=== PATIENT | female | born 1975 | race Caucasian/White ===

== ENCOUNTER 2023-06-16 06:44 | Outpatient (OUT) | payer OTHER, SELFPAY ==
[2023-06-16 07:26] LABS: Basophils Absolute Auto 0.1 10^3/uL (0.0-0.1); Basophils Percent Auto 0.7 % (0.2-2.0); Eosinophils Absolute Auto 0.1 10^3/uL (0.0-0.7); Eosinophils Percent Auto 1.8 % (0.9-7.0); Hematocrit 42.9 % (36.0-48.0); Hemoglobin 14.4 g/dL (12.0-16.0); Immature Granulocytes Abs Auto 0.01 10^3/uL (0.00-0.03); Immature Granulocytes Pct Auto 0.1 % (0.0-0.5); Lymphocytes Absolute Auto 2.8 10^3/uL (1.2-3.8); Lymphocytes Percent Auto 39.8 % (20.5-60.0); Mean Corpuscular HGB Conc 33.6 g/dL (29.9-35.2); Mean Corpuscular Hemoglobin 28.7 pg (26.7-34.0); Mean Corpuscular Volume 85.6 fL (81.0-99.0); Mean Platelet Volume 11.2 fL (9.5-13.5); Monocytes Absolute Auto 0.5 10^3/uL (0.3-0.8); Monocytes Percent Auto 6.7 % (1.7-12.0); Neutrophils Absolute Auto 3.6 10^3/uL (1.4-6.5); Neutrophils Percent Auto 50.9 % (43.0-75.0); Platelet Count 232 10^3/uL (150-450); Red Blood Count 5.01 10^6/uL (4.20-5.40); Red Cell Distribution Width 12.5 % (11.0-15.0)
[2023-06-16 07:46] LABS: Thyroid Stimulating Hormone 1.846 uIU/mL (0.358-3.740)
[2023-06-16 07:58] LABS: Free T4 1.46 ng/dL (0.76-1.46)
== END 2023-06-16 06:45 | disposition home or self-care (01) ==
LOC: LAB 06:47
PROVIDERS: PCP Family Medicine; Visit Provider Obstetrics & Gynecology
DX: R63.5 Abnormal weight gain (principal)
CPT/HCPCS: 36415; 84439; 84443; 85025

== ENCOUNTER 2023-06-23 06:44 | Outpatient (OUT) | payer OTHER, SELFPAY ==
--- OUTSIDE RECORDS SUMMARY | 2023-06-23 06:45 | XMS_ITS | CCD ---
Author Organization [facility] Care Team Providers Care Leasing Manager Name Role Phone ANTONY MAXIMILIAN P Unavailable Unavailable SY, LALY Unavailable Unavailable MCGUINN, MAXIMILIAN P Unavailable Unavailable KERRIE, LALY Unavailable Unavailable LORETTA, DR CROW Admitting Unavailable LORETTA, DR CROW Attending Unavailable SY, DR LALY Arias Primary Care Unavailable LORETTA, DR CROW Consulting Unavailable LORETTA, DR CROW Consulting Unavailable LORETTA, DR CROW Admitting Unavailable LORETTA, DR CROW Attending Unavailable SY, DR LALY Arias Primary Care Unavailable LORETTA, DR CROW Admitting Unavailable LORETTA, DR CROW Attending Unavailable SY, DR LALY Arias Primary Care Unavailable LORETTA, DR CROW Consulting Unavailable ZIEBER, DR CAR bYarra Consulting Unavailable SY, DR LALY Arias Admitting Unavailable SY, DR LALY Arias Attending Unavailable KERRIE, DR LALY Arias Consulting Unavailable SY, DR LALY Arias Primary Care Unavailable Norma Combs Unavailable Laly Sy Unavailable Asalaz, Imad Unavailable MD Laly Sy Primary Care Provider [phone] MD Benja Martin Attending Provider Laly Sy Primary Care Unavailable Asaad, Imad Attending Unavailable AsaadBenja Admitting Unavailable MIGNON MUHAMMAD Attending Unavailable Allergies Allergy Classification Reported Allergen(s) Allergy Type Date of Onset Reaction(s) Facility (2 sources) Iodine Drug Allergy 08-01-2013 [facility] Repository (8 sources) Iodine Drug Allergy [facility] [place] [facility] Other (1 source) Iodine Drug Allergy 08-26-2022 [facility] Repository Medications Current Medications Medication Drug Class(es) Dates Sig (Normalized) Sig (Original) 0.5 ML tirzepatide 20 MG/ML Auto-Injector [Mounquangro] (6 sources) Mounjaro 10 MG/0.5ML as directed Subcutaneous Dr. Muhammad Active azithromycin 250 mg oral tablet (1 source) Macrolide Antimicrobial Start: 02-22-2023 Azithromycin 250 MG as directed Orally 2 tabs po today, then 1 tab daily x 4 more days for 5 Feb, Active chlorthalidone 25 mg oral tablet (9 sources) Thiazide-like Diuretic Start: 08-26-2022 take 25 mg by mouth once daily Chlorthalidone Active 25 MG PO Daily August 26, 2022 12:00am Chlorthalidone A ctive citalopram 20 mg oral tablet (8 sources) Serotonin Reuptake Inhibitor Start: 08-26-2022 take 20 mg by mouth once daily Citalopram Active 20 MG PO Daily August 26, 2022 12:00am take 1 tablet by osito th every twenty-four hours Citalopram Hydrobromide 10 MG 1 tablet Orally Once a day Active loratadine 10 mg oral tablet (8 sources) Start: 05-03-2011 take 1 tablet by mouth every twenty-four hours Claritin 10 MG 1 tablet Orally Once a day for 30 day(s) Apr, Active methylPREDNISolone 4 mg oral tablet (1 source) Corticosteroid Start: 02-22-2023 methylPREDNISolone 4 MG as directed Orally for 6 days Feb, Active mounjaro 10 mg/0.5ml solution pen-injector (1 source) Mounjaro 10 MG/0 .5ML as directed Subcutaneous Dr. Muhammad Active polyethylene glycol 3350 990684 mg / potassium chloride 2970 mg / sodium bicarbonate 6740 mg / sodium chloride 5860 mg / sodium sulfate 14344 mg powder for oral solution (3 sources) Osmotic Laxative Start: 07-28-2022 PEG-3350/Electrolyte s 236 GM as directed Orally once daily for 1 days Jul, Active Post-OP Shoe/Soft Top Women - (1 source) Start: 04-28-2022 Post-OP Shoe/Soft Top Women - as directed Apr, Active predniSONE 10 mg oral tablet (2 sources) Start: 08-05-2022 predniSONE 10 MG 4 tabs po daily x 2 days, 3 tabs daily x 2 days, 2 tabs daily x 2 days, 1 tab daily x 2 days Orally Once a day for 8 Jul, Active sulfamethoxazole 800 mg / trimethoprim 160 mg oral tablet (1 source) Dihydrofolate Reductase Inhibitor Antibacterial, Sulfonamide Antimicrobial take 1 tablet by mouth every twelve hours Bactrim DS 800-160 MG 1 tablet Orally Twice a day for 5 days Active Tirzepatide (1 source) Start: 08-26-2022 Tirzepatide (Mounjaro) 7.5 mg/0.5 mL pen injector Active 7.5 MG SUBCUT every week August 26, 2022 12:00am Problems Active Problems Problem Classification Problem Date Documented Da te Episodic/Chronic Asthma (2 sources) Exacerbation of moderate persistent asthma; Translations: [Moderate persistent asthma with (acute) exacerbation] Chronic Chronic obstructive pulmonary disease and bronchiectasis (1 source) Bronchitis, not specified as acute or chronic Episodic Essential hypertension (9 sources) Essential (primary) hypertension; Translations: [Essential hypertension] Onset: 04-04-2017 Chronic Essential hypertension (2 sources) Essential hypertension Onset: 04-04-2017 Gastrointestinal hemorrhage (1 source) Hemorrhage of anus and rectum Episodic Heart valve disorders (8 sources) Mitral valve prolapse; Translations: [Nonrheumatic mitral (valve) prolapse] Chronic Immunizations and screening for infectious disease (1 source) Encounter for screening for human papillomavirus (HPV); Translations: [ENC SCREENING HUMAN PAPILLOMAVIRUS] Onset: 09-22-2021 Episodic Other connective tissue disease (1 source) Other enthesopathy of unspecified foot and ankle Episodic Other endocrine disorders (7 sources) Disorder of endocrine system; Translations: [Endocrine disorder, unspecified] Episodic Other lower respiratory disease (1 source) Dyspnea, unspecified; Translations: [Dyspnea, unspecified] Onset: 05-04-2017 Episodic Other lower respiratory disease (8 sources) Dyspnea on exertion; Translations: [Dyspnea on exertion] Episodic Other nutritional; endocrine; and metabolic disorders (4 sources) Metabolic syndrome; Translations: [METABOLIC SYNDROME] Onset: 09-25-2021 Chronic Other nutritional; endocrine; and metabolic disorders (7 sources) Insulin resistance; Translations: [Metabolic syndrome] Chronic Other nutritional; endocrine; and metabolic disorders (1 source) Obesity caused by energy imbalance; Translations: [Other obesity due to excess calories] Chronic Other nutritional; endocrine; and metabolic disorders (1 source) Body mass index 30+ - obesity; Translations: [Body mass index (BMI) 34.0-34.9, adult] Chronic Other nutritional; endocrine; and metabolic disorders (1 source) Other obesity due to excess calories Chronic Other nutritional; endocrine; and metabolic disorders (1 source) Body mass index (BMI) 34.0-34.9, adult Chronic Other screening for suspected conditions (not mental disorders or infectious disease) (7 sources) Encounter for screening for malignant neoplasm of cervix; Translations: [Encounter for screening mammogram for malignant neoplasm of breast] Onset: 09-21-2021 Episodic Residual codes; unclassified (1 source) Family history of malignant neoplasm of digestive organs; Translations: [FAM HX MALIG NEOPLASM DIGESTIV ORGN] Onset: 09-28-2021 Episodic Residual codes; unclassified (7 sources) Insomnia; Translations: [Insomnia, unspecified] Episodic Unclassified (2 sources) Dyspnea, unspecified / R06.00(ICD-9) Onset: 05-04-2017 Unclassified (1 source) Edema, unspecified / R60.9(ICD-9) Onset: 05-04-2017 Unclassified (1 source) Obesity, unspecified / E66.9(ICD-9) Onset: 05-04-2017 Unclassified (1 source) Hemorrhage of anus and rectum; Translations: [Hemorrhage of anus and rectum] Onset: 08-26-2022 Past or Other Problems Problem Classification Problem Date Documented Da te Episodic/Chronic Nonspecific chest pain (4 sources) Chest pain, unspecified; Translations: [CHEST PAIN UNSPECIFIED] Onset: 06-17-2021 Episodic Other endocrine disorders (4 sources) Endocrine disorder, unspecified; Translations: [ENDOCRINE DISORDER UNSPECIFIED] Onset: 12-27-2020 Episodic Results Test Name Value Interpretation Reference Range Facility [facility] 08-26-2022 L - -------- Specimen: [id number] Received: 08/26/22 Status: PATRICIO Hernandezstephanie Num: [id number] Spec Type: Surgical Subm Dr: Benja Martin MD Tissues: A Colon Biopsy (SIGMOID POLYP) Procedures: HE/2, Gross/Micro L4 -------- Age/ Patient Sex Location Account Attending Physician -------- Noris Rosales 47/F [id number] Benja Martin MD -------- SPEC NUM: [id number] RECD: 08/26/22 STATUS: PATRICIO HERNANDEZStephanie NUM: [id number] JENNIFER: 08/26/22 DR: Benja Martin MD ENTERED: 08/26/[address] [facility] [address]: SPEC TYPE: Surgical DEPT: S ORDERED: HE/2, Gross/Micro L4 ORDERED: HE2, Gross/Micro L4 Pathological Diagnosis Colon, sigmoid, polyp, polypectomy: - 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 Entirely submitted in one cassette labeled A1. Microscopic Description Two H E slides reviewed. The microscopic examination confirms the diagnosis. CPT Codes 99687 -------- -------- Specimen: [id number] Received: 08/26/22 Status: PATRICIO Karen Num: [id number] Spec Type: Surgical Subm Dr: Benja Martin MD Tissues: A Colon Biopsy (SIGMOID POLYP) Procedures: HE/Kana, Gross/Micro L4 -------- Patient: Noris Rosales [id number] (Continued) -------- Signed (signature on file) Blas Mijares MD 08/27/22 1820 Normal [facility] INSULIN FREE AND TOTALon Free Insulin 10 uU/mL Normal [facility] Comment on above: Result Comment: Refe rence Range: Pubertal Children and Adults (fasting): 0 - 17 Performed By: #### E RAYNE #### [facility] [address] [place] [address] Dr. Beata Mijares Total Insulin 10 uU/mL Normal [facility] Comment on above: Result Comment: Non- Diabetic: In the absence of insulin- binding antibodies, the free and total insulin assays are equivalent. However, this assay is intended for use in diabetics with insulin autoantibody present. Measurement is performed on acid-treated samples and, therefore, the sensitivity and absolute values by this method may differ from our direct insulin ICMA. Insulin Dependent Diabetic Patients: Free Insulin levels vary depending on the capacity and affinity of circulating insulin-binding antibodies and the dose of insulin given to the patient. Total insulin levels represent free insulin and antibody bound insulin fractions. This test was developed and its performance characteristics determined by [employer]. It has not been cleared or approved by the Food and Drug Administration. Performed By: #### E RAYNE #### [facility] [address] [place] [address] Dr. Beata Mijares CBC AUTO DIFFon 09-25-2021 BASO # 0.1 103/ul Normal 0.0-0.1 [facility] Comment on above: Performed By: #### F T4 #### [facility] [address] [place] [address] Dr. Beata Mijares Basophils/100 WBC (Bld) 0.7 % Normal 0.2-2.0 [facility] Comment on above: Performed By: #### F T4 #### [facility] [address] [place] [address] Dr. Beata Mijares EO # 0.1 103/ul Normal 0.0-0.7 [facility] Comment on above: Performed By: #### F T4 #### [facility] [address] [place] [address] Dr. Beata Mijares Eosinophils/100 WBC (Bld) 1.8 % Normal 0.9-7.0 [facility] Comment on above: Performed By: #### F T4 #### [facility] [address] [place] [address] Dr. Beata Mijares Erythrocyte distribution width (RBC) [Ratio] 12.9 % Normal 11.0-15.0 [facility] Comment on above: Performed By: #### F T4 #### [facility] [address] [place] [address] Dr. Beata Mijares Hematocrit (Bld) [Volume fraction] 42.5 % Normal 36.0-48.0 [facility] Comment on above: Performed By: #### F T4 #### [facility] [address] [place] [address] Dr. Baeta Mijares Hemoglobin (Bld) [Mass/Vol] 14.3 g/dL Normal 12.0-16.0 [facility] Comment on above: Performed By: #### F T4 #### [facility] [address] [place] [address] Dr. Beata Mijares IG # 0.02 10e3/ul Normal 0.00-0.03 [facility] Comment on above: Performed By: #### F T4 #### [facility] [address] [place] [address] Dr. Beata Mijares IG % 0.3 % Normal 0.0-0.5 [facility] Comment on above: Performed By: #### F T4 #### [facility] [address] [place] [address] Dr. Beata Mijares LYMPH # 2.5 103/ul Normal 1.2-3.8 [facility] Comment on above: Performed By: #### F T4 #### [facility] [address] [place] [address] Dr. Beata Mijares Lymphocytes/100 WBC (Bld) 36.1 % Normal 20.5-60.0 [facility] Comment on above: Performed By: #### F T4 #### [facility] [address] [place] [address] Dr. Beata Mijares MANUAL DIFF REQ NO Normal [facility] Comment on above: Performed By: #### F T4 #### [facility] [address] [place] [address] Dr. Beata Mijares MCH (RBC) [Entitic mass] 28.4 pg Normal 26.7-34.0 [facility] Comment on above: Performed By: #### F T4 #### [facility] [address] [place] [address] Dr. Beata Mijares MCHC (RBC) [Mass/Vol] 33.6 g/dL Normal 29.9-35.2 [facility] Comment on above: Performed By: #### F T4 #### [facility] [address] [place] [address] Dr. Beata Mijares MCV (RBC) [Entitic vol] 84.3 fL Normal 81.0-99.0 [facility] Comment on above: Performed By: #### F T4 #### [facility] [address] [place] [address] Dr. Beata Mijares MONO # 0.5 103/ul Normal 0.3-0.8 [facility] Comment on above: Performed By: #### F T4 #### [facility] [address] [place] [address] Dr. Beata Mijares Monocytes/100 WBC (Bld) 7.7 % Normal 1.7-12.0 [facility] Comment on above: Performed By: #### F T4 #### [facility] [address] [place] [address] Dr. Beata Mijares NEUT # 3.7 103/ul Normal 1.4-6.5 [facility] Comment on above: Performed By: #### F T4 #### [facility] [address] [place] [address] Dr. Beata Mijares Neutrophils/100 WBC (Bld) 53.4 % Normal 43.0-75.0 [facility] Comment on above: Performed By: #### F T4 #### [facility] [address] [address] [address] Beata Mijares Platelet mean volume (Bld) [Entitic vol] 11.0 fL Normal 9.5-13.5 [facility] Comment on above: Performed By: #### F T4 #### [facility] [address] [place] [address] Dr. Beata Mijares PLT 229 103/ul Normal 150-450 [facility] Comment on above: Performed By: #### F T4 #### [facility] [address] [place] [address] Dr. Beata Mijares RBC 5.04 106/ul Normal 4.20-5.40 [facility] Comment on above: Performed By: #### F T4 #### [facility] [address] [place] [address] Dr. Beata Mijares WBC 6.8 103/ul Normal 4.0-11.0 [facility] Comment on above: Performed By: #### F T4 #### [facility] [address] [place] [address] Dr. Beata Mijares FREE T4on 09-25-2021 Free T4 [Mass/Vol] 1.19 ng/dL Normal 0.76-1.46 [facility] Comment on above: Performed By: #### F T4 #### [facility] [address] [place] [address] Dr. Beata Mijares GLYCOHEMOGLOBIN A1Con 2021 ADA RECOMMENDATION SEE BELOW Normal [facility] Comment on above: Result Comment: ADA RECOMMENDED LIMIT 4.0 - 6.0 ADA THERAPEUTIC TARGET < 7.0 ACTION SUGGESTED > 7.0 Performed By: #### E STRADI #### [facility] [address] [place] [address] Dr. Beata Mijares Glucose [Mass/Vol] 114 mg/dL Normal [facility] Comment on above: Performed By: #### E STRADI #### [facility] [address] [place] [address] Dr. Beata Mijares HbA1c (Bld) [Mass fraction] 5.6 % Normal 4.5-6.2 [facility] Comment on above: Performed By: #### E STRADI #### [facility] [address] [address] [address] Beata Mijares MG MAMM SCREEN 3D SHAUN CADon 09-25-2021 MG MAMM SCREEN 3D SHAUN CAD Patient: NORIS ROSALES Exam Date: 09/25/2021 : 1975 Gender:F Ordering : DR MIGNON MUHAMMAD . Admission #: [id number] Family : Order #: [id number] CLICK HERE TO VIEW EXAM RADIOLOGY REPORT PROCEDURE: MAMMOGRAM SCREENING 3D BILATERAL CAD COMPARISON: MG MAMM SCREEN 3D SHAUN CAD, 09/22/2020. MG MAMM SCREEN SHAUN W CAD, 07/24/2018. INDICATIONS: Screening mammography Calculator Name NCI Breast Cancer Risk Assessment Tool 5 Year Breast Cancer Risk 1.00% Lifetime Breast Cancer Risk 10.20% Personal Breast Cancer No Personal Ovarian Cancer No Treatments None Family Cancers Grandmother-paternal with colon cancer at age 70. LOCATION: [facility] BREAST COMPOSITION: Heterogeneously dense,which may obscure small masses. FINDINGS: DIAGNOSTIC CATEGORY 1--NEGATIVE. RIGHT BREAST: No significant suspicious finding. No significant change has occurred. LEFT BREAST: No significant suspicious finding. No significant change has occurred. RECOMMENDATIONS: ROUTINE MAMMOGRAM AND CLINICAL EVALUATION IN 12 MONTHS. PLEASE NOTE: A NORMAL MAMMOGRAM DOES NOT EXCLUDE THE POSSIBILITY OF BREAST CANCER. A CLINICALLY SUSPICIOUS PALPABLE LUMP SHOULD BE BIOPSIED. Dictated by: Car Garcia M.D. on 09/25/2021 at 09:50 Approved by: Car Garcia M.D. on 09/25/2021 at 10:20 [facility] PAP ACOG PANEL 2: 30 to 65on 09-25-2021 . . Normal [facility] Comment on above: Result Comment: Perf ormed at: WB Performed By: #### 4 [id number] #### [facility] [address] [address] [address] Beata Mijares Age Gdln ACOG Testing 30-65 Normal [facility] Comment on above: Performed By: #### 4 [id number] #### [facility] [address] [address] [address] Beata Mijares DIAGNOSIS: Comment Normal [facility] Comment on above: Result Comment: NEGA TIVE FOR INTRAEPITHELIAL LESION OR MALIGNANCY. THIS SPECIMEN WAS RESCREENED PART OF OUR SCRAP METAL PROCESSING WORKER PROGRAM. Performed at: WB Performed By: #### 4 [id number] #### [facility] [address] [place] [address] Dr. Beata Mijares HPV Aptima Negative Normal Negative [facility] Comment on above: Result Comment: This nucleic acid amplification test detects fourteen high-risk HPV types (16,18,31,33,35,39,45,51,52,56,58,59,66,68) without differentiation. Performed at: =G Performed By: #### 4 [id number] #### [facility] [address] [place] [address] Dr. Beata Mijares Methodology: Comment Normal [facility] Comment on above: Result Comment: This liquid based ThinPrep(R) pap test was screened with the use of an image guided system. Performed at: WB Performed By: #### 4 [id number] #### [facility] [address] [place] [address] Dr. Beata Mijares Note: Comment Normal [facility] Comment on above: Result Comment: The Pap smear is a screening test designed to aid in the detection of premalignant and malignant conditions of the uterine cervix. It is not a diagnostic procedure and should not be used as the sole means of detecting cervical cancer. Both false-positive and false-negative reports do occur. . Performed at: WB Performed By: #### 4 [id number] #### [facility] [address] [place] [address] Dr. Beata Mijares Performed by: Comment Normal [facility] Comment on above: Result Comment: Vee Tijerina, Pump House Technician (ASCP) Performed at: WB Performed By: #### 4 [id number] #### [facility] [address] [place] [address] Dr. Beata Mijares QC reviewed by: Comment Normal [facility] Comment on above: Result Comment: Mohinder Sepulveda, Supervisory Pump House Technician (ASCP) Performed at: WB Performed By: #### 4 [id number] #### [facility] [address] [place] [address] Dr. Beata Mijares Specimen adequacy: Comment Normal [facility] Comment on above: Result Comment: Sati sfactory for evaluation. Endocervical and/or squamous metaplastic cells (endocervical component) are present. Performed at: WB Performed By: #### 4 [id number] #### [facility] [address] [place] [address] Dr. Beata Mijares TSHon 09-25-2021 TSH 1.833 uIU/mL Normal 0.358-3.740 [facility] Comment on above: Performed By: #### T SH #### [facility] [address] [place] [address] Dr. Beata Mijares CARDIAC MELCHOR ADMITon 022 CK [Catalytic activity/Vol] 148 U/L Normal 26-192 [facility] Comment on above: Performed By: #### F T4 #### [facility] [address] [place] [address] Dr. Beata Mijares CK.MB [Mass/Vol] 1.29 ng/mL Normal <=3.60 [facility] Comment on above: Performed By: #### F T4 #### [facility] [address] [place] [address] Dr. Beata Mijares KOLBY 51 ng/mL Normal 9-82 [facility] Comment on above: Performed By: #### F T4 #### [facility] [address] [place] [address] Dr. Beata Mijares CBC AUTO DIFFon 06-17-2021 BASO # 0.0 103/ul Normal 0.0-0.1 [facility] Comment on above: Performed By: #### C BC #### [facility] [address] [place] [address] Dr. Beata Mijares Basophils/100 WBC (Bld) 0.4 % Normal 0.2-2.0 [facility] Comment on above: Performed By: #### C BC #### [facility] [address] [place] [address] Dr. Beata Mijares EO # 0.1 103/ul Normal 0.0-0.7 [facility] Comment on above: Performed By: #### C BC #### [facility] [address] [place] [address] Dr. Beata Mijares Eosinophils/100 WBC (Bld) 1.3 % Normal 0.9-7.0 [facility] Comment on above: Performed By: #### C BC #### [facility] [address] [place] [address] Dr. Beata Mijares Erythrocyte distribution width (RBC) [Ratio] 12.6 % Normal 11.0-15.0 [facility] Comment on above: Performed By: #### C BC #### [facility] [address] [place] [address] Dr. Beata Mijares Hematocrit (Bld) [Volume fraction] 43.3 % Normal 36.0-48.0 [facility] Comment on above: Performed By: #### C BC #### [facility] [address] [place] [address] Dr. Beata Mijares Hemoglobin (Bld) [Mass/Vol] 14.3 g/dL Normal 12.0-16.0 [facility] Comment on above: Performed By: #### C BC #### [facility] [address] [place] [address] Dr. Beata Mijares IG # 0.02 10e3/ul Normal 0.00-0.03 [facility] Comment on above: Performed By: #### C BC #### [facility] [address] [place] [address] Dr. Beata Mijares IG % 0.3 % Normal 0.0-0.5 [facility] Comment on above: Performed By: #### C BC #### [facility] [address] [place] [address] Dr. Beata Mijares LYMPH # 2.8 103/ul Normal 1.2-3.8 [facility] Comment on above: Performed By: #### C BC #### [facility] [address] [place] [address] Dr. Beata Mijares Lymphocytes/100 WBC (Bld) 39.4 % Normal 20.5-60.0 [facility] Comment on above: Performed By: #### C BC #### [facility] [address] [place] [address] Dr. Beata Mijares MANUAL DIFF REQ NO Normal [facility] Comment on above: Performed By: #### C BC #### [facility] [address] [place] [address] Dr. Beata Mijares MCH (RBC) [Entitic mass] 28.5 pg Normal 26.7-34.0 [facility] Comment on above: Performed By: #### C BC #### [facility] [address] [place] [address] Dr. Beata Mijares MCHC (RBC) [Mass/Vol] 33.0 g/dL Normal 29.9-35.2 [facility] Comment on above: Performed By: #### C BC #### [facility] [address] [place] [address] Dr. Beata Mijares MCV (RBC) [Entitic vol] 86.3 fL Normal 81.0-99.0 [facility] Comment on above: Performed By: #### C BC #### [facility] [address] [place] [address] Dr. Beata Mijares MONO # 0.4 103/ul Normal 0.3-0.8 [facility] Comment on above: Performed By: #### C BC #### [facility] [address] [place] [address] Dr. Beata Mijares Monocytes/100 WBC (Bld) 5.9 % Normal 1.7-12.0 [facility] Comment on above: Performed By: #### C BC #### [facility] [address] [place] [address] Dr. Beata Mijares NEUT # 3.8 103/ul Normal 1.4-6.5 [facility] Comment on above: Performed By: #### C BC #### [facility] [address] [place] [address] Dr. Beata Mijares Neutrophils/100 WBC (Bld) 52.7 % Normal 43.0-75.0 [facility] Comment on above: Performed By: #### C BC #### [facility] [address] [place] [address] Dr. Beata Mijares Platelet mean volume (Bld) [Entitic vol] 11.1 fL Normal 9.5-13.5 [facility] Comment on above: Performed By: #### C BC #### [facility] [address] [place] [address] Dr. Beata Mijares PLT 227 103/ul Normal 150-450 [facility] Comment on above: Performed By: #### C BC #### [facility] [address] [place] [address] Dr. Beata Mijares RBC 5.02 106/ul Normal 4.20-5.40 [facility] Comment on above: Performed By: #### C BC #### [facility] [address] [place] [address] Dr. Beata Mijares WBC 7.2 103/ul Normal 4.0-11.0 [facility] Comment on above: Performed By: #### C BC #### [facility] [address] [place] [address] Dr. Beata Mijares PROF CHEM 8 (BAS METB)on Anion gap [Moles/Vol] 10.2 mmol/L Normal [facility] Comment on above: Performed By: #### E STRADI #### [facility] [address] [place] [address] Dr. Beata Mijares Calcium [Mass/Vol] 9.7 mg/dL Normal 8.5-10.1 [facility] Comment on above: Performed By: #### E STRADI #### [facility] [address] [place] [address] Dr. Beata Mijares Chloride [Moles/Vol] 101 mmol/L Normal 98-107 [facility] Comment on above: Performed By: #### E STRADI #### [facility] [address] [place] [address] Dr. Beata Mijares CO2 [Moles/Vol] 35.1 mmol/L Critically high 21.0-32.0 [facility] Comment on above: Performed By: #### E STRADI #### [facility] [address] [address] [address] Beata Mijares Creatinine [Mass/Vol] 0.88 mg/dL Normal 0.55-1.02 [facility] Comment on above: Performed By: #### E STRADI #### [facility] [address] [address] [address] Beata Mijares EGFR-AF AZERBAIJANI >60 Normal >=60 [facility] Comment on above: Performed By: #### E STRADI #### [facility] [address] [address] [address] Beata Mijares EGFR-NON AF AZERBAIJANI >60 Normal >=60 [facility] Comment on above: Performed By: #### E STRADI #### [facility] [address] [address] [address] Beata Mijares Glucose [Mass/Vol] 111 mg/dL Critically high 74-106 [facility] Comment on above: Performed By: #### E STRADI #### [facility] [address] [address] [address] Beata Mijares Potassium [Moles/Vol] 3.3 mmol/L Critically low 3.5-5.1 [facility] Comment on above: Performed By: #### E STRADI #### [facility] [address] [place] [address] Dr. Beata Mijares Sodium [Moles/Vol] 143 mmol/L Normal 136-145 [facility] Comment on above: Performed By: #### E STRADI #### [facility] [address] [address] [address] Beata Mijares Urea nitrogen [Mass/Vol] 17.0 mg/dL Normal 7.0-18.0 [facility] Comment on above: Performed By: #### E STRADI #### [facility] [address] [address] [address] Beata Mijares Urea nitrogen/Creatinine [Mass ratio] 19.3 mg/mg Normal [facility] Comment on above: Performed By: #### E STRADI #### [facility] [address] [address] [address] Beata Mijares TROPONIN, HIGH SENSITIVITYon 06-17-2021 HSTROP 5.1 pg/mL Normal 4.0-51.3 [facility] Comment on above: Result Comment: CUT- OFF POINTS HAVE BEEN ESTABLISHED BASED ON THE FOURTH UNIVERSAL DEFINITIONS OF MYOCARDIAL INFARCTION. THE UPPER REFERENCE LIMIT (URL) OF TROPONIN, DEFINED THE 99TH PERCENTILE OF cTnI DISTRIBUTION IN A REFERENCE POPULATION, HAS BEEN CONFIRMED THE DECISION THRESHOLD FOR WA DIAGNOSIS. Performed By: #### E STRADI #### [facility] [address] [address] [address] Beata Mijares Performed By: #### F T4 #### [facility] [address] [place] [address] Dr. Beata Mijares ESTRONEon 12-30-2020 Estrone, Serum 68 pg/mL Normal [facility] Comment on above: Result Comment: Adul t: Follicular phase 39 - 132 Periovulatory 58 - 256 Luteal phase 54 - 179 : 1st trimester 247 - 2774 2nd trimester 569 - 5781 Postmenopausal: with ERT 51 - 488 without ERT 31 - 100 Performed By: #### E RAYNE #### [facility] [address] [place] [address] Dr. Beata Mijares TESTOSTERONE, FREE,DIRECT, T OTALon 12-30-2020 Free Testosterone(Direct) 1.7 pg/mL Normal 0.0-4.2 [facility] Comment on above: Result Comment: Perf ormed at: BN Performed By: #### F T4 #### [facility] [address] [place] [address] Dr. Beata Mijares Testosterone [Mass/Vol] 17 ng/dL Normal 4-50 [facility] Comment on above: Result Comment: Perf ormed at: CB Performed By: #### F T4 #### [facility] [address] [place] [address] Dr. Beata Mijares CORTISOLon 12-28-2020 Cortisol 17.6 ug/dL Normal [facility] Comment on above: Result Comment: Kade isol AM 6.2 - 19.4 Cortisol PM 2.3 - 11.9 Performed By: #### E STRADI #### [facility] [address] [address] [address] Beata Mijares DHEA-SULFATEon 12-28-2020 DHEA-Sulfate 142.0 ug/dL Normal 41.2-243.7 [facility] Comment on above: Performed By: #### D MALIHA #### [facility] [address] [address] [address] Beata Mijares ESTRADIOLon 12-28-2020 Estradiol 14.2 pg/mL Normal [facility] Comment on above: Result Comment: Adul t Female: Follicular phase 12.5 - 166.0 Ovulation phase 85.8 - 498.0 Luteal phase 43.8 - 211.0 Postmenopausal <6.0 - 54.7 1st trimester 215.0 - >4300.0 Corey ECLIA methodology Performed By: #### E RAYNE #### [facility] [address] [place] [address] Dr. Beata Mijares PROGESTERONEon 12-28-2020 Progesterone 0.1 ng/mL Normal [facility] Comment on above: Result Comment: Foll icular phase 0.1 - 0.9 Luteal phase 1.8 - 23.9 Ovulation phase 0.1 - 12.0 First trimester 11.0 - 44.3 Second trimester 25.4 - 83.3 Third trimester 58.7 - 214.0 Postmenopausal 0.0 - 0.1 Performed By: #### P QUE #### [facility] [address] [place] [address] Dr. Beata Mijares SEX HORMONE-BINDING GLOBULIN on 12-28-2020 Sex Horm Binding Glob, Serum 31.7 nmol/L Normal 24.6-122.0 [facility] Comment on above: Performed By: #### S EXHBG #### [facility] [address] [address] [address] Beata Mijares T3, TOTAL (TRIIODOTHYRONINE) on 12-28-2020 T3, TOTAL 123 ng/dL Normal 71-180 [facility] Comment on above: Performed By: #### E RAYNE #### [facility] [address] [address] [address] Beata Mijares FREE T4on 12-27-2020 Free T4 [Mass/Vol] 1.29 ng/dL Normal 0.78-2.19 [facility] Comment on above: Performed By: #### E STRADI #### [facility] [address] [place] [address] Dr. Beata Mijares T4on 12-27-2020 T4 [Mass/Vol] 6.70 ug/dL Normal 5.53-11.00 [facility] Comment on above: Performed By: #### T SH, T4 #### [facility] [address] [place] [address] Dr. Beata Mijares TSHon 12-27-2020 TSH 1.127 uIU/mL Normal 0.470-4.680 [facility] Comment on above: Performed By: #### T SH, T4 #### [facility] [address] [place] [address] Dr. Beata Mijares TSH RANGE SEE BELOW Normal [facility] Comment on above: Result Comment: <0.3 4 UIU/ml HYPERTHYROID 0.34-5.60 UIU/ml EUTHYROID >5.60 UIU/ml HYPOTHYROID Performed By: #### T SH, T4 #### [facility] [address] [place] [address] Dr. Beata Mijares VITAMIN D 25 OHon 12-27-2020 VIT D 25-OH 32.0 ng/mL Normal [facility] Comment on above: Performed By: #### E STRADI #### [facility] [address] [place] [address] Dr. Beata Mijares VIT D RANGES SEE BELOW Normal [facility] Comment on above: Result Comment: <20 ng/mL Vit D deficient 20 - <30 ng/mL Vit D insufficient 30 - 100 ng/mL Vit D sufficient >100 ng/mL Potential Toxicity Performed By: #### E STRADI #### [facility] [address] [place] [address] Dr. Beata Mijares Creatinineon 04-04-2017 Creatinine 0.87 mg/dL Normal 0.50-1.05 [facility] Comment on above: Performed By: #### 1 [id number] ####[facility] [address] [place] [address] eGFR (MDRD) mL/min/{1.73_m2} Normal [facility] Comment on above: Result Comment: Inte rpretation for Chronic Kidney Disease:Stages 1&2 >60 Healthy or potential kidney damage.Mild decrease of GFR.Stage 3 30-59 Moderate decrease of GFR.Stage 4 15-29 Severe decrease of GFR.Stage 5 <15 Kidney failure or on dialysis. Performed By: #### 1 [id number] ####[facility] [address] [place] [address] Electrolyte Panelon 04-04-19 18 Anion gap 11 mmol/L Normal 10-20 [facility] Comment on above: Performed By: #### 1 [id number] ####[facility] [address] [place] [address] Bicarbonate (HCO3) 32 mmol/L Normal 21-32 [facility] Comment on above: Performed By: #### 1 [id number] ####[facility] [address] [place] [address] Chloride 103 mmol/L Normal 98-107 [facility] Comment on above: Performed By: #### 1 [id number] ####[facility] [address] [place] [address] Potassium molar conc 3.3 mmol/L Low 3.5-5.1 [facility] Comment on above: Performed By: #### 1 [id number] ####[facility] [address] [place] [address] Sodium 143 mmol/L Normal 136-145 [facility] Comment on above: Performed By: #### 1 [id number] ####[facility] [address] [place] [address] Urea Nitrogenon 04-04-2017 Urea nitrogen 18 mg/dL Normal 6-23 [facility] are Comment on above: Performed By: #### 1 [id number] ####[facility] [address] [place] [address] Urinalysison 04-04-2017 Ascorbic Acid Negative Normal Negative [facility] are Comment on above: Performed By: #### 1 [id number] ####[facility] [address] [place] [address] Automated Urine Microscopy Performed Normal [facility] Comment on above: Performed By: #### 1 [id number] ####[facility] [address] [place] [address] Bilirubin Ql (U) Negative Normal Negative [facility] Comment on above: Performed By: #### 1 [id number] ####[facility] [address] [place] [address] Blood Small Abnormal Negative [facility] Comment on above: Performed By: #### 1 [id number] ####[facility] [address] [place] [address] Erythrocytes (RBC) 4 /[HPF] Normal 0-3 [facility] Comment on above: Performed By: #### 1 [id number] ####[facility] [address] [place] [address] Glucose mass conc Negative Normal Negative [facility] Comment on above: Performed By: #### 1 [id number] ####[facility] [address] [place] [address] Protein Negative Normal Negative [facility] Comment on above: Performed By: #### 1 [id number] ####[facility] [address] [place] [address] Urine, appearance Hazy Normal Clear [facility] Comment on above: Performed By: #### 1 [id number] ####[facility] [address] [place] [address] Urine, color Yellow Normal [facility] Comment on above: Performed By: #### 1 [id number] ####[facility] [address] [place] [address] Urine, ketones presence Negative Normal Negative [facility] Comment on above: Performed By: #### 1 [id number] ####[facility] [address] [place] [address] Urine, nitrite presence Negative Normal Negative [facility] Comment on above: Performed By: #### 1 [id number] ####[facility] [address] [place] [address] Urine, pH 7.0 [pH] Normal 5.0-9.0 [facility] Comment on above: Performed By: #### 1 [id number] ####[facility] [address] [place] [address] Urine, specific gravity 1.021 Normal 1.003-1.035 [facility] Comment on above: Performed By: #### 1 [id number] ####[facility] [address] [place] [address] Urine, squamous cells in sediment 1 /[HPF] Normal 0-5 [facility] Comment on above: Performed By: #### 1 [id number] ####[facility] [address] [place] [address] Urine, urobilinogen <2.0 Normal Negative [facility] Comment on above: Performed By: #### 1 [id number] ####[facility] [address] [place] [address] WBC (Leukocytes) 1 /[HPF] Normal 0-5 [facility] Comment on above: Performed By: #### 1 [id number] ####[facility] [address] [place] [address] WBC (Leukocytes) Negative Normal Negative [facility] Comment on above: Performed By: #### 1 [id number] ####[facility] [address] [place] [address] Vital Signs Date Time Vital Sign Value Performing Clinician Facility 02-22-2023 09:45-0500 Body height 167.64 cm Laly Sy Other [employer] Other 02-22-2023 09:45-0500 Body mass index (BMI) [Ratio] 34.21 kg/m2 Laly Sy Other [employer] Other 02-22-2023 09:45-0500 Body weight 96.16 kg Laly Sy Other [employer] Other 10-04-2022 09:00-0400 Body height 167.64 cm Laly Sy Other [employer] Other 10-04-2022 09:00-0400 Body mass index (BMI) [Ratio] 34.21 kg/m2 Laly Sy Other [facility] [employer] Other 10-04-2022 09:00-0400 Body weight 96.16 kg Laly Sy Other [employer] Other 10-04-2022 09:00-0400 Diastolic blood pressure 85 mm[Hg] Laly Sy Other [facility] [employer] Other 10-04-2022 09:00-0400 Systolic blood pressure 142 mm[Hg] Laly Sy Other [facility] [employer] Other 08-26-2022 10:41-0400 Diastolic blood pressure 78 mm[Hg] MD Laly Sy Work Phone: [facility] 08-26-2022 10:41-0400 Heart rate 57 /min MD Laly Sy Work Phone: [facility] 08-26-2022 10:41-0400 Respiratory rate 16 /min MD Laly Sy Work Phone: [facility] 08-26-2022 10:41-0400 SaO2% (BldA) [Mass fraction] 97 % MD Laly Sy Work Phone: [facility] 08-26-2022 10:41-0400 Systolic blood pressure 136 mm[Hg] MD aLly Sy Work Phone: [facility] 08-26-2022 07:54-0400 Body height 167.64 cm MD Laly Sy Work Phone: [facility] 08-26-2022 07:54-0400 Body temperature 98.1 [degF] MD Laly Sy Work Phone: [facility] 08-26-2022 07:54-0400 Body weight 97.52 kg MD Laly Sy Work Phone: [facility] 07-19-2022 11:00-0400 Body height 167.64 cm Laly Sy Other [facility] [employer] Other 07-19-2022 11:00-0400 Body mass index (BMI) [Ratio] 34.7 kg/m2 Laly Sy Other [employer] Other 07-19-2022 11:00-0400 Body weight 97.52 kg Laly Sy Other [employer] Other 07-19-2022 11:00-0400 Diastolic blood pressure 85 mm[Hg] Laly Sy Other [employer] Other 07-19-2022 11:00-0400 Systolic blood pressure 131 mm[Hg] Laly Sy Other [employer] Other 04-28-2022 19:50-0400 Body height 167.64 cm Norma Combs Other [employer] Other 04-28-2022 19:50-0400 Body mass index (BMI) [Ratio] 32.28 kg/m2 Norma Lauryn Other [employer] Other 04-28-2022 19:50-0400 Body temperature 98.3 [degF] Norma Combs Other [employer] Other 04-28-2022 19:50-0400 Body weight 90.72 kg Norma Combs Other [employer] Other 04-28-2022 19:50-0400 Respiratory rate 18 /min Norma Lauryn Other [employer] Other 04-28-2022 19:50-0400 SaO2% (BldA) [Mass fraction] 97 % Norma Combs Other [employer] Other Encounters Encounter Date Encounter Type Care Provider Facility Start: 06-07-2023 End: 06-07-2023 ambulatory MIGNON LORETTA Not Available Start: 02-22-2023 End: 02-22-2023 ambulatory Laly Sy Other [employer] Other Start: 02-22-2023 Office outpatient vi sit 15 minutes Laly Sy [facility] Start: 10-25-2022 End: 10-25-2022 ambulatory Laly Sy Other [employer] Other Start: 10-25-2022 Telephone encounter Laly Sy [facility] Start: 10-04-2022 End: 10-04-2022 ambulatory Laly Sy Other [employer] Other Start: 10-04-2022 Encounter for genera l adult medical examination without abnormal findings Laly Sy [facility] Start: 10-04-2022 Periodic preventive med est patient 40-64yrs Laly Sy [facility] Start: 08-26-2022 End: 08-26-2022 ambulatory Laly Sy Facility:[facility] Start: 08-26-2022 End: 08-26-2022 Admission to same day surgery center MD Laly Sy Work Phone: [facility] Work Phone: Start: 08-26-2022 End: 08-26-2022 ambulatory MD Laly Sy Work Phone: [facility] Work Phone: Start: 08-13-2022 End: 08-13-2022 ambulatory Laly Sy Other [employer] Other Start: 08-13-2022 Telephone encounter Laly Sy [facility] Start: 08-05-2022 End: 08-05-2022 ambulatory Laly Sy Other [employer] Other Start: 08-05-2022 Telephone encounter Laly Sy [facility] Start: 07-26-2022 End: 07-26-2022 ambulatory Imad Asaad Other [employer] Other Start: 07-26-2022 Telephone encounter Imad Asaad [facility] [employer] [facility] Start: 07-19-2022 End: 07-19-2022 ambulatory Laly Sy Other [employer] Other Start: 07-19-2022 Office outpatient vi sit 15 minutes Laly Sy [facility] Start: 04-28-2022 End: 04-28-2022 ambulatory Norma Combs Other [employer] Other Start: 04-28-2022 Office outpatient ne w 20 minutes Normaprieto Combs [facility] Start: 09-25-2021 End: 09-26-[address] MIGNON MUHAMMAD Facility:[facility] Start: 09-21-2021 End: 09-21-[address] MIGONN MUHAMMAD Facility:[facility] Start: 06-17-2021 End: 06-18-[address] LALY SY Facility:[facility] Start: 12-27-2020 End: 12-28-[address] MIGNON MUHAMMAD Facility:[facility] Start: 05-04-2017 Ambulatory MAXIMILIAN HARDY Facil [id number] Start: 05-04-2017 Ambulatory Facility:[id number] Start: 04-04-2017 Ambulatory MAXIMILIAN HARDY Facil [id number] Procedures Date Procedure Procedure Detail Performing Clinician Start: 08-26-2022 Colonoscopy MD Laly Sy Work Phone: Plan of Treatment Date Care Activity Detail Author Start: 08-26-2022 [facility] Patient Education Colon polyps H emorrhoids (DC) [facility] Work Phone: Payers Date Payer Category Payer Self-pay 1975 Unknown [id number] [id number] [id number] 1975 Unknown [id number] 2.16.84 [id number] 1975 Unknown [id number] 2.16.84 [id number] 1973 Unknown [id number] 2.16.84 [id number] 1973 Unknown [id number] 2.16.84 [id number] 1959 Unknown [id number] Unknown [id number] Unknown MMO [id number] Unknown [id number] 2.16.8 [id number] Social History Date Type Detail Facility Sex Assigned At [employer] Other Start: 08-26-2022 [facility] Start: 1975 Sex Assigned At Female [facility] Goals Date Patient Goal Desired Activity /State Clinical Notes 04-28-2022 to 02-22-2023 Note Date & Type Note Facility 02-22-2023 Evaluation note Encounter Date Diagnosis Assessment Notes Feb, Moderate persistent asthma with exacerbation (ICD-10 - J45.41) Pt using nebs and still having signficant shortness of breath. Her Peak Flow is <300. Agress to short course of steroids. Feb, Bronchitis (ICD-10 - J40) Take antibiotic as directed. If develop wheezing, chest tightness, itching, bad cough, blue skin color, seizures, swelling of face, lips, tongue, or throat report to ED. Feb, Other obesity due to excess calories (ICD-10 - E66.09) Feb, Body mass index [BMI] 34.0-34.9, adult (ICD-10 - Z68.34) Form faxed to [employer] for semaglutide - starting dose. Pt unable to report weight, but states she has gained since Harriett went up to $900 and she stopped it. She feels poorly and would like the more affordable option at [employer] [facility] [place] Other 08-28-2023 Evaluation note* Encounter Date Diagnosis Assessment Notes Treatment Notes Treatment Clinical Notes Sep, Well adult exam (ICD-10 - Z00.00) We have discussed the necessity of following up with PCP regularly as well as specialists, as needed. Discussed F/U with dentistry and optometry at least yearly. Discussed all preventative measures/ cancer screenings as applicable to this patient. Emphasized the importance of a reduced fat, low carb diet to promote heart health and controlled blood sugars. Reviewed social history and ensured patient is safe within the home today. Pt denies any abuse of alcohol, nicotine, caffeine or recreational drugs. I have ensured patient is of stable mental and physical health today. We have discussed appropriate F/U schedule as well as blood work and vaccinations that apply. All questions answered and patient is sent home pleased, without concerns. [employer] Other [facility] Encounter Date Diagnosis Assessment Notes Treatment Notes Treatment Clinical Notes Jul, Rectal bleeding (ICD-10 - K62.5) Jul, Colon cancer screening (ICD-10 - Z12.11) as above Jul, Essential (primary) hypertension (ICD-10 - I10) improved. OK to hold med and continue check home bps. Jul, Mitral valve prolapse (ICD-10 - I34.1) chronic problem. continue monitoring symptoms. [employer] Other 03-22-2023 Evaluation note* Encounter Date Diagnosis Assessment Notes Treatment Notes Treatment Clinical Notes Apr, Tendonitis of foot (ICD-10 - M77.50) Wear the Jesus wrap for comfort and compression. Use the postop shoe for comfort and protection. Ice and elevate your foot 2-3 times a day. Take ibuprofen, 600 mg by mouth with food 3 times a day for 5 to 7 days. Follow-up with your family physician if no improvement in 5 to 7 days. Apr, Other Football: young athlete material was printed, Tendonitis home care material was printed [facility] [employer] Other Evaluation noteNo InformationNort [employer] Other Evaluation noteNo assessment information available [facility] Work Phone: History and physical note Author Benja Martin [facility] August 26, 2022 9:34am Note Date/Time August 26, 2022 9:34 am [facility] [address] [place] [address] Gastroenterology H&P Signed Patient: Noris Rosales MR#: [id number] : 1975 Acct:[id number] Age/Sex: 47 / F Adm Date: 3 Loc: Room: Type: [facility] Attending Dr: Benja Martin MD Copies to: MD Laly Jones MD~ Date of Service: 08/26/2022 HISTORY & PHYSICAL: Patient's history with special attention to the cardiovascular, pulmonary systems and the current problem was reviewed with the patient immediately prior to the procedure. Present medications and doses reviewed in the EMR. Allergies and pertinent laboratory tests were also reviewedat this time in the EMR. The physical examination, as below, was then performed. Indication, assessment and HPI: 47-year-old female here for colonoscopy for evaluation of rectal bleeding Family history of GI malignancy? No PHYSICAL EXAMINATION Mouth and Pharynx : Moist mucus membranes, normal dentition Cardiac: Regular rate, regular rhythm Pulmonary: Clear to auscultation bilaterally, no wheezing Neurological: Alert and oriented x3, no focal deficits noted Abdomen: Abdomen soft, non-tender REVIEW OF SYSTEMS Constitutional: Denies malaise, fevers Cardiovascular: Denies chest pain, palpitations Respiratory: Denies shortness of breath, wheezing Gastrointestinal: Per HPI Genitourinary: Denies dysuria, polyuria Musculoskeletal: Denies joint swelling, joint stiffness Neurological: Denies numbness, tingling Integumentary: Denies rashes, skin lesions Endocrine: Denies fatigue, weight loss Written informed consent obtained from the patient. Risks (including but not limited to perforation, infection, bloating, bleeding, need for emergent surgeryand loss of life), benefits and alternatives explained and questions answered. The patient verbalized understanding. Based on history patient is an appropriate candidate for the procedure. Benja Martin M.D. Documented By: Benja Martin MD 08/26/22933 Signed By: <Electronically signed by Benja Martin MD> 08/26/22933 [facility] Work Phone: [facility] Narrative - Reported* Type Description Date Medical History Hypertension Medical History asthma Medical History mitral valve prolapse Surgical History tonsillectomy 2000 Surgical History C section x 2 2007 Hospitalization History childbirth [employer] Other History general Narrative - Reported* Type Description Date Medical History Hypertension Medical History asthma Medical History mitral valve prolapse Medical History Insulin resistance Medical History Hormone imbalance Medical History Insomnia Surgical History tonsillectomy 2000 Surgical History C section x 2 2007 Hospitalization History childbirth [employer] Other Hospital Discharge instructions Additional Instructions DISCHARGE INSTRUCTIONS FOR COLONOSCOPY WHAT TO EXPECT: - You may feel full, gassy or cramping after your procedure. In some cases, this may be from a few hours to a day. Walking may help relieve the discomfort. - If you have polyp(s) removed you may note some minor bloody discharge after your first bowel movements. - You should begin to recover from anesthesia within 1 hour of the procedure, however may feel groggy for the next 24 hours. DO's AND DON'Ts: - Call your doctor right away if you have a hard abdomen, severe pain, are passing lots of bright red blood or clots. - Call your doctor if you develop any rashes, hives or difficulty breathing. - Let your doctor know if you have not had a bowel movement by 3 days after your procedure. - If you take 81 mg aspirin for your heart it is safe to resume this medication. - If you take other blood thinner medications your doctor will instruct you when these can safely be resumed. - Do NOT drive for 24 hours. - Do NOT operate machinery such as power tools, lawn mowers, snow blowers, sewing machines, etc. for 24 hours. - Avoid alcoholic beverages and drugs for allergies, nerves, or sleep. - Do NOT stay alone. Do NOT leave your child unattended. - Do NOT make important personal or business decisions or sign any legal documents. - Eat solid foods and drink liquids in smaller amounts than usual until normal appetite returns. If you should experience an upset stomach, liquids high in sugar content (soda, Juan-Aid, non-acid juices) are recommended. - You can resume normal activities tomorrow. FOLLOW UP & RECOMMENDATIONS: -Repeat colonoscopy in 3 years pending polyp pathology -Follow up with PCP. -Office number [phone]. [facility] Work Phone: Summary Purpose Family History No Family History Records Found Relationship Condition Age at Onset Recorded Date/T malu grandparent Malignant neoplasm of colon Unknown father Leukemia Unknown Not Specified Disorder of thyroid Unknown grandparent Heart disease Unknown Advance Directives No Advanced Directives Records Found Advance Directive Response Recorded Date/ Time Advance Directives No August 25 10:32am Reason for Referral Reason *Waiting for appt due for screening colonoscopy and also has rectal bleeding - assumes it is a hemorrhoid - but is concerned. Diagnosis 1 Rectal bleeding (K62 .5) Referral Organization [facility] bhupendra Referring Provider First Name Laly Referring Provider Last Name Kerrie Referring Provider Specialty Family [facility] Referred Organization [facility] Referred Provider Ramos Barr Referred Address [address] [address] ,[place], [place],[address] Referred Provider Specialty Gastroentero logy Referral Priority Routine General Notes Morena Cohen 12:03:33 PM >received today, sent P2P Chief Complaint and Reason for Visit Chief Complaint Rectal Bleeding Additional Source Comments INFORMATION SOURCE (unrecogn ized section and content) DATE CREATED AUTHOR 07/28/2017 [facility] DATE CREATED AUTHOR AUTHOR'S ORGANIZ ATION 07/28/2017 [facility] DATE CREATED AUTHOR AUTHOR'S ORGANIZ ATION 10/04/2021 [facility] DATE CREATED AUTHOR AUTHOR'S ORGANIZ ATION 09/02/2022 [facility] DATE CREATED AUTHOR AUTHOR'S ORGANIZ ATION 06/08/2023 [facility] EPIC REASON FOR VISIT (unrecogniz ed section and content) RIGHT FOOT SWOLLENcheck up, personal concernsMAIL [id number]- Sick Care Teams (unrecognized sec tion and content) Team Status: Active Member Role Status Dates Laly Sy MD Primary Care Provider Active Team Status: Inactive Member Role Status Dates Laly Sy MD Primary Care Provider Active Benja Martin MD Attending Provider Active FOR RECORDS PERTAINING TO PATIENTS WHO ARE OR HAVE BEEN ENROLLED IN A CHEMICAL DEPENDENCY/SUBSTANCEABUSE PROGRAM, SOME INFORMATION MAY BE OMITTED. This clinical summary was aggregated from multiple sources. Caution should be exercised in using it in the provision of clinical care. This summary normalizes information from multiple sources, and as a consequence, information in this document may materially change the coding, format and clinical context of patient data. In addition, data may be omitted in some cases. CLINICAL DECISIONS SHOULD BE BASED ON THE PRIMARY CLINICAL RECORDS. [facility]. provides no warranty or guarantee of the accuracy or completeness of information in this document.
[2023-06-23 07:27] LABS: Estimated Average Glucose 111 mg/dL; Glycohemoglobin A1C 5.5 % (4.5-6.2)
== END 2023-06-23 06:45 | disposition home or self-care (01) ==
LOC: LAB 06:44
PROVIDERS: PCP Family Medicine; Visit Provider Obstetrics & Gynecology
DX: R63.5 Abnormal weight gain (principal)
CPT/HCPCS: 36415; 83036

== ENCOUNTER 2023-08-24 09:17 | Outpatient (OUT) | payer OTHER, SELFPAY ==
--- NOTE | 2023-08-24 09:20 | MM_ITS ---
Patient Name: NOELLE ROSALES MR#: [id number] : 1975 Exam Date: 08/24/2023 Ordering Doctor: DR Herb Muhammad . RADIOLOGY REPORT PROCEDURE: MM TOMOSYNTHESIS SCREENING BI COMPARISON: MG MAMM SCREEN 3D SHANU CAD, 09/25/2021. MG MAMM SCREEN 3D SHAUN CAD, 09/22/2020. MG MAMM SCREEN SHAUN W CAD, 07/24/2018. MG MAMM SCREEN SHAUN W CAD, 03/17/2017. INDICATIONS: Screening Calculator Name NCI Breast Cancer Risk Assessment Tool 5 Year Breast Cancer Risk 1.10% Lifetime Breast Cancer Risk 9.90% Personal Breast Cancer No Personal Ovarian Cancer No Treatments None Family Cancers Grandmother-paternal with colon cancer at age ~70. LOCATION: [facility] BREAST COMPOSITION: The breasts are heterogeneously dense,which may obscure small masses. FINDINGS: DIAGNOSTIC CATEGORY 1--NEGATIVE. RIGHT BREAST: No significant suspicious finding. No significant change has occurred. LEFT BREAST: No significant suspicious finding. No significant change has occurred. RECOMMENDATIONS: ROUTINE MAMMOGRAM AND CLINICAL EVALUATION IN 12 MONTHS. PLEASE NOTE: A NORMAL MAMMOGRAM DOES NOT EXCLUDE THE POSSIBILITY OF BREAST CANCER. A CLINICALLY SUSPICIOUS PALPABLE LUMP SHOULD BE BIOPSIED. Dictated by: Car Garcia M.D. on 08/25/2023 at 15:17 Approved by: Car Garcia M.D. on 08/25/2023 at 15:20
--- OUTSIDE RECORDS SUMMARY | 2023-08-24 09:38 | XMS_ITS | CCD ---
Author Organization [facility] Inform ion Partnership [facility] Care Team Providers Care Bond Trader Name Role Phone MAXIMILIAN HARDY P Unavailable Unavailable LALY SY Unavailable Unavailable MURALIUINMAXIMILIAN Guido Unavailable Unavailable LALY SY Unavailable Unavailable LORETTA, DR CROW Admitting Unavailable LORETTA, DR CROW Attending Unavailable SY, DR LALY Arias Primary Care Unavailable LORETTA, DR CROW Consulting Unavailable LORETTA, DR CROW Consulting Unavailable LORETTA, DR CROW Admitting Unavailable LORETTA, DR CROW Attending Unavailable KERRIE, DR LALY Arias Primary Care Unavailable LORETTA, DR CROW Admitting Unavailable LORETTA, DR CROW Attending Unavailable SY, DR LALY Arias Primary Care Unavailable LORETTA, DR CROW Consulting Unavailable ZIEBER, DR CAR Ybarra Consulting Unavailable KERRIE, DR LALY Arias Admitting Unavailable KERRIE, DR LALY Arias Attending Unavailable KERRIE, DR LALY Arias Consulting Unavailable KERRIE, DR LALY Arias Primary Care Unavailable Norma Combs Unavailable Laly Sy Unavailable Benja aMrtin Unavailable MD Laly Sy Primary Care Provider [phone] MD Benja Martin Attending Provider Laly Sy Primary Care Unavailable AsaadBenja Attending Unavailable AsaBenja nesbitt Admitting Unavailable MIGNON MUHAMMAD Attending Unavailable Allergies Allergy Classification Reported Allergen(s) Allergy Type Date of Onset Reaction(s) Facility (2 sources) Iodine Drug Allergy 08-01-2013 [facility] Repository (8 sources) Iodine Drug Allergy [facility] Other (1 source) Iodine Drug Allergy 08-26-2022 [facility] Repository Medications Current Medications Medication Drug [...] Subcutaneous Dr. Muhammad Active polyethylene glycol 3350 085020 mg / potassium chloride 2970 mg / sodium bicarbonate 6740 mg / sodium chloride 5860 mg / sodium sulfate 43694 mg powder for oral solution (3 sources) [...] Test Name Value Interpretation Reference Range Facility [facility] 08-26-2022 L - -------- Specimen: [id number] Received: 08/26/22 Status: PATRICIO Leesstephanie Num: [id number] Spec Type: Surgical Subm Dr: Benja Martin MD Tissues: A Colon Biopsy (SIGMOID POLYP) Procedures: HE/2, Gross/Micro L4 -------- Age/ Patient Sex Location Account Attending Physician -------- Noris Rosales 47/F [id number] Benja Martin MD -------- SPEC NUM: [id number] RECD: 08/26/22 STATUS: PATRICIO KAREN NUM: [id number] JENNIFER: 08/26/22 DR: Benja Martin MD ENTERED: 08/26/22 [facility] DR: SPEC TYPE: Surgical DEPT: S ORDERED: HE/2, Gross/Micro L4 ORDERED: HE/2, Gross/Micro L4 Pathological Diagnosis Colon, sigmoid, polyp, [...] microscopic examination confirms the diagnosis. CPT Codes 24719 -------- -------- Specimen: [id number] Received: 08/26/22 Status: PATRICIO Karen Num: [id number] Spec Type: Surgical Subm Dr: Benja Martin MD Tissues: A Colon Biopsy (SIGMOID POLYP) Procedures: HE/2, Gross/Micro L4 -------- Patient: Noris Rosales Juju [id number] (Continued) -------- Signed (signature on file) Blas Mijares MD 08/27/22 1820 Normal [facility] INSULIN FREE AND TOTALon Free Insulin 10 uU/mL Normal [facility] Comment on above: Result Comment: Refe rence Range: Pubertal Children and Adults (fasting): 0 - 17 Performed By: #### E RAYNE #### [facility] [address] [place] [address] Dr. Beata Mijares Total Insulin 10 uU/mL Normal [facility] Comment on above: Result Comment: Non- Diabetic: [...] developed and its performance characteristics determined by [employer]. It has not been cleared or approved by the Food and Drug Administration. Performed By: #### E RAYNE #### [facility] [address] [place] [address] Dr. Beata Mijares CBC AUTO DIFFon 09-25-2021 BASO # 0.1 103/ul Normal 0.0-0.1 [facility] Comment on above: Performed By: #### F T4 #### [facility] [address] [place] [address] Dr. Beata Mijares Basophils/100 WBC (Bld) 0.7 % Normal 0.2-2.0 [facility] Comment on above: Performed By: #### F T4 #### [facility] [address] [place] [address] Dr. Beata Mijares EO # 0.1 103/ul Normal 0.0-0.7 [facility] Comment on above: Performed By: #### F T4 #### [facility] [address] [place] [address] Dr. Beata Mijares Eosinophils/100 WBC (Bld) 1.8 % Normal 0.9-7.0 [facility] Comment on above: Performed By: #### F T4 #### [facility] [address] [place] [address] Dr. Beata Mijares Erythrocyte distribution width (RBC) [Ratio] 12.9 % Normal 11.0-15.0 [facility] Comment on above: Performed By: #### F T4 #### [facility] [address] [place] [address] Dr. Beata Mijares Hematocrit (Bld) [Volume fraction] 42.5 % Normal 36.0-48.0 [facility] Comment on above: Performed By: #### F T4 #### [facility] [address] [place] [address] Dr. Beata Mijares Hemoglobin (Bld) [Mass/Vol] 14.3 g/dL Normal 12.0-16.0 [facility] Comment on above: Performed By: #### F T4 #### [facility] [address] [place] [address] Dr. Beata Mijares IG # 0.02 10e3/ul Normal 0.00-0.03 [facility] Comment on above: Performed By: #### F T4 #### [facility] [address] [place] [address] Dr. Beata Mijares IG % 0.3 % Normal 0.0-0.5 [facility] Comment on above: Performed By: #### F T4 #### [facility] [address] [place] [address] Dr. Beata Mijares LYMPH # 2.5 103/ul Normal 1.2-3.8 [facility] Comment on above: Performed By: #### F T4 #### [facility] [address] [place] [address] Dr. Beata Mijares Lymphocytes/100 WBC (Bld) 36.1 % Normal 20.5-60.0 [facility] Comment on above: Performed By: #### F T4 #### [facility] [address] [place] [address] Dr. Beata Mijares MANUAL DIFF REQ NO Normal [facility] Comment on above: Performed By: #### F T4 #### [facility] [address] [place] [address] Dr. Beata Mijares MCH (RBC) [Entitic mass] 28.4 pg Normal 26.7-34.0 [facility] Comment on above: Performed By: #### F T4 #### [facility] [address] [place] [address] Dr. Beata Mijares MCHC (RBC) [Mass/Vol] 33.6 g/dL Normal 29.9-35.2 [facility] Comment on above: Performed By: #### F T4 #### [facility] [address] [place] [address] Dr. Beata Mijares MCV (RBC) [Entitic vol] 84.3 fL Normal 81.0-99.0 [facility] Comment on above: Performed By: #### F T4 #### [facility] [address] [place] [address] Dr. Beata Mijares MONO # 0.5 103/ul Normal 0.3-0.8 [facility] Comment on above: Performed By: #### F T4 #### [facility] [address] [place] [address] Dr. Beata Mijares Monocytes/100 WBC (Bld) 7.7 % Normal 1.7-12.0 [facility] Comment on above: Performed By: #### F T4 #### [facility] [address] [place] [address] Dr. Beata Mijares NEUT # 3.7 103/ul Normal 1.4-6.5 [facility] Comment on above: Performed By: #### F T4 #### [facility] [address] [place] [address] Dr. Beata Mijares Neutrophils/100 WBC (Bld) 53.4 % Normal 43.0-75.0 [facility] Comment on above: Performed By: #### F T4 #### [facility] [address] [address] [address] Beata Mijares Platelet mean volume (Bld) [Entitic vol] 11.0 fL Normal 9.5-13.5 [facility] Comment on above: Performed By: #### F T4 #### [facility] [address] [place] [address] Dr. Beata Mijares PLT 229 103/ul Normal 150-450 [facility] Comment on above: Performed By: #### F T4 #### [facility] [address] [address] [address] Beata Mijares RBC 5.04 106/ul Normal 4.20-5.40 [facility] Comment on above: Performed By: #### F T4 #### [facility] [address] [place] [address] Dr. Beata Mijares WBC 6.8 103/ul Normal 4.0-11.0 [facility] Comment on above: Performed By: #### F T4 #### [facility] [address] [address] [address] Beata Mijares FREE T4on 09-25-2021 Free T4 [Mass/Vol] 1.19 ng/dL Normal 0.76-1.46 [facility] Comment on above: Performed By: #### F T4 #### [facility] [address] [place] [address] Dr. Beata Mijares GLYCOHEMOGLOBIN A1Con 2021 ADA RECOMMENDATION SEE BELOW Normal [facility] Comment on above: Result Comment: ADA RECOMMENDED LIMIT 4.0 - 6.0 ADA THERAPEUTIC TARGET < 7.0 ACTION SUGGESTED > 7.0 Performed By: #### E STRADI #### [facility] [address] [place] [address] Dr. Beata Mijares Glucose [Mass/Vol] 114 mg/dL Normal [facility] Comment on above: Performed By: #### E STRADI #### [facility] [address] [place] [address] Dr. Beata Mijares HbA1c (Bld) [Mass fraction] 5.6 % Normal 4.5-6.2 [facility] Comment on above: Performed By: #### E RAYNE #### [facility] [address] [address] [address] Beata Mijares MG MAMM SCREEN 3D SHAUN CADon 09-25-2021 MG MAMM SCREEN 3D SHAUN CAD Patient: NORIS ROSALES Exam Date: 09/25/2021 : 1975 Gender:F Ordering : DR MIGNON MUHAMMAD . Admission #: [id number] Family : Order #: [id number] CLICK HERE TO VIEW EXAM RADIOLOGY REPORT [...] colon cancer at age 68. LOCATION: [facility] BREAST COMPOSITION: Heterogeneously dense,which may obscure small [...] Car Garcia M.D. on 09/25/2021 at 10:20 Normal [facility] PAP ACOG PANEL 2: 30 to 65on 09-25-2021 . . Normal [facility] Comment on above: Result Comment: Perf ormed at: WB Performed By: #### 4 [id number] #### [facility] [address] [address] [address] Beata Mijares Age Gdln ACOG Testing 30-65 Normal [facility] Comment on above: Performed By: #### 4 [id number] #### [facility] [address] [address] [address] Beata Mijares DIAGNOSIS: Comment Normal [facility] Comment on above: Result Comment: NEGA TIVE FOR INTRAEPITHELIAL LESION OR MALIGNANCY. THIS SPECIMEN WAS RESCREENED PART OF OUR [employer] PROGRAM. Performed at: WB Performed By: #### [id number] #### [facility] [address] [place] [address] Dr. Beata Mijares HPV Aptima Negative Normal Negative [facility] Comment on above: Result Comment: This nucleic acid amplification test detects fourteen high-risk HPV types (16,18,31,33,35,39,45,51,52,56,58,59,66,68) without differentiation. Performed at: =G Performed By: #### [id number] #### [facility] [address] [place] [address] Dr. Beata Mijares Methodology: Comment Normal [facility] Comment on above: Result Comment: This liquid based ThinPrep(R) pap test was screened with the use of an image guided system. Performed at: WB Performed By: #### 4 [id number] #### [facility] [address] [place] [address] Dr. Beata Mijares Note: Comment Normal [facility] Comment on above: Result Comment: The Pap smear is a screening test designed to aid in the detection of premalignant and malignant conditions of the uterine cervix. It is not a diagnostic procedure and should not be used as the sole means of detecting cervical cancer. Both false-positive and false-negative reports do occur. . Performed at: WB Performed By: #### [id number] #### [facility] [address] [place] [address] Dr. Beata Mijares Performed by: Comment Normal [facility] Comment on above: Result Comment: Vee Tijerina, Burglary Investigator (ASCP) Performed at: WB Performed By: #### 4 [id number] #### [facility] [address] [place] [address] Dr. Beata Mijares QC reviewed by: Comment Normal [facility] Comment on above: Result Comment: Mohinder Sepulveda, Supervisory Burglary Investigator (ASCP) Performed at: WB Performed By: #### [id number] #### [facility] [address] [place] [address] Dr. Beata Mijares Specimen adequacy: Comment Normal [facility] Comment on above: Result Comment: Sati sfactory for evaluation. Endocervical and/or squamous metaplastic cells (endocervical component) are present. Performed at: WB Performed By: #### 4 [id number] #### [facility] [address] [place] [address] Dr. Beata Mijares TSHon 09-25-2021 TSH 1.833 uIU/mL Normal 0.358-3.740 [facility] Comment on above: Performed By: #### T SH #### [facility] [address] [place] [address] Dr. Beata Mijares CARDIAC MELCHOR ADMITon 022 CK [Catalytic activity/Vol] 148 U/L Normal 26-192 [facility] Comment on above: Performed By: #### F T4 #### [facility] [address] [place] [address] Dr. Beata Mijares CK.MB [Mass/Vol] 1.29 ng/mL Normal <=3.60 [facility] Comment on above: Performed By: #### F T4 #### [facility] [address] [place] [address] Dr. Beata Mijares KOLBY 51 ng/mL Normal 9-82 [facility] Comment on above: Performed By: #### F T4 #### [facility] [address] [place] [address] Dr. Beata Mijares CBC AUTO DIFFon 06-17-2021 BASO # 0.0 103/ul Normal 0.0-0.1 [facility] Comment on above: Performed By: #### C BC #### [facility] [address] [place] [address] Dr. Beata Mijares Basophils/100 WBC (Bld) 0.4 % Normal 0.2-2.0 [facility] Comment on above: Performed By: #### C BC #### [facility] [address] [place] [address] Dr. Beata Mijares EO # 0.1 103/ul Normal 0.0-0.7 [facility] Comment on above: Performed By: #### C BC #### [facility] [address] [place] [address] Dr. Beata Mijares Eosinophils/100 WBC (Bld) 1.3 % Normal 0.9-7.0 [facility] Comment on above: Performed By: #### C BC #### [facility] [address] [place] [address] Dr. Beata Mijares Erythrocyte distribution width (RBC) [Ratio] 12.6 % Normal 11.0-15.0 [facility] Comment on above: Performed By: #### C BC #### [facility] [address] [place] [address] Dr. Beata Mijares Hematocrit (Bld) [Volume fraction] 43.3 % Normal 36.0-48.0 [facility] Comment on above: Performed By: #### C BC #### [facility] [address] [place] [address] Dr. Beata Mijares Hemoglobin (Bld) [Mass/Vol] 14.3 g/dL Normal 12.0-16.0 [facility] Comment on above: Performed By: #### C BC #### [facility] [address] [place] [address] Dr. Beata Mijares IG # 0.02 10e3/ul Normal 0.00-0.03 [facility] Comment on above: Performed By: #### C BC #### [facility] [address] [place] [address] Dr. Beata Mijares IG % 0.3 % Normal 0.0-0.5 [facility] Comment on above: Performed By: #### C BC #### [facility] [address] [place] [address] Dr. Beata Mijares LYMPH # 2.8 103/ul Normal 1.2-3.8 [facility] Comment on above: Performed By: #### C BC #### [facility] [address] [place] [address] Dr. Beata Mijares Lymphocytes/100 WBC (Bld) 39.4 % Normal 20.5-60.0 [facility] Comment on above: Performed By: #### C BC #### [facility] [address] [place] [address] Dr. Beata Mijares MANUAL DIFF REQ NO Normal [facility] Comment on above: Performed By: #### C BC #### [facility] [address] [place] [address] Dr. Beata Mijares MCH (RBC) [Entitic mass] 28.5 pg Normal 26.7-34.0 [facility] Comment on above: Performed By: #### C BC #### [facility] [address] [place] [address] Dr. Beata Mijares MCHC (RBC) [Mass/Vol] 33.0 g/dL Normal 29.9-35.2 [facility] Comment on above: Performed By: #### C BC #### [facility] [address] [place] [address] Dr. Beata Mijares MCV (RBC) [Entitic vol] 86.3 fL Normal 81.0-99.0 [facility] Comment on above: Performed By: #### C BC #### [facility] [address] [place] [address] Dr. Beata Mijares MONO # 0.4 103/ul Normal 0.3-0.8 [facility] Comment on above: Performed By: #### C BC #### [facility] [address] [place] [address] Dr. Beata Mijares Monocytes/100 WBC (Bld) 5.9 % Normal 1.7-12.0 [facility] Comment on above: Performed By: #### C BC #### [facility] [address] [place] [address] Dr. Beata Mijares NEUT # 3.8 103/ul Normal 1.4-6.5 [facility] Comment on above: Performed By: #### C BC #### [facility] [address] [place] [address] Dr. Beata Mijares Neutrophils/100 WBC (Bld) 52.7 % Normal 43.0-75.0 [facility] Comment on above: Performed By: #### C BC #### [facility] [address] [place] [address] Dr. Beata Mijares Platelet mean volume (Bld) [Entitic vol] 11.1 fL Normal 9.5-13.5 [facility] Comment on above: Performed By: #### C BC #### [facility] [address] [place] [address] Dr. Beata Mijares PLT 227 103/ul Normal 150-450 [facility] Comment on above: Performed By: #### C BC #### [facility] [address] [place] [address] Dr. Beata Mijares RBC 5.02 106/ul Normal 4.20-5.40 [facility] Comment on above: Performed By: #### C BC #### [facility] [address] [place] [address] Dr. Beata Mijares WBC 7.2 103/ul Normal 4.0-11.0 [facility] Comment on above: Performed By: #### C BC #### [facility] [address] [place] [address] Dr. Beata Mijares PROF CHEM 8 (BAS METB)on Anion gap [Moles/Vol] 10.2 mmol/L Normal [facility] Comment on above: Performed By: #### E STRADI #### [facility] [address] [place] [address] Dr. Beata Mijares Calcium [Mass/Vol] 9.7 mg/dL Normal 8.5-10.1 [facility] Comment on above: Performed By: #### E STRADI #### [facility] [address] [place] [address] Dr. Beata Mijares Chloride [Moles/Vol] 101 mmol/L Normal 98-107 [facility] Comment on above: Performed By: #### E STRADI #### [facility] [address] [place] [address] Dr. Beata Mijares CO2 [Moles/Vol] 35.1 mmol/L Critically high 21.0-32.0 [facility] Comment on above: Performed By: #### E STRADI #### [facility] [address] [address] [address] Beata Mijares Creatinine [Mass/Vol] 0.88 mg/dL Normal 0.55-1.02 [facility] Comment on above: Performed By: #### E STRADI #### [facility] [address] [address] [address] Beata Mijares EGFR-AF TONGAN >60 Normal >=60 [facility] Comment on above: Performed By: #### E STRADI #### [facility] [address] [address] [address] Beata Mijares EGFR-NON AF TONGAN >60 Normal >=60 [facility] Comment on above: Performed By: #### E STRADI #### [facility] [address] [address] [address] Beata Mijares Glucose [Mass/Vol] 111 mg/dL Critically high 74-106 [facility] Comment on above: Performed By: #### E STRADI #### [facility] [address] [address] [address] Beata Mijares Potassium [Moles/Vol] 3.3 mmol/L Critically low 3.5-5.1 [facility] Comment on above: Performed By: #### E STRADI #### [facility] [address] [address] [address] Beata Mijares Sodium [Moles/Vol] 143 mmol/L Normal 136-145 [facility] Comment on above: Performed By: #### E STRADI #### [facility] [address] [address] [address] Beata Mijares Urea nitrogen [Mass/Vol] 17.0 mg/dL Normal 7.0-18.0 [facility] Comment on above: Performed By: #### E STRADI #### [facility] [address] [address] [address] Beata Mijares Urea nitrogen/Creatinine [Mass ratio] 19.3 mg/mg Normal [facility] Comment on above: Performed By: #### E STRADI #### [facility] [address] [address] [address] Beata Mijares TROPONIN, HIGH SENSITIVITYon 06-17-2021 HSTROP 5.1 pg/mL Normal 4.0-51.3 [facility] Comment on above: Result Comment: CUT- OFF POINTS HAVE BEEN ESTABLISHED BASED ON THE FOURTH UNIVERSAL DEFINITIONS OF MYOCARDIAL INFARCTION. THE UPPER REFERENCE LIMIT (URL) OF TROPONIN, DEFINED THE 99TH PERCENTILE OF cTnI DISTRIBUTION IN A REFERENCE POPULATION, HAS BEEN CONFIRMED THE DECISION THRESHOLD FOR GA DIAGNOSIS. Performed By: #### E STRADI #### [facility] [address] [place] [address] Dr. Beata Mijares Performed By: #### F T4 #### [facility] [address] [place] [address] Dr. Beata Mijares ESTRONEon 12-30-2020 Estrone, Serum 68 pg/mL Normal [facility] Comment on above: Result Comment: Adul t: Follicular phase 39 - 132 Periovulatory 58 - 256 Luteal phase 54 - 179 : 1st trimester 247 - 2774 2nd trimester 569 - 5781 Postmenopausal: with ERT 51 - 488 without ERT 31 - 100 Performed By: #### E JACKIEDI #### [facility] [address] [place], [place] [address] Dr. Beata Mijares TESTOSTERONE, FREE,DIRECT, T OTALon 12-30-2020 Free Testosterone(Direct) 1.7 pg/mL Normal 0.0-4.2 [facility] Comment on above: Result Comment: Perf ormed at: BN Performed By: #### F T4 #### [facility] [address] [place] [address] Dr. Beata Mijares Testosterone [Mass/Vol] 17 ng/dL Normal 4-50 [facility] Comment on above: Result Comment: Perf ormed at: CB Performed By: #### F T4 #### [facility] [address] [place] [address] Dr. Beata Mijares CORTISOLon 12-28-2020 Cortisol 17.6 ug/dL Normal [facility] Comment on above: Result Comment: Kade isol AM 6.2 - 19.4 Cortisol PM 2.3 - 11.9 Performed By: #### E STRADI #### [facility] [address] [address] [address] Beata Mijares DHEA-SULFATEon 12-28-2020 DHEA-Sulfate 142.0 ug/dL Normal 41.2-243.7 [facility] Comment on above: Performed By: #### D MALIHA #### [facility] [address] [address] [address] Beata Mijares ESTRADIOLon 12-28-2020 Estradiol 14.2 pg/mL Normal [facility] Comment on above: Result Comment: Adul t Female: Follicular phase 12.5 - 166.0 Ovulation phase 85.8 - 498.0 Luteal phase 43.8 - 211.0 Postmenopausal <6.0 - 54.7 1st trimester 215.0 - >4300.0 Corey ECLIA methodology Performed By: #### E RAYNE #### [facility] [address] [place] [address] Dr. Beata Mijares PROGESTERONEon 12-28-2020 Progesterone 0.1 ng/mL Normal [facility] Comment on above: Result Comment: Foll icular phase 0.1 - 0.9 Luteal phase 1.8 - 23.9 Ovulation phase 0.1 - 12.0 First trimester 11.0 - 44.3 Second trimester 25.4 - 83.3 Third trimester 58.7 - 214.0 Postmenopausal 0.0 - 0.1 Performed By: #### P QUE #### [facility] [address] [place] [address] Dr. Beata Mijares SEX HORMONE-BINDING GLOBULIN on 12-28-2020 Sex Horm Binding Glob, Serum 31.7 nmol/L Normal 24.6-122.0 [facility] Comment on above: Performed By: #### S EXHBG #### [facility] [address] [address] [address] Beata Mijares T3, TOTAL (TRIIODOTHYRONINE) on 12-28-2020 T3, TOTAL 123 ng/dL Normal 71-180 [facility] Comment on above: Performed By: #### E STRATANESHA #### [facility] [address] [address] [address] Beata Mijares FREE T4on 12-27-2020 Free T4 [Mass/Vol] 1.29 ng/dL Normal 0.78-2.19 [facility] Comment on above: Performed By: #### E STRADI #### [facility] [address] [place] [address] Dr. Beata Mijares T4on 12-27-2020 T4 [Mass/Vol] 6.70 ug/dL Normal 5.53-11.00 [facility] Comment on above: Performed By: #### T SH, T4 #### [facility] [address] [place] [address] Dr. Beata Mijares TSHon 12-27-2020 TSH 1.127 uIU/mL Normal 0.470-4.680 [facility] Comment on above: Performed By: #### T SH, T4 #### [facility] [address] [place] [address] Dr. Beata Mijares TSH RANGE SEE BELOW Normal [facility] Comment on above: Result Comment: <0.3 4 UIU/ml HYPERTHYROID 0.34-5.60 UIU/ml EUTHYROID >5.60 UIU/ml HYPOTHYROID Performed By: #### T SH, T4 #### [facility] [address] [place] [address] Dr. Beata Mijares VITAMIN D 25 OHon 12-27-2020 VIT D 25-OH 32.0 ng/mL Normal [facility] Comment on above: Performed By: #### E STRATANESHA #### [facility] [address] [place] [address] Dr. Beata Mijares VIT D RANGES SEE BELOW Normal [facility] Comment on above: Result Comment: <20 ng/mL Vit D deficient 20 - <30 ng/mL Vit D insufficient 30 - 100 ng/mL Vit D sufficient >100 ng/mL Potential Toxicity Performed By: #### E STRADI #### [facility] [address] [place] [address] Dr. Beata Mijares Creatinineon 04-04-2017 Creatinine 0.87 mg/dL Normal 0.50-1.05 [facility] Comment on above: Performed By: #### 1 [id number] ####[facility] [address] [place] [address] eGFR (MDRD) mL/min/{1.73_m2} Normal [facility] Comment on above: Result Comment: Inte rpretation for Chronic Kidney Disease:Stages 1&2 >60 Healthy or potential kidney damage.Mild decrease of GFR.Stage 3 30-59 Moderate decrease of GFR.Stage 4 15-29 Severe decrease of GFR.Stage 5 <15 Kidney failure or on dialysis. Performed By: #### 1 [id number] ####[facility] [address] [facility] [place] [address] Electrolyte Panelon 04-04-19 18 Anion gap 11 mmol/L Normal 10-20 [facility] Comment on above: Performed By: #### 1 [id number] ####[facility] [address] [facility] [place] [address] Bicarbonate (HCO3) 32 mmol/L Normal 21-32 [facility] Comment on above: Performed By: #### 1 [id number] ####[facility] [address] [place] [address] Chloride 103 mmol/L Normal 98-107 [facility] Comment on above: Performed By: #### 1 [id number] ####[facility] [address] [facility] [address] Potassium molar conc 3.3 mmol/L Low 3.5-5.1 [facility] Comment on above: Performed By: #### 1 [id number] ####[facility] [address] [facility] [address] Sodium 143 mmol/L Normal 136-145 [facility] Comment on above: Performed By: #### 1 [id number] ####[facility] [address] [place] [address] Urea Nitrogenon 04-04-2017 Urea nitrogen 18 mg/dL Normal 6-23 [facility] are Comment on above: Performed By: #### 1 [id number] ####[facility] [address] [place] [address] Urinalysison 04-04-2017 Ascorbic Acid Negative Normal Negative [facility] Comment on above: Performed By: #### 1 [id number] ####[facility] [address] [place] [address] Automated Urine Microscopy Performed Normal [facility] Comment on above: Performed By: #### 1 [id number] ####[facility] [address] [place] [address] Bilirubin Ql (U) Negative Normal Negative [facility] Comment on above: Performed By: #### 1 [id number] ####[facility] [address] [place] [address] Blood Small Abnormal Negative [facility] Comment on above: Performed By: #### 1 [id number] ####[facility] [address] [place] [address] Erythrocytes (RBC) 4 /[HPF] Normal 0-3 [facility] Comment on above: Performed By: #### 1 [id number] ####[facility] [address] [place] [address] Glucose mass conc Negative Normal Negative [facility] Comment on above: Performed By: #### 1 [id number] ####[facility] [address] [place] [address] Protein Negative Normal Negative [facility] Comment on above: Performed By: #### 1 [id number] ####[facility] [address] [place] [address] Urine, appearance Hazy Normal Clear [facility] Comment on above: Performed By: #### 1 [id number] ####[facility] [address] [place] [address] Urine, color Yellow Normal [facility] Comment on above: Performed By: #### 1 [id number] ####[facility] [address] [place] [address] Urine, ketones presence Negative Normal Negative [facility] Comment on above: Performed By: #### 1 [id number] ####[facility] [address] [place] [address] Urine, nitrite presence Negative Normal Negative [facility] Comment on above: Performed By: #### 1 [id number] ####[facility] [address] [place] [address] Urine, pH 7.0 [pH] Normal 5.0-9.0 [facility] Comment on above: Performed By: #### 1 [id number] ####[facility] [address] [place] [address] Urine, specific gravity 1.021 Normal 1.003-1.035 [facility] Comment on above: Performed By: #### 1 [id number] ####[facility] [address] [place] [address] Urine, squamous cells in sediment 1 /[HPF] Normal 0-5 [facility] Comment on above: Performed By: #### 1 [id number] ####[facility] [address] [place] [address] Urine, urobilinogen <2.0 Normal Negative [facility] Comment on above: Performed By: #### 1 [id number] ####[facility] [address] [place] [address] WBC (Leukocytes) 1 /[HPF] Normal 0-5 [facility] Comment on above: Performed By: #### 1 [id number] ####[facility] [address] [place] [address] WBC (Leukocytes) Negative Normal Negative [facility] Comment on above: Performed By: #### 1 [id number] ####[facility] [address] [place] [address] Vital Signs Date Time Vital Sign Value Performing Clinician Facility 02-22-2023 09:45-0500 Body height 167.64 cm Laly Sy Other [facility] Other 02-22-2023 09:45-0500 Body mass index (BMI) [Ratio] 34.21 kg/m2 Laly Sy Other [facility] Other 02-22-2023 09:45-0500 Body weight 96.16 kg Laly Sy Other [facility] Other 10-04-2022 09:00-0400 Body height 167.64 cm Laly Sy Other [facility] Other 10-04-2022 09:00-0400 Body mass index (BMI) [Ratio] 34.21 kg/m2 aLly Sy Other [facility] [employer] Other 10-04-2022 09:00-0400 Body weight 96.16 kg Laly Sy Other [facility] Other 10-04-2022 09:00-0400 Diastolic blood pressure 85 mm[Hg] Laly Sy Other [facility] Other 10-04-2022 09:00-0400 Systolic blood pressure 142 mm[Hg] Laly Sy Other [facility] Other 08-26-2022 10:41-0400 Diastolic blood pressure 78 mm[Hg] MD Laly Sy Work Phone: [facility] 08-26-2022 10:41-0400 Heart rate 57 /min MD Laly Sy Work Phone: [facility] 08-26-2022 10:41-0400 Respiratory rate 16 /min MD Laly Sy Work Phone: [facility] 08-26-2022 10:41-0400 SaO2% (BldA) [Mass fraction] 97 % MD Laly Sy Work Phone: [facility] 08-26-2022 10:41-0400 Systolic blood pressure 136 mm[Hg] MD Laly Sy Work Phone: [facility] 08-26-2022 07:54-0400 Body height 167.64 cm MD Laly Sy Work Phone: [facility] 08-26-2022 07:54-0400 Body temperature 98.1 [degF] MD Laly Sy Work Phone: [facility] 08-26-2022 07:54-0400 Body weight 97.52 kg MD Laly Sy Work Phone: [facility] 07-19-2022 11:00-0400 Body height 167.64 cm Laly Sy Other [facility] Other 07-19-2022 11:00-0400 Body mass index (BMI) [Ratio] 34.7 kg/m2 Laly Sy Other [facility] Other 07-19-2022 11:00-0400 Body weight 97.52 kg Laly Sy Other [facility] Other 07-19-2022 11:00-0400 Diastolic blood pressure 85 mm[Hg] Laly Sy Other [facility] [employer] [facility] Other 07-19-2022 11:00-0400 Systolic blood pressure 131 mm[Hg] Laly Sy Other [facility] Other 04-28-2022 19:50-0400 Body height 167.64 cm Norma Combs Other [facility] Other 04-28-2022 19:50-0400 Body mass index (BMI) [Ratio] 32.28 kg/m2 Normaprieto Combs Other [facility] Other 04-28-2022 19:50-0400 Body temperature 98.3 [degF] Norma Combs Other [facility] Other 04-28-2022 19:50-0400 Body weight 90.72 kg Norma Combs Other [facility] Other 04-28-2022 19:50-0400 Respiratory rate 18 /min Norma Lauryn Other [facility] Other 04-28-2022 19:50-0400 SaO2% (BldA) [Mass fraction] 97 % Norma Lauryn Other [facility] Other Encounters Encounter Date Encounter Type Care Provider Facility Start: 06-07-2023 End: 06-07-2023 ambulatory MIGNON MUHAMMAD Not Available Start: 02-22-2023 End: 02-22-2023 ambulatory Laly Sy Other [facility] Other Start: 02-22-2023 Office outpatient vi sit 15 minutes Laly Sy [facility] Start: 10-25-2022 End: 10-25-2022 ambulatory Laly Sy Other [facility] Other Start: 10-25-2022 Telephone encounter Laly Sy [facility] Start: 10-04-2022 End: 10-04-2022 ambulatory Laly Sy Other [facility] Other Start: 10-04-2022 Encounter for genera l adult medical examination without abnormal findings Laly Sy [facility] Start: 10-04-2022 Periodic preventive med est patient 40-64yrs Laly Sy [facility] Start: 08-26-2022 End: 08-26-2022 ambulatory Laly Sy Facility:[facility] Start: 08-26-2022 End: 08-26-2022 Admission to same day surgery center MD Laly Sy Work Phone: [facility] Work Phone: Start: 08-26-2022 End: 08-26-2022 ambulatory MD Laly Sy Work Phone: [facility] Work Phone: Start: 08-13-2022 End: 08-13-2022 ambulatory Laly Sy Other [facility] Other Start: 08-13-2022 Telephone encounter Laly Sy [facility] Start: 08-05-2022 End: 08-05-2022 ambulatory Laly Sy Other [facility] Other Start: 08-05-2022 Telephone encounter Laly Kerrie [facility] Start: 07-26-2022 End: 07-26-2022 ambulatory Imad Asaad Other [facility] Other Start: 07-26-2022 Telephone encounter Imad Asaad [facility] Start: 07-19-2022 End: 07-19-2022 ambulatory Laly Sy Other [facility] Other Start: 07-19-2022 Office outpatient vi sit 15 minutes Laly Sy [facility] Start: 04-28-2022 End: 04-28-2022 ambulatory Norma Combs Other [facility] Other Start: 04-28-2022 Office outpatient ne w 20 minutes Norma Combs [facility] Start: 09-25-2021 End: 09-26-[address] MIGNON MUHAMMAD Facility:[facility] Start: 09-21-2021 End: 09-21-[address] MIGNON MUHAMMAD Facility:[facility] Start: 06-17-2021 End: 06-18-2021 ambulatory [...] Date Care Activity Detail Author Start: 08-26-2022 [facility] Patient Education Colon polyps H emorrhoids (DC) [facility] Work Phone: Payers Date Payer Category Payer Self-pay 1975 Unknown [id number] 2.16.84 [id number] 1975 Unknown [id number] 2.16.84 [id number] 1975 Unknown [id number] 2.16.84 [id number] 1973 Unknown [id number] 2.16.84 [id number] 1973 Unknown [id number] 2.16.84 [id number] 1959 Unknown [id number] Unknown [id number] Unknown MMO [id number] Unknown [id number] 2.16.8 [id number] Social History Date Type Detail Facility Sex Assigned At [facility] Other Start: 08-26-2022 [facility] Start: 1975 Sex Assigned At Female F [facility] Goals Date Patient Goal Desired Activity /State [...] adult (ICD-10 - Z68.34) Form faxed to [facility] for semaglutide - starting dose. Pt unable to report weight, but states she has gained since Harriett went up to $900 and she stopped it. She feels poorly and would like the more affordable option at [facility] Other 08-28-2023 Evaluation note* Encounter Date Diagnosis [...] patient is sent home pleased, without concerns. [facility] Other [facility]* Encounter Date Diagnosis Assessment Notes Treatment Notes Treatment Clinical Notes Jul, Rectal bleeding (ICD-10 - K62.5) Jul, Colon cancer screening (ICD-10 - Z12.11) as above Jul, Essential (primary) hypertension (ICD-10 - I10) improved. OK to hold med and continue check home bps. Jul, Mitral valve prolapse (ICD-10 - I34.1) chronic problem. continue monitoring symptoms. [facility] Other 03-22-2023 Evaluation note* Encounter Date Diagnosis [...] printed, Tendonitis home care material was printed [facility] [employer] Other Evaluation noteNo [facility] [employer] [facility] Other Evaluation noteNo assessment information available [facility] Work Phone: History and physical note Author Benja Maritn [facility] August 26, 2022 9:34am Note Date/Time August 26, 2022 9:[address] [facility] [address] [place] [address] Gastroenterology H&P Signed Patient: Noris Rosales MR#: [id number] : 1975 Acct:[id number] Age/Sex: 47 / F Adm Date: 3 Loc: Room: Type: [facility] Attending Dr: Benja Martin MD Copies to: [...] <Electronically signed by Benja Martin MD> 08/26/22933 [facility] Work Phone: Hisaksp general Narrative - Reported* Type Description Date Medical History Hypertension Medical History asthma Medical History mitral valve prolapse Surgical History tonsillectomy 2000 Surgical History C section x 2 2007 Hospitalization History childbirth [facility] Other [facility] general Narrative - Reported* Type Description Date Medical History Hypertension Medical History asthma Medical History mitral valve prolapse Medical History Insulin resistance Medical History Hormone imbalance Medical History Insomnia Surgical History tonsillectomy 2000 Surgical History C section x 2 2007 Hospitalization History [employer] Other Hospital Discharge instructions Additional Instructions DISCHARGE [...] pathology -Follow up with PCP. -Office number [phone]. [facility] Work Phone: Summary Purpose Family History [...] 1 Rectal bleeding (K62 .5) Referral Organization [facility] Medical bhupendra Referring Provider First Name Laly Referring Provider Last Name Kerrie Referring Provider Specialty Family [facility] Referred Organization [facility] Gastroenterolo gy Referred Provider Ramos Barr Referred Address [address] [address] ,[place], [place],[address] Referred Provider Specialty Gastroentero logy Referral Priority Routine General Notes Morena Cohen 12:03:33 PM >received today, sent P2P Chief Complaint and Reason for Visit Chief Complaint Rectal Bleeding Additional Source Comments INFORMATION SOURCE (unrecogn ized section and content) DATE CREATED AUTHOR 07/28/2017 [facility] DATE CREATED AUTHOR AUTHOR'S ORGANIZ ATION 07/28/2017 [facility] DATE CREATED AUTHOR AUTHOR'S ORGANIZ ATION 10/04/2021 [facility] DATE CREATED AUTHOR AUTHOR'S ORGANIZ ATION 09/02/2022 [facility] DATE CREATED AUTHOR AUTHOR'S ORGANIZ ATION 06/08/2023 [facility] Specialists EPIC REASON FOR VISIT (unrecogniz ed section and content) RIGHT FOOT SWOLLENcheck up, personal concernsMAIL [id number]- Sick Care Teams (unrecognized sec tion and [...] BE BASED ON THE PRIMARY CLINICAL RECORDS. [facility] [employer] provides no warranty or guarantee of the accuracy or completeness of information in this document.
== END 2023-08-24 09:18 | disposition home or self-care (01) ==
LOC: MAMMO 09:17
PROVIDERS: PCP Family Medicine; Visit Provider Obstetrics & Gynecology
DX: Z12.31 Encounter for screening mammogram for malignant neoplasm of breast (principal); Z80.0 Family history of malignant neoplasm of digestive organs
CPT/HCPCS: 77063; 77067

== ENCOUNTER 2024-01-17 20:08 | Emergency (ER) | payer OTHER, SELFPAY ==
[2024-01-17] VITALS (24 sets, daily range): BP systolic 168–184; BP diastolic 88–113; PULSE 94–122; TEMP 37.7–37.9; O2SAT 92–97; BMI 37.1
--- OUTSIDE RECORDS SUMMARY | 2024-01-17 20:15 | XMS_ITS | CCD ---
Author Organization [facility] Care Team Providers Care Billing Coordinator Name Role Phone MAXIMILIAN HARDY Unavailable Unavailable LALY SY Unavailable Unavailable MAXIMILIAN HARDY Unavailable Unavailable LALY SY Unavailable Unavailable LORETTA, [...] Unavailable ZIEBER, DR CAR Ybarra Consulting Unavailable SY, DR LALY Arias Admitting Unavailable SY, DR LALY Arias Attending Unavailable SY, DR LALY Arias Consulting Unavailable SY, DR LALY Arias Primary Care Unavailable Norma Combs Unavailable Laly Sy Unavailable Asalaz, Imad Unavailable MD Laly Sy Primary Care Provider [phone] MD Mario Imlaz Attending Provider Laly Sy Primary Care Unavailable Asaad, Imad Attending Unavailable Asaad Imad Admitting Unavailable LORETTAMIGNON ZARATE Attending Unavailable Allergies Allergy Classification Reported Allergen(s) Allergy Type Date of Onset Reaction(s) Facility (2 sources) Iodine Drug Allergy 08-01-2013 [facility] Repository (8 sources) [facility] [employer] Other (1 source) Iodine Drug Allergy 08-26-2022 [facility] Repository Medications Current Medications Medication Drug Class(es) Dates Sig (Normalized) Sig (Original) 0.5 ML tirzepatide 20 MG/ML Auto-Injector [Mounquangro] (6 sources) Mounjaro 10 MG/0.5ML as directed Subcutaneous Dr. Muhammad Active azithromycin 250 mg oral tablet (1 source) Macrolide Antimicrobial Start: 02-22-2023 Azithromycin 250 MG as directed Orally 2 tabs po today, then 1 tab daily x 4 more days for 5 Feb, Active Chlorthalidone (11 sources) Thiazide-like Diuretic Start: 08-15-2023 take 1 tablet by mouth once daily Chlorthalidone Active 0 .ROUTE .COMPLEX 90 August 15, 2023 10:22am take 1 tablet by mouth once daily Start: 08-26-2022 End: 08-15-2023 take 25 mg by mouth once daily Chlorthalidone Discontinued 25 MG PO Daily August 26, 2022 12:00am August 15, 2023 10:23am Chlorthalidone A ctive citalopram 20 mg oral tablet (9 sources) Serotonin Reuptake Inhibitor Start: 08-26-2022 take 20 mg by mouth once daily Citalopram Active 20 MG PO Daily August 26, 2022 12:00am take 1 tablet by osito th every twenty-four hours Citalopram Hydrobromide 10 MG 1 tablet Orally Once a day Active loratadine 10 mg oral tablet (9 sources) Start: 09-13-2023 take 1 tablet by mouth once daily Loratadine (Claritin) 10 mg tablet Active 1 TAB PO Daily September 13, 2023 12:00am FreeTextSi tablet Orally Once a day; Note: Source Status: Taking; Provider: Kristofer Ruffin ( ) Start: 05-03-2011 take 1 tablet by osito th every twenty-four hours Claritin 10 MG 1 tablet Orally Once a day for 30 day(s) Apr, Active methylPREDNISolone 4 mg oral tablet (1 source) Corticosteroid Start: 02-22-2023 methylPREDNISolone 4 MG as directed Orally for 6 days Feb, Active mounjaro 10 mg/0.5ml solution pen-injector (1 source) Mounjaro 10 MG/0 .5ML as directed Subcutaneous Dr. Muhammad Active polyethylene glycol 3350 422021 mg / potassium chloride 2970 mg / sodium bicarbonate 6740 mg / sodium chloride 5860 mg / sodium sulfate 84249 mg powder for oral solution (3 sources) Osmotic Laxative Start: 07-28-2022 PEG-3350/Electrolytes 236 GM as directed Orally once daily [...] a day for 5 days Active Tirzepatide (2 sources) Start: 08-26-2022 Tirzepatide (Mounjaro) 7.5 mg/0.5 mL [...] Test Name Value Interpretation Reference Range Facility Glucose mean value [Mass/vol ume] in Blood Estimated from glycated hemoglobinon 06-23-2023 Average glucose Estimated from glycated hemoglobin (Bld) [Mass/Vol] 111 mg/dL [facility] - Hematology and Cell countson 06-23-2023 HbA1c (Bld) [Mass fraction] 5.5 % 4.5-6.2 [facility] Comment on above: ADA RECOMMENDED LIMI T 4.0 - 6.0ADA THERAPEUTIC TARGET < 7.0ACTION SUGGESTED> 7.0 Basophils Auto (Bld) [#/Vol] on 06-16-2023 Basophils (Bld) [#/Vol] 0.1 10 3/uL 0.0-0.1 [facility] Basophils/100 WBC Auto (Bld) on 06-16-2023 Basophils/100 WBC (Bld) 0.7 % 0.2-2.0 [facility] Eosinophils/100 WBC Auto (Bl d)on 06-16-2023 Eosinophils/100 WBC (Bld) 1.8 % 0.9-7.0 [facility] Erythrocyte distribution wid th Auto (RBC) [Ratio]on 06-16-2023 Erythrocyte distribution width (RBC) [Ratio] 12.5 % 11.0-15.0 [facility] Hematocrit Auto (Bld) [Volum e fraction]on 06-16-2023 Hematocrit (Bld) [Volume fraction] 42.9 % 36.0-48.0 [facility] Hemoglobin [Mass/volume] in Bloodon 06-16-2023 Hemoglobin (Bld) [Mass/Vol] 14.4 g/dL 12.0-16.0 [facility] - Chemistry and C hemistry - challengeon 06-16-2023 Free T4 [Mass/Vol] 1.46 ng/dL 0.76-1.46 [facility] TSH Qn 1.846 m[IU]/L 0.358-3.740 [facility] - Hematology and Cell countson 06-16-2023 Immature granulocytes/100 WBC (Bld) 0.1 % 0.0-0.5 [facility] Leukocytes [#/volume] correc jose juan for nucleated erythrocytes in Blood by Automated counon 06-16-2023 WBC corrected for nucl RBC Auto (Bld) [#/Vol] 7.0 10 3/uL 4.0-11.0 [facility] Lymphocytes Auto (Bld) [#/Vo l]on 06-16-2023 Lymphocytes (Bld) [#/Vol] 2.8 10 3/uL 1.2-3.8 [facility] Lymphocytes/100 WBC Auto (Bl d)on 06-16-2023 Lymphocytes/100 WBC (Bld) 39.8 % 20.5-60.0 [facility] MCH Auto (RBC) [Entitic mass ]on 06-16-2023 MCH (RBC) [Entitic mass] 28.7 pg 26.7-34.0 [facility] MCHC Auto (RBC) [Mass/Vol]on 06-16-2023 MCHC (RBC) [Mass/Vol] 33.6 g/dL 29.9-35.2 [facility] MCV Auto (RBC) [Entitic vol] on 06-16-2023 MCV (RBC) [Entitic vol] 85.6 fL 81.0-99.0 [facility] Monocytes Auto (Bld) [#/Vol] on 06-16-2023 Monocytes (Bld) [#/Vol] 0.5 10 3/uL 0.3-0.8 [facility] Monocytes/100 WBC Auto (Bld) on 06-16-2023 Monocytes/100 WBC (Bld) 6.7 % 1.7-12.0 [facility] Neutrophils Auto (Bld) [#/Vo l]on 06-16-2023 Neutrophils (Bld) [#/Vol] 3.6 10 3/uL 1.4-6.5 [facility] Neutrophils/100 WBC Auto (Bl d)on 06-16-2023 Neutrophils/100 WBC (Bld) 50.9 % 43.0-75.0 [facility] No Panel Informationon 06-15 Eosinophils # (Auto) 0.1 10 3/uL 0.0-0.7 [facility] Immature Granulocyte # (Auto) 0.01 10 3/uL 0.00-0.03 [facility] Platelet mean volume Auto (B ld) [Entitic vol]on 06-16-2023 Platelet mean volume (Bld) [Entitic vol] 11.2 fL 9.5-13.5 [facility] Platelets Auto (Bld) [#/Vol] on 06-16-2023 Platelets (Bld) [#/Vol] 232 10 3/uL 150-450 [facility] RBC Auto (Bld) [#/Vol]on RBC (Bld) [#/Vol] 5.01 10 6/uL 4.20-5.40 [facility] Clifford 08-26-2022 L - -------- Specimen: [id number] Received: 08/26/22 Status: PATRICIO Karen Num: [id number] Spec Type: Surgical Subm Dr: Benja Martin MD Tissues: A Colon Biopsy (SIGMOID POLYP) Procedures: HE/2, Gross/Liana L4 -------- Age/ Patient Sex Location Account Attending Physician -------- Noelle Rosales 47/F [id number] Benja Martin MD -------- SPEC NUM: [id number] RECD: 08/26/22 STATUS: PATRICIO JONES NUM: [id number] JENNIFER: 08/26/22 DR: Benja Martin MD ENTERED: 08/26/[address] [facility] [address]: RICHIE TYPE: Surgical DEPT: S ORDERED: HE/2, Gross/Micro [...] microscopic examination confirms the diagnosis. CPT Codes 48412 -------- -------- Specimen: [id number] Received: 08/26/22 Status: PATRICIO Jones Num: [id number] Spec Type: Surgical Subm Dr: Benja Martin MD Tissues: A Colon Biopsy (SIGMOID POLYP) Procedures: HE/2, Gross/Micro L4 -------- Patient: Noelle Rosales [id number] (Continued) -------- Signed (signature on file) Blas Mijares MD 08/27/22 1820 [facility] INSULIN FREE AND TOTALon Free Insulin 10 uU/mL Normal [facility] Comment on above: Result Comment: Refe rence Range: Pubertal Children and Adults (fasting): 0 - 17 Performed By: #### E [facility] #### [facility] [address] [place] [address] Dr. Beata Mijares Total Insulin 10 uU/mL Normal [facility] Comment on above: Result Comment: Non- Diabetic: [...] developed and its performance characteristics determined by [facility]. It has not been cleared or approved by the Food and Drug Administration. Performed By: #### E STRADI #### [facility] [address] [place] [address] Dr. Beata Mijares CBC AUTO DIFFon 09-25-2021 BASO # 0.1 103/ul Normal 0.0-0.1 [facility] Comment on above: Performed By: #### F T4 #### [facility] [address] [place] [address] Dr. Beata Mijares Basophils/100 WBC (Bld) 0.7 % Normal 0.2-2.0 [facility] Comment on above: Performed By: #### F T4 #### [facility] [address] [place] [address] Dr. Beata Mijares EO # 0.1 103/ul Normal 0.0-0.7 [facility] Comment on above: Performed By: #### F T4 #### [facility] [address] [place] [address] Dr. Beata Mijares Eosinophils/100 WBC (Bld) 1.8 % Normal 0.9-7.0 [facility] Comment on above: Performed By: #### F T4 #### [facility] [address] [place] [address] Dr. Beata Mijares Erythrocyte distribution width (RBC) [Ratio] 12.9 % Normal 11.0-15.0 [facility] Comment on above: Performed By: #### F T4 #### [facility] [address] [place] [address] Dr. Beata Mijares Hematocrit (Bld) [Volume fraction] 42.5 % Normal 36.0-48.0 [facility] Comment on above: Performed By: #### F T4 #### [facility] [address] [place] [address] Dr. Beata Mijares Hemoglobin (Bld) [Mass/Vol] 14.3 g/dL Normal 12.0-16.0 [facility] Comment on above: Performed By: #### F T4 #### [facility] [address] [place] [address] Dr. Beata Mijares IG # 0.02 10e3/ul Normal 0.00-0.03 [facility] Comment on above: Performed By: #### F T4 #### [facility] [address] [place] [address] Dr. Beata Mijares IG % 0.3 % Normal 0.0-0.5 [facility] Comment on above: Performed By: #### F T4 #### [facility] [address] [place] [address] Dr. Beata Mijares LYMPH # 2.5 103/ul Normal 1.2-3.8 [facility] Comment on above: Performed By: #### F T4 #### [facility] [address] [place] [address] Dr. Beata Mijares Lymphocytes/100 WBC (Bld) 36.1 % Normal 20.5-60.0 [facility] Comment on above: Performed By: #### F T4 #### [facility] [address] [place] [address] Dr. Beata Mijares MANUAL DIFF REQ NO Normal [facility] Comment on above: Performed By: #### F T4 #### [facility] [address] [place] [address] Dr. Beata Mijares MCH (RBC) [Entitic mass] 28.4 pg Normal 26.7-34.0 [facility] Comment on above: Performed By: #### F T4 #### [facility] [address] [place] [address] Dr. Beata Mijares MCHC (RBC) [Mass/Vol] 33.6 g/dL Normal 29.9-35.2 [facility] Comment on above: Performed By: #### F T4 #### [facility] [address] [place] [address] Dr. Beata Mijares MCV (RBC) [Entitic vol] 84.3 fL Normal 81.0-99.0 [facility] Comment on above: Performed By: #### F T4 #### [facility] [address] [place] [address] Dr. Beata Mijares MONO # 0.5 103/ul Normal 0.3-0.8 [facility] Comment on above: Performed By: #### F T4 #### [facility] [address] [place] [address] Dr. Beata Mijares Monocytes/100 WBC (Bld) 7.7 % Normal 1.7-12.0 [facility] Comment on above: Performed By: #### F T4 #### [facility] [address] [place] [address] Dr. Beata Mijares NEUT # 3.7 103/ul Normal 1.4-6.5 [facility] Comment on above: Performed By: #### F T4 #### [facility] [address] [place] [address] Dr. Beata Mijares Neutrophils/100 WBC (Bld) 53.4 % Normal 43.0-75.0 [facility] Comment on above: Performed By: #### F T4 #### [facility] [address] [place] [address] Dr. Beata Mijares Platelet mean volume (Bld) [Entitic vol] 11.0 fL Normal 9.5-13.5 [facility] Comment on above: Performed By: #### F T4 #### [facility] [address] [place] [address] Dr. Beata Mijares PLT 229 103/ul Normal 150-450 [facility] Comment on above: Performed By: #### F T4 #### [facility] [address] [place] [address] Dr. Beata Mijares RBC 5.04 106/ul Normal 4.20-5.40 [facility] Comment on above: Performed By: #### F T4 #### [facility] [address] [place] [address] Dr. Beata Mijares WBC 6.8 103/ul Normal 4.0-11.0 [facility] Comment on above: Performed By: #### F T4 #### [facility] [address] [place] [address] Dr. Beata Mijares FREE T4on 09-25-2021 Free T4 [Mass/Vol] 1.19 ng/dL Normal 0.76-1.46 [facility] Comment on above: Performed By: #### F T4 #### [facility] [address] [address] [address] Beata Mijares GLYCOHEMOGLOBIN A1Con 2021 ADA RECOMMENDATION SEE BELOW Normal [facility] Comment on above: Result Comment: ADA RECOMMENDED LIMIT 4.0 - 6.0 ADA THERAPEUTIC TARGET < 7.0 ACTION SUGGESTED > 7.0 Performed By: #### E STRADI #### [facility] [address] [address] [address] Beata Mijares Glucose [Mass/Vol] 114 mg/dL Normal [facility] Comment on above: Performed By: #### E STRADI #### [facility] [address] [address] [address] Beata Mijares HbA1c (Bld) [Mass fraction] 5.6 % Normal 4.5-6.2 [facility] Comment on above: Performed By: #### E STRADI #### [facility] [address] [address] [address] Beata Mijares MG MAMM SCREEN 3D SHAUN CADon 09-25-2021 MG MAMM SCREEN 3D SHAUN CAD Patient: NOELLE ROSALES Exam Date: 09/25/2021 : 1975 Gender:F Ordering : DR MIGNON MUHAMMAD . Admission #: [id number] Family : Order #: [id number] CLICK HERE TO VIEW EXAM RADIOLOGY REPORT PROCEDURE: MAMMOGRAM SCREENING 3D BILATERAL CAD COMPARISON: MG MAMM SCREEN 3D SHAUN CAD, 09/22/2020. MG MAMM SCREEN HSAUN W CAD, 07/24/2018. INDICATIONS: Screening mammography Calculator Name NCI Breast Cancer Risk Assessment Tool 5 Year Breast Cancer Risk 1.00% Lifetime Breast Cancer Risk 10.20% Personal Breast Cancer No Personal Ovarian Cancer No Treatments None Family Cancers Grandmother-paternal with colon cancer at age 70. LOCATION: [facility] BREAST COMPOSITION: Heterogeneously dense,which may obscure small [...] Car Garcia M.D. on 09/25/2021 at 10:20 [facility] PAP ACOG PANEL 2: 30 to 65on 09-25-2021 . . Normal [facility] Comment on above: Result Comment: Perf ormed at: WB Performed By: #### [id number] #### [facility] [address] [address] [address] Beata Mijares Age Gdln ACOG Testing 30-65 [facility] Comment on above: Performed By: #### [id number] #### [facility] [address] [address] [address] Beata Mijares DIAGNOSIS: Comment Normal [facility] Comment on above: Result Comment: NEGA TIVE FOR INTRAEPITHELIAL LESION OR MALIGNANCY. THIS SPECIMEN WAS RESCREENED PART OF OUR PHYSICAL THERAPIST TECHNICIAN PROGRAM. Performed at: WB Performed By: #### [id number] #### [facility] [address] [address] [address] Beata Mijares HPV Aptima Negative Normal Negative [facility] Comment on above: Result Comment: This nucleic acid amplification test detects fourteen high-risk HPV types (16,18,31,33,35,39,45,51,52,56,58,59,66,68) without differentiation. Performed at: =G Performed By: #### [id number] #### [facility] [address] [address] [address] Beata Mijares Methodology: Comment Normal [facility] Comment on above: Result Comment: This liquid based ThinPrep(R) pap test was screened with the use of an image guided system. Performed at: WB Performed By: #### 4 [id number] #### [facility] [address] [place] [address] Dr. Beata Mijares Note: Comment Normal [facility] Comment on above: Result Comment: The Pap smear is a screening test designed to aid in the detection of premalignant and malignant conditions of the uterine cervix. It is not a diagnostic procedure and should not be used as the sole means of detecting cervical cancer. Both false-positive and false-negative reports do occur. . Performed at: WB Performed By: #### 4 [id number] #### [facility] [address] [place] [address] Dr. Beata Mijares Performed by: Comment Normal [facility] Comment on above: Result Comment: Vee Tijerina, Power Generation Equipment Repairer (ASCP) Performed at: WB Performed By: #### [id number] #### [facility] [address] [place] [address] Dr. Beata Mijares QC reviewed by: Comment Normal [facility] Comment on above: Result Comment: Mohinder Sepulveda, Supervisory Power Generation Equipment Repairer (ASCP) Performed at: WB Performed By: #### [id number] #### [facility] [address] [place] [address] Dr. Beata Mijares Specimen adequacy: Comment Normal [facility] Comment on above: Result Comment: Sati sfactory for evaluation. Endocervical and/or squamous metaplastic cells (endocervical component) are present. Performed at: WB Performed By: #### 4 [id number] #### [facility] [address] [place] [address] Dr. Beata Mijares TSHon 09-25-2021 TSH 1.833 uIU/mL Normal 0.358-3.740 [facility] Comment on above: Performed By: #### T SH #### [facility] [address] [place] [address] Dr. Beata Mijares CARDIAC MELCHOR ADMITon 022 CK [Catalytic activity/Vol] 148 U/L Normal 26-192 [facility] Comment on above: Performed By: #### F T4 #### [facility] [address] [place] [address] Dr. Beata Mijares CK.MB [Mass/Vol] 1.29 ng/mL Normal <=3.60 [facility] Comment on above: Performed By: #### F T4 #### [facility] [address] [address] [address] Beata Mijares KOLBY 51 ng/mL Normal 9-82 [facility] Comment on above: Performed By: #### F T4 #### [facility] [address] [address] [address] Beata Mijares CBC AUTO DIFFon 06-17-2021 BASO # 0.0 103/ul Normal 0.0-0.1 [facility] Comment on above: Performed By: #### C BC #### [facility] [address] [place] [address] Dr. Beata Mijares Basophils/100 WBC (Bld) 0.4 % Normal 0.2-2.0 [facility] Comment on above: Performed By: #### C BC #### [facility] [address] [place] [address] Dr. Beata Mijares EO # 0.1 103/ul Normal 0.0-0.7 [facility] Comment on above: Performed By: #### C BC #### [facility] [address] [place] [address] Dr. Beata Mijares Eosinophils/100 WBC (Bld) 1.3 % Normal 0.9-7.0 [facility] Comment on above: Performed By: #### C BC #### [facility] [address] [place] [address] Dr. Beata Mijares Erythrocyte distribution width (RBC) [Ratio] 12.6 % Normal 11.0-15.0 [facility] Comment on above: Performed By: #### C BC #### [facility] [address] [place] [address] Dr. Beata Mijares Hematocrit (Bld) [Volume fraction] 43.3 % Normal 36.0-48.0 [facility] Comment on above: Performed By: #### C BC #### [facility] [address] [place] [address] Dr. Beata Mijares Hemoglobin (Bld) [Mass/Vol] 14.3 g/dL Normal 12.0-16.0 [facility] Comment on above: Performed By: #### C BC #### [facility] [address] [place] [address] Dr. Beata Mijares IG # 0.02 10e3/ul Normal 0.00-0.03 [facility] Comment on above: Performed By: #### C BC #### [facility] [address] [place] [address] Dr. Beata Mijares IG % 0.3 % Normal 0.0-0.5 [facility] Comment on above: Performed By: #### C BC #### [facility] [address] [place] [address] Dr. Beata Mijares LYMPH # 2.8 103/ul Normal 1.2-3.8 [facility] Comment on above: Performed By: #### C BC #### [facility] [address] [place] [address] Dr. Beata Mijares Lymphocytes/100 WBC (Bld) 39.4 % Normal 20.5-60.0 [facility] Comment on above: Performed By: #### C BC #### [facility] [address] [place] [address] Dr. Beata Mijares MANUAL DIFF REQ NO Normal [facility] Comment on above: Performed By: #### C BC #### [facility] [address] [place] [address] Dr. Beata Mijares MCH (RBC) [Entitic mass] 28.5 pg Normal 26.7-34.0 [facility] Comment on above: Performed By: #### C BC #### [facility] [address] [place] [address] Dr. Beata Mijares MCHC (RBC) [Mass/Vol] 33.0 g/dL Normal 29.9-35.2 [facility] Comment on above: Performed By: #### C BC #### [facility] [address] [place] [address] Dr. Beata Mijares MCV (RBC) [Entitic vol] 86.3 fL Normal 81.0-99.0 [facility] Comment on above: Performed By: #### C BC #### [facility] [address] [place] [address] Dr. Beata Mijares MONO # 0.4 103/ul Normal 0.3-0.8 [facility] Comment on above: Performed By: #### C BC #### [facility] [address] [place] [address] Dr. Beata Mijares Monocytes/100 WBC (Bld) 5.9 % Normal 1.7-12.0 [facility] Comment on above: Performed By: #### C BC #### [facility] [address] [place] [address] Dr. Beata Mijares NEUT # 3.8 103/ul Normal 1.4-6.5 [facility] Comment on above: Performed By: #### C BC #### [facility] [address] [place] [address] Dr. Beata Mijares Neutrophils/100 WBC (Bld) 52.7 % Normal 43.0-75.0 [facility] Comment on above: Performed By: #### C BC #### [facility] [address] [place] [address] Dr. Beata Mijares Platelet mean volume (Bld) [Entitic vol] 11.1 fL Normal 9.5-13.5 [facility] Comment on above: Performed By: #### C BC #### [facility] Laboratory [address] [place] [address] Dr. Beata Mijares PLT 227 103/ul Normal 150-450 [facility] Comment on above: Performed By: #### C BC #### [facility] Laboratory [address] [place] [address] Dr. Beata Mijares RBC 5.02 106/ul Normal 4.20-5.40 [facility] Comment on above: Performed By: #### C BC #### [facility] Laboratory [address] [place] [address] Dr. Beata Mijares WBC 7.2 103/ul Normal 4.0-11.0 [facility] Comment on above: Performed By: #### C BC #### [facility] Laboratory [address] [place] [address] Dr. Beata Mijares PROF CHEM 8 (BAS METB)on Anion gap [Moles/Vol] 10.2 mmol/L Normal [facility] Comment on above: Performed By: #### E STRADI #### [facility] Laboratory [address] [place] [address] Dr. Beata Mijares Calcium [Mass/Vol] 9.7 mg/dL Normal 8.5-10.1 [facility] Comment on above: Performed By: #### E STRADI #### [facility] Laboratory [address] [address] [address] Beata Mijares Chloride [Moles/Vol] 101 mmol/L Normal 98-107 [facility] Comment on above: Performed By: #### E STRADI #### [facility] Laboratory [address] [place] [address] Dr. Beata Mijares CO2 [Moles/Vol] 35.1 mmol/L Critically high 21.0-32.0 [facility] Comment on above: Performed By: #### E STRADI #### [facility] Laboratory [address] [address] [address] Beata Mijares Creatinine [Mass/Vol] 0.88 mg/dL Normal 0.55-1.02 [facility] Comment on above: Performed By: #### E STRADI #### [facility] Laboratory [address] [place] [address] Dr. Beata Mijares EGFR-AF AUSTRALIAN >60 Normal >=[address] [facility] Comment on above: Performed By: #### E STRADI #### [facility] Laboratory [address] [address] [address] Beata Mijares EGFR-NON AF AUSTRALIAN >60 Normal >=60 [facility] Comment on above: Performed By: #### E STRADI #### [facility] Laboratory [address] [address] [address] Beata Mijares Glucose [Mass/Vol] 111 mg/dL Critically high 74-106 [facility] Comment on above: Performed By: #### E STRADI #### [facility] Laboratory [address] [address] [address] Beata Mijares Potassium [Moles/Vol] 3.3 mmol/L Critically low 3.5-5.1 [facility] Comment on above: Performed By: #### E STRADI #### [facility] Laboratory [address] [address] [address] Beata Mijares Sodium [Moles/Vol] 143 mmol/L Normal 136-145 [facility] Comment on above: Performed By: #### E STRADI #### [facility] Laboratory [address] [address] [address] Beata Mijares Urea nitrogen [Mass/Vol] 17.0 mg/dL Normal 7.0-18.0 [facility] Comment on above: Performed By: #### E STRADI #### [facility] Laboratory [address] [address] [address] Beata Mijares Urea nitrogen/Creatinine [Mass ratio] 19.3 mg/mg Normal [facility] Comment on above: Performed By: #### E STRADI #### [facility] Laboratory [address] [address] [address] Beata Mijares TROPONIN, HIGH SENSITIVITYon 06-17-2021 HSTROP 5.1 pg/mL Normal 4.0-51.3 [facility] Comment on above: Result Comment: CUT- OFF POINTS HAVE BEEN ESTABLISHED BASED ON THE FOURTH UNIVERSAL DEFINITIONS OF MYOCARDIAL INFARCTION. THE UPPER REFERENCE LIMIT (URL) OF TROPONIN, DEFINED THE 99TH PERCENTILE OF cTnI DISTRIBUTION IN A REFERENCE POPULATION, HAS BEEN CONFIRMED THE DECISION THRESHOLD FOR GA DIAGNOSIS. Performed By: #### E STRADI #### [facility] Laboratory [address] [address] [address] Beata Mijares Performed By: #### F T4 #### [facility] Laboratory [address] [address] [address] Beata Mijares ESTRONEon 12-30-2020 Estrone, Serum 68 pg/mL Normal [facility] Comment on above: Result Comment: Adul t: Follicular phase 39 - 132 Periovulatory 58 - 256 Luteal phase 54 - 179 : 1st trimester 247 - 2774 2nd trimester 569 - 5781 Postmenopausal: with ERT 51 - 488 without ERT 31 - 100 Performed By: #### E STRADI #### [facility] Laboratory [address] [place] [address] Dr. Beata Mijares TESTOSTERONE, FREE,DIRECT, T OTALon 12-30-2020 Free Testosterone(Direct) 1.7 pg/mL Normal 0.0-4.2 [facility] Comment on above: Result Comment: Perf ormed at: BN Performed By: #### F T4 #### [facility] Laboratory [address] [place] [address] Dr. Beata Mijares Testosterone [Mass/Vol] 17 ng/dL Normal 4-50 [facility] Comment on above: Result Comment: Perf ormed at: CB Performed By: #### F T4 #### [facility] Laboratory [address] [place] [address] Dr. Beata Mijares CORTISOLon 12-28-2020 Cortisol 17.6 ug/dL Normal [facility] Comment on above: Result Comment: Kade isol AM 6.2 - 19.4 Cortisol PM 2.3 - 11.9 Performed By: #### E RAYNE #### [facility] Laboratory [address] [place] [address] Dr. Beata Mijares DHEA-SULFATEon 12-28-2020 DHEA-Sulfate 142.0 ug/dL Normal 41.2-243.7 [facility] Comment on above: Performed By: #### D HEDONAL #### [facility] Laboratory [address] [place] [address] Dr. Beata Mijares ESTRADIOLon 12-28-2020 Estradiol 14.2 pg/mL Normal [facility] Comment on above: Result Comment: Adul t Female: Follicular phase 12.5 - 166.0 Ovulation phase 85.8 - 498.0 Luteal phase 43.8 - 211.0 Postmenopausal <6.0 - 54.7 1st trimester 215.0 - >4300.0 Corey ECLIA methodology Performed By: #### E RAYNE #### [facility] [address] [place] [address] Dr. Beata Mijares PROGESTERONEon 12-28-2020 Progesterone 0.1 ng/mL Normal [facility] Comment on above: Result Comment: Foll icular phase 0.1 - 0.9 Luteal phase 1.8 - 23.9 Ovulation phase 0.1 - 12.0 First trimester 11.0 - 44.3 Second trimester 25.4 - 83.3 Third trimester 58.7 - 214.0 Postmenopausal 0.0 - 0.1 Performed By: #### P QUE #### [facility] Laboratory [address] [place] [address] Dr. Beata Mijares SEX HORMONE-BINDING GLOBULIN on 12-28-2020 Sex Horm Binding Glob, Serum 31.7 nmol/L Normal 24.6-122.0 [facility] Comment on above: Performed By: #### S EXHBG #### [facility] Laboratory [address] [place] [address] Dr. Beata Mijares T3, TOTAL (TRIIODOTHYRONINE) on 12-28-2020 T3, TOTAL 123 ng/dL Normal 71-180 [facility] Comment on above: Performed By: #### E RAYNE #### [facility] Laboratory [address] [place] [address] Dr. Beata Mijares FREE T4on 12-27-2020 Free T4 [Mass/Vol] 1.29 ng/dL Normal 0.78-2.19 [facility] Comment on above: Performed By: #### E RAYNE #### [facility] Laboratory [address] [place] [address] Dr. Beata Mijares T4on 12-27-2020 T4 [Mass/Vol] 6.70 ug/dL Normal 5.53-11.00 [facility] Comment on above: Performed By: #### T SH, T4 #### [facility] Laboratory [address] [place] [address] Dr. Beata Mijares TSHon 12-27-2020 TSH 1.127 uIU/mL Normal 0.470-4.680 [facility] Comment on above: Performed By: #### T SH, T4 #### [facility] Laboratory [address] [place] [address] Dr. Beata Mijares TSH RANGE SEE BELOW Normal [facility] Comment on above: Result Comment: <0.3 4 UIU/ml HYPERTHYROID 0.34-5.60 UIU/ml EUTHYROID >5.60 UIU/ml HYPOTHYROID Performed By: #### T SH, T4 #### [facility] Laboratory [address] [address] [address] Beata Mijares VITAMIN D 25 OHon 12-27-2020 VIT D 25-OH 32.0 ng/mL Normal [facility] Comment on above: Performed By: #### E RAYNE #### [facility] Laboratory [address] [address] [address] Beata Mijares VIT D RANGES SEE BELOW Normal [facility] Comment on above: Result Comment: <20 ng/mL Vit D deficient 20 - <30 ng/mL Vit D insufficient 30 - 100 ng/mL Vit D sufficient >100 ng/mL Potential Toxicity Performed By: #### E RAYNE #### [facility] [address] [address] [address] Beata Mijares Creatinineon 04-04-2017 Creatinine 0.87 mg/dL Normal 0.50-1.05 [facility] Comment on above: Performed By: #### 1 [id number] ####[facility] [address] [place] [address] eGFR (MDRD) mL/min/{1.73_m2} Normal [facility] Comment on above: Result Comment: Inte rpretation for Chronic Kidney Disease:Stages 1&2 >60 Healthy or potential kidney damage.Mild decrease of GFR.Stage 3 30-59 Moderate decrease of GFR.Stage 4 15-29 Severe decrease of GFR.Stage 5 <15 Kidney failure or on dialysis. Performed By: #### 1 [id number] ####[facility] [address] [place] [address] Electrolyte Panelon 04-04-19 18 Anion gap 11 mmol/L Normal 10-20 [facility] Comment on above: Performed By: #### 1 [id number] ####[facility] [address] [place] [address] Bicarbonate (HCO3) 32 mmol/L Normal 21-32 [facility] Comment on above: Performed By: #### 1 [id number] ####[facility] [address] [place] [address] Chloride 103 mmol/L Normal 98-107 [facility] Comment on above: Performed By: #### 1 [id number] ####[facility] [address] [place] [address] Potassium molar conc 3.3 mmol/L Low 3.5-5.1 [facility] Comment on above: Performed By: #### 1 [id number] ####[facility] [address] [place] [address] Sodium 143 mmol/L Normal 136-145 [facility] Comment on above: Performed By: #### 1 [id number] ####[facility] [address] [facility] [place] [address] Urea Nitrogenon 04-04-2017 Urea nitrogen 18 mg/dL Normal 6-23 [facility] are Comment on above: Performed By: #### 1 [id number] ####[facility] [address] [facility] [place] [address] Urinalysison 04-04-2017 Ascorbic Acid Negative Normal Negative [facility] are Comment on above: Performed By: #### 1 [id number] ####[facility] [address] [facility] [place] [address] Automated Urine Microscopy Performed Normal [facility] Comment on above: Performed By: #### 1 [id number] ####[facility] [address] [place] [address] Bilirubin Ql (U) Negative Normal Negative [facility] Comment on above: Performed By: #### 1 [id number] ####[facility] [address] [facility] [place] [address] Blood Small Abnormal Negative [facility] Comment on above: Performed By: #### 1 [id number] ####[facility] [address] [place] [address] Erythrocytes (RBC) 4 /[HPF] Normal 0-3 [facility] Comment on above: Performed By: #### 1 [id number] ####[facility] [address] [place] [address] Glucose mass conc Negative Normal Negative [facility] Comment on above: Performed By: #### 1 [id number] ####[facility] [address] [place] [address] Protein Negative Normal Negative [facility] Comment on above: Performed By: #### 1 [id number] ####[facility] [address] [place] [address] Urine, appearance Hazy Normal Clear [facility] Comment on above: Performed By: #### 1 [id number] ####[facility] [address] [place] [address] Urine, color Yellow Normal [facility] Comment on above: Performed By: #### 1 [id number] ####[facility] [address] [place] [address] Urine, ketones presence Negative Normal Negative [facility] Comment on above: Performed By: #### 1 [id number] ####[facility] [address] [place] [address] Urine, nitrite presence Negative Normal Negative [facility] Comment on above: Performed By: #### 1 [id number] ####[facility] [address] [place] [address] Urine, pH 7.0 [pH] Normal 5.0-9.0 [facility] Comment on above: Performed By: #### 1 [id number] ####[facility] [address] [place] [address] Urine, specific gravity 1.021 Normal 1.003-1.035 [facility] Comment on above: Performed By: #### 1 [id number] ####[facility] [address] [place] [address] Urine, squamous cells in sediment 1 /[HPF] Normal 0-5 [facility] Comment on above: Performed By: #### 1 [id number] ####[facility] [address] [place] [address] Urine, urobilinogen <2.0 Normal Negative [facility] Comment on above: Performed By: #### 1 [id number] ####[facility] [address] [place] [address] WBC (Leukocytes) 1 /[HPF] Normal 0-5 [facility] Comment on above: Performed By: #### 1 [id number] ####[facility] [address] [place] [address] WBC (Leukocytes) Negative Normal Negative [facility] Comment on above: Performed By: #### 1 [id number] ####[facility] [address] [place] [address] Vital Signs Date Time Vital Sign Value Performing Clinician Facility 02-22-2023 09:45-0500 Body height 167.64 cm Laly Sy Other [facility] 02-22-2023 09:45-0500 Body mass index (BMI) [Ratio] 34.21 kg/m2 Laly Sy Other [facility] Other 02-22-2023 09:45-0500 Body weight 96.16 kg Laly Sy Other [facility] Other 10-04-2022 09:00-0400 Body height 167.64 cm Laly Sy Other [facility] Other 10-04-2022 09:00-0400 Body mass index (BMI) [Ratio] 34.21 kg/m2 Laly Sy Other [facility] Other 10-04-2022 09:00-0400 Body weight 96.16 kg Laly Sy Other [facility] Other 10-04-2022 09:00-0400 Diastolic blood pressure 85 mm[Hg] Laly Sy Other [facility] Other 10-04-2022 09:00-0400 Systolic blood pressure 142 mm[Hg] Laly Sy Other [facility] Other 08-26-2022 10:41-0400 Diastolic blood pressure 78 mm[Hg] MD Laly Sy Work Phone: [facility] 08-26-2022 10:41-0400 Heart rate 57 /min MD Laly Sy Work Phone: [facility] 08-26-2022 10:41-0400 Respiratory rate 16 /min MD Laly Sy Work Phone: [facility] 08-26-2022 10:41-0400 SaO2% (BldA) [Mass fraction] 97 % MD Laly Sy Work Phone: [facility] 08-26-2022 10:41-0400 Systolic blood pressure 136 mm[Hg] MD Laly Sy Work Phone: [facility] 08-26-2022 07:54-0400 Body height 167.64 cm MD Laly Sy Work Phone: [facility] 08-26-2022 07:54-0400 Body temperature 98.1 [degF] MD Laly Sy Work Phone: [facility] 08-26-2022 07:54-0400 Body weight 97.52 kg MD Laly Sy Work Phone: [facility] 07-19-2022 11:00-0400 Body height 167.64 cm Laly Sy Other [facility] Other 07-19-2022 11:00-0400 Body mass index (BMI) [Ratio] 34.7 kg/m2 Laly Sy Other [employer] [facility] Other 07-19-2022 11:00-0400 Body weight 97.52 kg Laly Sy Other [facility] Other 07-19-2022 11:00-0400 Diastolic blood pressure 85 mm[Hg] Laly Sy Other [facility] Other 07-19-2022 11:00-0400 Systolic blood pressure 131 mm[Hg] Laly Sy Other [facility] Other 04-28-2022 19:50-0400 Body height 167.64 cm Norma Combs Other [facility] Other 04-28-2022 19:50-0400 Body mass index (BMI) [Ratio] 32.28 kg/m2 Norma Combs Other [facility] Other 04-28-2022 19:50-0400 Body temperature 98.3 [degF] Norma Combs Other [facility] Other 04-28-2022 19:50-0400 Body weight 90.72 kg Norma Combs Other [facility] Other 04-28-2022 19:50-0400 Respiratory rate 18 /min Norma Combs Other [facility] Other 04-28-2022 19:50-0400 SaO2% (BldA) [Mass fraction] 97 % Norma Combs Other [facility] Other Encounters Encounter Date Encounter Type Care Provider Facility Start: 09-14-2023 End: 09-14-2023 ambulatory [facility] Work Phone: Start: 09-14-2023 End: 09-14-2023 Patient encounter procedure [facility] Work Phone: Start: 06-23-2023 Non-patient / Non-visit [facility] Work Phone: Start: 06-16-2023 Non-patient / Non-visit [facility] [employer] Work Phone: Start: 06-07-2023 End: 06-07-2023 ambulatory MIGNON MUHAMMAD Not Available Start: 02-22-2023 End: 02-22-2023 ambulatory Laly Sy Other [facility] Other Start: 02-22-2023 Office outpatient vi sit 15 minutes Laly Sy [facility] Start: 10-25-2022 End: 10-25-2022 ambulatory Laly Sy Other [facility] Other Start: 10-25-2022 Telephone encounter Laly Sy [facility] Start: 10-04-2022 End: 10-04-2022 ambulatory Laly Sy Other [facility] Other Start: 10-04-2022 Encounter for genera l adult medical examination without abnormal findings Laly Sy [facility] Start: 10-04-2022 Periodic preventive med est patient 40-64yrs Laly Sy [facility] Start: 08-26-2022 End: 08-26-2022 ambulatory Laly Sy Facility:[facility] Start: 08-26-2022 End: 08-26-2022 Admission to same day surgery center MD Laly Sy Work Phone: [facility] Work Phone: Start: 08-26-2022 End: 08-26-2022 ambulatory MD Laly Sy Work Phone: [facility] Work Phone: Start: 08-13-2022 End: 08-13-2022 ambulatory Laly Sy Other [facility] Other Start: 08-13-2022 Telephone encounter Laly Sy [facility] Start: 08-05-2022 End: 08-05-2022 ambulatory aLly Sy Other [facility] Other Start: 08-05-2022 Telephone encounter Laly Sy [facility] Start: 07-26-2022 End: 07-26-2022 ambulatory Benja Martin Other [facility] Other Start: 07-26-2022 Telephone encounter Benja Talaz [employer] Start: 07-19-2022 End: 07-19-2022 ambulatory Laly Sy Other [facility] Other Start: 07-19-2022 Office outpatient vi sit 15 minutes Laly Sy [facility] Start: 04-28-2022 End: 04-28-2022 ambulatory Norma Combs Other [facility] Other Start: 04-28-2022 Office outpatient ne w 20 minutes Norma Combs [facility] Start: 09-25-2021 End: 09-26-[address] MIGNON MUHAMMAD Facility:[facility] Start: 09-21-2021 End: 09-21-[address] MIGNON MUHAMMAD Facility:[facility] Start: 06-17-2021 End: 06-18-[address] LALY SY Facility:[facility] Start: 12-27-2020 End: 12-28-[address] MIGNON MUHMAMAD Facility:[facility] Start: 05-04-2017 Ambulatory MAXIMILIAN HARDY Facil [id number] Start: 05-04-2017 Ambulatory Facility:[id number] Start: 04-04-2017 Ambulatory MAXIMILIAN HARDY Facil [id number] Procedures Date Procedure Procedure Detail Performing Clinician Start: 08-26-2022 Colonoscopy MD Laly Sy Work Phone: Plan of Treatment Date Care Activity Detail Author Start: 08-26-2022 [facility] Patient Education Colon polyps H emorrhoids (DC) [facility] Work Phone: Payers Date Payer Category Payer Self-pay 1975 Unknown [id number] [id number] [id number] 1975 Unknown [id number] 2.16.84 [id number] 1975 Unknown [id number] 2.16.84 [id number] 1973 Unknown [id number] 2.16.84 [id number] 1973 Unknown [id number] 2.16.84 [id number] 1959 Unknown [id number] Unknown [id number] Unknown MMO [id number] Unknown [id number] .[id number] Social History Date Type Detail Facility Sex Assigned At [facility] Other Start: 08-26-2022 End: 10-04-2022 Tobacco smoking status NHIS Never smoked tobacco (finding) [facility] Start: 1975 Sex Assigned At [facility] Goals Date Patient Goal Desired Activity [...] adult (ICD-10 - Z68.34) Form faxed to [facility] for semaglutide - starting dose. Pt unable to report weight, but states she has gained since Harriett went up to $900 and she stopped it. She feels poorly and would like the more affordable option at [facility] Other 08-28-2023 Evaluation note* Encounter Date Diagnosis [...] patient is sent home pleased, without concerns. [facility]* Encounter Date Diagnosis Assessment Notes Treatment Notes Treatment Clinical Notes Jul, Rectal bleeding (ICD-10 - K62.5) Jul, Colon cancer screening (ICD-10 - Z12.11) as above Jul, Essential (primary) hypertension (ICD-10 - I10) improved. OK to hold med and continue check home bps. Jul, Mitral valve prolapse (ICD-10 - I34.1) chronic problem. continue monitoring symptoms. [facility] Other 03-22-2023 Evaluation note* Encounter Date Diagnosis [...] printed, Tendonitis home care material was printed [employer] Other [facility] Other Evaluation noteNo assessment information available [facility] Work Phone: History and physical note Author Benja Martin [facility] August 26, 2022 9:34am Note Date/Time August 26, 2022 9:34 am [facility] [address] [place] [address] Gastroenterology H&P Signed Patient: Noelle Rosales MR#: [id number] : 1975 Acct:[id number] Age/Sex: 47 / F Adm Date: 3 Loc: Room: Type: [facility] Attending Dr: Benja Martin MD Copies to: [...] procedure. Benja Martin M.D. Documented By: Benja aMrtin MD 08/26/22933 Signed By: <Electronically signed by Benja Martin MD> 08/26/22933 [facility] Work Phone: [facility] Narrative - Reported* Type Description Date Medical History Hypertension Medical History asthma Medical History mitral valve prolapse Surgical History tonsillectomy 2000 Surgical History C section x 2 2007 Hospitalization History childbirth [facility] Narrative - Reported* Type Description Date Medical History Hypertension Medical History asthma Medical History mitral valve prolapse Medical History Insulin resistance Medical History Hormone imbalance Medical History Insomnia Surgical History tonsillectomy 2000 Surgical History C section x 2 2007 Hospitalization History [employer] [facility] Other Hospital Discharge instructions Additional Instructions DISCHARGE [...] pathology -Follow up with PCP. -Office number [phone]. [facility] Work Phone: Summary Purpose Family History Relationship Condition Age at Onset Recorded Date/T malu grandparent Malignant neoplasm of colon Unknown father Leukemia Unknown Not Specified Disorder of thyroid Unknown grandparent Heart disease Unknown Relationship Condition Age at Onset Recorded Date/T malu grandparent Malignant neoplasm of colon Unknown father Leukemia Unknown mother Disorder of thyroid Unknown grandparent Heart disease Unknown father Hypertension Unknown Malignant neoplasm Unknown Family history of colon cancer Unknown grandparent Malignant neoplasm Unknown mother Family history of thyroid disease Unknown Advance Directives Advance Directive Response Recorded Date/ Time Advance Directives No August 25 10:32am Reason for Referral Reason *Waiting for appt due for screening colonoscopy and also has rectal bleeding - assumes it is a hemorrhoid - but is concerned. Diagnosis 1 Rectal bleeding (K62 .5) Referral Organization [facility] bhupendra Referring Provider First Name Laly Referring Provider Last Name Kristofer Referring Provider Specialty Family [facility] Referred Organization [facility] Gastroenterolo gy Referred Provider Ramos Barr Referred Address [address] [place] [phone] Referred Provider Specialty Gastroentero logy Referral Priority Routine General Notes Morena Cohen 12:03:33 PM >received today, sent P2P Chief Complaint and Reason for Visit Chief Complaint Rectal Bleeding Chief Complaint wellness Additional Source Comments INFORMATION SOURCE (unrecogn ized section and content) DATE CREATED AUTHOR 07/28/2017 [facility] DATE CREATED AUTHOR AUTHOR'S ORGANIZ ATION 07/28/2017 [facility] DATE CREATED AUTHOR AUTHOR'S ORGANIZ ATION 10/04/2021 [facility] DATE CREATED AUTHOR AUTHOR'S ORGANIZ ATION 09/02/2022 [facility] DATE CREATED AUTHOR AUTHOR'S ORGANIZ ATION 06/08/2023 [facility] EPIC REASON FOR VISIT (unrecogniz ed section and content) RIGHT FOOT SWOLLENcheck up, personal concernsMAIL [phone]- Sick Care Teams (unrecognized sec tion and content) Team Status: Active Member Role Status Shanda Sy MD Primary Care Provider Active Team Status: Active Member Role Status Shanda Sy MD Primary Care Provider Active Start: June 16, 2023 Mignon Muhammad DO Attending Provider Active Start : June 16, 2023 Team Status: Active Member Role Status Shanda Sy MD Primary Care Provider Active Start: June 23, 2023 Mignon Muhammad DO Attending Provider Active Start : June 23, 2023 Team Status: Inactive Member Role Status Shanda Sy MD Primary Care Provide r, Attending Provider Active Start: September 14, 2023 End: September 14, 2023 Team Status: Active Member Role Status Shanda Sy MD Primary Care Provider Active Team Status: Inactive Member Role Status Shanda Sy MD Primary Care Provider Active Benja Martin MD Attending Provider Active Team Status: Active Member Role Status Shanda Sy MD Primary Care Provider Active Start: June 16, 2023 Mignon Muhammad , Attending Provider Active Start : June 16, 2023 Team Status: Active Member Role Status Shanda Sy MD Primary Care Provider Active Start: June 23, 2023 Mignon Muhammad , Attending Provider Active Start : June 23, 2023 Team Status: Inactive Member Role Status Shanda Sy MD Primary Care Provide r, Attending Provider Active Start: September 14, 2023 End: September 14, 2023 Goals (unrecognized section and content) Goals may be documented in a n alternate section FOR RECORDS PERTAINING TO PATIENTS WHO ARE [...] BE BASED ON THE PRIMARY CLINICAL RECORDS. [employer] [facility]. provides no warranty or guarantee of the accuracy or completeness of information in this document.
--- NOTE | 2024-01-17 20:22 | ECG_ITS ---
[facility] Test Date: 2024-01-17 Pat Name: NOELLE ROSALES Department: Room: - Gender: Female [employer]: : 1975 Requested By: PETER SY Order Number: [id number] Reading MD: CELI PERKINS Measurements Intervals [place] Rate: 111 P: 22 MI: 152 QRS: 23 QRSD: 76 T: -2 QT: 310 QTc: 376 Interpretive Statements 1120 Sinus tachycardia 1574 with frequent ventricular premature complexes [address] depression [address] & Twave abnormality 9150 abnormal ECG Electronically Signed On 01-18-2024 6:59:10 EST by CELI PERKINS
--- NOTE | 2024-01-17 20:24 | ED.GENADUL1 ---
Documented by User: BRANDON Crabtree 01/17/24 22:45 HPI HPI - General Adult General Chief complaint: Upper Respiratory Infection Stated complaint: SOB Time Seen by Provider: 01/17/24 20:10 Source: patient History of Present Illness HPI narrative: Patient is a 48-year-old female who presents to the emergency department for a perceived asthma exacerbation that has been present for 2 days. Patient states she has discomfort in her chest with coughing. She has not had any sputum production. She states she has never had wheezing with her asthma exacerbations in the past but states this does feel exactly like exacerbation she has had before. She denies fevers, vomiting. No hemoptysis or leg swelling. She states she has been using nebulizers today but does not feel she is improving. Related Data Home Medications ?Medication ?Instructions ?Recorded ?Confirmed chlorthalidone 25 mg tablet 25 mg PO QDAY 01/17/24 01/17/24 citalopram 20 mg tablet 20 mg PO QDAY 01/17/24 01/17/24 tirzepatide 2.5 mg/0.5 mL 2.5 mg subcut .weekly 01/17/24 01/17/24 subcutaneous pen injector (Harriett) Previous Rx's ?Medication ?Instructions ?Recorded dextromethorphan-guaifenesin ER 60 1 tab PO BID #20 tabs 01/17/24 mg-1,200 mg tab,extend release,12hr (Mucinex DM) methocarbamol 750 mg tablet 750 mg PO TID #21 tabs 01/17/24 prednisone 20 mg tablet 20 mg PO DAILY 7 days #7 tabs 01/17/24 Allergies Allergy/AdvReac Type Severity Reaction Status Date / Time iodine Allergy Hives Verified 01/17/24 20:29 Opioid HPI Opioid Management Most Recent Opioid Data: Last ED Pain Assessment 01/17/24 20:45 Review of Systems ROS Constitutional Denies: fever or chills Ears, nose, mouth, and throat Denies: throat pain or nasal congestion Cardiovascular Reports: chest pain Respiratory Reports: shortness of breath and cough; Denies: wheezing Gastrointestinal Denies: nausea or vomiting Integumentary/Breast Denies: rash Neurological Denies: numbness in extremities or weakness in extremities Hematologic/Lymphatic Denies: easy bruising or easy bleeding PFSH PFSH Social History Little interest or pleasure in doing things: not at all Feeling down, depressed, or hopeless: not at all Exam Narrative Exam Narrative: Gen.: Awake, alert, in no distress Head: Normocephalic, atraumatic ENT: Moist mucous membranes Respiratory: No respiratory distress, faint expiratory wheezing in the left lower lobe Cardio: Regular rate and rhythm Extremities: Moves extremities equally Psych: Normal mood and affect Neuro: No focal neuro deficit Skin: Warm, dry, intact Constitutional Vital Signs, click to edit/add: Last Vital Signs Temp 99.9 F 01/17/24 21:55 Pulse 107 H 01/17/24 23:20 Resp 26 H 01/17/24 23:20 BP 170/92 H 01/17/24 21:55 Pulse Ox 95 01/17/24 23:20 O2 Del Method Room Air 01/17/24 21:55 Course Vital Signs Vital signs: Vital Signs Temperature 100.2 F 01/17/24 20:17 Pulse Rate 115 H 01/17/24 20:17 Respiratory Rate 16 01/17/24 20:17 Blood Pressure 171/100 H 01/17/24 20:17 Pulse Oximetry 96 01/17/24 20:17 Oxygen Delivery Method Room Air 01/17/24 20:17 Temperature 99.9 F 01/17/24 21:55 Pulse Rate 107 H 01/17/24 23:20 Respiratory Rate 26 H 01/17/24 23:20 Blood Pressure 170/92 H 01/17/24 21:55 Pulse Oximetry 95 01/17/24 23:20 Oxygen Delivery Method Room Air 01/17/24 21:55 Medical Decision Making [facility] Narrative Medical decision making narrative: On arrival, patient is tachycardic, she states she is typically tachycardic when she uses breathing treatments regularly for her asthma. She has no active chest pain in the emergency department. EKG shows sinus tachycardia. She was ordered to have IV Solu-Medrol, IV magnesium sulfate and a DuoNeb. She maintains normal oxygen saturation in the emergency department. She was noted to have a temperature of 100.2 Fahrenheit, respiratory swabs were added for the patient as well as blood cultures. White blood cell count is normal with no bandemia. Troponin and BNP are within normal limits. 2244: Chest x-ray is pending at this time. I reevaluated the patient and she states that she feels her breathing is better but she is uncomfortable with discomfort in the upper back. Pain medication and anxiety medication was ordered for her as she reported to nursing that she feels very anxious. Case is turned over to attending physician for reevaluation after medication administration and chest x-ray findings are resulted. SHARED APC VISIT, PHYSICIAN ATTESTATION: [id number] I performed a substantive part of the MDM during the patient?s E/M visit. I personally evaluated and examined the patient. I personally made or approved the documented management plan and acknowledge its risk of complications. Medical Records Medical records reviewed: Yes I reviewed the patient's medical records Lab Data Lab results reviewed: Yes I reviewed the patient's lab results Labs: Lab Results 01/17/24 01/17/24 Range/Units 20:45 20:50 WBC 9.1 (4.0-11.0) 10^3/uL RBC 5.36 (4.20-5.40) 10^6/uL Hgb 15.2 (12.0-16.0) g/dL Hct 45.3 (36.0-48.0) % MCV 84.5 (81.0-99.0) fL MCH 28.4 (26.7-34.0) pg MCHC 33.6 (29.9-35.2) g/dL RDW 12.3 (11.0-15.0) % Plt Count 215 (150-450) 10^3/uL MPV 11.0 (9.5-13.5) fL Neut % (Auto) 75.8 H (43.0-75.0) % Lymph % (Auto) 15.9 L (20.5-60.0) % [place] % (Auto) 7.0 (1.7-12.0) % Eos % (Auto) 0.7 L (0.9-7.0) % Baso % (Auto) 0.4 (0.2-2.0) % Neut # (Auto) 6.9 H (1.4-6.5) 10^3/uL Lymph # (Auto) 1.5 (1.2-3.8) 10^3/uL [place] # (Auto) 0.6 (0.3-0.8) 10^3/uL Eos # (Auto) 0.1 (0.0-0.7) 10^3/uL Baso # (Auto) 0.0 (0.0-0.1) 10^3/uL Abs Immat Gran (auto) 0.02 (0.00-0.03) 10^3/uL Imm/Tot Granulo (auto) 0.2 (0.0-0.5) % PT 11.4 (9.0-11.6) sec INR 1.08 VBG pH 7.471 H (7.330-7.430) VBG pCO2 38.5 L (40.0-52.0) mmHg Sodium 138 (136-145) mmol/L Potassium 3.4 L (3.5-5.1) mmol/L Chloride 102 (98-107) mmol/L Carbon Dioxide 28.0 (21.0-32.0) mmol/L Anion Gap 11.4 BUN 14.0 (7.0-18.0) mg/dL Creatinine 0.99 (0.55-1.02) mg/dL Est GFR ( Amer) >60 (>=60 mL/min/1.73m^2) Est GFR (Non-Af Amer) 59 L (>=60 mL/min/1.73m^2) BUN/Creatinine Ratio 14.1 Glucose 120 H (74-106) mg/dL Lactate 1.4 (0.4-2.0) mmol/L Calcium 9.5 (8.5-10.1) mg/dL Total Bilirubin 0.4 (0.2-1.0) mg/dL AST 20 (15-37) U/L ALT 28 (14-59) U/L Alkaline Phosphatase 90 (46-116) U/L Troponin I High Sens 5.5 (4.0-51.3) pg/mL NT-Pro-B Natriuret Pep 255.0 (<=900.0) pg/mL Total Protein 7.5 (6.4-8.2) g/dL Albumin 3.7 (3.4-5.0) g/dL Globulin 3.8 g/dL Albumin/Globulin Ratio 1.0 Influenza Type A Ag Negative Influenza Type B Ag Negative RSV Antigen Not detected (NOT DETECTE) SARS-CoV-2 Ag (CV2AG) Negative (NEGATIVE) ECG Data Attestation: I personally reviewed and interpreted this ECG as follows: (Sinus tachycardia at a rate of 111, frequent PVCs, no acute ST elevation. EKG reviewed by attending physician) Discharge Plan Discharge Stand Alone Forms: Work/School Release Chief Complaint: Upper Respiratory Infection Clinical Impression: Upper respiratory infection Qualifiers: URI type: acute laryngotracheitis Qualified Code(s): J04.2 - Acute laryngotracheitis Patient Disposition: Home, Self-Care Time of Disposition Decision: 23:30 Condition: Good Mode of Transportation: Private Vehicle Prescriptions / Home Meds: New prednisone 20 mg tablet 20 mg PO DAILY 7 Days Qty: 7 0RF Rx Instructions: days 11-21 of therapy dextromethorphan-guaifenesin [Mucinex DM] 60-1,200 mg tablet extended release 12 hr 1 tab PO BID Qty: 20 0RF methocarbamol 750 mg tablet 750 mg PO TID Qty: 21 0RF No Action chlorthalidone 25 mg tablet 25 mg PO QDAY citalopram 20 mg tablet 20 mg PO QDAY Mounjaro 2.5 mg/0.5 mL pen injector 2.5 mg SUBCUT .weekly Print Language: Georgian Instructions: Upper Respiratory Infection (ED) Additional Instructions: Gargle with warm salt water twice a day. Use your bronchodilator 3-4 times a day as needed for wheezing and shortness of breath. Ibuprofen 400 mg up to 3 times a day for upper back pain as needed. Follow-up with your physician next week. Return for worsening symptoms. Referrals: Laly Miner MD [Primary Care Provider] - 1 week Documented by User: Jelani Bales MD 01/17/24 23:40 HPI HPI - General Adult General Chief complaint: Upper Respiratory Infection Stated complaint: SOB Time Seen by Provider: 01/17/24 20:10 Related Data Home Medications ?Medication ?Instructions ?Recorded ?Confirmed chlorthalidone 25 mg tablet 25 mg PO QDAY 01/17/24 01/17/24 citalopram 20 mg tablet 20 mg PO QDAY 01/17/24 01/17/24 tirzepatide 2.5 mg/0.5 mL 2.5 mg subcut .weekly 01/17/24 01/17/24 subcutaneous pen injector (Harriett) Previous Rx's ?Medication ?Instructions ?Recorded dextromethorphan-guaifenesin ER 60 1 tab PO BID #20 tabs 01/17/24 mg-1,200 mg tab,extend release,12hr (Mucinex DM) methocarbamol 750 mg tablet 750 mg PO TID #21 tabs 01/17/24 prednisone 20 mg tablet 20 mg PO DAILY 7 days #7 tabs 01/17/24 Allergies Allergy/AdvReac Type Severity Reaction Status Date / Time iodine Allergy Hives Verified 01/17/24 20:29 Opioid HPI Opioid Management Most Recent Opioid Data: Last ED Pain Assessment 01/17/24 20:45 PFSH PFSH Social History Little interest or pleasure in doing things: not at all Feeling down, depressed, or hopeless: not at all Exam Constitutional Vital Signs, click to edit/add: Last Vital Signs Temp 99.9 F 01/17/24 21:55 Pulse 107 H 01/17/24 23:20 Resp 26 H 01/17/24 23:20 BP 170/92 H 01/17/24 21:55 Pulse Ox 95 01/17/24 23:20 O2 Del Method Room Air 01/17/24 21:55 Course Reevaluation(s) Reevaluation #1: I assumed care at change of shift for this patient. She has had cough and congestion for the last few days and reports upper back pain for the last week and a half which appears to be worsened by mechanical factors. She has not had a fever. She has been using her inhaled bronchodilators frequently and is only on a beta agonist. Yesterday she started losing her voice and now has laryngitis symptoms also. Her lungs are clear on my examination and she is mildly tachycardic likely from the bronchodilator use. Chest x-ray does not show infiltrate. I feel this is a viral process and antibiotics are not indicated. Patient is placed on prednisone 20 mg daily for 7 days and Mucinex DM twice a day. She is also prescribed Robaxin for her upper back pain and is referred to outpatient primary care follow-up. She may return anytime for worsening symptoms. Time: 23:39 Vital Signs Vital signs: Vital Signs Temperature 100.2 F 01/17/24 20:17 Pulse Rate 115 H 01/17/24 20:17 Respiratory Rate 16 01/17/24 20:17 Blood Pressure 171/100 H 01/17/24 20:17 Pulse Oximetry 96 01/17/24 20:17 Oxygen Delivery Method Room Air 01/17/24 20:17 Temperature 99.9 F 01/17/24 21:55 Pulse Rate 107 H 01/17/24 23:20 Respiratory Rate 26 H 01/17/24 23:20 Blood Pressure 170/92 H 01/17/24 21:55 Pulse Oximetry 95 01/17/24 23:20 Oxygen Delivery Method Room Air 01/17/24 21:55 Medical Decision Making Lab Data Labs: Lab Results 01/17/24 01/17/24 Range/Units 20:45 20:50 WBC 9.1 (4.0-11.0) 10^3/uL RBC 5.36 (4.20-5.40) 10^6/uL Hgb 15.2 (12.0-16.0) g/dL Hct 45.3 (36.0-48.0) % MCV 84.5 (81.0-99.0) fL MCH 28.4 (26.7-34.0) pg MCHC 33.6 (29.9-35.2) g/dL RDW 12.3 (11.0-15.0) % Plt Count 215 (150-450) 10^3/uL MPV 11.0 (9.5-13.5) fL Neut % (Auto) 75.8 H (43.0-75.0) % Lymph % (Auto) 15.9 L (20.5-60.0) % [place] % (Auto) 7.0 (1.7-12.0) % Eos % (Auto) 0.7 L (0.9-7.0) % Baso % (Auto) 0.4 (0.2-2.0) % Neut # (Auto) 6.9 H (1.4-6.5) 10^3/uL Lymph # (Auto) 1.5 (1.2-3.8) 10^3/uL [place] # (Auto) 0.6 (0.3-0.8) 10^3/uL Eos # (Auto) 0.1 (0.0-0.7) 10^3/uL Baso # (Auto) 0.0 (0.0-0.1) 10^3/uL Abs Immat Gran (auto) 0.02 (0.00-0.03) 10^3/uL Imm/Tot Granulo (auto) 0.2 (0.0-0.5) % PT 11.4 (9.0-11.6) sec INR 1.08 VBG pH 7.471 H (7.330-7.430) VBG pCO2 38.5 L (40.0-52.0) mmHg Sodium 138 (136-145) mmol/L Potassium 3.4 L (3.5-5.1) mmol/L Chloride 102 (98-107) mmol/L Carbon Dioxide 28.0 (21.0-32.0) mmol/L Anion Gap 11.4 BUN 14.0 (7.0-18.0) mg/dL Creatinine 0.99 (0.55-1.02) mg/dL Est GFR ( Amer) >60 (>=60 mL/min/1.73m^2) Est GFR (Non-Af Amer) 59 L (>=60 mL/min/1.73m^2) BUN/Creatinine Ratio 14.1 Glucose 120 H (74-106) mg/dL Lactate 1.4 (0.4-2.0) mmol/L Calcium 9.5 (8.5-10.1) mg/dL Total Bilirubin 0.4 (0.2-1.0) mg/dL AST 20 (15-37) U/L ALT 28 (14-59) U/L Alkaline Phosphatase 90 (46-116) U/L Troponin I High Sens 5.5 (4.0-51.3) pg/mL NT-Pro-B Natriuret Pep 255.0 (<=900.0) pg/mL Total Protein 7.5 (6.4-8.2) g/dL Albumin 3.7 (3.4-5.0) g/dL Globulin 3.8 g/dL Albumin/Globulin Ratio 1.0 Influenza Type A Ag Negative Influenza Type B Ag Negative RSV Antigen Not detected (NOT DETECTE) SARS-CoV-2 Ag (CV2AG) Negative (NEGATIVE) Discharge Plan Discharge Stand Alone Forms: Work/School Release Chief Complaint: Upper Respiratory Infection Clinical Impression: Upper respiratory infection Qualifiers: URI type: acute laryngotracheitis Qualified Code(s): J04.2 - Acute laryngotracheitis Patient Disposition: Home, Self-Care Time of Disposition Decision: 23:30 Condition: Good Mode of Transportation: Private Vehicle Prescriptions / Home Meds: New prednisone 20 mg tablet 20 mg PO DAILY 7 Days Qty: 7 0RF Rx Instructions: days 11-21 of therapy dextromethorphan-guaifenesin [Mucinex DM] 60-1,200 mg tablet extended release 12 hr 1 tab PO BID Qty: 20 0RF methocarbamol 750 mg tablet 750 mg PO TID Qty: 21 0RF No Action chlorthalidone 25 mg tablet 25 mg PO QDAY citalopram 20 mg tablet 20 mg PO QDAY Mounjaro 2.5 mg/0.5 mL pen injector 2.5 mg SUBCUT .weekly Print Language: Georgian Instructions: Upper Respiratory Infection (ED) Additional Instructions: Gargle with warm salt water twice a day. Use your bronchodilator 3-4 times a day as needed for wheezing and shortness of breath. Ibuprofen 400 mg up to 3 times a day for upper back pain as needed. Follow-up with your physician next week. Return for worsening symptoms. Referrals: Laly Miner MD [Primary Care Provider] - 1 week
[2024-01-17] MEDS: MAGNESIUM SULFATE IN WATER 2 GM/50 ML PREMIX IV (21:13)
[2024-01-17] MEDS: METHYLPREDNISOLONE SOD SUCC PF 125 MG/2 ML VIAL IVP (21:14)
[2024-01-17 21:15] LABS: Basophils Percent Auto 0.4 % (0.2-2.0); Eosinophils Absolute Auto 0.1 10^3/uL (0.0-0.7); Eosinophils Percent Auto 0.7 % (0.9-7.0); Hematocrit 45.3 % (36.0-48.0); Hemoglobin 15.2 g/dL (12.0-16.0); Immature Granulocytes Abs Auto 0.02 10^3/uL (0.00-0.03); Immature Granulocytes Pct Auto 0.2 % (0.0-0.5); Lymphocytes Absolute Auto 1.5 10^3/uL (1.2-3.8); Lymphocytes Percent Auto 15.9 % (20.5-60.0); Mean Corpuscular HGB Conc 33.6 g/dL (29.9-35.2); Mean Corpuscular Hemoglobin 28.4 pg (26.7-34.0); Mean Corpuscular Volume 84.5 fL (81.0-99.0); Monocytes Absolute Auto 0.6 10^3/uL (0.3-0.8); Neutrophils Absolute Auto 6.9 10^3/uL (1.4-6.5); Neutrophils Percent Auto 75.8 % (43.0-75.0); PCO2 VBG 38.5 mmHg (40.0-52.0); Platelet Count 215 10^3/uL (150-450); Red Blood Count 5.36 10^6/uL (4.20-5.40); Red Cell Distribution Width 12.3 % (11.0-15.0); White Blood Count 9.1 10^3/uL (4.0-11.0); pH VBG 7.471 (7.330-7.430)
[2024-01-17] MEDS: IPRATROPIUM/ALBUTEROL SULFATE 3 ML AMPUL.NEB IH (21:15)
[2024-01-17 21:30] LABS: INR 1.08; Prothrombin Time 11.4 sec (9.0-11.6)
[2024-01-17 21:32] LABS: Alanine Aminotransferase 28 U/L (14-59); Albumin Level 3.7 g/dL (3.4-5.0); Alkaline Phosphatase 90 U/L (46-116); Anion Gap 11.4; Aspartate Amino Transferase 20 U/L (15-37); BUN Creatinine Ratio 14.1; Bilirubin Total 0.4 mg/dL (0.2-1.0); Calcium 9.5 mg/dL (8.5-10.1); Chloride 102 mmol/L (98-107); Estimated GFR (African America >60 (>=60 mL/min/1.73m^2); Estimated GFR (Non-African Ame 59 (>=60 mL/min/1.73m^2); Globulin 3.8 g/dL; Glucose 120 mg/dL (74-106); Potassium 3.4 mmol/L (3.5-5.1); Sodium 138 mmol/L (136-145); Total Protein 7.5 g/dL (6.4-8.2)
[2024-01-17 21:33] LABS: Lactate/Lactic Acid 1.4 mmol/L (0.4-2.0)
[2024-01-17 21:38] LABS: Troponin I High Sensitivity 5.5 pg/mL (4.0-51.3)
[2024-01-17 21:44] LABS: Influenza Virus A Antigen Negative; Influenza Virus B Antigen Negative; Internal Control Within Normal Limits
[2024-01-17 21:45] LABS: Internal Control Within Normal Limits; Respiratory Syncytial Virus Not Detected (NOT DETECTE); SARS-CoV-2 Ag NEGATIVE (NEGATIVE)
--- NOTE | 2024-01-17 21:57 | XR_ITS ---
The [address] [address] Patient Name: NOELLE ROSALES MRN: [id number] date: 1975 Sex: F Assigned Patient Location: ER Current Patient Location: ED.MAIN Accession/Order Number: [id number] Exam Date: 01/17/2024 22:00 Report Date: 01/17/2024 22:48 At the request of: ISAIAS JACKSON Procedure: XR chest 1V EXAM: XR chest 1V HISTORY: Shortness of breath COMPARISON: None. TECHNIQUE: One view of the chest was obtained. FINDINGS: The cardiac silhouette is normal in size. There is mild left basilar atelectasis. There is no significant pneumothorax or pleural effusion. No acute osseous abnormality is seen. XR/XR chest 1V IMPRESSION: 1. Mild left basilar atelectasis with otherwise clear lungs. Electronically authenticated by: Samia LATHAM Date: 01/17/2024 22:48
[2024-01-17] MEDS: KETOROLAC TROMETHAMINE 30 MG/ML VIAL IVP (23:15)
[2024-01-17] MEDS: ORPHENADRINE 60 MG/ 2 ML VIAL IV (23:15)
[2024-01-17] MEDS: LORAZEPAM 2 MG/ML VIAL 0.5 MG IV (23:15)
== END 2024-01-17 23:52 | disposition home or self-care (01) ==
PROVIDERS: Physician Assistant; Emergency Provider Emergency Medicine; PCP Family Medicine
DX: J04.2 Acute laryngotracheitis (principal); R50.9 Fever, unspecified; J45.909 Unspecified asthma, uncomplicated
CPT/HCPCS: 36415; 71045; 80053; 82800; 83605; 83880; 84484; 85025; 85610; 87040; 87420; 87804; 87811; 93005; 94640; 96365; 96375; 99285; J1885; J2060; J2360; J2919; J3475

== ENCOUNTER 2024-01-26 15:32 | Outpatient (OUT) | payer OTHER, SELFPAY ==
--- OUTSIDE RECORDS SUMMARY | 2024-01-26 15:46 | XMS_ITS | CCD ---
Author Organization [facility] Care Team Providers Care Position Description Manager Name Role Phone MAXIMILIAN HARDY Unavailable Unavailable [...] Unavailable MD Laly Sy Primary Care Provider [phone] MD Mario Imlaz Attending Provider [phone] Laly Sy Primary Care Unavailable Asaad, Imad Attending Unavailable Asaad Imad Admitting Unavailable LORETTAMIGNON ZARATE Attending Unavailable Allergies Allergy Classification Reported Allergen(s) Allergy Type Date of Onset Reaction(s) Facility (2 sources) Iodine Drug Allergy 08-01-2013 [facility] Repository (8 sources[facility] Other ([facility] source[facility] Iodine Drug Allergy 08-26-2022 [facility] Repository Medications Current Medications Medication Drug Class(es) [...] Subcutaneous Dr. Muhammad Active polyethylene glycol 3350 [id number] mg / potassium chloride 2970 mg / sodium bicarbonate 6740 mg / sodium chloride 5860 mg / sodium sulfate 22439 mg powder for oral solution (3 sources) [...] from glycated hemoglobin (Bld) [Mass/Vol] 111 mg/dL [facility] Laboratory - Hematology and Cell countson 06-23-2023 HbA1c (Bld) [Mass fraction] 5.5 % 4.5-6.2 [facility] Comment on above: ADA RECOMMENDED LIMI T 4.0 - 6.0ADA THERAPEUTIC TARGET < 7.0ACTION SUGGESTED> 7.0 Basophils Auto (Bld) [#/Vol] on 06-16-2023 Basophils (Bld) [#/Vol] 0.1 10 3/uL 0.0-0.1 [facility] Basophils/100 WBC Auto (Bld) on 06-16-2023 Basophils/100 WBC (Bld) 0.7 % 0.2-2.0 [facility] Eosinophils/100 WBC Auto (Bl d)on 06-16-2023 Eosinophils/100 WBC (Bld) 1.8 % 0.9-7.0 [facility] Erythrocyte distribution wid th Auto (RBC) [Ratio]on 06-16-2023 Erythrocyte distribution width (RBC) [Ratio] 12.5 % 11.0-15.0 [facility] Hematocrit Auto (Bld) [Volum e fraction]on 06-16-2023 Hematocrit (Bld) [Volume fraction] 42.9 % 36.0-48.0 [facility] Hemoglobin [Mass/volume] in Bloodon 06-16-2023 Hemoglobin (Bld) [Mass/Vol] 14.4 g/dL 12.0-16.0 [facility] Laboratory - Chemistry and C hemistry - challengeon 06-16-2023 Free T4 [Mass/Vol] 1.46 ng/dL 0.76-1.46 [facility] TSH Qn 1.846 m[IU]/L 0.358-3.740 [facility] Laboratory - Hematology and Cell countson 06-16-2023 Immature granulocytes/100 WBC (Bld) 0.1 % 0.0-0.5 [facility] Leukocytes [#/volume] correc jose juan for nucleated erythrocytes in Blood by Automated counon 06-16-2023 WBC corrected for nucl RBC Auto (Bld) [#/Vol] 7.0 10 3/uL 4.0-11.0 [facility] Lymphocytes Auto (Bld) [#/Vo l]on 06-16-2023 Lymphocytes (Bld) [#/Vol] 2.8 10 3/uL 1.2-3.8 [facility] Lymphocytes/100 WBC Auto (Bl d)on 06-16-2023 Lymphocytes/100 WBC (Bld) 39.8 % 20.5-60.0 [facility] MCH Auto (RBC) [Entitic mass ]on 06-16-2023 MCH (RBC) [Entitic mass] 28.7 pg 26.7-34.0 [facility] MCHC Auto (RBC) [Mass/Vol]on 06-16-2023 MCHC (RBC) [Mass/Vol] 33.6 g/dL 29.9-35.2 [facility] MCV Auto (RBC) [Entitic vol] on 06-16-2023 MCV (RBC) [Entitic vol] 85.6 fL 81.0-99.0 [facility] Monocytes Auto (Bld) [#/Vol] on 06-16-2023 Monocytes (Bld) [#/Vol] 0.5 10 3/uL 0.3-0.8 [facility] Monocytes/100 WBC Auto (Bld) on 06-16-2023 Monocytes/100 WBC (Bld) 6.7 % 1.7-12.0 [facility] Neutrophils Auto (Bld) [#/Vo l]on 06-16-2023 Neutrophils (Bld) [#/Vol] 3.6 10 3/uL 1.4-6.5 [facility] Neutrophils/100 WBC Auto (Bl d)on 06-16-2023 Neutrophils/100 WBC (Bld) 50.9 % 43.0-75.0 [facility] No Panel Informationon 06-15 Eosinophils # (Auto) 0.1 10 3/uL 0.0-0.7 [facility] Immature Granulocyte # (Auto) 0.01 10 3/uL 0.00-0.03 [facility] Platelet mean volume Auto (B ld) [Entitic vol]on 06-16-2023 Platelet mean volume (Bld) [Entitic vol] 11.2 fL 9.5-13.5 [facility] Platelets Auto (Bld) [#/Vol] on 06-16-2023 Platelets (Bld) [#/Vol] 232 10 3/uL 150-450 [facility] RBC Auto (Bld) [#/Vol]on RBC (Bld) [#/Vol] 5.01 10 6/uL 4.20-5.40 [facility] 08-26-2022 L - -------- Specimen: [id number] Received: 08/26/22 Status: PATRICIO Karen Num: [id number] Spec Type: Surgical Subm Dr: Benja Martin MD Tissues: A Colon Biopsy (SIGMOID POLYP) Procedures: HE/2, Gross/Liana L4 -------- Age/ Patient Sex Location Account Attending Physician -------- Noelle Rosales 47/F [id number] Benja Martin MD -------- SPEC NUM: [id number] RECD: 08/26/22 STATUS: PATRICIO JONES NUM: [id number] JENNIFER: 08/26/22 DR: Benja Martin MD ENTERED: 08/26/[address] [facility] [address]: RICHIE TYPE: Surgical DEPT: S ORDERED: [...] microscopic examination confirms the diagnosis. CPT Codes 11706 -------- -------- Specimen: [id number] Received: 08/26/22 Status: PATRICIO Jones Num: [id number] Spec Type: Surgical Subm Dr: Benja Martin MD Tissues: A Colon Biopsy (SIGMOID POLYP) Procedures: HE/2, Gross/Micro L4 -------- Patient: Noelle Rosales [id number] (Continued) -------- Signed (signature on file) Blas Mijares MD 08/27/22 1820 [facility] INSULIN FREE AND TOTALon Free Insulin 10 uU/mL Normal [facility] Comment on above: Result Comment: Refe rence Range: Pubertal Children and Adults (fasting): 0 - 17 Performed By: #### E [facility] #### [facility] [address] [place] [address] Dr. Beata iMjares Total Insulin 10 uU/mL Normal [facility] Comment on above: Result Comment: Non- [...] developed and its performance characteristics determined by [employer]. It has not been cleared or approved by the Food and Drug Administration. Performed By: #### E STRADI #### [facility] [address] [place] [address] Dr. Beata Mijares CBC AUTO DIFFon 09-25-2021 BASO # 0.1 103/ul Normal 0.0-0.1 [facility] Comment on above: Performed By: #### F T4 #### [facility] [address] [place] [address] Dr. Beata Mijares Basophils/100 WBC (Bld) 0.7 % Normal 0.2-2.0 [facility] Comment on above: Performed By: #### F T4 #### [facility] [address] [place] [address] Dr. Beata Mijares EO # 0.1 103/ul Normal 0.0-0.7 [facility] Comment on above: Performed By: #### F T4 #### [facility] [address] [place] [address] Dr. Beata Mijares Eosinophils/100 WBC (Bld) 1.8 % Normal 0.9-7.0 [facility] Comment on above: Performed By: #### F T4 #### [facility] [address] [place] [address] Dr. Beata Mijares Erythrocyte distribution width (RBC) [Ratio] 12.9 % Normal 11.0-15.0 [facility] Comment on above: Performed By: #### F T4 #### [facility] [address] [place] [address] Dr. Beata Mijares Hematocrit (Bld) [Volume fraction] 42.5 % Normal 36.0-48.0 [facility] Comment on above: Performed By: #### F T4 #### [facility] [address] [place] [address] Dr. Beata Mijares Hemoglobin (Bld) [Mass/Vol] 14.3 g/dL Normal 12.0-16.0 [facility] Comment on above: Performed By: #### F T4 #### [facility] [address] [place] [address] Dr. Beata Mijares IG # 0.02 10e3/ul Normal 0.00-0.03 [facility] Comment on above: Performed By: #### F T4 #### [facility] [address] [place] [address] Dr. Beata Mijares IG % 0.3 % Normal 0.0-0.5 [facility] Comment on above: Performed By: #### F T4 #### [facility] [address] [place] [address] Dr. Beata Mijares LYMPH # 2.5 103/ul Normal 1.2-3.8 [facility] Comment on above: Performed By: #### F T4 #### [facility] [address] [place] [address] Dr. Beata Mijares Lymphocytes/100 WBC (Bld) 36.1 % Normal 20.5-60.0 [facility] Comment on above: Performed By: #### F T4 #### [facility] [address] [place] [address] Dr. Beata Mijares MANUAL DIFF REQ NO Normal [facility] Comment on above: Performed By: #### F T4 #### [facility] [address] [place] [address] Dr. Beata Mijares MCH (RBC) [Entitic mass] 28.4 pg Normal 26.7-34.0 [facility] Comment on above: Performed By: #### F T4 #### [facility] [address] [place] [address] Dr. Beata Mijares MCHC (RBC) [Mass/Vol] 33.6 g/dL Normal 29.9-35.2 [facility] Comment on above: Performed By: #### F T4 #### [facility] [address] [place] [address] Dr. Beata Mijares MCV (RBC) [Entitic vol] 84.3 fL Normal 81.0-99.0 [facility] Comment on above: Performed By: #### F T4 #### [facility] [address] [place] [address] Dr. Beata Mijares MONO # 0.5 103/ul Normal 0.3-0.8 [facility] Comment on above: Performed By: #### F T4 #### [facility] [address] [place] [address] Dr. Beata Mijares Monocytes/100 WBC (Bld) 7.7 % Normal 1.7-12.0 [facility] Comment on above: Performed By: #### F T4 #### [facility] [address] [place] [address] Dr. Beata Mijares NEUT # 3.7 103/ul Normal 1.4-6.5 [facility] Comment on above: Performed By: #### F T4 #### [facility] [address] [place] [address] Dr. Beata Mijares Neutrophils/100 WBC (Bld) 53.4 % Normal 43.0-75.0 [facility] Comment on above: Performed By: #### F T4 #### [facility] [address] [place] [address] Dr. Beata Mijares Platelet mean volume (Bld) [Entitic vol] 11.0 fL Normal 9.5-13.5 [facility] Comment on above: Performed By: #### F T4 #### [facility] [address] [place] [address] Dr. Beata Mijares PLT 229 103/ul Normal 150-450 [facility] Comment on above: Performed By: #### F T4 #### [facility] [address] [place] [address] Dr. Beata Mijares RBC 5.04 106/ul Normal 4.20-5.40 [facility] Comment on above: Performed By: #### F T4 #### [facility] [address] [place] [address] Dr. Beata Mijares WBC 6.8 103/ul Normal 4.0-11.0 [facility] Comment on above: Performed By: #### F T4 #### [facility] [address] [place] [address] Dr. Beata Mijares FREE T4on 09-25-2021 Free T4 [Mass/Vol] 1.19 ng/dL Normal 0.76-1.[address] [facility] Comment on above: Performed By: #### F T4 #### [facility] [address] [address] [address] Beata Mijares GLYCOHEMOGLOBIN A1Con 2021 ADA RECOMMENDATION SEE BELOW Normal [facility] Comment on above: Result Comment: ADA RECOMMENDED LIMIT 4.0 - 6.0 ADA THERAPEUTIC TARGET < 7.0 ACTION SUGGESTED > 7.0 Performed By: #### E STRADI #### [facility] [address] [address] [address] Beata Mijares Glucose [Mass/Vol] 114 mg/dL Normal [facility] Comment on above: Performed By: #### E STRADI #### [facility] [address] [address] [address] Beata Mijares HbA1c (Bld) [Mass fraction] 5.6 % Normal 4.5-6.2 [facility] Comment on above: Performed By: #### E STRADI #### [facility] [address] [address] [address] Beata Mijares MG MAMM SCREEN 3D SHAUN CADon 09-25-2021 MG MAMM SCREEN 3D SHAUN CAD Patient: NOELLE ROSALES Exam Date: 09/25/2021 : 1975 Gender:F Ordering : DR MIGNON MUHAMMAD . Admission #: [id number] Family : Order #: [id number] CLICK HERE TO VIEW EXAM RADIOLOGY REPORT [...] colon cancer at age 68. LOCATION: [facility] BREAST COMPOSITION: Heterogeneously dense,which may obscure [...] Car Garcia M.D. on 09/25/2021 at 10:[address] [facility] PAP ACOG PANEL 2: 30 to 65on 09-25-2021 . . Normal [facility] Comment on above: Result Comment: Perf ormed at: WB Performed By: #### [id number] #### [facility] [address] [address] [address] Beata Mijares Age Gdln ACOG Testing 30-[address] [facility] Comment on above: Performed By: #### [id number] #### [facility] [address] [address] [address] Beata Mijares DIAGNOSIS: Comment Normal [facility] Comment on above: Result Comment: NEGA TIVE FOR INTRAEPITHELIAL LESION OR MALIGNANCY. THIS SPECIMEN WAS RESCREENED PART OF OUR LOSS CONTROL CONSULTANT PROGRAM. Performed at: WB Performed By: #### [id number] #### [facility] [address] [address] [address] Beata Mijares HPV Aptima Negative Normal Negative [facility] Comment on above: Result Comment: This nucleic acid amplification test detects fourteen high-risk HPV types (16,18,31,33,35,39,45,51,52,56,58,59,66,68) without differentiation. Performed at: =G Performed By: #### [id number] #### [facility] [address] [address] [address] Beata Mijares Methodology: Comment Normal [facility] Comment on above: Result Comment: This liquid based ThinPrep(R) pap test was screened with the use of an image guided system. Performed at: WB Performed By: #### [id number] #### [facility] [address] [place] [address] Dr. Beata Mijares Note: Comment Normal [facility] Comment on above: Result Comment: The Pap smear is a screening test designed to aid in the detection of premalignant and malignant conditions of the uterine cervix. It is not a diagnostic procedure and should not be used as the sole means of detecting cervical cancer. Both false-positive and false-negative reports do occur. . Performed at: WB Performed By: #### [id number] #### [facility] [address] [place] [address] Dr. Beata Mijares Performed by: Comment Normal [facility] Comment on above: Result Comment: Vee Tijerina, Tafe Lecturer (ASCP) Performed at: WB Performed By: #### [id number] #### [facility] [address] [place] [address] Dr. Beata Mijares QC reviewed by: Comment Normal [facility] Comment on above: Result Comment: Mohinder Sepulveda, Supervisory Tafe Lecturer (ASCP) Performed at: WB Performed By: #### [id number] #### [facility] [address] [place] [address] Dr. Beata Mijares Specimen adequacy: Comment Normal [facility] Comment on above: Result Comment: Sati sfactory for evaluation. Endocervical and/or squamous metaplastic cells (endocervical component) are present. Performed at: WB Performed By: #### [id number] #### [facility] [address] [place] [address] Dr. Beata Mijares TSHon 09-25-2021 TSH 1.833 uIU/mL Normal 0.358-3.740 [facility] Comment on above: Performed By: #### T SH #### [facility] [address] [place] [address] Dr. Beata Mijares CARDIAC MELCHOR ADMITon 022 CK [Catalytic activity/Vol] 148 U/L Normal 26-192 [facility] Comment on above: Performed By: #### F T4 #### [facility] [address] [place] [address] Dr. Beata Mijares CK.MB [Mass/Vol] 1.29 ng/mL Normal <=3.60 [facility] Comment on above: Performed By: #### F T4 #### [facility] [address] [address] [address] Beata Mijares KOLBY 51 ng/mL Normal 9-82 [facility] Comment on above: Performed By: #### F T4 #### [facility] [address] [address] [address] Beata Mijares CBC AUTO DIFFon 06-17-2021 BASO # 0.0 103/ul Normal 0.0-0.1 [facility] Comment on above: Performed By: #### C BC #### [facility] [address] [place] [address] Dr. Beata Mijares Basophils/100 WBC (Bld) 0.4 % Normal 0.2-2.0 [facility] Comment on above: Performed By: #### C BC #### [facility] [address] [place] [address] Dr. Beata Mijares EO # 0.1 103/ul Normal 0.0-0.7 [facility] Comment on above: Performed By: #### C BC #### [facility] [address] [place] [address] Dr. Beata Mijares Eosinophils/100 WBC (Bld) 1.3 % Normal 0.9-7.0 [facility] Comment on above: Performed By: #### C BC #### [facility] [address] [place] [address] Dr. Beata Mijares Erythrocyte distribution width (RBC) [Ratio] 12.6 % Normal 11.0-15.0 [facility] Comment on above: Performed By: #### C BC #### [facility] [address] [place] [address] Dr. Beata Mijares Hematocrit (Bld) [Volume fraction] 43.3 % Normal 36.0-48.0 [facility] Comment on above: Performed By: #### C BC #### [facility] [address] [place] [address] Dr. Beata Mijares Hemoglobin (Bld) [Mass/Vol] 14.3 g/dL Normal 12.0-16.0 [facility] Comment on above: Performed By: #### C BC #### [facility] [address] [place] [address] Dr. Beata Mijares IG # 0.02 10e3/ul Normal 0.00-0.03 [facility] Comment on above: Performed By: #### C BC #### [facility] [address] [place] [address] Dr. Beata Mijares IG % 0.3 % Normal 0.0-0.5 [facility] Comment on above: Performed By: #### C BC #### [facility] [address] [place] [address] Dr. Beata Mijares LYMPH # 2.8 103/ul Normal 1.2-3.8 [facility] Comment on above: Performed By: #### C BC #### [facility] [address] [place] [address] Dr. Beata Mijares Lymphocytes/100 WBC (Bld) 39.4 % Normal 20.5-60.0 [facility] Comment on above: Performed By: #### C BC #### [facility] [address] [place] [address] Dr. Beata Mijares MANUAL DIFF REQ NO Normal [facility] Comment on above: Performed By: #### C BC #### [facility] [address] [place] [address] Dr. Beata Mijares MCH (RBC) [Entitic mass] 28.5 pg Normal 26.7-34.0 [facility] Comment on above: Performed By: #### C BC #### [facility] [address] [place] [address] Dr. Beata Mijares MCHC (RBC) [Mass/Vol] 33.0 g/dL Normal 29.9-35.2 [facility] Comment on above: Performed By: #### C BC #### [facility] [address] [place] [address] Dr. Beata Mijares MCV (RBC) [Entitic vol] 86.3 fL Normal 81.0-99.0 [facility] Comment on above: Performed By: #### C BC #### [facility] [address] [place] [address] Dr. Beata Mijares MONO # 0.4 103/ul Normal 0.3-0.8 [facility] Comment on above: Performed By: #### C BC #### [facility] [address] [place] [address] Dr. Beata Mijares Monocytes/100 WBC (Bld) 5.9 % Normal 1.7-12.0 [facility] Comment on above: Performed By: #### C BC #### [facility] [address] [place] [address] Dr. Beata Mijares NEUT # 3.8 103/ul Normal 1.4-6.5 [facility] Comment on above: Performed By: #### C BC #### [facility] [address] [place] [address] Dr. Beata Mijares Neutrophils/100 WBC (Bld) 52.7 % Normal 43.0-75.0 [facility] Comment on above: Performed By: #### C BC #### [facility] [address] [place] [address] Dr. Beata Mijares Platelet mean volume (Bld) [Entitic vol] 11.1 fL Normal 9.5-13.5 [facility] Comment on above: Performed By: #### C BC #### [facility] [address] [place] [address] Dr. Beata Mijares PLT 227 103/ul Normal 150-450 [facility] Comment on above: Performed By: #### C BC #### [facility] [address] [place] [address] Dr. Beata Mijares RBC 5.02 106/ul Normal 4.20-5.40 [facility] Comment on above: Performed By: #### C BC #### [facility] [address] [place] [address] Dr. Beata Mijares WBC 7.2 103/ul Normal 4.0-11.0 [facility] Comment on above: Performed By: #### C BC #### [facility] [address] [place] [address] Dr. Beata Mijares PROF CHEM 8 (BAS METB)on Anion gap [Moles/Vol] 10.2 mmol/L Normal [facility] Comment on above: Performed By: #### E STRADI #### [facility] [address] [place] [address] Dr. Beata Mijares Calcium [Mass/Vol] 9.7 mg/dL Normal 8.5-10.1 [facility] Comment on above: Performed By: #### E STRADI #### [facility] [address] [address] [address] Beata Mijares Chloride [Moles/Vol] 101 mmol/L Normal 98-107 [facility] Comment on above: Performed By: #### E STRADI #### [facility] [address] [place] [address] Dr. Beata Mijares CO2 [Moles/Vol] 35.1 mmol/L Critically high 21.0-32.0 [facility] Comment on above: Performed By: #### E STRADI #### [facility] [address] [address] [address] Beata Mijares Creatinine [Mass/Vol] 0.88 mg/dL Normal 0.55-1.02 [facility] Comment on above: Performed By: #### E STRADI #### [facility] [address] [place] [address] Dr. Beata Mijares EGFR-AF FAROESE >60 Normal >=60 [facility] Comment on above: Performed By: #### E STRADI #### [facility] [address] [address] [address] Beata Mijares EGFR-NON AF FAROESE >60 Normal >=60 [facility] Comment on above: Performed By: #### E STRADI #### [facility] [address] [address] [address] Beata Mijares Glucose [Mass/Vol] 111 mg/dL Critically high 74-106 [facility] Comment on above: Performed By: #### E STRADI #### [facility] [address] [address] [address] Beata Mijares Potassium [Moles/Vol] 3.3 mmol/L Critically low 3.5-5.1 [facility] Comment on above: Performed By: #### E STRADI #### [facility] [address] [address] [address] Beata Mijares Sodium [Moles/Vol] 143 mmol/L Normal 136-145 [facility] Comment on above: Performed By: #### E STRADI #### [facility] [address] [address] [address] Beata Mijares Urea nitrogen [Mass/Vol] 17.0 mg/dL Normal 7.0-18.0 [facility] Comment on above: Performed By: #### E STRADI #### [facility] [address] [place] [address] [address] Beata Mijares Urea nitrogen/Creatinine [Mass ratio] 19.3 mg/mg Normal [facility] Comment on above: Performed By: #### E STRADI #### [facility] [address] [address] [address] Beata Mijares TROPONIN, HIGH SENSITIVITYon 06-17-2021 HSTROP 5.1 pg/mL Normal 4.0-51.3 [facility] Comment on above: Result Comment: CUT- OFF POINTS HAVE BEEN ESTABLISHED BASED ON THE FOURTH UNIVERSAL DEFINITIONS OF MYOCARDIAL INFARCTION. THE UPPER REFERENCE LIMIT (URL) OF TROPONIN, DEFINED THE 99TH PERCENTILE OF cTnI DISTRIBUTION IN A REFERENCE POPULATION, HAS BEEN CONFIRMED THE DECISION THRESHOLD FOR [place] DIAGNOSIS. Performed By: #### E STRADI #### [facility] [address] [address] [address] Beata Mijares Performed By: #### F T4 #### [facility] [address] [address] [address] Beata Mijares ESTRONEon 12-30-2020 Estrone, Serum 68 pg/mL Normal [facility] Comment on above: Result Comment: Adul t: Follicular phase 39 - 132 Periovulatory 58 - 256 Luteal phase 54 - 179 : 1st trimester 247 - 2774 2nd trimester 569 - 5781 Postmenopausal: with ERT 51 - 488 without ERT 31 - 100 Performed By: #### E STRADI #### [facility] [address] [place] [address] Dr. Beata Mijares TESTOSTERONE, FREE,DIRECT, T OTALon 12-30-2020 Free Testosterone(Direct) 1.7 pg/mL Normal 0.0-4.2 [facility] Comment on above: Result Comment: Perf ormed at: BN Performed By: #### F T4 #### [facility] [address] [place] [address] Dr. Beata Mijares Testosterone [Mass/Vol] 17 ng/dL Normal 4-50 [facility] Comment on above: Result Comment: Perf ormed at: CB Performed By: #### F T4 #### [facility] [address] [place] [address] Dr. Beata Mijares CORTISOLon 12-28-2020 Cortisol 17.6 ug/dL Normal [facility] Comment on above: Result Comment: Kade isol AM 6.2 - 19.4 Cortisol PM 2.3 - 11.9 Performed By: #### E RAYNE #### [facility] [address] [place] [address] Dr. Beata Mijares DHEA-SULFATEon 12-28-2020 DHEA-Sulfate 142.0 ug/dL Normal 41.2-243.7 [facility] Comment on above: Performed By: #### D HEDONAL #### [facility] [address] [place] [address] Dr. Beata Mijares ESTRADIOLon 12-28-2020 Estradiol 14.2 pg/mL Normal [facility] Comment on above: Result Comment: Adul t Female: Follicular phase 12.5 - 166.0 Ovulation phase 85.8 - 498.0 Luteal phase 43.8 - 211.0 Postmenopausal <6.0 - 54.7 1st trimester 215.0 - >4300.0 Corey ECLIA methodology Performed By: #### E RAYNE #### [facility] [address] [place] [address] Dr. Beata Mijares PROGESTERONEon 12-28-2020 Progesterone 0.1 ng/mL Normal [facility] Comment on above: Result Comment: Foll icular phase 0.1 - 0.9 Luteal phase 1.8 - 23.9 Ovulation phase 0.1 - 12.0 First trimester 11.0 - 44.3 Second trimester 25.4 - 83.3 Third trimester 58.7 - 214.0 Postmenopausal 0.0 - 0.1 Performed By: #### P QUE #### [facility] [address] [place] [address] Dr. Beata Mijares SEX HORMONE-BINDING GLOBULIN on 12-28-2020 Sex Horm Binding Glob, Serum 31.7 nmol/L Normal 24.6-122.0 [facility] Comment on above: Performed By: #### S EXHBG #### [facility] [address] [place] [address] Dr. Beata Mijares T3, TOTAL (TRIIODOTHYRONINE) on 12-28-2020 T3, TOTAL 123 ng/dL Normal 71-180 [facility] Comment on above: Performed By: #### E RAYNE #### [facility] [address] [place] [address] Dr. Beata Mijares FREE T4on 12-27-2020 Free T4 [Mass/Vol] 1.29 ng/dL Normal 0.78-2.[address] [facility] Comment on above: Performed By: #### E RAYNE #### [facility] [address] [place] [address] Dr. Beata Mijares T4on 12-27-2020 T4 [Mass/Vol] 6.70 ug/dL Normal 5.53-11.00 [facility] Comment on above: Performed By: #### T SH, T4 #### [facility] [address] [place] [address] Dr. Beata Mijares TSHon 12-27-2020 TSH 1.127 uIU/mL Normal 0.470-4.680 [facility] Comment on above: Performed By: #### T SH, T4 #### [facility] [address] [place] [address] Dr. Beata Mijares TSH RANGE SEE BELOW Normal [facility] Comment on above: Result Comment: <0.3 4 UIU/ml HYPERTHYROID 0.34-5.60 UIU/ml EUTHYROID >5.60 UIU/ml HYPOTHYROID Performed By: #### T SH, T4 #### [facility] [address] [address] [address] Beata Mijares VITAMIN D 25 OHon 12-27-2020 VIT D 25-OH 32.0 ng/mL Normal [facility] Comment on above: Performed By: #### E RAYNE #### [facility] [address] [address] [address] Beata Mijares VIT D RANGES SEE BELOW Normal [facility] Comment on above: Result Comment: <20 ng/mL Vit D deficient 20 - <30 ng/mL Vit D insufficient 30 - 100 ng/mL Vit D sufficient >100 ng/mL Potential Toxicity Performed By: #### E RAYNE #### [facility] [address] [address] [address] Beata Mijares Creatinineon 04-04-2017 Creatinine 0.87 mg/dL Normal 0.50-1.05 [facility] Comment on above: Performed By: #### 1 [id number] ####[facility] [address] [place] [address] eGFR (MDRD) mL/min/{1.73_m2} Normal [facility] Comment on above: Result Comment: Inte rpretation for Chronic Kidney Disease:Stages 1&2 >60 Healthy or potential kidney damage.Mild decrease of GFR.Stage 3 30-59 Moderate decrease of GFR.Stage 4 15-29 Severe decrease of GFR.Stage 5 <15 Kidney failure or on dialysis. Performed By: #### 1 [id number] ####[facility] Ufc[address] [place] [address] Electrolyte Panelon 04-04-19 18 Anion gap 11 mmol/L Normal 10-20 [facility] Comment on above: Performed By: #### 1 [id number] ####[facility] [address] [place] [address] Bicarbonate (HCO3) 32 mmol/L Normal 21-32 [facility] Comment on above: Performed By: #### 1 [id number] ####[facility] Mk[address] [place] [address] Chloride 103 mmol/L Normal 98-107 [facility] Comment on above: Performed By: #### 1 [id number] ####[facility] [address] [place] [address] Potassium molar conc 3.3 mmol/L Low 3.5-5.1 [facility] Comment on above: Performed By: #### 1 [id number] ####[facility] [address] [place] [address] Sodium 143 mmol/L Normal 136-145 [facility] Comment on above: Performed By: #### 1 [id number] ####[facility] [address] [place] [address] Urea Nitrogenon 04-04-2017 Urea nitrogen 18 mg/dL Normal 6-23 [facility] are Comment on above: Performed By: #### 1 [id number] ####[facility] [address] [place] [address] Urinalysison 04-04-2017 Ascorbic Acid Negative Normal Negative [facility] are Comment on above: Performed By: #### 1 [id number] ####[facility] [address] [place] [address] Automated Urine Microscopy Performed Normal [facility] Comment on above: Performed By: #### 1 [id number] ####[facility] [address] [place] [address] Bilirubin Ql (U) Negative Normal Negative [facility] Comment on above: Performed By: #### 1 [id number] ####[facility] [address] [place] [address] Blood Small Abnormal Negative [facility] Comment on above: Performed By: #### 1 [id number] ####[facility] [address] [place] [address] Erythrocytes (RBC) 4 /[HPF] Normal 0-3 [facility] Comment on above: Performed By: #### 1 [id number] ####[facility] [address] [place] [address] Glucose mass conc Negative Normal Negative [facility] Comment on above: Performed By: #### 1 [id number] ####[facility] [address] [place] [address] Protein Negative Normal Negative [facility] Comment on above: Performed By: #### 1 [id number] ####[facility] [address] [place] [address] Urine, appearance Hazy Normal Clear [facility] Comment on above: Performed By: #### 1 [id number] ####[facility] [address] [place] [address] Urine, color Yellow Normal [facility] Comment on above: Performed By: #### 1 [id number] ####[facility] [address] [place] [address] Urine, ketones presence Negative Normal Negative [facility] Comment on above: Performed By: #### 1 [id number] ####[facility] [address] [place] [address] Urine, nitrite presence Negative Normal Negative [facility] Comment on above: Performed By: #### 1 [id number] ####[facility] [address] [place] [address] Urine, pH 7.0 [pH] Normal 5.0-9.0 [facility] Comment on above: Performed By: #### 1 [id number] ####[facility] [address] [place] [address] Urine, specific gravity 1.021 Normal 1.003-1.035 [facility] Comment on above: Performed By: #### 1 [id number] ####[facility] [address] [place] [address] Urine, squamous cells in sediment 1 /[HPF] Normal 0-5 [facility] Comment on above: Performed By: #### 1 [id number] ####[facility] [address] [place] [address] Urine, urobilinogen <2.0 Normal Negative [facility] Comment on above: Performed By: #### 1 [id number] ####[facility] [address] [place] [address] WBC (Leukocytes) 1 /[HPF] Normal 0-5 [facility] Comment on above: Performed By: #### 1 [id number] ####[facility] [address] [place] [address] WBC (Leukocytes) Negative Normal Negative [facility] Comment on above: Performed By: #### 1 [id number] ####[facility] [address] [place] [address] Vital Signs Date Time Vital Sign Value Performing Clinician Facility 02-22-2023 09:45-0500 Body height 167.64 cm Laly Sy Other [facility] Other 02-22-2023 09:45-0500 Body mass index (BMI) [Ratio] 34.21 kg/m2 Laly Sy Other [facility] Other 02-22-2023 09:45-0500 Body weight 96.16 kg Laly Sy Other [facility] Other 10-04-2022 09:00-0400 Body height 167.64 cm Laly Sy Other [facility] Other 10-04-2022 09:00-0400 Body mass index (BMI) [Ratio] 34.21 kg/m2 Laly Sy Other [facility] Other 10-04-2022 09:00-0400 Body weight 96.16 kg Laly Sy Other [facility] Other 10-04-2022 09:00-0400 Diastolic blood pressure 85 mm[Hg] Laly Sy Other [facility] Other 10-04-2022 09:00-0400 Systolic blood pressure 142 mm[Hg] Laly yS Other [facility] Other 08-26-2022 10:41-0400 Diastolic blood pressure 78 mm[Hg] MD Laly Sy Work Phone: [facility] 08-26-2022 10:41-0400 Heart rate 57 /min MD Laly Sy Work Phone: [facility] 08-26-2022 10:41-0400 Respiratory rate 16 /min MD Laly Sy Work Phone: [facility] 08-26-2022 10:41-0400 SaO2% (BldA) [Mass fraction] 97 % MD Laly Sy Work Phone: [facility] 08-26-2022 10:41-0400 Systolic blood pressure 136 mm[Hg] MD Laly Sy Work Phone: [facility] 08-26-2022 07:54-0400 Body height 167.64 cm MD Laly Sy Work Phone: [facility] 08-26-2022 07:54-0400 Body temperature 98.1 [degF] MD Laly Sy Work Phone: [facility] 08-26-2022 07:54-0400 Body weight 97.52 kg MD Laly Sy Work Phone: [facility] 07-19-2022 11:00-0400 Body height 167.64 cm Laly Sy Other [facility] Other 07-19-2022 11:00-0400 Body mass index (BMI) [Ratio] 34.7 kg/m2 Laly Sy Other [facility] Other 07-19-2022 11:00-0400 Body weight 97.52 kg Laly Sy Other [facility] Other 07-19-2022 11:00-0400 Diastolic blood pressure 85 mm[Hg] Laly Sy Other [facility] Other 07-19-2022 11:00-0400 Systolic blood pressure 131 mm[Hg] Laly Sy Other [facility] Other 04-28-2022 19:50-0400 Body height 167.64 cm Norma Combs Other [facility] Other 04-28-2022 19:50-0400 Body mass index (BMI) [Ratio] 32.28 kg/m2 Norma Combs Other [facility] Other 04-28-2022 19:50-0400 Body temperature 98.3 [degF] Norma Combs Other [facility] Other 04-28-2022 19:50-0400 Body weight 90.72 kg Norma Combs Other [facility] Other 04-28-2022 19:50-0400 Respiratory rate 18 /min Norma Combs Other [facility] Other 04-28-2022 19:50-0400 SaO2% (BldA) [Mass fraction] 97 % Nomra Combs Other [facility] Other Encounters Encounter Date Encounter Type Care Provider Facility Start: 09-14-2023 End: 09-14-2023 ambulatory [facility] Work Phone: Start: 09-14-2023 End: 09-14-2023 Patient encounter procedure [facility] Work Phone: Start: 06-23-2023 Non-patient / Non-visit [facility] Work Phone: Start: 06-16-2023 Non-patient / Non-visit [facility] Work Phone: Start: 06-07-2023 End: 06-07-2023 ambulatory MIGNON MUHAMMAD Not Available Start: 02-22-2023 End: 02-22-2023 ambulatory Laly Sy Other [facility] Other Start: 02-22-2023 Office outpatient vi sit 15 minutes Laly Sy [facility] Start: 10-25-2022 End: 10-25-2022 ambulatory Laly Sy Other [facility] Other Start: 10-25-2022 Telephone encounter Laly Sy [facility] Start: 10-04-2022 End: 10-04-2022 ambulatory Laly Sy Other [facility] Other Start: 10-04-2022 Encounter for genera l adult medical examination without abnormal findings Laly Sy [facility] Start: 10-04-2022 Periodic preventive med est patient 40-64yrs Laly Sy [facility] Start: 08-26-2022 End: 08-26-2022 ambulatory Laly Sy Facility:[facility] Start: 08-26-2022 End: 08-26-2022 Admission to same day surgery center MD Laly Sy Work Phone: [facility] Work Phone: Start: 08-26-2022 End: 08-26-2022 ambulatory MD Laly Sy Work Phone: [facility] Work Phone: Start: 08-13-2022 End: 08-13-2022 ambulatory Laly Sy Other [facility] Other Start: 08-13-2022 Telephone encounter Laly Sy [facility] Start: 08-05-2022 End: 08-05-2022 ambulatory Laly Sy Other [facility] Other Start: 08-05-2022 Telephone encounter Laly Sy [facility] Start: 07-26-2022 End: 07-26-2022 ambulatory Benja Martin Other [facility] Other Start: 07-26-2022 Telephone encounter Benja Talaz [facility] [employer] Start: 07-19-2022 End: 07-19-2022 ambulatory Laly Sy Other [facility] Other Start: 07-19-2022 Office outpatient vi sit 15 minutes Laly Sy [facility] Start: 04-28-2022 End: 04-28-2022 ambulatory Norma Combs Other [facility] Other Start: 04-28-2022 Office outpatient ne w 20 minutes Norma Combs [facility] Start: 09-25-2021 [...] Date Care Activity Detail Author Start: 08-26-2022 [facility] Patient Education Colon polyps H emorrhoids (DC) [facility] Work Phone: Payers Date Payer Category Payer Self-pay 1975 Unknown [id number] 2.16.84 [id number] 1975 Unknown [id number] 2.16.84 [id number] 1975 Unknown [id number] 2.16.84 [id number] 1973 Unknown [id number] 2.16.84 [id number] 1973 Unknown [id number] 2.16.84 [id number] 1959 Unknown [id number] Unknown [id number] Unknown MMO [id number] Unknown [id number] .16.8 [id number] Social History Date Type Detail Facility Sex Assigned At [facility] Other Start: 08-26-2022 End: 10-04-2022 Tobacco smoking status NHIS Never smoked tobacco (finding) [facility] Start: 1975 Sex Assigned At [facility] Goals Date Patient Goal Desired Activity [...] would like the more affordable option at [facility] Other 08-28-2023 Evaluation note* Encounter Date Diagnosis [...] patient is sent home pleased, without concerns. [facility] Other [facility]* Encounter Date Diagnosis Assessment Notes Treatment Notes Treatment Clinical Notes Jul, Rectal bleeding (ICD-10 - K62.5) Jul, Colon cancer screening (ICD-10 - Z12.11) as above Jul, Essential (primary) hypertension (ICD-10 - I10) improved. OK to hold med and continue check home bps. Jul, Mitral valve prolapse (ICD-10 - I34.1) chronic problem. continue monitoring symptoms. [facility] Other 03-22-2023 Evaluation note* Encounter Date Diagnosis [...] printed, Tendonitis home care material was printed [place] [facility] Other Evaluation noteNo [facility] Other Evaluation noteNo assessment information available [facility] Work Phone: History and physical note Author Benja Martin [facility] August 26, 2022 9:34am Note Date/Time August 26, 2022 9:34 am [facility] [address] [place] [address] Gastroenterology H&P Signed Patient: Noelle Rosales MR#: [id number] : 1975 Acct:[id number] Age/Sex: 47 / F Adm Date: 3 Loc: Room: Type: [facility] Attending Dr: Benja Martin [...] <Electronically signed by Benja Martin MD> 08/26/22933 [facility] Work Phone: Hisgrhl general Narrative - Reported* Type Description Date Medical History Hypertension Medical History asthma Medical History mitral valve prolapse Surgical History tonsillectomy 2000 Surgical History C section x 2 2007 Hospitalization History childbirth [facility] Other Hisxqoz general Narrative - Reported* Type Description Date Medical History Hypertension Medical History asthma Medical History mitral valve prolapse Medical History Insulin resistance Medical History Hormone imbalance Medical History Insomnia Surgical History tonsillectomy 2000 Surgical History C section x 2 2007 Hospitalization History [facility] Other Hospital Discharge instructions Additional Instructions DISCHARGE [...] pathology -Follow up with PCP. -Office number [phone]. [facility] Work Phone: Summary Purpose Family [...] 1 Rectal bleeding (K62 .5) Referral Organization [facility] bhupendra Referring Provider First Name Laly Referring Provider Last Name Kristofer Referring Provider Specialty Family [facility] Referred Organization [facility] Gastroenterolo gy Referred Provider Ramos Barr Referred Address [address] [place] [id number] Referred Provider Specialty Gastroentero logy Referral Priority Routine General Notes Morena Cohen 12:03:33 PM >received today, sent P2P Chief Complaint and Reason for Visit Chief Complaint Rectal Bleeding Chief Complaint wellness Additional Source Comments INFORMATION SOURCE (unrecogn ized section and content) DATE CREATED AUTHOR 07/28/2017 [facility] DATE CREATED AUTHOR AUTHOR'S ORGANIZ ATION 07/28/2017 [facility] DATE CREATED AUTHOR AUTHOR'S ORGANIZ ATION [facility]2021 [facility] DATE CREATED AUTHOR AUTHOR'S ORGANIZ ATION 09/02/2022 [facility] DATE CREATED AUTHOR AUTHOR'S ORGANIZ ATION 06/08/2023 [facility] EPIC REASON FOR VISIT (unrecogniz ed section and content) RIGHT FOOT SWOLLENcheck up, personal concernsMAIL [id number] Sick Care Teams (unrecognized sec tion and [...] BE BASED ON THE PRIMARY CLINICAL RECORDS. [employer] [facility]. provides no warranty or guarantee of the accuracy or completeness of information in this document.
[2024-01-26 16:03] LABS: HCG Quantitative 13 mIU/mL
== END 2024-01-26 15:33 | disposition home or self-care (01) ==
LOC: LAB 15:33
PROVIDERS: PCP Family Medicine; Visit Provider Obstetrics & Gynecology
DX: Z79.899 Other long term (current) drug therapy (principal)
CPT/HCPCS: 36415; 84702

== ENCOUNTER 2024-02-06 10:42 | Outpatient (OUT) | payer OTHER, SELFPAY ==
--- OUTSIDE RECORDS SUMMARY | 2024-02-06 10:53 | XMS_ITS | CCD ---
Author Organization [facility] Care Team Providers Care Engineering Designer Name Role Phone ANTONY MAXIMILIAN P Unavailable Unavailable LALY SY Unavailable Unavailable MCGUINN MAXIMILIAN P Unavailable Unavailable LALY SY Unavailable Unavailable JB, DR CROW Admitting Unavailable JB, DR CROW Attending Unavailable SY, DR LALY Arias Primary Care Unavailable JB, DR CROW Consulting Unavailable JB, DR CROW Consulting Unavailable JB, DR CROW Admitting Unavailable JB, DR CROW Attending Unavailable SY, DR LALY Arias Primary Care Unavailable JB, DR CROW Admitting Unavailable JB, DR CROW Attending Unavailable SY, DR LALY Arias Primary Care Unavailable JB, DR CROW Consulting Unavailable ZIEBER, DR CAR Ybarra Consulting Unavailable KERRIE, DR LALY Arias Admitting Unavailable SY, DR LALY Arias Attending Unavailable KERRIE, DR LALY Arias Consulting Unavailable SY, DR LALY Arias Primary Care Unavailable Norma Combs Unavailable Laly Sy Unavailable Asalaz, Imad Unavailable MD Laly Sy Primary Care Provider MD Benja Martin Attending Provider [phone] Laly Sy Primary Care Unavailable Asaad, Imad Attending Unavailable AsaadHaiderad Admitting Unavailable MIGNON MUHAMMAD Attending Unavailable Unavailable Primary Care Provider Unavailalekesy e Allergies Allergy Classification Reported Allergen(s) Allergy Type Date of Onset Reaction(s) Facility (2 sources) Iodine Drug Allergy 4 [facility] Repository (9 sources) Iodine Drug Allergy 6 [facility] (1 source) Iodine Drug Allergy 3 [facility] Repository (1 source) Latex Propensity to adverse reactions 6 [facility] Medications Current Medications Medication Drug Class(es) Dates Sig (Normalized) Sig (Original) 0.5 ML tirzepatide 20 MG/ML Auto-Injector [Mounjaro] (6 sources) Mounjaro 10 MG/0.5ML as directed Subcutaneous Dr. Muhammad Active azithromycin 250 mg oral tablet (1 source) Macrolide Antimicrobial Start: 02-22-2023 Azithromycin 250 MG as directed Orally 2 tabs po today, then 1 tab daily x 4 more days for 5 Feb, Active Chlorthalidone (12 sources) Thiazide-like Diuretic Start: 08-15-2023 take 1 tablet by mouth once daily Chlorthalidone Active 0 .ROUTE .COMPLEX 90 August 15, 2023 10:22am take 1 tablet by mouth once daily Start: 08-26-2022 End: 08-15-2023 chlorthalidone (Hygroton) 25 MG tablet Daily 08/26/2022 Active Chlorthalidone A ctive citalopram 20 mg oral tablet (10 sources) Serotonin Reuptake Inhibitor Start: 08-26-2022 End: 06-26-2024 take 1 tablet by mouth once daily citalopram (CeleXA) 20 MG tablet Indications: Anxiety, generalized (CMS/HCC) Take 1 tablet (20 mg) by mouth Daily 30 tablet 11 06/27/2023 06/26/2024 Active take 1 tablet by osito th every twenty-four hours Citalopram Hydrobromide 10 MG 1 tablet Orally Once a day Active loratadine 10 mg oral tablet (9 sources) Start: 09-13-2023 take 1 tablet by mouth once daily Loratadine (Claritin) 10 mg tablet Active 1 TAB PO Daily September 13, 2023 12:00am FreeTextSi tablet Orally Once a day; Note: Source Status: Taking; Provider: Kerrie Ruffin ( ) Start: 05-03-2011 take 1 tablet by osito th every twenty-four hours Claritin 10 MG 1 tablet Orally Once a day for 30 day(s) Apr, Active meclizine hydrochloride 25 mg chewable tablet (1 source) Antiemetic Meclizine HCl 25 MG chewable tablet 1 (one) time each day at the same time Active meloxicam 15 mg oral tablet (1 source) Nonsteroidal Anti-inflammatory Drug meloxicam (Mobic) 15 MG tablet 1 (one) time each day at the same time Active methylPREDNISolone 4 mg oral tablet (1 source) Corticosteroid Start: 02-22-19 methylPREDNISolone 4 MG as directed Orally for 6 days Feb, Active mounjaro 10 mg/0.5ml solution pen-injector (1 source) Mounjaro 10 MG/0 .5ML as directed Subcutaneous Dr. Muhammad Active polyethylene glycol 3350 200531 mg / potassium chloride 2970 mg / sodium bicarbonate 6740 mg / sodium chloride 5860 mg / sodium sulfate 58224 mg powder for oral solution (4 sources) Osmotic Laxative Start: 07-30-19 GaviLyte-G 236 g solution TAKE DIRECTED ON PACKAGE FOR 1 DAY 07/29/2022 Active Start: 07-28-2022 PEG-3350/Elect rolytes 236 GM as directed Orally once daily [...] SUBCUT every week August 26, 2022 12:00am Tirzepatide (Mounjaro) 5 MG/0.5ML solution auto-injector (1 source) Start: 12-29-2023 End: 01-28-2024 inject 0.5 mL by subcutaneous injection every week Tirzepatide (Mounjaro) 5 MG/0.5ML solution auto-injector Indications: Encounter for long-term (current) drug use , Insulin resistance Inject 0.5 mL under the skin 1 (one) time per week 2 mL 12/29/2023 01/28/2024 Active Problems Active Problems Problem Classification Problem Date [...] Chronic Other nutritional; endocrine; and metabolic disorders (8 sources) Insulin resistance; Translations: [Metabolic syndrome] Onset: 07-11-2023 07-11-2023 Chronic Other nutritional; endocrine; and metabolic disorders [...] Test Name Value Interpretation Reference Range Facility [facility] PREG QUANT HCGon 01-25-2 024 HCG QUANTITATIVE 13 mIU/mL [facility] Comment on above: 5-50 0.2-1 WEEK 50-500 1-2 WEEKS 100-5,000 2-3 WEEKS 500-10,000 3-4 WEEKS 1,000-50,000 4-5 WEEKS 10,000-100,000 5-6 WEEKS 15,000-200,000 6-8 WEEKS 10,000-100,000 2-3 MONTHS [facility] Glucose mean value [Mass/vol ume] in Blood Estimated from glycated hemoglobinon 06-23-2023 Average glucose Estimated from glycated hemoglobin (Bld) [Mass/Vol] 111 mg/dL [facility] Hematology and Cell countson 06-23-2023 HbA1c (Bld) [Mass fraction] 5.5 % 4.5-6.2 [facility] Comment on above: ADA RECOMMENDED LIMI T 4.0 - 6.0ADA THERAPEUTIC TARGET < 7.0ACTION SUGGESTED> 7.0 Basophils Auto (Bld) [#/Vol] on 06-16-2023 Basophils (Bld) [#/Vol] 0.1 10 3/uL 0.0-0.1 [facility] Basophils/100 WBC Auto (Bld) on 06-16-2023 Basophils/100 WBC (Bld) 0.7 % 0.2-2.0 [facility] Eosinophils/100 WBC Auto (Bl d)on 06-16-2023 Eosinophils/100 WBC (Bld) 1.8 % 0.9-7.0 [facility] Erythrocyte distribution wid th Auto (RBC) [Ratio]on 06-16-2023 Erythrocyte distribution width (RBC) [Ratio] 12.5 % 11.0-15.0 [facility] Hematocrit Auto (Bld) [Volum e fraction]on 06-16-2023 Hematocrit (Bld) [Volume fraction] 42.9 % 36.0-48.0 [facility] Hemoglobin [Mass/volume] in Bloodon 06-16-2023 Hemoglobin (Bld) [Mass/Vol] 14.4 g/dL 12.0-16.0 [facility] - Chemistry and C hemistry - challengeon 06-16-2023 Free T4 [Mass/Vol] 1.46 ng/dL 0.76-1.46 [facility] TSH Qn 1.846 m[IU]/L 0.358-3.740 [facility] Cell count[facility] 06-16-2023 Immature granulocytes/100 WBC (Bld) 0.1 % 0.0-0.5 [facility] Leukocytes [#/volume] correc jose juan for nucleated erythrocytes in Blood by Automated counon 06-16-2023 WBC corrected for nucl RBC Auto (Bld) [#/Vol] 7.0 10 3/uL 4.0-11.0 [facility] Lymphocytes Auto (Bld) [#/Vo l]on 06-16-2023 Lymphocytes (Bld) [#/Vol] 2.8 10 3/uL 1.2-3.8 [facility] Lymphocytes/100 WBC Auto (Bl d)on 06-16-2023 Lymphocytes/100 WBC (Bld) 39.8 % 20.5-60.0 [facility] MCH Auto (RBC) [Entitic mass ]on 06-16-2023 MCH (RBC) [Entitic mass] 28.7 pg 26.7-34.0 [facility] MCHC Auto (RBC) [Mass/Vol]on 06-16-2023 MCHC (RBC) [Mass/Vol] 33.6 g/dL 29.9-35.2 [facility] MCV Auto (RBC) [Entitic vol] on 06-16-2023 MCV (RBC) [Entitic vol] 85.6 fL 81.0-99.0 [facility] Monocytes Auto (Bld) [#/Vol] on 06-16-2023 Monocytes (Bld) [#/Vol] 0.5 10 3/uL 0.3-0.8 [facility] Monocytes/100 WBC Auto (Bld) on 06-16-2023 Monocytes/100 WBC (Bld) 6.7 % 1.7-12.0 [facility] Neutrophils Auto (Bld) [#/Vo l]on 06-16-2023 Neutrophils (Bld) [#/Vol] 3.6 10 3/uL 1.4-6.5 [facility] Neutrophils/100 WBC Auto (Bl d)on 06-16-2023 Neutrophils/100 WBC (Bld) 50.9 % 43.0-75.0 [facility] No Panel Informationon 06-15 Eosinophils # (Auto) 0.1 10 3/uL 0.0-0.7 [facility] Immature Granulocyte # (Auto) 0.01 10 3/uL 0.00-0.03 [facility] Platelet mean volume Auto (B ld) [Entitic vol]on 06-16-2023 Platelet mean volume (Bld) [Entitic vol] 11.2 fL 9.5-13.5 [facility] Platelets Auto (Bld) [#/Vol] on 06-16-2023 Platelets (Bld) [#/Vol] 232 10 3/uL 150-450 [facility] RBC Auto (Bld) [#/Vol]on RBC (Bld) [#/Vol] 5.01 10 6/uL 4.20-5.40 [facility] 08-26-2022 L - -------- Specimen: [id number] Received: 08/26/22 Status: PATRICIO Jones Num: [id number] Spec Type: Surgical Subm Dr: Benja Martin MD Tissues: A Colon Biopsy (SIGMOID POLYP) Procedures: JUSTIN/Willy Roger/Liana L4 -------- Age/ Patient Sex Location Account Attending Physician -------- Noelle Rosales 47/F [id number] Benja Martin MD -------- SPEC NUM: [id number] RECD: 08/26/22 STATUS: PATRICIO JONES NUM: [id number] JENNIFER: 08/26/22 DR: Benja Martin MD ENTERED: 08/26/22 [facility] DR: SPEC TYPE: Surgical DEPT: S ORDERED: [...] microscopic examination confirms the diagnosis. CPT Codes 23465 -------- -------- Specimen: [id number] Received: 08/26/22 Status: PATRICIO Karen Num: [id number] Spec Type: Surgical Subm Dr: Benja Martin MD Tissues: A Colon Biopsy (SIGMOID POLYP) Procedures: HE/2, Gross/Micro L4 -------- Patient: Noelle Rosales [id number] (Continued) -------- Signed (signature on file) Kevin-Keyon Mijares MD 08/27/22 1820 [facility] INSULIN FREE AND TOTALon Free Insulin 10 uU/mL Normal [facility] Comment on above: Result Comment: Kolbye srinivasa Range: Pubertal Children and Adults (fasting): 0 - 17 Performed By: #### E RAYNE #### [facility] [address] [address] [address] Beata Mijares Total Insulin 10 uU/mL Normal [facility] Comment on above: Result Comment: Non- Diabetic: [...] developed and its performance characteristics determined by [employer]. It has not been cleared or approved by the Food and Drug Administration. Performed By: #### Juana MCLAIN #### [facility] [address] [address] [address] Beata Mijares CBC AUTO DIFFon 09-25-2021 BASO # 0.1 103/ul Normal 0.0-0.1 [facility] Comment on above: Performed By: #### F T4 #### [facility] [address] [place] [address] Dr. Beata Mijares Basophils/100 WBC (Bld) 0.7 % Normal 0.2-2.0 [facility] Comment on above: Performed By: #### F T4 #### [facility] [address] [place] [address] Dr. Beata Mijares EO # 0.1 103/ul Normal 0.0-0.7 [facility] Comment on above: Performed By: #### F T4 #### [facility] [address] [place] [address] Dr. Beata Mijares Eosinophils/100 WBC (Bld) 1.8 % Normal 0.9-7.0 [facility] Comment on above: Performed By: #### F T4 #### [facility] [address] [place] [address] Dr. Beata Mijares Erythrocyte distribution width (RBC) [Ratio] 12.9 % Normal 11.0-15.0 [facility] Comment on above: Performed By: #### F T4 #### [facility] [address] [place] [address] Dr. Beata Mijares Hematocrit (Bld) [Volume fraction] 42.5 % Normal 36.0-48.0 [facility] Comment on above: Performed By: #### F T4 #### [facility] [address] [place] [address] Dr. Beata Mijares Hemoglobin (Bld) [Mass/Vol] 14.3 g/dL Normal 12.0-16.0 [facility] Comment on above: Performed By: #### F T4 #### [facility] [address] [place] [address] Dr. Beata Mijares IG # 0.02 10e3/ul Normal 0.00-0.03 [facility] Comment on above: Performed By: #### F T4 #### [facility] [address] [place] [address] Dr. Beata Mijares IG % 0.3 % Normal 0.0-0.5 [facility] Comment on above: Performed By: #### F T4 #### [facility] [address] [place] [address] Dr. Beata Mijares LYMPH # 2.5 103/ul Normal 1.2-3.8 [facility] Comment on above: Performed By: #### F T4 #### [facility] [address] [place] [address] Dr. Beata Mijares Lymphocytes/100 WBC (Bld) 36.1 % Normal 20.5-60.0 [facility] Comment on above: Performed By: #### F T4 #### [facility] [address] [place] [address] Dr. Beata Mijares MANUAL DIFF REQ NO Normal [facility] Comment on above: Performed By: #### F T4 #### [facility] [address] [place] [address] Dr. Beata Mijares MCH (RBC) [Entitic mass] 28.4 pg Normal 26.7-34.0 [facility] Comment on above: Performed By: #### F T4 #### [facility] [address] [place] [address] Dr. Beata Mijares MCHC (RBC) [Mass/Vol] 33.6 g/dL Normal 29.9-35.2 [facility] Comment on above: Performed By: #### F T4 #### [facility] [address] [place] [address] Dr. Beata Mijares MCV (RBC) [Entitic vol] 84.3 fL Normal 81.0-99.0 [facility] Comment on above: Performed By: #### F T4 #### [facility] [address] [place] [address] Dr. Beata Mijares MONO # 0.5 103/ul Normal 0.3-0.8 [facility] Comment on above: Performed By: #### F T4 #### [facility] [address] [place] [address] Dr. Beata Mijares Monocytes/100 WBC (Bld) 7.7 % Normal 1.7-12.0 [facility] Comment on above: Performed By: #### F T4 #### [facility] [address] [address] [address] Beata Mijares NEUT # 3.7 103/ul Normal 1.4-6.5 [facility] Comment on above: Performed By: #### F T4 #### [facility] [address] [address] [address] Beata Mijares Neutrophils/100 WBC (Bld) 53.4 % Normal 43.0-75.0 [facility] Comment on above: Performed By: #### F T4 #### [facility] [address] [place] [address] Dr. Beata Mijares Platelet mean volume (Bld) [Entitic vol] 11.0 fL Normal 9.5-13.5 [facility] Comment on above: Performed By: #### F T4 #### [facility] [address] [place] [address] Dr. Beata Mijares PLT 229 103/ul Normal 150-450 The [facility] Comment on above: Performed By: #### F T4 #### [facility] [address] [place] [address] Dr. Beata Mijares RBC 5.04 106/ul Normal 4.20-5.40 [facility] Comment on above: Performed By: #### F T4 #### [facility] [address] [place] [address] Dr. Beata Mijares WBC 6.8 103/ul Normal 4.0-11.0 [facility] Comment on above: Performed By: #### F T4 #### [facility] [address] [place] [address] Dr. Beata Mijares FREE T4on 09-25-2021 Free T4 [Mass/Vol] 1.19 ng/dL Normal 0.76-1.46 [facility] Comment on above: Performed By: #### F T4 #### [facility] [address] [place] [address] Dr. Beata Mijares GLYCOHEMOGLOBIN A1Con 2021 ADA RECOMMENDATION SEE BELOW Normal [facility] Comment on above: Result Comment: ADA RECOMMENDED LIMIT 4.0 - 6.0 ADA THERAPEUTIC TARGET < 7.0 ACTION SUGGESTED > 7.0 Performed By: #### E STRADI #### [facility] [address] [address] [address] Beata Mijares Glucose [Mass/Vol] 114 mg/dL Normal [facility] Comment on above: Performed By: #### E STRADI #### [facility] [address] [address] [address] Beata Mijares HbA1c (Bld) [Mass fraction] 5.6 % Normal 4.5-6.2 [facility] Comment on above: Performed By: #### E STRADI #### [facility] [address] [address] [address] Beata Mijares MG MAMM SCREEN 3D SHAUN CADon 09-25-2021 MG MAMM SCREEN 3D SHAUN CAD Patient: NOELLE ROSALES Exam Date: 09/25/2021 : 1975 Gender:F Ordering : DR MIGNON MUHAMMAD . Admission #: [id number] Family : Order #: [id number] CLICK HERE TO VIEW EXAM RADIOLOGY REPORT [...] colon cancer at age 68. LOCATION: The [facility] BREAST COMPOSITION: Heterogeneously dense,which may obscure small [...] Garcia M.D. on 09/25/2021 at 10:20 Normal [facility] PAP ACOG PANEL 2: 30 to 65on 09-25-2021 . . Normal [facility] Comment on above: Result Comment: Perf ormed at: WB Performed By: #### [id number] #### [facility] [address] [place] [address] Dr. Beata Mijares Age Gdln ACOG Testing 30-65 Normal [facility] Comment on above: Performed By: #### 4 [id number] #### [facility] [address] [address] [address] Beata Mijares DIAGNOSIS: Comment Normal [facility] Comment on above: Result Comment: NEGA TIVE FOR INTRAEPITHELIAL LESION OR MALIGNANCY. THIS SPECIMEN WAS RESCREENED PART OF OUR METAL OR WOOD BLOCKER PROGRAM. Performed at: WB Performed By: #### 4 [id number] #### [facility] [address] [place] [address] Dr. Beata Mijares HPV Aptima Negative Normal Negative [facility] Comment on above: Result Comment: This nucleic acid amplification test detects fourteen high-risk HPV types (16,18,31,33,35,39,45,51,52,56,58,59,66,68) without differentiation. Performed at: =G Performed By: #### 4 [id number] #### [facility] [address] [place] [address] Dr. Beata Mijares Methodology: Comment Normal [facility] Comment on above: Result Comment: This liquid based ThinPrep(R) pap test was screened with the use of an image guided system. Performed at: WB Performed By: #### 4 [id number] #### [facility] [address] [place] [address] Dr. Beata Mijares Note: Comment Normal [facility] Comment on above: Result Comment: The Pap smear is a screening test designed to aid in the detection of premalignant and malignant conditions of the uterine cervix. It is not a diagnostic procedure and should not be used as the sole means of detecting cervical cancer. Both false-positive and false-negative reports do occur. . Performed at: WB Performed By: #### [id number] #### [facility] [address] [place] [address] Dr. Beata Mijares Performed by: Comment Normal [facility] Comment on above: Result Comment: Vee Tijerina, Mobility Developer (ASCP) Performed at: WB Performed By: #### 4 [id number] #### [facility] [address] [place] [address] Dr. Beata Mijares QC reviewed by: Comment Normal [facility] Comment on above: Result Comment: Mohinder Sepulveda, Supervisory Mobility Developer (ASCP) Performed at: WB Performed By: #### 4 [id number] #### [facility] [address] [place] [address] Dr. Beata Mijares Specimen adequacy: Comment Normal [facility] Comment on above: Result Comment: Sati sfactory for evaluation. Endocervical and/or squamous metaplastic cells (endocervical component) are present. Performed at: WB Performed By: #### [id number] #### [facility] [address] [place] [address] Dr. Beata Mijares TSHon 09-25-2021 TSH 1.833 uIU/mL Normal 0.358-3.740 [facility] Comment on above: Performed By: #### T SH #### [facility] [address] [place] [address] Dr. Beata Mijares CARDIAC MELCHOR ADMITon 022 CK [Catalytic activity/Vol] 148 U/L Normal 26-192 The [facility] Comment on above: Performed By: #### F T4 #### [facility] [address] [place] [address] Dr. Beata Mijares CK.MB [Mass/Vol] 1.29 ng/mL Normal <=3.60 [facility] Comment on above: Performed By: #### F T4 #### [facility] [address] [place] [address] Dr. Beata Mijares KOLBY 51 ng/mL Normal 9-82 The [facility] Comment on above: Performed By: #### F T4 #### [facility] [address] [place] [address] Dr. Beata Mijares CBC AUTO DIFFon 05-11-2022 BASO # 0.0 103/ul Normal 0.0-0.1 [facility] Comment on above: Performed By: #### C BC #### [facility] [address] [place] [address] Dr. Beata Mijares Basophils/100 WBC (Bld) 0.4 % Normal 0.2-2.0 [facility] Comment on above: Performed By: #### C BC #### [facility] [address] [place] [address] Dr. Beata Mijares EO # 0.1 103/ul Normal 0.0-0.7 [facility] Comment on above: Performed By: #### C BC #### [facility] [address] [place] [address] Dr. Beata Mijares Eosinophils/100 WBC (Bld) 1.3 % Normal 0.9-7.0 [facility] Comment on above: Performed By: #### C BC #### [facility] [address] [place] [address] Dr. Beata Mijares Erythrocyte distribution width (RBC) [Ratio] 12.6 % Normal 11.0-15.0 [facility] Comment on above: Performed By: #### C BC #### [facility] [address] [place] [address] Dr. Beata Mijares Hematocrit (Bld) [Volume fraction] 43.3 % Normal 36.0-48.0 [facility] Comment on above: Performed By: #### C BC #### [facility] [address] [place] [address] Dr. Beata Mijares Hemoglobin (Bld) [Mass/Vol] 14.3 g/dL Normal 12.0-16.0 The [facility] Comment on above: Performed By: #### C BC #### [facility] [address] [place] [address] Dr. Beata Mijares IG # 0.02 10e3/ul Normal 0.00-0.03 [facility] Comment on above: Performed By: #### C BC #### [facility] [address] [place] [address] Dr. Beata Mijares IG % 0.3 % Normal 0.0-0.5 [facility] Comment on above: Performed By: #### C BC #### [facility] [address] [place] [address] Dr. Beata Mijares LYMPH # 2.8 103/ul Normal 1.2-3.8 [facility] Comment on above: Performed By: #### C BC #### [facility] [address] [place] [address] Dr. Beata Mijares Lymphocytes/100 WBC (Bld) 39.4 % Normal 20.5-60.0 [facility] Comment on above: Performed By: #### C BC #### [facility] [address] [place] [address] Dr. Beata Mijares MANUAL DIFF REQ NO Normal [facility] Comment on above: Performed By: #### C BC #### [facility] [address] [place] [address] Dr. Beata Mijares MCH (RBC) [Entitic mass] 28.5 pg Normal 26.7-34.0 [facility] Comment on above: Performed By: #### C BC #### [facility] [address] [place] [address] Dr. Beata Mijares MCHC (RBC) [Mass/Vol] 33.0 g/dL Normal 29.9-35.2 The [facility] Comment on above: Performed By: #### C BC #### [facility] [address] [place] [address] Dr. Beata Mijares MCV (RBC) [Entitic vol] 86.3 fL Normal 81.0-99.0 [facility] Comment on above: Performed By: #### C BC #### [facility] [address] [place] [address] Dr. Beata Mijares MONO # 0.4 103/ul Normal 0.3-0.8 [facility] Comment on above: Performed By: #### C BC #### [facility] [address] [place] [address] Dr. Beata Mijares Monocytes/100 WBC (Bld) 5.9 % Normal 1.7-12.0 [facility] Comment on above: Performed By: #### C BC #### [facility] [address] [place] [address] Dr. Beata Mijares NEUT # 3.8 103/ul Normal 1.4-6.5 [facility] Comment on above: Performed By: #### C BC #### [facility] [address] [place] [address] Dr. Beata Mijares Neutrophils/100 WBC (Bld) 52.7 % Normal 43.0-75.0 [facility] Comment on above: Performed By: #### C BC #### [facility] [address] [place] [address] Dr. Beata Mijares Platelet mean volume (Bld) [Entitic vol] 11.1 fL Normal 9.5-13.5 [facility] Comment on above: Performed By: #### C BC #### [facility] [address] [place] [address] Dr. Beata Mijares PLT 227 103/ul Normal 150-450 The [facility] Comment on above: Performed By: #### C BC #### [facility] [address] [place] [address] Dr. Beata Mijares RBC 5.02 106/ul Normal 4.20-5.40 The [facility] Comment on above: Performed By: #### C BC #### [facility] [address] [place] [address] Dr. Beata Mijares WBC 7.2 103/ul Normal 4.0-11.0 The [facility] Comment on above: Performed By: #### C BC #### [facility] [address] [place] [address] Dr. Beata Mijares PROF CHEM 8 (BAS METB)on Anion gap [Moles/Vol] 10.2 mmol/L Normal [facility] Comment on above: Performed By: #### E JACKIEDI #### [facility] [address] [place] [address] Dr. Beata Mijares Calcium [Mass/Vol] 9.7 mg/dL Normal 8.5-10.1 [facility] Comment on above: Performed By: #### E STRADI #### [facility] [address] [address] [address] Beata Mijares Chloride [Moles/Vol] 101 mmol/L Normal 98-107 [facility] Comment on above: Performed By: #### E STRADI #### [facility] [address] [address] [address] Beata Mijares CO2 [Moles/Vol] 35.1 mmol/L Critically high 21.0-32.0 [facility] Comment on above: Performed By: #### E STRADI #### [facility] [address] [place] [address] Dr. Beata Mijares Creatinine [Mass/Vol] 0.88 mg/dL Normal 0.55-1.02 [facility] Comment on above: Performed By: #### E STRADI #### [facility] [address] [place] [address] Dr. Beata Mijares EGFR-AF BELARUSIAN >60 Normal >=60 [facility] Comment on above: Performed By: #### E STRADI #### [facility] [address] [address] [address] Beata Mijares EGFR-NON AF BELARUSIAN >60 Normal >=60 [facility] Comment on above: Performed By: #### E STRADI #### [facility] [address] [place] [address] Dr. Beata Mijares Glucose [Mass/Vol] 111 mg/dL Critically high 74-106 [facility] Comment on above: Performed By: #### E STRADI #### [facility] [address] [place] [address] Dr. Beata Mijares Potassium [Moles/Vol] 3.3 mmol/L Critically low 3.5-5.1 [facility] Comment on above: Performed By: #### E STRADI #### [facility] [address] [place] [address] Dr. Beata Mijares Sodium [Moles/Vol] 143 mmol/L Normal 136-145 [facility] Comment on above: Performed By: #### E STRADI #### [facility] [address] [address] [address] Beata Mijares Urea nitrogen [Mass/Vol] 17.0 mg/dL Normal 7.0-18.0 [facility] Comment on above: Performed By: #### E STRADI #### [facility] [address] [address] [address] Beata Mijares Urea nitrogen/Creatinine [Mass ratio] 19.3 mg/mg Normal [facility] Comment on above: Performed By: #### E STRADI #### [facility] [address] [address] [address] Beata Mijares TROPONIN, HIGH SENSITIVITYon 06-17-2021 HSTROP 5.1 pg/mL Normal 4.0-51.3 [facility] Comment on above: Result Comment: CUT- OFF POINTS HAVE BEEN ESTABLISHED BASED ON THE FOURTH UNIVERSAL DEFINITIONS OF MYOCARDIAL INFARCTION. THE UPPER REFERENCE LIMIT (URL) OF TROPONIN, DEFINED THE 99TH PERCENTILE OF cTnI DISTRIBUTION IN A REFERENCE POPULATION, HAS BEEN CONFIRMED THE DECISION THRESHOLD FOR OK DIAGNOSIS. Performed By: #### E STRADI #### [facility] [address] [address] [address] Beata Mijares Performed By: #### F T4 #### [facility] [address] [address] [address] Beata Mijares ESTRONEon 12-30-2020 Estrone, Serum 68 pg/mL Normal [facility] Comment on above: Result Comment: Adul t: Follicular phase 39 - 132 Periovulatory 58 - 256 Luteal phase 54 - 179 : 1st trimester 247 - 2774 2nd trimester 569 - 5781 Postmenopausal: with ERT 51 - 488 without ERT 31 - 100 Performed By: #### E STRADI #### [facility] [address] [address] [address] Beata Mijares TESTOSTERONE, FREE,DIRECT, T OTALon 12-30-2020 Free Testosterone(Direct) 1.7 pg/mL Normal 0.0-4.2 The [facility] Comment on above: Result Comment: Perf ormed at: BN Performed By: #### F T4 #### [facility] [address] [address] [address] Beata Mijares Testosterone [Mass/Vol] 17 ng/dL Normal 4-50 [facility] Comment on above: Result Comment: Perf ormed at: CB Performed By: #### F T4 #### [facility] [address] [address] [address] Beata Mijares CORTISOLon 12-28-2020 Cortisol 17.6 ug/dL Normal [facility] Comment on above: Result Comment: Kade isol AM 6.2 - 19.4 Cortisol PM 2.3 - 11.9 Performed By: #### E STRADI #### [facility] [address] [place] [address] Dr. Beata Mijares DHEA-SULFATEon 12-28-2020 DHEA-Sulfate 142.0 ug/dL Normal 41.2-243.7 [facility] Comment on above: Performed By: #### D HEEBENEZERUL #### [facility] [address] [place] [address] Dr. Beata Mijares ESTRADIOLon 12-28-2020 Estradiol 14.2 pg/mL Normal [facility] Comment on above: Result Comment: Adul t Female: Follicular phase 12.5 - 166.0 Ovulation phase 85.8 - 498.0 Luteal phase 43.8 - 211.0 Postmenopausal <6.0 - 54.7 1st trimester 215.0 - >4300.0 [facility] ECLIA methodology Performed By: #### E STRADI #### [facility] [address] [place] [address] Dr. Beata Mijares PROGESTERONEon 12-28-2020 Progesterone 0.1 ng/mL Normal [facility] Comment on above: Result Comment: Foll icular phase 0.1 - 0.9 Luteal phase 1.8 - 23.9 Ovulation phase 0.1 - 12.0 First trimester 11.0 - 44.3 Second trimester 25.4 - 83.3 Third trimester 58.7 - 214.0 Postmenopausal 0.0 - 0.1 Performed By: #### P QUE #### [facility] [address] [place] [address] Dr. Beata Mijares SEX HORMONE-BINDING GLOBULIN on 12-28-2020 Sex Horm Binding Glob, Serum 31.7 nmol/L Normal 24.6-122.0 [facility] Comment on above: Performed By: #### S EXHBG #### [facility] [address] [place] [address] Dr. Beata Mijares T3, TOTAL (TRIIODOTHYRONINE) on 12-28-2020 T3, TOTAL 123 ng/dL Normal 71-180 The [facility] Comment on above: Performed By: #### E STRADI #### [facility] [address] [place] [address] Dr. Beata Mijares FREE T4on 12-27-2020 Free T4 [Mass/Vol] 1.29 ng/dL Normal 0.78-2.19 [facility] Comment on above: Performed By: #### E STRADI #### [facility] [address] [place] [address] Dr. Beata Mijares T4on 12-27-2020 T4 [Mass/Vol] 6.70 ug/dL Normal 5.53-11.00 [facility] Comment on above: Performed By: #### T SH, T4 #### [facility] [address] [place] [address] Dr. Beata Mijares TSHon 12-27-2020 TSH 1.127 uIU/mL Normal 0.470-4.680 [facility] Comment on above: Performed By: #### T SH, T4 #### [facility] [address] [place] [address] Dr. Beata Mijares TSH RANGE SEE BELOW Normal [facility] Comment on above: Result Comment: <0.3 4 UIU/ml HYPERTHYROID 0.34-5.60 UIU/ml EUTHYROID >5.60 UIU/ml HYPOTHYROID Performed By: #### T SH, T4 #### [facility] [address] [place] [address] Dr. Beata Mijares VITAMIN D 25 OHon 12-27-2020 VIT D 25-OH 32.0 ng/mL Normal [facility] Comment on above: Performed By: #### E STRADI #### [facility] [address] [address] [address] Beata Mijares VIT D RANGES SEE BELOW Normal The [facility] Comment on above: Result Comment: <20 ng/mL Vit D deficient 20 - <30 ng/mL Vit D insufficient 30 - 100 ng/mL Vit D sufficient >100 ng/mL Potential Toxicity Performed By: #### Juana MCLAIN #### [facility] [address] [address] [address] Beata Mjiares Creatinineon 04-04-2017 Creatinine 0.87 mg/dL Normal 0.50-1.05 [facility] Comment on above: Performed By: #### 1 [id number] ####[facility] [address] [facility] [place] [address] eGFR (MDRD) mL/min/{1.73_m2} Normal LTAC, [facility] Comment on above: Result Comment: Inte rpretation for Chronic Kidney Disease:Stages 1&2 >60 Healthy or potential kidney damage.Mild decrease of GFR.Stage 3 30-59 Moderate decrease of GFR.Stage 4 15-29 Severe decrease of GFR.Stage 5 <15 Kidney failure or on dialysis. Performed By: #### 1 [id number] ####[facility] [address] [place] [place] [address] Electrolyte Panelon 04-04-19 18 Anion gap 11 mmol/L Normal 10-20 [facility] Comment on above: Performed By: #### 1 [id number] ####[facility] [address] [place] [address] Bicarbonate (HCO3) 32 mmol/L Normal 21-32 [facility] Comment on above: Performed By: #### 1 [id number] ####[facility] [address] [facility] [place] [address] Chloride 103 mmol/L Normal 98-107 [facility] Comment on above: Performed By: #### 1 [id number] ####[facility] [address] [facility] [place] [address] Potassium molar conc 3.3 mmol/L Low 3.5-5.1 [facility] Comment on above: Performed By: #### 1 [id number] ####[facility] [address] [place] [address] Sodium 143 mmol/L Normal 136-145 [facility] Comment on above: Performed By: #### 1 [id number] ####[facility] [address] [place] [address] Urea Nitrogenon 04-04-2017 Urea nitrogen 18 mg/dL Normal 6-23 [facility] are Comment on above: Performed By: #### 1 [id number] ####[facility] [address] [place] [address] Urinalysison 04-04-2017 Ascorbic Acid Negative Normal Negative [facility] are Comment on above: Performed By: #### 1 [id number] ####[facility] [address] [place] [address] Automated Urine Microscopy Performed Normal [facility] Comment on above: Performed By: #### 1 [id number] ####[facility] [address] [place] [address] Bilirubin Ql (U) Negative Normal Negative [facility] Comment on above: Performed By: #### 1 [id number] ####[facility] [address] [place] [address] Blood Small Abnormal Negative [facility] Comment on above: Performed By: #### 1 [id number] ####[facility] [address] [place] [address] Erythrocytes (RBC) 4 /[HPF] Normal 0-3 [facility] Comment on above: Performed By: #### 1 [id number] ####[facility] [address] [place] [address] Glucose mass conc Negative Normal Negative [facility] Comment on above: Performed By: #### 1 [id number] ####[facility] [address] [place] [address] Protein Negative Normal Negative [facility] Comment on above: Performed By: #### 1 [id number] ####[facility] [address] [place] [address] Urine, appearance Hazy Normal Clear [facility] Comment on above: Performed By: #### 1 [id number] ####[facility] [address] [place] [address] Urine, color Yellow Normal [facility] Comment on above: Performed By: #### 1 [id number] ####[facility] [address] [place] [address] Urine, ketones presence Negative Normal Negative [facility] Comment on above: Performed By: #### 1 [id number] ####[facility] [address] [place] [address] Urine, nitrite presence Negative Normal Negative [facility] Comment on above: Performed By: #### 1 [id number] ####[facility] [address] [place] [address] Urine, pH 7.0 [pH] Normal 5.0-9.0 [facility] Comment on above: Performed By: #### 1 [id number] ####[facility] [address] [place] [address] Urine, specific gravity 1.021 Normal 1.003-1.035 [facility] Comment on above: Performed By: #### 1 [id number] ####[facility] [address] [place] [address] Urine, squamous cells in sediment 1 /[HPF] Normal 0-5 [facility] Comment on above: Performed By: #### 1 [id number] ####[facility] [address] [place] [address] Urine, urobilinogen <2.0 Normal Negative [facility] Comment on above: Performed By: #### 1 [id number] ####[facility] [address] [place] [address] WBC (Leukocytes) 1 /[HPF] Normal 0-5 [facility] Comment on above: Performed By: #### 1 [id number] ####[facility] [address] [place] [address] WBC (Leukocytes) Negative Normal Negative [facility] Comment on above: Performed By: #### 1 [id number] ####[facility] [address] [place] [address] Vital Signs Date Time Vital Sign Value Performing Clinician Facility 02-22-2023 09:45-0500 Body height 167.64 cm Laly Sy Other [facility] Other 02-22-2023 09:45-0500 Body mass index (BMI) [Ratio] 34.21 kg/m2 Laly Sy Other [facility] Other 02-22-2023 09:45-0500 Body weight 96.16 kg Laly Sy Other [facility] Other 10-04-2022 09:00-0400 Body height 167.64 cm Laly Sy Other [facility] Other 10-04-2022 09:00-0400 Body mass index (BMI) [Ratio] 34.21 kg/m2 Laly Sy Other [facility] Other 10-04-2022 09:00-0400 Body weight 96.16 kg Laly Sy Other [facility] Other 10-04-2022 09:00-0400 Diastolic blood pressure 85 mm[Hg] Laly Sy Other [facility] Other 10-04-2022 09:00-0400 Systolic blood pressure 142 mm[Hg] Laly Sy Other [facility] Other 08-26-2022 10:41-0400 Diastolic blood pressure 78 mm[Hg] MD Laly Sy Work Phone: [facility] 08-26-2022 10:41-0400 Heart rate 57 /min MD Laly Sy Work Phone: [facility] 08-26-2022 10:41-0400 Respiratory rate 16 /min MD Laly Sy Work Phone: [facility] 08-26-2022 10:41-0400 SaO2% (BldA) [Mass fraction] 97 % MD Laly Sy Work Phone: [facility] 08-26-2022 10:41-0400 Systolic blood pressure 136 mm[Hg] MD Laly Sy Work Phone: [facility] 08-26-2022 07:54-0400 Body height 167.64 cm MD Laly Sy Work Phone: [facility] 08-26-2022 07:54-0400 Body temperature 98.1 [degF] MD Laly Sy Work Phone: [facility] 08-26-2022 07:54-0400 Body weight 97.52 kg MD Laly Sy Work Phone: [facility] 07-19-2022 11:00-0400 Body height 167.64 cm Laly Sy Other [facility] [employer] Other 07-19-2022 11:00-0400 Body mass index (BMI) [Ratio] 34.7 kg/m2 Laly Sy Other [facility] [employer] Other 07-19-2022 11:00-0400 Body weight 97.52 kg Laly Sy Other [employer] [facility] [employer] Other 07-19-2022 11:00-0400 Diastolic blood pressure 85 mm[Hg] Laly Sy Other [facility] Other 07-19-2022 11:00-0400 Systolic blood pressure 131 mm[Hg] Laly Sy Other [facility] Other 04-28-2022 19:50-0400 Body height 167.64 cm Norma Combs Other [facility] Other 04-28-2022 19:50-0400 Body mass index (BMI) [Ratio] 32.28 kg/m2 Norma Combs Other [facility] Other 04-28-2022 19:50-0400 Body temperature 98.3 [degF] Norma Combs Other [facility] Other 04-28-2022 19:50-0400 Body weight 90.72 kg Norma Combs Other [facility] Other 04-28-2022 19:50-0400 Respiratory rate 18 /min Norma Combs Other [facility] Other 04-28-2022 19:50-0400 SaO2% (BldA) [Mass fraction] 97 % Norma Combs Other [facility] Other Encounters Encounter Date Encounter Type Care Provider Facility Start: 01-26-2024 End: 01-26-2024 Clinisync Result Encounter Mignon Jb DO Work Phone: [facility] External [facility] Unsolicited Start: 01-26-2024 End: 01-26-2024 [facility] Result Encounter Mignon Bj DO Work Phone: [facility] External Department Unsolicited Start: 09-14-2023 End: 09-14-2023 ambulatory [facility] Work Phone: Start: 09-14-2023 End: 09-14-2023 Patient encounter procedure [facility] Work Phone: Start: 06-23-2023 Non-patient / Non-visit [facility] Work Phone: Start: 06-16-2023 Non-patient / Non-visit [facility] [employer] Work Phone: Start: 06-07-2023 End: 06-07-2023 ambulatory MIGNON MUHAMMAD Not Available Start: 02-22-2023 End: 02-22-2023 ambulatory Laly Sy Other [facility] Other Start: 02-22-2023 Office outpatient vi sit 15 minutes Laly Sy [facility] Start: 10-25-2022 End: 10-25-2022 ambulatory Laly Sy Other [facility] Other Start: 10-25-2022 Telephone encounter Laly Sy [facility] Start: 10-04-2022 End: 10-04-2022 ambulatory Laly Sy Other [facility] Other Start: 10-04-2022 Encounter for genera l adult medical examination without abnormal findings Laly Sy [facility] Start: 10-04-2022 Periodic preventive med est patient 40-64yrs Laly Sy [facility] Start: 08-26-2022 End: 08-26-2022 ambulatory Laly Sy Facility:[facility] Start: 08-26-2022 End: 08-26-2022 Admission to same day surgery center MD Laly Sy Work Phone: [facility] Work Phone: Start: 08-26-2022 End: 08-26-2022 ambulatory MD Laly Sy Work Phone: [facility] Work Phone: Start: 08-13-2022 End: 08-13-2022 ambulatory Laly Sy Other [facility] Other Start: 08-13-2022 Telephone encounter Laly Sy [facility] Start: 08-05-2022 End: 08-05-2022 ambulatory Laly Sy Other [facility] Other Start: 08-05-2022 Telephone encounter Laly Sy [facility] Start: 07-26-2022 End: 07-26-2022 ambulatory Benja Keyonlaz Other [facility] Other Start: 07-26-2022 Telephone encounter Benja Talaz [facility] [employer] Start: 07-19-2022 End: 07-19-2022 ambulatory Laly Sy Other [facility] Other Start: 07-19-2022 Office outpatient vi sit 15 minutes Laly Sy [facility] Start: 04-28-2022 End: 04-28-2022 ambulatory Norma Combs Other [facility] Other Start: 04-28-2022 Office outpatient ne w [...] Date Procedure Procedure Detail Performing Clinician Start: 01-26-2024 [facility] P[facility] QUANT HCG Core y Jb DO Work Phone: Start: 08-25-2023 Mammography Mignon Ann o DO Work Phone: Start: 08-26-2022 Colonoscopy MD Laly Sy Work Phone: Start: 08-26-2021 Microscopic observat ion [Identifier] in Cervix by Cyto stain Mignon Muhammad DO Work Phone: Plan of Treatment Date Care Activity Detail Author Start: 08-26-2026 Screening for malign ant neoplasm of cervix [facility] Start: 08-24-2024 Screening for malign ant neoplasm of breast Mammogram [facility] Start: 03-19-2024 End: 03-19-2024 Patient encounter procedure 03/19/2024 3:00 PM EST Office Visit [facility] [address] [place] [address] Mignon Muhammad DO [address] [place] [address] [facility] Start: 10-09-2023 Influenza vaccination Influenza Vacc ine (#1) [facility] Start: 08-26-2022 [facility] Start: 1975 Screening for malign ant neoplasm of colon [facility] Patient Education Colon polyps Hemorrhoids (DC) [facility] Work Phone: Payers Date Payer Category Payer Private Health Insurance [id number] 2022 Self-pay 1975 Unknown [id number] 1973 Unknown [id number] 1973 Unknown [id number] 1973 Unknown [id number] 1973 Unknown [id number] 1959 Unknown [id number] Unknown [id number] Unknown O [id number] Unknown [id number] Social History Date Type Detail Facility Start: 06-07-2023 Sex Assigned At N [employer] Other Start: 08-26-2022 End: 09-22-2022 Tobacco smoking status NHIS Never smoked tobacco (finding) [facility] Start: 1975 Sex Assigned At Female F [facility] Start: 06-07-2023 Alcoholic beverage intake Lifetime non-drinker (finding) [facility] Start: 06-07-2023 History of Social function [facility] Start: 09-22-2022 Alcohol Comment Caffeine: 1-2 cups/day [facility] Start: 1975 Sex assigned at Not on file N [facility] Goals Date Patient Goal Desired Activity /State [...] would like the more affordable option at [facility] Other 08-28-2023 Evaluation note* Encounter Date Diagnosis [...] patient is sent home pleased, without concerns. [facility]* Encounter Date Diagnosis Assessment Notes Treatment Notes Treatment Clinical Notes Jul, Rectal bleeding (ICD-10 - K62.5) Jul, Colon cancer screening (ICD-10 - Z12.11) as above Jul, Essential (primary) hypertension (ICD-10 - I10) improved. OK to hold med and continue check home bps. Jul, Mitral valve prolapse (ICD-10 - I34.1) chronic problem. continue monitoring symptoms. [facility] Other 03-22-2023 Evaluation note* Encounter Date Diagnosis [...] printed, Tendonitis home care material was printed [facility] [employer] Other Evaluation [facility]No [facility] [employer] Other Evaluation noteNo assessment information available [facility] Work Phone: History and physical note Author Benja Martin [facility] August 26, 2022 9:34am Note Date/Time August 26, 2022 9:34 am [facility] [address] [place] [address] Gastroenterology H&P Signed Patient: Noelle Rosales MR#: [id number] : 1975 Acct:[id number] Age/Sex: 47 / F Adm Date: 3 Loc: Room: Type: [facility] Attending Dr: Benja Martin MD Copies to: [...] <Electronically signed by Benja Martin MD> 08/26/22933 [facility] Work Phone: [facility] general Narrative - Reported* Type Description Date Medical History Hypertension Medical History asthma Medical History mitral valve prolapse Surgical History tonsillectomy 2000 Surgical History C section x 2 2007 Hospitalization History childbirth [facility] Other [facility] Narrative - Reported* Type Description Date Medical History Hypertension Medical History asthma Medical History mitral valve prolapse Medical History Insulin resistance Medical History Hormone imbalance Medical History Insomnia Surgical History tonsillectomy 2000 Surgical History C section x 2 2007 Hospitalization History [employer] [facility] [employer] Other Hospital Discharge instructions Additional Instructions DISCHARGE [...] pathology -Follow up with PCP. -Office number [phone]. [facility] Work Phone: Summary Purpose Family History [...] 1 Rectal bleeding (K62 .5) Referral Organization [facility] bhupendra Referring Provider First Name Laly Referring Provider Last Name Kerrie Referring Provider Specialty Family [facility] Referred Organization [facility] Gastroenterolo gy Referred Provider Ramos Barr Referred Address [address] [place] [phone] Referred Provider Specialty Gastroentero logy Referral Priority Routine General Notes Morena Cohen 12:03:33 PM >received today, sent P2P Chief Complaint and Reason for Visit Chief Complaint Rectal Bleeding Chief Complaint wellness Additional Source Comments INFORMATION SOURCE (unrecogn ized section and content) DATE CREATED AUTHOR 07/28/2017 [facility] DATE CREATED AUTHOR AUTHOR'S ORGANIZ ATION 07/28/2017 [facility] DATE CREATED AUTHOR AUTHOR'S ORGANIZ ATION 10/04/2021 [facility] DATE CREATED AUTHOR AUTHOR'S ORGANIZ ATION 09/02/2022 [facility] DATE CREATED AUTHOR AUTHOR'S ORGANIZ ATION 06/08/2023 [facility] EPIC REASON FOR VISIT (unrecogniz ed section and content) RIGHT FOOT SWOLLENcheck up, personal concernsMAIL [phone]- Sick Care Teams (unrecognized sec tion and content) Team Status: Active Member Role Status Shanda Sy MD Primary Care Provider Active Team Status: Active Member Role Status Dates Laly Sy MD Primary Care Provider Active Start: [...] 2023 End: September 14, 2023 Team Status: Inactive Member Role Status Shanda Sy MD Primary Care Provider Active Benja Martin MD Attending Provider Active Goals (unrecognized section and content) Goals may [...] BE BASED ON THE PRIMARY CLINICAL RECORDS. [employer] provides no warranty or guarantee of the accuracy or completeness of information in this document.
[2024-02-06 11:18] LABS: Alanine Aminotransferase 29 U/L (14-59); Albumin Globulin Ratio 1.1; Albumin Level 3.8 g/dL (3.4-5.0); Alkaline Phosphatase 80 U/L (46-116); Anion Gap 11.3; Aspartate Amino Transferase 19 U/L (15-37); BUN Creatinine Ratio 12.6; Bilirubin Total 0.4 mg/dL (0.2-1.0); Calcium 9.5 mg/dL (8.5-10.1); Carbon Dioxide 31.3 mmol/L (21.0-32.0); Chloride 106 mmol/L (98-107); Estimated GFR (African America >60 (>=60 mL/min/1.73m^2); Estimated GFR (Non-African Ame >60 (>=60 mL/min/1.73m^2); Globulin 3.6 g/dL; Glucose 95 mg/dL (74-106); Potassium 3.6 mmol/L (3.5-5.1); Sodium 145 mmol/L (136-145); Total Protein 7.4 g/dL (6.4-8.2)
== END 2024-02-06 10:43 | disposition home or self-care (01) ==
LOC: LAB 10:42
PROVIDERS: PCP Family Medicine; Visit Provider Obstetrics & Gynecology
DX: Z79.899 Other long term (current) drug therapy (principal)
CPT/HCPCS: 36415; 80053

== ENCOUNTER 2024-03-14 15:39 | Outpatient (OUT) | payer OTHER, SELFPAY ==
--- OUTSIDE RECORDS SUMMARY | 2024-03-14 15:54 | XMS_ITS | CCD ---
Author Organization [facility] Care Team Providers Care Photographer Scientific Name Role Phone ANTONY MAXIMILIAN P Unavailable Unavailable LALY SY Unavailable Unavailable MCGUINN, MAXIMILIAN P Unavailable Unavailable LALY SY Unavailable [...] Unavailable MD Laly Sy Primary Care Provider [phone] MD Benja Martin Attending Provider Laly Sy Primary Care Unavailable Asaad, Imad Attending Unavailable AsaadHaiderad Admitting Unavailable MIGNON MUHAMMAD Attending Unavailable Unavailable Primary Care Provider Unavailaleksey e Allergies Allergy Classification Reported Allergen(s) Allergy Type Date of Onset Reaction(s) Facility (2 sources) Iodine Drug Allergy 4 [facility] Repository (10 sources) Iodine Drug Allergy 6 [facility] (1 source) Iodine Drug Allergy 3 [facility] Repository (2 sources) Latex Propensity to adverse reactions 6 [facility] [...] more days for 5 Feb, Active Chlorthalidone (13 sources) Thiazide-like Diuretic Start: 08-15-2023 take 1 tablet by mouth once daily Chlorthalidone Active 0 .ROUTE .COMPLEX 90 August 15, 2023 10:22am take 1 tablet by mouth once daily Start: 08-26-2022 End: 08-15-2023 chlorthalidone (Hygroton) 25 MG tablet Daily 08/26/2022 Active Chlorthalidone A ctive citalopram 20 mg oral tablet (11 sources) Serotonin Reuptake Inhibitor Start: 08-26-2022 End: [...] Active meclizine hydrochloride 25 mg chewable tablet (2 sources) Antiemetic Meclizine HCl 25 MG chewable tablet 1 (one) time each day at the same time Active meloxicam 15 mg oral tablet (2 sources) Nonsteroidal Anti-inflammatory Drug meloxicam (Mobic) 15 MG tablet 1 (one) time each day at the same time Active methylPREDNISolone 4 mg oral tablet (1 source) Corticosteroid Start: 02-22-19 methylPREDNISolone 4 MG as directed Orally for 6 days Feb, Active mounjaro 10 mg/0.5ml solution pen-injector (1 source) Mounjaro 10 MG/0 .5ML as directed Subcutaneous Dr. Muhammad Active polyethylene glycol 3350 379672 mg / potassium chloride 2970 mg / sodium bicarbonate 6740 mg / sodium chloride 5860 mg / sodium sulfate 30101 mg powder for oral solution (5 sources) Osmotic Laxative Start: 07-30-19 GaviLyte-G 236 [...] 12:00am Tirzepatide (Mounjaro) 5 MG/0.5ML solution auto-injector (2 sources) Start: 01-30-2024 End: 02-29-2024 inject 0.5 mL by subcutaneous injection every week Tirzepatide (Mounjaro) 5 MG/0.5ML solution auto-injector Indications: Insulin resistance , Weight gain Inject 0.5 mL under the skin 1 (one) time per week 2 mL 01/30/2024 02/29/2024 Active Start: 12-29-2023 End: 01-28-2024 inject 0.5 mL by subcutaneous injection every week Tirzepatide (Mounjaro) 5 MG/0.5ML solution auto-injector Indications: Encounter for long-term (current) drug use , Insulin resistance Inject 0.5 mL under the skin 1 (one) time per week 2 mL 12/29/2023 01/28/2024 Active Tirzepatide (Mounjaro) 7.5 MG/0.5ML solution auto-injector (1 source) Start: 01-30-2024 End: 02-29-2024 inject 0.5 mL by subcutaneous injection every week Tirzepatide (Mounjaro) 7.5 MG/0.5ML solution auto-injector Indications: Insulin resistance , Weight gain Inject 0.5 mL under the skin 1 (one) time per week Patient request refill, please discontinue 5mg dosage if not needed. 2 mL 3 01/30/2024 02/29/2024 Active Problems Active Problems Problem Classification Problem [...] Chronic Other nutritional; endocrine; and metabolic disorders (9 sources) Insulin resistance; Translations: [Metabolic syndrome] Onset: [...] Test Name Value Interpretation Reference Range Facility [facility] CMP (CMP) (FOR REMOTE FH C USE)on 02-06-2024 Albumin [Mass/Vol] 3.8 g/dL 3.4 - 5.0 g/dL NO [facility] ALBUMIN GLOBULIN RATIO 1.1 [facility] ALP [Catalytic activity/Vol] 80 U/L 46 - 116 U/L [facility] ALT [Catalytic activity/Vol] 29 U/L 14 - 59 U/L [facility] Anion gap [Moles/Vol] 11.3 mmol/L [facility] AST [Catalytic activity/Vol] 19 U/L 15 - 37 U/L [facility] Bilirubin [Mass/Vol] 0.4 mg/dL 0.2 - 1 .0 mg/dL [facility] Calcium [Mass/Vol] 9.5 mg/dL 8.5 - 10. 1 mg/dL [facility] Chloride [Moles/Vol] 106 mmol/L 98 - 10 7 mmol/L [facility] CO2 [Moles/Vol] 31.3 mmol/L 21.0 - 32.0 mmol/L [facility] Creatinine [Mass/Vol] 0.87 mg/dL 0.55 - 1.02 mg/dL [facility] GFR/1.73 sq M.predicted CKD-EPI (S/P/Bld) [Vol rate/Area] >60 >=60 mL/min/1.73m 2 [facility] Globulin (S) [Mass/Vol] 3.6 g/dL [facility] Glucose [Mass/Vol] 95 mg/dL 74 - 106 mg/dL NO [facility] Potassium [Moles/Vol] 3.6 mmol/L 3.5 - 5.1 mmol/L [facility] Protein [Mass/Vol] 7.4 g/dL 6.4 - 8.2 g/dL NO [facility] Sodium [Moles/Vol] 145 mmol/L 136 - 145 mmol/L [facility] EGFR-NON AF SPANISH >60 >=60 mL/min/1.73m 2 [facility] Urea nitrogen [Mass/Vol] 11 mg/dL 7.0 - 18.0 mg/dL [facility] Urea nitrogen/Creatinine [Mass ratio] 12.6 mg/mg [facility] TBH PREG QUANT HCGon 024 HCG QUANTITATIVE 13 mIU/mL [facility] Comment on above: 5-50 0.2-1 WEEK 50-500 1-2 WEEKS 100-5,000 2-3 WEEKS 500-10,000 3-4 WEEKS 1,000-50,000 4-5 WEEKS 10,000-100,000 5-6 WEEKS 15,000-200,000 6-8 WEEKS 10,000-100,000 2-3 MONTHS [facility] Glucose mean value [Mass/vol ume] in Blood Estimated from glycated hemoglobinon 06-23-2023 Average glucose Estimated from glycated hemoglobin (Bld) [Mass/Vol] 111 mg/dL [facility] Laboratory - Hematology and Cell countson 06-23-2023 HbA1c (Bld) [Mass fraction] 5.5 % 4.5-6.2 [facility] Comment on above: ADA RECOMMENDED LIMI T 4.0 - 6.0ADA THERAPEUTIC TARGET < 7.0ACTION SUGGESTED> 7.0 Basophils Auto (Bld) [#/Vol] on 06-16-2023 Basophils (Bld) [#/Vol] 0.1 10 3/uL 0.0-0.1 [facility] Basophils/100 WBC Auto (Bld) on 06-16-2023 Basophils/100 WBC (Bld) 0.7 % 0.2-2.0 [facility] Eosinophils/100 WBC Auto (Bl d)on 06-16-2023 Eosinophils/100 WBC (Bld) 1.8 % 0.9-7.0 [facility] Erythrocyte distribution wid th Auto (RBC) [Ratio]on 06-16-2023 Erythrocyte distribution width (RBC) [Ratio] 12.5 % 11.0-15.0 [facility] Hematocrit Auto (Bld) [Volum e fraction]on 06-16-2023 Hematocrit (Bld) [Volume fraction] 42.9 % 36.0-48.0 [facility] Hemoglobin [Mass/volume] in Bloodon 06-16-2023 Hemoglobin (Bld) [Mass/Vol] 14.4 g/dL 12.0-16.0 [facility] Laboratory - Chemistry and C hemistry - challengeon 06-16-2023 Free T4 [Mass/Vol] 1.46 ng/dL 0.76-1.46 [facility] TSH Qn 1.846 m[IU]/L 0.358-3.740 [facility] Laboratory - Hematology and Cell countson 06-16-2023 Immature granulocytes/100 WBC (Bld) 0.1 % 0.0-0.5 [facility] Leukocytes [#/volume] correc jose juan for nucleated erythrocytes in Blood by Automated counon 06-16-2023 WBC corrected for nucl RBC Auto (Bld) [#/Vol] 7.0 10 3/uL 4.0-11.0 [facility] Lymphocytes Auto (Bld) [#/Vo l]on 06-16-2023 Lymphocytes (Bld) [#/Vol] 2.8 10 3/uL 1.2-3.8 [facility] Lymphocytes/100 WBC Auto (Bl d)on 06-16-2023 Lymphocytes/100 WBC (Bld) 39.8 % 20.5-60.0 [facility] MCH Auto (RBC) [Entitic mass ]on 06-16-2023 MCH (RBC) [Entitic mass] 28.7 pg 26.7-34.0 [facility] MCHC Auto (RBC) [Mass/Vol]on 06-16-2023 MCHC (RBC) [Mass/Vol] 33.6 g/dL 29.9-35.2 [facility] MCV Auto (RBC) [Entitic vol] on 06-16-2023 MCV (RBC) [Entitic vol] 85.6 fL 81.0-99.0 [facility] Monocytes Auto (Bld) [#/Vol] on 06-16-2023 Monocytes (Bld) [#/Vol] 0.5 10 3/uL 0.3-0.8 [facility] Monocytes/100 WBC Auto (Bld) on 06-16-2023 Monocytes/100 WBC (Bld) 6.7 % 1.7-12.0 [facility] Neutrophils Auto (Bld) [#/Vo l]on 06-16-2023 Neutrophils (Bld) [#/Vol] 3.6 10 3/uL 1.4-6.5 [facility] Neutrophils/100 WBC Auto (Bl d)on 06-16-2023 Neutrophils/100 WBC (Bld) 50.9 % 43.0-75.0 [facility] No Panel Informationon 06-15 Eosinophils # (Auto) 0.1 10 3/uL 0.0-0.7 [facility] Immature Granulocyte # (Auto) 0.01 10 3/uL 0.00-0.03 [facility] Platelet mean volume Auto (B ld) [Entitic vol]on 06-16-2023 Platelet mean volume (Bld) [Entitic vol] 11.2 fL 9.5-13.5 [facility] Platelets Auto (Bld) [#/Vol] on 06-16-2023 Platelets (Bld) [#/Vol] 232 10 3/uL 150-450 [facility] RBC Auto (Bld) [#/Vol]on RBC (Bld) [#/Vol] 5.01 10 6/uL 4.20-5.40 [facility] Clifford 08-26-2022 L - -------- Specimen: [id number] Received: 08/26/22 Status: PATRICIO Jones Num: [id number] Spec Type: Surgical Subm Dr: Benja Martin MD Tissues: A Colon Biopsy (SIGMOID POLYP) Procedures: HE/2, Gross/Micro L4 -------- Age/ Patient Sex Location Account Attending Physician -------- Noelle Rosales 47/F [id number] Benja Martin MD -------- SPEC NUM: [id number] RECD: 08/26/22 STATUS: PATRICIO JONES NUM: [id number] JENNIFER: 08/26/22 DR: Benja Martin MD ENTERED: 08/26/22 [facility] DR: RICHIE TYPE: Surgical DEPT: S [...] microscopic examination confirms the diagnosis. CPT Codes 65726 -------- -------- Specimen: [id number] Received: 08/26/22 Status: PATRICIO Jones Num: [id number] Spec Type: Surgical Subm Dr: Benja Martin MD Tissues: A Colon Biopsy (SIGMOID POLYP) Procedures: HE/2, Gross/Micro L4 -------- Patient: Noelle Rosales Juju [id number] (Continued) -------- Signed (signature on file) Blas Mijares MD 08/27/22 182 Normal [facility] INSULIN FREE AND TOTALon Free Insulin 10 uU/mL Normal [facility] Comment on above: Result Comment: Thao bernabe Range: Pubertal Children and Adults (fasting): 0 - 17 Performed By: #### E RAYNE #### [facility] [address] [place] [address] Dr. Beata Mijares Total Insulin 10 uU/mL Normal [facility] Comment on above: Result Comment: Non- [...] developed and its performance characteristics determined by [facility]. It has not been cleared or approved by the Food and Drug Administration. Performed By: #### E STRADI #### [facility] [address] [place] [address] Dr. Beata Mijares CBC AUTO DIFFon 09-25-2021 BASO # 0.1 103/ul Normal 0.0-0.1 [facility] Comment on above: Performed By: #### F T4 #### [facility] [address] [place] [address] Dr. Beata Mijares Basophils/100 WBC (Bld) 0.7 % Normal 0.2-2.0 [facility] Comment on above: Performed By: #### F T4 #### [facility] [address] [place] [address] Dr. Beata Mijares EO # 0.1 103/ul Normal 0.0-0.7 [facility] Comment on above: Performed By: #### F T4 #### [facility] [address] [place] [address] Dr. Beata Mijares Eosinophils/100 WBC (Bld) 1.8 % Normal 0.9-7.0 [facility] Comment on above: Performed By: #### F T4 #### [facility] [address] [place] [address] Dr. Beata Mijares Erythrocyte distribution width (RBC) [Ratio] 12.9 % Normal 11.0-15.0 [facility] Comment on above: Performed By: #### F T4 #### [facility] [address] [place] [address] Dr. Beata Mijares Hematocrit (Bld) [Volume fraction] 42.5 % Normal 36.0-48.0 [facility] Comment on above: Performed By: #### F T4 #### [facility] [address] [place] [address] Dr. Beata Mijares Hemoglobin (Bld) [Mass/Vol] 14.3 g/dL Normal 12.0-16.0 [facility] Comment on above: Performed By: #### F T4 #### [facility] [address] [place] [address] Dr. Beata Mijaers IG # 0.02 10e3/ul Normal 0.00-0.03 [facility] Comment on above: Performed By: #### F T4 #### [facility] [address] [place] [address] Dr. Beata Mijares IG % 0.3 % Normal 0.0-0.5 [facility] Comment on above: Performed By: #### F T4 #### [facility] [address] [place] [address] Dr. Beata Mijares LYMPH # 2.5 103/ul Normal 1.2-3.8 [facility] Comment on above: Performed By: #### F T4 #### [facility] [address] [place] [address] Dr. Beata Mijares Lymphocytes/100 WBC (Bld) 36.1 % Normal 20.5-60.0 [facility] Comment on above: Performed By: #### F T4 #### [facility] [address] [place] [address] Dr. Beata Mijares MANUAL DIFF REQ NO Normal [facility] Comment on above: Performed By: #### F T4 #### [facility] [address] [place] [address] Dr. Beata Mijares MCH (RBC) [Entitic mass] 28.4 pg Normal 26.7-34.0 [facility] Comment on above: Performed By: #### F T4 #### [facility] [address] [place] [address] Dr. Beata Mijares MCHC (RBC) [Mass/Vol] 33.6 g/dL Normal 29.9-35.2 [facility] Comment on above: Performed By: #### F T4 #### [facility] [address] [address] [address] Beata iMjares MCV (RBC) [Entitic vol] 84.3 fL Normal 81.0-99.0 [facility] Comment on above: Performed By: #### F T4 #### [facility] [address] [address] [address] Beata Mijares MONO # 0.5 103/ul Normal 0.3-0.8 [facility] Comment on above: Performed By: #### F T4 #### [facility] [address] [place] [address] Dr. Beata Mijares Monocytes/100 WBC (Bld) 7.7 % Normal 1.7-12.0 [facility] Comment on above: Performed By: #### F T4 #### [facility] [address] [place] [address] Dr. Beata Mijares NEUT # 3.7 103/ul Normal 1.4-6.5 [facility] Comment on above: Performed By: #### F T4 #### [facility] [address] [place] [address] Dr. Beata Mijares Neutrophils/100 WBC (Bld) 53.4 % Normal 43.0-75.0 [facility] Comment on above: Performed By: #### F T4 #### [facility] [address] [place] [address] Dr. Beata Mijares Platelet mean volume (Bld) [Entitic vol] 11.0 fL Normal 9.5-13.5 [facility] Comment on above: Performed By: #### F T4 #### [facility] [address] [place] [address] Dr. Beata Mijares PLT 229 103/ul Normal 150-450 [facility] Comment on above: Performed By: #### F T4 #### [facility] [address] [place] [address] Dr. Beata Mijares RBC 5.04 106/ul Normal 4.20-5.40 [facility] Comment on above: Performed By: #### F T4 #### [facility] [address] [address] [address] Beata Mijares WBC 6.8 103/ul Normal 4.0-11.0 [facility] Comment on above: Performed By: #### F T4 #### [facility] [address] [address] [address] Beata Mijares FREE T4on 09-25-2021 Free T4 [Mass/Vol] 1.19 ng/dL Normal 0.76-1.46 [facility] Comment on above: Performed By: #### F T4 #### [facility] [address] [address] [address] Beata Mijares GLYCOHEMOGLOBIN A1Con 2021 ADA RECOMMENDATION SEE BELOW Normal [facility] Comment on above: Result Comment: ADA RECOMMENDED LIMIT 4.0 - 6.0 ADA THERAPEUTIC TARGET < 7.0 ACTION SUGGESTED > 7.0 Performed By: #### E STRADI #### [facility] [address] [address] [address] Beata Mijares Glucose [Mass/Vol] 114 mg/dL Normal [facility] Comment on above: Performed By: #### E STRADI #### [facility] [address] [address] [address] Beata Mijares HbA1c (Bld) [Mass fraction] 5.6 % Normal 4.5-6.2 [facility] Comment on above: Performed By: #### E STRADI #### [facility] [address] [address] [address] Beata Mijares MG MAMM SCREEN 3D SHAUN CADon 09-25-2021 MG MAMM SCREEN 3D SHAUN CAD Patient: NOELLE ROSALES Exam Date: 09/25/2021 : 1975 Gender:F Ordering : DR MIGNON MUHAMMAD . Admission #: [id number] Family : Order #: [id number] CLICK HERE TO VIEW EXAM RADIOLOGY REPORT [...] with colon cancer at age 68. LOCATION: [facility] BREAST COMPOSITION: Heterogeneously dense,which may obscure [...] Garcia M.D. on 09/25/2021 at 10:20 Normal [facility] PAP ACOG PANEL 2: 30 to 65on 09-25-2021 . . Normal [facility] Comment on above: Result Comment: Perf ormed at: WB Performed By: #### [id number] #### [facility] [address] [address] [address] Beata Mijares Age Gdln ACOG Testing 30-65 Normal [facility] Comment on above: Performed By: #### [id number] #### [facility] [address] [address] [address] Beata Mijares DIAGNOSIS: Comment Normal [facility] Comment on above: Result Comment: NEGA TIVE FOR INTRAEPITHELIAL LESION OR MALIGNANCY. THIS SPECIMEN WAS RESCREENED PART OF OUR LITHOGRAPHIC PLATE MAKER PROGRAM. Performed at: WB Performed By: #### [id number] #### [facility] [address] [address] [address] Beata Mijares HPV Aptima Negative Normal Negative [facility] Comment on above: Result Comment: This nucleic acid amplification test detects fourteen high-risk HPV types (16,18,31,33,35,39,45,51,52,56,58,59,66,68) without differentiation. Performed at: =G Performed By: #### [id number] #### [facility] [address] [place] [address] Dr. Beata Mijares Methodology: Comment Normal [facility] Comment on above: Result Comment: This liquid based ThinPrep(R) pap test was screened with the use of an image guided system. Performed at: WB Performed By: #### [id number] #### [facility] [address] [place] [address] Dr. Beata Mijares Note: Comment Normal [facility] Comment on above: Result Comment: The Pap smear is a screening test designed to aid in the detection of premalignant and malignant conditions of the uterine cervix. It is not a diagnostic procedure and should not be used as the sole means of detecting cervical cancer. Both false-positive and false-negative reports do occur. . Performed at: WB Performed By: #### [id number] #### [facility] [address] [place] [address] Dr. Beata Mijares Performed by: Comment Normal [facility] Comment on above: Result Comment: Vee Tijerina, Director Public Policy (ASCP) Performed at: WB Performed By: #### [id number] #### [facility] [address] [place] [address] Dr. Beata Mijares QC reviewed by: Comment Normal [facility] Comment on above: Result Comment: Mohinder Sepulveda, Supervisory Director Public Policy (ASCP) Performed at: WB Performed By: #### [id number] #### [facility] [address] [place] [address] Dr. Beata Mijares Specimen adequacy: Comment Normal [facility] Comment on above: Result Comment: Sati sfactory for evaluation. Endocervical and/or squamous metaplastic cells (endocervical component) are present. Performed at: WB Performed By: #### [id number] #### [facility] [address] [place] [address] Dr. Beata Mijares TSHon 09-25-2021 TSH 1.833 uIU/mL Normal 0.358-3.[address] [facility] Comment on above: Performed By: #### T SH #### [facility] [address] [place] [address] Dr. Beata Mijares CARDIAC MELCHOR ADMITon 022 CK [Catalytic activity/Vol] 148 U/L Normal 26-192 [facility] Comment on above: Performed By: #### F T4 #### [facility] [address] [place] [address] Dr. Beata Mijares CK.MB [Mass/Vol] 1.29 ng/mL Normal <=3.60 [facility] Comment on above: Performed By: #### F T4 #### [facility] [address] [place] [address] Dr. Beata Mijares KOLBY 51 ng/mL Normal 9-82 [facility] Comment on above: Performed By: #### F T4 #### [facility] [address] [place] [address] Dr. Beata Mijares CBC AUTO DIFFon 06-17-2021 BASO # 0.0 103/ul Normal 0.0-0.1 [facility] Comment on above: Performed By: #### C BC #### [facility] [address] [place] [address] Dr. Beata Mijares Basophils/100 WBC (Bld) 0.4 % Normal 0.2-2.0 [facility] Comment on above: Performed By: #### C BC #### [facility] [address] [place] [address] Dr. Beata Mijares EO # 0.1 103/ul Normal 0.0-0.7 [facility] Comment on above: Performed By: #### C BC #### [facility] [address] [place] [address] Dr. Beata Mijares Eosinophils/100 WBC (Bld) 1.3 % Normal 0.9-7.0 [facility] Comment on above: Performed By: #### C BC #### [facility] [address] [place] [address] Dr. Beata Mijares Erythrocyte distribution width (RBC) [Ratio] 12.6 % Normal 11.0-15.0 [facility] Comment on above: Performed By: #### C BC #### [facility] [address] [place] [address] Dr. Beata Mijares Hematocrit (Bld) [Volume fraction] 43.3 % Normal 36.0-48.0 [facility] Comment on above: Performed By: #### C BC #### [facility] [address] [place] [address] Dr. Beata Mijares Hemoglobin (Bld) [Mass/Vol] 14.3 g/dL Normal 12.0-16.0 [facility] Comment on above: Performed By: #### C BC #### [facility] [address] [place] [address] Dr. Beata Mijares IG # 0.02 10e3/ul Normal 0.00-0.03 [facility] Comment on above: Performed By: #### C BC #### [facility] [address] [place] [address] Dr. Beata Mijares IG % 0.3 % Normal 0.0-0.5 [facility] Comment on above: Performed By: #### C BC #### [facility] [address] [place] [address] Dr. Beata Mijares LYMPH # 2.8 103/ul Normal 1.2-3.8 [facility] Comment on above: Performed By: #### C BC #### [facility] [address] [place] [address] Dr. Beata Mijares Lymphocytes/100 WBC (Bld) 39.4 % Normal 20.5-60.0 [facility] Comment on above: Performed By: #### C BC #### [facility] [address] [place] [address] Dr. Beata Mijares MANUAL DIFF REQ NO Normal [facility] Comment on above: Performed By: #### C BC #### [facility] [address] [place] [address] Dr. Beata Mijares MCH (RBC) [Entitic mass] 28.5 pg Normal 26.7-34.0 [facility] Comment on above: Performed By: #### C BC #### [facility] [address] [place] [address] Dr. Beata Mijares MCHC (RBC) [Mass/Vol] 33.0 g/dL Normal 29.9-35.2 [facility] Comment on above: Performed By: #### C BC #### [facility] [address] [place] [address] Dr. Beata Mijares MCV (RBC) [Entitic vol] 86.3 fL Normal 81.0-99.0 [facility] Comment on above: Performed By: #### C BC #### [facility] [facility] [address] [place] [address] Dr. Beata Mijares MONO # 0.4 103/ul Normal 0.3-0.8 [facility] Comment on above: Performed By: #### C BC #### [facility] [address] [place] [address] Dr. Beata Mijares Monocytes/100 WBC (Bld) 5.9 % Normal 1.7-12.0 [facility] Comment on above: Performed By: #### C BC #### [facility] [address] [place] [address] Dr. Beata Mijares NEUT # 3.8 103/ul Normal 1.4-6.5 [facility] Comment on above: Performed By: #### C BC #### [facility] [address] [place] [address] Dr. Beata Mijares Neutrophils/100 WBC (Bld) 52.7 % Normal 43.0-75.0 [facility] Comment on above: Performed By: #### C BC #### [facility] [address] [place] [address] Dr. Beata Mijares Platelet mean volume (Bld) [Entitic vol] 11.1 fL Normal 9.5-13.5 [facility] Comment on above: Performed By: #### C BC #### [facility] [address] [place] [address] Dr. Beata Mijares PLT 227 103/ul Normal 150-450 [facility] Comment on above: Performed By: #### C BC #### [facility] [address] [place] [address] Dr. Beata Mijares RBC 5.02 106/ul Normal 4.20-5.40 [facility] Comment on above: Performed By: #### C BC #### [facility] [address] [place] [address] Dr. Beata Mijares WBC 7.2 103/ul Normal 4.0-11.0 [facility] Comment on above: Performed By: #### C BC #### [facility] [address] [place] [address] Dr. Beata Mijares PROF CHEM 8 (BAS METB)on Anion gap [Moles/Vol] 10.2 mmol/L Normal [facility] Comment on above: Performed By: #### E STRADI #### [facility] [address] [place] [address] Dr. Beata Mijares Calcium [Mass/Vol] 9.7 mg/dL Normal 8.5-10.1 [facility] Comment on above: Performed By: #### E STRADI #### [facility] [address] [place] [address] Dr. Beata Mijares Chloride [Moles/Vol] 101 mmol/L Normal 98-107 [facility] Comment on above: Performed By: #### E STRADI #### [facility] [address] [place] [address] Dr. Beata Mijares CO2 [Moles/Vol] 35.1 mmol/L Critically high 21.0-32.0 [facility] Comment on above: Performed By: #### E STRADI #### [facility] [address] [place] [address] Dr. Beata Mijares Creatinine [Mass/Vol] 0.88 mg/dL Normal 0.55-1.02 [facility] Comment on above: Performed By: #### E STRADI #### [facility] [address] [place] [address] Dr. Beata Mijares EGFR-AF SPANISH >60 Normal >=60 [facility] Comment on above: Performed By: #### E STRADI #### [facility] [address] [place] [address] Dr. Beata Mijares EGFR-NON AF SPANISH >60 Normal >=60 [facility] Comment on above: Performed By: #### E STRADI #### [facility] [address] [address] [address] Beata Mijares Glucose [Mass/Vol] 111 mg/dL Critically high 74-106 T [facility] Comment on above: Performed By: #### E STRADI #### [facility] [address] [address] [address] Beata Mijares Potassium [Moles/Vol] 3.3 mmol/L Critically low 3.5-5.1 [facility] Comment on above: Performed By: #### E STRADI #### [facility] [address] [address] [address] Beata Mijares Sodium [Moles/Vol] 143 mmol/L Normal 136-145 [facility] Comment on above: Performed By: #### E STRADI #### [facility] [address] [address] [address] Beata Mijares Urea nitrogen [Mass/Vol] 17.0 mg/dL Normal 7.0-18.0 [facility] Comment on above: Performed By: #### E STRADI #### [facility] [address] [address] [address] Beata Mijares Urea nitrogen/Creatinine [Mass ratio] 19.3 mg/mg Normal [facility] Comment on above: Performed By: #### E STRADI #### [facility] [address] [address] [address] Beata Mijares TROPONIN, HIGH SENSITIVITYon 06-17-2021 HSTROP 5.1 pg/mL Normal 4.0-51.3 [facility] Comment on above: Result Comment: CUT- OFF POINTS HAVE BEEN ESTABLISHED BASED ON THE FOURTH UNIVERSAL DEFINITIONS OF MYOCARDIAL INFARCTION. THE UPPER REFERENCE LIMIT (URL) OF TROPONIN, DEFINED THE 99TH PERCENTILE OF cTnI DISTRIBUTION IN A REFERENCE POPULATION, HAS BEEN CONFIRMED THE DECISION THRESHOLD FOR UT DIAGNOSIS. Performed By: #### E STRADI #### [facility] [address] [address] [address] Beata Mijares Performed By: #### F T4 #### [facility] [address] [place] [address] Dr. Beata Mijares ESTRONEon 12-30-2020 Estrone, Serum 68 pg/mL Normal [facility] Comment on above: Result Comment: Adul t: Follicular phase 39 - 132 Periovulatory 58 - 256 Luteal phase 54 - 179 : 1st trimester 247 - 2774 2nd trimester 569 - 5790 Postmenopausal: with ERT 51 - 488 without ERT 31 - 100 Performed By: #### E RAYNE #### [facility] [address] [place] [address] Dr. Beata Mijares TESTOSTERONE, FREE,DIRECT, T OTALon 12-30-2020 Free Testosterone(Direct) 1.7 pg/mL Normal 0.0-4.2 [facility] Comment on above: Result Comment: Perf ormed at: BN Performed By: #### F T4 #### [facility] [address] [place] [address] Dr. Beata Mijares Testosterone [Mass/Vol] 17 ng/dL Normal 4-50 [facility] Comment on above: Result Comment: Perf ormed at: CB Performed By: #### F T4 #### [facility] [address] [place] [address] Dr. Beata Mijares CORTISOLon 12-28-2020 Cortisol 17.6 ug/dL Normal [facility] Comment on above: Result Comment: Kade isol AM 6.2 - 19.4 Cortisol PM 2.3 - 11.9 Performed By: #### E JACKIEDI #### [facility] [address] [place] [address] Dr. Beata Mijares DHEA-SULFATEon 12-28-2020 DHEA-Sulfate 142.0 ug/dL Normal 41.2-243.7 [facility] Comment on above: Performed By: #### D GORDOUL #### [facility] [address] [place] [address] Dr. Beata Mijares ESTRADIOLon 12-28-2020 Estradiol 14.2 pg/mL Normal [facility] Comment on above: Result Comment: Adul t Female: Follicular phase 12.5 - 166.0 Ovulation phase 85.8 - 498.0 Luteal phase 43.8 - 211.0 Postmenopausal <6.0 - 54.7 1st trimester 215.0 - >4300.0 [facility] ECLIA methodology Performed By: #### E STRADI #### [facility] [address] [place] [address] Dr. Beata Mijares PROGESTERONEon 12-28-2020 Progesterone 0.1 ng/mL Normal [facility] Comment on above: Result Comment: Foll icular phase 0.1 - 0.9 Luteal phase 1.8 - 23.9 Ovulation phase 0.1 - 12.0 First trimester 11.0 - 44.3 Second trimester 25.4 - 83.3 Third trimester 58.7 - 214.0 Postmenopausal 0.0 - 0.1 Performed By: #### P QUE #### [facility] [address] [place] [address] Dr. Beata Mijares SEX HORMONE-BINDING GLOBULIN on 12-28-2020 Sex Horm Binding Glob, Serum 31.7 nmol/L Normal 24.6-122.0 [facility] Comment on above: Performed By: #### S EXHBG #### [facility] [address] [place] [address] Dr. Beata Mijares T3, TOTAL (TRIIODOTHYRONINE) on 12-28-2020 T3, TOTAL 123 ng/dL Normal 71-180 [facility] Comment on above: Performed By: #### E STRADI #### [facility] [address] [place] [address] Dr. Beata Mijares FREE T4on 12-27-2020 Free T4 [Mass/Vol] 1.29 ng/dL Normal 0.78-2.19 [facility] Comment on above: Performed By: #### E STRADI #### [facility] [address] [place] [address] Dr. Beata Mijares T4on 12-27-2020 T4 [Mass/Vol] 6.70 ug/dL Normal 5.53-11.[address] [facility] Comment on above: Performed By: #### T SH, T4 #### [facility] [address] [place] [address] Dr. Beata Mijares TSHon 12-27-2020 TSH 1.127 uIU/mL Normal 0.470-4.[address] [facility] Comment on above: Performed By: #### T SH, T4 #### [facility] [address] [place] [address] Dr. Beata Mijares TSH RANGE SEE BELOW Normal [facility] Comment on above: Result Comment: <0.3 4 UIU/ml HYPERTHYROID 0.34-5.60 UIU/ml EUTHYROID >5.60 UIU/ml HYPOTHYROID Performed By: #### T SH, T4 #### [facility] [address] [place] [address] Dr. Beata Mijares VITAMIN D 25 OHon 12-27-2020 VIT D 25-OH 32.0 ng/mL Normal [facility] Comment on above: Performed By: #### E STRADI #### [facility] [address] [place] [address] Dr. Beata Mijares VIT D RANGES SEE BELOW Normal [facility] Comment on above: Result Comment: <20 ng/mL Vit D deficient 20 - <30 ng/mL Vit D insufficient 30 - 100 ng/mL Vit D sufficient >100 ng/mL Potential Toxicity Performed By: #### E STRADI #### [facility] [address] [place] [address] Dr. Beata Mijares Creatinineon 04-04-2017 Creatinine 0.87 mg/dL Normal 0.50-1.05 [facility] Comment on above: Performed By: #### 1 [id number] ####[facility] [address] [place] [address] eGFR (MDRD) mL/min/{1.73_m2} Normal [facility] Comment on above: Result Comment: Inte rpretation for Chronic Kidney Disease:Stages 1&2 >60 Healthy or potential kidney damage.Mild decrease of GFR.Stage 3 30-59 Moderate decrease of GFR.Stage 4 15-29 Severe decrease of GFR.Stage 5 <15 Kidney failure or on dialysis. Performed By: #### 1 [id number] ####[facility] [address] [place] [address] Electrolyte Panelon 04-04-19 18 Anion gap 11 mmol/L Normal 10-20 [facility] Comment on above: Performed By: #### 1 [id number] ####[facility] [address] [place] [address] Bicarbonate (HCO3) 32 mmol/L Normal 21-32 [facility] Comment on above: Performed By: #### 1 [id number] ####[facility] [address] [place] [address] Chloride 103 mmol/L Normal 98-107 [facility] Comment on above: Performed By: #### 1 [id number] ####[facility] [address] [place] [address] Potassium molar conc 3.3 mmol/L Low 3.5-5.1 [facility] Comment on above: Performed By: #### 1 [id number] ####[facility] [address] [place] [address] Sodium 143 mmol/L Normal 136-145 [facility] Comment on above: Performed By: #### 1 [id number] ####[facility] [address] [place] [address] Urea Nitrogenon 04-04-2017 Urea nitrogen 18 mg/dL Normal 6-23 [facility] Comment on above: Performed By: #### 1 [id number] ####[facility] [address] [place] [address] Urinalysison 04-04-2017 Ascorbic Acid Negative Normal Negative [facility] are Comment on above: Performed By: #### 1 [id number] ####[facility] [address] [place] [address] Automated Urine Microscopy Performed Normal [facility] Comment on above: Performed By: #### 1 [id number] ####[facility] [address] [place] [address] Bilirubin Ql (U) Negative Normal Negative [facility] Comment on above: Performed By: #### 1 [id number] ####[facility] [address] [place] [address] Blood Small Abnormal Negative [facility] Comment on above: Performed By: #### 1 [id number] ####[facility] [address] [place] [address] Erythrocytes (RBC) 4 /[HPF] Normal 0-3 [facility] Comment on above: Performed By: #### 1 [id number] ####[facility] [address] [place] [address] Glucose mass conc Negative Normal Negative [facility] Comment on above: Performed By: #### 1 [id number] ####[facility] [address] [place] [address] Protein Negative Normal Negative [facility] Comment on above: Performed By: #### 1 [id number] ####[facility] [address] [place] [address] Urine, appearance Hazy Normal Clear [facility] Comment on above: Performed By: #### 1 [id number] ####[facility] [address] [place] [address] Urine, color Yellow Normal [facility] Comment on above: Performed By: #### 1 [id number] ####[facility] [address] [place] [address] Urine, ketones presence Negative Normal Negative [facility] Comment on above: Performed By: #### 1 [id number] ####[facility] [address] [place] [address] Urine, nitrite presence Negative Normal Negative [facility] Comment on above: Performed By: #### 1 [id number] ####[facility] [address] [place] [address] Urine, pH 7.0 [pH] Normal 5.0-9.0 [facility] Comment on above: Performed By: #### 1 [id number] ####[facility] [address] [place] [address] Urine, specific gravity 1.021 Normal 1.003-1.035 [facility] Comment on above: Performed By: #### 1 [id number] ####[facility] [address] [place] [address] Urine, squamous cells in sediment 1 /[HPF] Normal 0-5 [facility] Comment on above: Performed By: #### 1 [id number] ####[facility] [address] [place] [address] Urine, urobilinogen <2.0 Normal Negative [facility] Comment on above: Performed By: #### 1 [id number] ####[facility] [address] [place] [address] WBC (Leukocytes) 1 /[HPF] Normal 0-5 [facility] Comment on above: Performed By: #### 1 [id number] ####[facility] [address] [place] [address] WBC (Leukocytes) Negative Normal Negative [facility] Comment on above: Performed By: #### 1 [id number] ####[facility] [address] [place] [address] Vital Signs Date Time Vital Sign Value Performing Clinician Facility 02-22-2023 09:45-0500 Body height 167.64 cm Laly Sy Other [facility] Other 02-22-2023 09:45-0500 Body mass index (BMI) [Ratio] 34.21 kg/m2 Laly Sy Other [facility] Other 02-22-2023 09:45-0500 Body weight 96.16 kg Laly Sy Other [facility] Other 10-04-2022 09:00-0400 Body height 167.64 cm Laly Sy Other [facility] Other 10-04-2022 09:00-0400 Body mass index (BMI) [Ratio] 34.21 kg/m2 Laly Sy Other [facility] Other 10-04-2022 09:00-0400 Body weight 96.16 kg Laly Sy Other [facility] Other 10-04-2022 09:00-0400 Diastolic blood pressure 85 mm[Hg] Laly Sy Other [facility] Other 10-04-2022 09:00-0400 Systolic blood pressure 142 mm[Hg] Laly Sy Other [facility] Other 08-26-2022 10:41-0400 Diastolic blood pressure 78 mm[Hg] MD Laly Sy Work Phone: [facility] 08-26-2022 10:41-0400 Heart rate 57 /min MD Laly Sy Work Phone: [facility] 08-26-2022 10:41-0400 Respiratory rate 16 /min MD Laly Sy Work Phone: [facility] 08-26-2022 10:41-0400 SaO2% (BldA) [Mass fraction] 97 % MD Laly Sy Work Phone: [facility] 08-26-2022 10:41-0400 Systolic blood pressure 136 mm[Hg] MD Laly Sy Work Phone: [facility] 08-26-2022 07:54-0400 Body height 167.64 cm MD Laly Sy Work Phone: [facility] 08-26-2022 07:54-0400 Body temperature 98.1 [degF] MD Laly Sy Work Phone: [facility] 08-26-2022 07:54-0400 Body weight 97.52 kg MD Laly Sy Work Phone: [facility] 07-19-2022 11:00-0400 Body height 167.64 cm Laly Sy Other [facility] Other 07-19-2022 11:00-0400 Body mass index (BMI) [Ratio] 34.7 kg/m2 Laly Sy Other [facility] Other 07-19-2022 11:00-0400 Body weight 97.52 kg Laly Sy Other [facility] Other 07-19-2022 11:00-0400 Diastolic blood pressure 85 mm[Hg] Laly Sy Other [facility] Other 07-19-2022 11:00-0400 Systolic blood pressure 131 mm[Hg] Lalychrista Sy Other [facility] Other 04-28-2022 19:50-0400 Body height 167.64 cm Norma Lauryn Other [facility] Other 04-28-2022 19:50-0400 Body mass index (BMI) [Ratio] 32.28 kg/m2 Norma Lauryn Other [facility] Other 04-28-2022 19:50-0400 Body temperature 98.3 [degF] Norma Lauryn Other [facility] Other 04-28-2022 19:50-0400 Body weight 90.72 kg Norma Lauryn Other [facility] Other 04-28-2022 19:50-0400 Respiratory rate 18 /min Norma Lauryn Other [facility] Other 04-28-2022 19:50-0400 SaO2% (BldA) [Mass fraction] 97 % Norma Lauryn Other [facility] Other Encounters Encounter Date Encounter Type Care Provider Facility Start: 02-06-2024 End: 02-06-2024 Clinisync Result Encounter Mignon Jb DO Work Phone: [facility] Unsolicited Start: 02-06-2024 End: 02-06-2024 [facility] Result Encounter Mignon Jb DO Work Phone: [facility] Unsolicited Start: 01-26-2024 End: 01-26-2024 [facility] Result Encounter Mignon Jb DO Work Phone: [facility] Unsolicited Start: 01-26-2024 End: 01-26-2024 Clinis[facility] Result Encounter Mignon Jb DO Work Phone: [facility] Unsolicited Start: 09-14-2023 End: 09-14-2023 ambulatory [facility] Work Phone: Start: 09-14-2023 End: 09-14-2023 Patient encounter procedure [facility] Work Phone: Start: 06-23-2023 Non-patient / Non-visit [facility] Physician [facility] Work Phone: Start: 06-16-2023 Non-patient / Non-visit [facility] Work Phone: Start: 06-07-2023 End: 06-07-2023 ambulatory MIGNON BJ Not Available Start: 02-22-2023 End: 02-22-2023 ambulatory Laly Sy Other [facility] Other Start: 02-22-2023 Office outpatient vi sit 15 minutes Laly Sy [facility] Start: 10-25-2022 End: 10-25-2022 ambulatory Laly Sy Other [facility] Other Start: 10-25-2022 Telephone encounter Laly Sy [facility] Start: 10-04-2022 End: 10-04-2022 ambulatory Laly Sy Other [facility] Other Start: 10-04-2022 Encounter for genera l adult medical examination without abnormal findings Laly Sy [facility] Start: 10-04-2022 Periodic preventive med est patient 40-64yrs Laly Sy [facility] Start: 08-26-2022 End: 08-26-2022 ambulatory Laly Juana Kerrie Facility:[facility] Start: 08-26-2022 End: 08-26-2022 Admission to same day surgery center MD Laly Sy Work Phone: [facility] Work Phone: Start: 08-26-2022 End: 08-26-2022 ambulatory MD Laly Sy Work Phone: [facility] Work Phone: Start: 08-13-2022 End: 08-13-2022 ambulatory Laly Sy Other [facility] Other Start: 08-13-2022 Telephone encounter Laly Sy [facility] Start: 08-05-2022 End: 08-05-2022 ambulatory Laly Sy Other [facility] Other Start: 08-05-2022 Telephone encounter Laly Kerrie [facility] Start: 07-26-2022 End: 07-26-2022 ambulatory Benja Martin Other [facility] Other Start: 07-26-2022 Telephone encounter Imlaz Martin [facility] Start: 07-19-2022 End: 07-19-2022 ambulatory Laly Kerrie Other [facility] Other Start: 07-19-2022 Office outpatient vi sit 15 minutes Laly Sy [facility] Start: 04-28-2022 End: 04-28-2022 ambulatory Norma Combs Other [facility] Other Start: 04-28-2022 Office outpatient ne w [...] Date Procedure Procedure Detail Performing Clinician Start: 02-06-2024 [facility] CMP (CMP) (FOR [facility] USE) Mignon Jb DO Work Phone: Start: 01-26-2024 [facility] PREG QUANT HCG Core y Jb DO Work Phone: Start: 08-25-2023 Mammography Mignon Fazi o DO Work Phone: Start: 08-26-2022 Colonoscopy MD Laly Sy Work Phone: Start: 08-26-2021 Microscopic observat ion [Identifier] in Cervix by Cyto stain Mignon Jb DO Work Phone: Plan of Treatment Date Care Activity Detail Author Start: 08-26-2026 Screening for malign ant neoplasm [facility] cervix [facility] Start: 08-24-2024 Screening for malign ant neoplasm of breast Mammogram [facility] Start: 03-19-2024 End: 03-19-2024 Patient encounter procedure 03/19/2024 3:00 PM EST Office Visit [facility] [address] [place] [address] Mignon Muhammad, DO [address] [place] [address] [facility] Start: 10-09-2023 Influenza vaccination Influenza Vacc ine (#1) [facility] Start: 08-26-2022 [facility] Start: 1975 Screening for malign ant neoplasm of colon [facility] Patient Education Colon polyps Hemorrhoids (DC) [facility] Work Phone: Payers Date Payer Category Payer Private Health Insurance [employer] [id number] 2022 Self-pay 1975 Unknown [id number] 1973 Unknown [id number] 1973 Unknown [id number] 1973 Unknown [id number] 1973 Unknown [id number] 1959 Unknown [id number] Unknown [id number] Unknown MMO [id number] Unknown [id number] Social History Date Type Detail Facility Start: 06-07-2023 Sex Assigned At [facility] [employer] Other Start: 08-26-2022 End: 08-16-2023 Tobacco smoking status NHIS Never smoked tobacco (finding) [facility] Start: 1975 Sex Assigned At Female F [facility] Start: 06-07-2023 Alcoholic beverage intake Lifetime non-drinker (finding) [facility] Start: 06-07-2023 History of Social function [facility] Start: 09-22-2022 Alcohol Comment Caffeine: 1-2 cups/day [facility] Start: 1975 Sex assigned at Not [...] adult (ICD-10 - Z68.34) Form faxed to [facility] for semaglutide - starting dose. Pt unable to report weight, but states she has gained since [employer] went up to $900 and she stopped it. She feels poorly and would like the more affordable option at [facility] Other 08-28-2023 Evaluation note* Encounter Date Diagnosis [...] patient is sent home pleased, without concerns. [facility] [employer] Other [facility]* Encounter Date Diagnosis Assessment Notes Treatment Notes Treatment Clinical Notes Jul, Rectal bleeding (ICD-10 - K62.5) Jul, Colon cancer screening (ICD-10 - Z12.11) as above Jul, Essential (primary) hypertension (ICD-10 - I10) improved. OK to hold med and continue check home bps. Jul, Mitral valve prolapse (ICD-10 - I34.1) chronic problem. continue monitoring symptoms. [facility] [employer] Other 03-22-2023 Evaluation note* Encounter Date Diagnosis [...] printed, Tendonitis home care material was printed [facility] [employer] Other [facility] [employer] Other Evaluation noteNo assessment information available [facility] Work Phone: History and physical note Author Benja Martin [facility] August 26, 2022 9:34am Note Date/Time August 26, 2022 9:34 am [facility] [address] [place] [address] Gastroenterology H&P Signed Patient: Noelle Rosales MR#: [id number] : 1975 Acct:[id number] Age/Sex: 47 / F Adm Date: 3 Loc: Room: Type: [facility] Attending Dr: Benja Martin MD Copies [...] <Electronically signed by Benja Martin MD> 08/26/22933 [facility] Work Phone: Hisapbs general Narrative - Reported* Type Description Date Medical History Hypertension Medical History asthma Medical History mitral valve prolapse Surgical History tonsillectomy 1999 Surgical History C section x 2 2007 Hospitalization History childbirth [facility] [facility] Other History general Narrative - Reported* Type Description Date Medical History Hypertension Medical History asthma Medical History mitral valve prolapse Medical History Insulin resistance Medical History Hormone imbalance Medical History Insomnia Surgical History tonsillectomy 1999 Surgical History C section x 2 2007 Hospitalization History childbirth [facility] Other Hospital Discharge instructions Additional Instructions DISCHARGE [...] pathology -Follow up with PCP. -Office number [phone]. [facility] Work Phone: Summary Purpose Family History Relationship [...] 1 Rectal bleeding (K62 .5) Referral Organization [facility] Referring Provider First Name Laly Referring Provider Last Name Kerrie Referring Provider Specialty Family Medi cine Referred Organization [facility] Gastroenterolo gy Referred Provider Ramos Barr Referred Address [address] [facility] [address] ,[place], [place],[address] Referred Provider Specialty Gastroentero logy Referral Priority Routine General Notes Morena Cohen 12:03:33 PM >received today, sent P2P Chief Complaint and Reason for Visit Chief Complaint Rectal Bleeding Chief Complaint wellness Additional Source Comments INFORMATION SOURCE (unrecogn ized section and content) DATE CREATED AUTHOR 07/28/2017 [facility] DATE CREATED AUTHOR AUTHOR'S ORGANIZ ATION 07/28/2017 [facility] DATE CREATED AUTHOR AUTHOR'S ORGANIZ ATION 10/04/[address] [facility] DATE CREATED AUTHOR AUTHOR'S ORGANIZ ATION 09/02/2022 [facility] DATE CREATED AUTHOR AUTHOR'S ORGANIZ ATION 06/08/2023 [facility] EPIC REASON FOR VISIT (unrecogniz ed section and content) RIGHT FOOT SWOLLENcheck up, personal concernsMAIL [id number]- Sick Care Teams (unrecognized sec tion and content) Team Status: Active Member Role Status Dates Laly Sy MD Primary Care Provider Active Team Status: Active Member Role Status Dates Laly Sy MD Primary Care Provider Active Start: June 16, 2023 Mignon Muhammad DO Attending Provider Active Start : June 16, 2023 Team Status: Active Member Role Status Dates Laly Sy MD Primary Care Provider Active Start: June 23, 2023 Mignon Muhammad DO Attending Provider Active Start : June 23, 2023 Team Status: Inactive Member Role Status Dates Laly Sy MD Primary Care Provide r, Attending Provider Active Start: September 14, 2023 End: September 14, 2023 Team Status: Inactive Member Role Status Dates [...] BE BASED ON THE PRIMARY CLINICAL RECORDS. [employer] provides no warranty or guarantee of the accuracy or completeness of information in this document.
[2024-03-14 16:02] LABS: Basophils Absolute Auto 0.1 10^3/uL (0.0-0.1); Basophils Percent Auto 0.6 % (0.2-2.0); Eosinophils Absolute Auto 0.1 10^3/uL (0.0-0.7); Eosinophils Percent Auto 1.2 % (0.9-7.0); Hematocrit 41.4 % (36.0-48.0); Hemoglobin 13.8 g/dL (12.0-16.0); Immature Granulocytes Abs Auto 0.01 10^3/uL (0.00-0.03); Immature Granulocytes Pct Auto 0.1 % (0.0-0.5); Lymphocytes Absolute Auto 3.1 10^3/uL (1.2-3.8); Mean Corpuscular HGB Conc 33.3 g/dL (29.9-35.2); Mean Corpuscular Hemoglobin 28.6 pg (26.7-34.0); Mean Corpuscular Volume 85.9 fL (81.0-99.0); Mean Platelet Volume 11.5 fL (9.5-13.5); Monocytes Absolute Auto 0.5 10^3/uL (0.3-0.8); Neutrophils Absolute Auto 4.6 10^3/uL (1.4-6.5); Neutrophils Percent Auto 55.1 % (43.0-75.0); Platelet Count 212 10^3/uL (150-450); Red Blood Count 4.82 10^6/uL (4.20-5.40); Red Cell Distribution Width 12.7 % (11.0-15.0); White Blood Count 8.4 10^3/uL (4.0-11.0)
[2024-03-14 16:29] LABS: HCG Quantitative 11 mIU/mL
== END 2024-03-14 15:40 | disposition home or self-care (01) ==
LOC: LAB 15:41
PROVIDERS: PCP Family Medicine; Visit Provider Obstetrics & Gynecology
DX: Z79.899 Other long term (current) drug therapy (principal)
CPT/HCPCS: 36415; 84702; 85025

== ENCOUNTER 2024-03-19 21:40 | Outpatient (REF) | payer OTHER, SELFPAY ==
--- OUTSIDE RECORDS SUMMARY | 2024-03-19 21:43 | XMS_ITS | CCD ---
Author Organization [facility] Care Team Providers Care Jig Operator Name Role Phone ANTONY MAXIMILIAN P Unavailable [...] Care Provider MD Benja Martin Attending Provider Laly Sy Primary Care Unavailable Asaad, Imad Attending Unavailable AsaadHaiderad Admitting Unavailable MIGNON MUHAMMAD Attending Unavailable Unavailable Primary Care Provider Unavailaleksey e Allergies Allergy Classification Reported Allergen(s) Allergy Type Date of Onset Reaction(s) Facility (2 sources) Iodine Drug Allergy 4 [facility] (11 sources) Iodine Drug Allergy 6 [facility] (1 source) Iodine Drug Allergy 3 [facility] Repository (3 sources) Latex Propensity to adverse reactions 6 [...] more days for 5 Feb, Active Chlorthalidone (14 sources) Thiazide-like Diuretic Start: 08-15-2023 take 1 tablet by mouth once daily Chlorthalidone Active 0 .ROUTE .COMPLEX 90 August 15, 2023 10:22am take 1 tablet by mouth once daily Start: 08-26-2022 End: 08-15-2023 chlorthalidone (Hygroton) 25 MG tablet Daily 08/26/2022 Active Chlorthalidone A ctive citalopram 20 mg oral tablet (12 sources) Serotonin Reuptake Inhibitor Start: 08-26-2022 End: [...] Active meclizine hydrochloride 25 mg chewable tablet (3 sources) Antiemetic Meclizine HCl 25 MG chewable tablet 1 (one) time each day at the same time Active meloxicam 15 mg oral tablet (3 sources) Nonsteroidal Anti-inflammatory Drug meloxicam (Mobic) 15 MG tablet 1 (one) time each day at the same time Active methylPREDNISolone 4 mg oral tablet (1 source) Corticosteroid Start: 02-22-19 methylPREDNISolone 4 MG as directed Orally for 6 days Feb, Active mounjaro 10 mg/0.5ml solution pen-injector (1 source) Mounjaro 10 MG/0 .5ML as directed Subcutaneous Dr. Muhammad Active polyethylene glycol 3350 173684 mg / potassium chloride 2970 mg / sodium bicarbonate 6740 mg / sodium chloride 5860 mg / sodium sulfate 19782 mg powder for oral solution (6 sources) Osmotic Laxative Start: 07-30-19 GaviLyte-G 236 [...] 12:00am Tirzepatide (Mounjaro) 5 MG/0.5ML solution auto-injector (3 sources) Start: 03-12-2024 End: 04-11-2024 inject 0.5 mL by subcutaneous injection every week Tirzepatide (Mounjaro) 5 MG/0.5ML solution auto-injector Indications: Insulin resistance , Weight gain Inject 0.5 mL under the skin 1 (one) time per week 2 mL 03/12/2024 04/11/2024 Active Start: 01-30-2024 End: 02-29-2024 inject 0.5 mL [...] Chronic Other nutritional; endocrine; and metabolic disorders (10 sources) Insulin resistance; Translations: [Metabolic syndrome] Onset: [...] Test Name Value Interpretation Reference Range Facility ALL CBC WITH AUTO DIFFon BASOPHILS ABSOLUTE AUTO 0.1 [facility] Basophils/100 WBC (Bld) 0.6 % 0.2 - 2.0 % [facility] Eosinophils/100 WBC (Bld) 1.2 % 0.9 - 7.0 % [facility] Erythrocyte distribution width (RBC) [Ratio] 12.7 % 11.0 - 15.0 % [facility] Hematocrit (Bld) [Volume fraction] 41.4 % 36.0 - 48.0 % [facility] Hemoglobin (Bld) [Mass/Vol] 13.8 g/dL 12.0 - 16.0 g/dL [facility] IMMATURE GRANULOCYTES ABS AUTO 0.01 [facility] Immature granulocytes/100 WBC (Bld) 0.1 % 0.0 - 0.5 % [facility] LYMPHOCYTES ABSOLUTE AUTO 3.1 [facility] Lymphocytes/100 WBC (Bld) 37 % 20.5 - 60.0 % [facility] MCH (RBC) [Entitic mass] 28.6 pg 26.7 - 34.0 pg [facility] MCHC (RBC) [Mass/Vol] 33.3 g/dL 29.9 - 35.2 g/dL [facility] MCV (RBC) [Entitic vol] 85.9 fL 81.0 - 99.0 fL [facility] MONOCYTES ABSOLUTE AUTO 0.5 [facility] Monocytes/100 WBC (Bld) 6 % 1.7 - 12.0 % [facility] NEUTROPHILS ABSOLUTE AUTO 4.6 [facility] Neutrophils/100 WBC (Bld) 55.1 % 43.0 - 75.0 % [facility] Platelet mean volume (Bld) [Entitic vol] 11.5 fL 9.5 - 13.5 fL [facility] EO # 0.1 [facility] PLT 212 [facility] RBC 4.82 [facility] WBC 8.4 [facility] CMP (CMP) (FOR REMOTE FH C USE)on 02-06-2024 Albumin [Mass/Vol] 3.8 g/dL 3.4 - 5.0 g/dL [facility] ALBUMIN GLOBULIN RATIO 1.1 [facility] ALP [Catalytic activity/Vol] 80 U/L 46 - 116 U/L [facility] ALT [Catalytic activity/Vol] 29 U/L 14 - 59 U/L [facility] Anion gap [Moles/Vol] 11.3 mmol/L [facility] AST [Catalytic activity/Vol] 19 U/L 15 - 37 U/L [facility] Bilirubin [Mass/Vol] 0.4 mg/dL 0.2 - 1 .0 mg/dL [facility] Calcium [Mass/Vol] 9.5 mg/dL 8.5 - 10. 1 mg/dL [facility] Chloride [Moles/Vol] 106 mmol/L 98 - 10 7 mmol/L [facility] CO2 [Moles/Vol] 31.3 mmol/L 21.0 - 32.0 mmol/L [facility] Creatinine [Mass/Vol] 0.87 mg/dL 0.55 - 1.02 mg/dL [facility] GFR/1.73 sq M.predicted CKD-EPI (S/P/Bld) [Vol rate/Area] >60 >=60 mL/min/1.73m 2 [facility] Globulin (S) [Mass/Vol] 3.6 g/dL [facility] Glucose [Mass/Vol] 95 mg/dL 74 - 106 mg/dL [facility] Potassium [Moles/Vol] 3.6 mmol/L 3.5 - 5.1 mmol/L [facility] Protein [Mass/Vol] 7.4 g/dL 6.4 - 8.2 g/dL [facility] Sodium [Moles/Vol] 145 mmol/L 136 - 145 mmol/L [facility] EGFR-NON AF FINNISH >60 >=60 mL/min/1.73m 2 [facility] Urea nitrogen [Mass/Vol] 11 mg/dL 7.0 - 18.0 mg/dL [facility] Urea nitrogen/Creatinine [Mass ratio] 12.6 mg/mg [facility] PREG QUANT HCGon 024 HCG QUANTITATIVE 13 mIU/mL [facility] Comment on above: 5-50 0.2-1 WEEK 50-500 1-2 WEEKS 100-5,000 2-3 WEEKS 500-10,000 3-4 WEEKS 1,000-50,000 4-5 WEEKS 10,000-100,000 5-6 WEEKS 15,000-200,000 6-8 WEEKS 10,000-100,000 2-3 MONTHS [facility] Glucose mean value [Mass/vol ume] in Blood Estimated from glycated hemoglobinon 06-23-2023 Average glucose Estimated from glycated hemoglobin (Bld) [Mass/Vol] 111 mg/dL [facility] - Hematology and Cell countson 06-23-2023 HbA1c (Bld) [Mass fraction] 5.5 % 4.5-6.2 [facility] Comment on above: ADA RECOMMENDED LIMI T 4.0 - 6.0ADA THERAPEUTIC TARGET < 7.0ACTION SUGGESTED> 7.0 Basophils Auto (Bld) [#/Vol] on 06-16-2023 Basophils (Bld) [#/Vol] 0.1 10 3/uL 0.0-0.1 [facility] Basophils/100 WBC Auto (Bld) on 06-16-2023 Basophils/100 WBC (Bld) 0.7 % 0.2-2.0 [facility] Eosinophils/100 WBC Auto (Bl d)on 06-16-2023 Eosinophils/100 WBC (Bld) 1.8 % 0.9-7.0 [facility] Erythrocyte distribution wid th Auto (RBC) [Ratio]on 06-16-2023 Erythrocyte distribution width (RBC) [Ratio] 12.5 % 11.0-15.0 [facility] Hematocrit Auto (Bld) [Volum e fraction]on 06-16-2023 Hematocrit (Bld) [Volume fraction] 42.9 % 36.0-48.0 [facility] Hemoglobin [Mass/volume] in Bloodon 06-16-2023 Hemoglobin (Bld) [Mass/Vol] 14.4 g/dL 12.0-16.0 [facility] - Chemistry and C hemistry - challengeon 06-16-2023 Free T4 [Mass/Vol] 1.46 ng/dL 0.76-1.46 [facility] TSH Qn 1.846 m[IU]/L 0.358-3.740 [facility] - Hematology and Cell countson 06-16-2023 Immature granulocytes/100 WBC (Bld) 0.1 % 0.0-0.5 [facility] Leukocytes [#/volume] correc jose juan for nucleated erythrocytes in Blood by Automated counon 06-16-2023 WBC corrected for nucl RBC Auto (Bld) [#/Vol] 7.0 10 3/uL 4.0-11.0 [facility] Lymphocytes Auto (Bld) [#/Vo l]on 06-16-2023 Lymphocytes (Bld) [#/Vol] 2.8 10 3/uL 1.2-3.8 [facility] Lymphocytes/100 WBC Auto (Bl d)on 06-16-2023 Lymphocytes/100 WBC (Bld) 39.8 % 20.5-60.0 [facility] MCH Auto (RBC) [Entitic mass ]on 06-16-2023 MCH (RBC) [Entitic mass] 28.7 pg 26.7-34.0 [facility] MCHC Auto (RBC) [Mass/Vol]on 06-16-2023 MCHC (RBC) [Mass/Vol] 33.6 g/dL 29.9-35.2 [facility] MCV Auto (RBC) [Entitic vol] on 06-16-2023 MCV (RBC) [Entitic vol] 85.6 fL 81.0-99.0 [facility] Monocytes Auto (Bld) [#/Vol] on 06-16-2023 Monocytes (Bld) [#/Vol] 0.5 10 3/uL 0.3-0.8 [facility] Monocytes/100 WBC Auto (Bld) on 06-16-2023 Monocytes/100 WBC (Bld) 6.7 % 1.7-12.0 [facility] Neutrophils Auto (Bld) [#/Vo l]on 06-16-2023 Neutrophils (Bld) [#/Vol] 3.6 10 3/uL 1.4-6.5 [facility] Neutrophils/100 WBC Auto (Bl d)on 06-16-2023 Neutrophils/100 WBC (Bld) 50.9 % 43.0-75.0 [facility] No Panel Informationon 06-15 Eosinophils # (Auto) 0.1 10 3/uL 0.0-0.7 [facility] Immature Granulocyte # (Auto) 0.01 10 3/uL 0.00-0.03 [facility] Platelet mean volume Auto (B ld) [Entitic vol]on 06-16-2023 Platelet mean volume (Bld) [Entitic vol] 11.2 fL 9.5-13.5 [facility] Platelets Auto (Bld) [#/Vol] on 06-16-2023 Platelets (Bld) [#/Vol] 232 10 3/uL 150-450 [facility] RBC Auto (Bld) [#/Vol]on RBC (Bld) [#/Vol] 5.01 10 6/uL 4.20-5.40 [facility] Clifford 08-26-2022 L - -------- Specimen: [id number] Received: 08/26/22 Status: PATRICIO Jones Num: [id number] Spec Type: Surgical Subm Dr: Benja Martin MD Tissues: A Colon Biopsy (SIGMOID POLYP) Procedures: HE/2, Gross/Micro L4 -------- Age/ Patient Sex Location Account Attending Physician -------- Noelle Rosales 47/F [id number] Benja Martin MD -------- SPEC NUM: [id number] RECD: 08/26/22 STATUS: PATRICIO JONES NUM: [id number] JENNIFER: 08/26/22 DR: Benja Martin MD ENTERED: 08/26/22 [facility] DR: RICHIE TYPE: Surgical DEPT: S ORDERED: [...] microscopic examination confirms the diagnosis. CPT Codes 45118 -------- -------- Specimen: [id number] Received: 08/26/22 Status: PATRICIO Jones Num: [id number] Spec Type: Surgical Subm Dr: Benja Martin MD Tissues: A Colon Biopsy (SIGMOID POLYP) Procedures: HE/2, Gross/Micro L4 -------- Patient: Noelle Rosales Juju [id number] (Continued) -------- Signed (signature on file) Blas Mijares MD 08/27/[address] [facility] INSULIN FREE AND TOTALon Free Insulin 10 uU/mL Normal [facility] Comment on above: Result Comment: Thao bernabe Range: Pubertal Children and Adults (fasting): 0 - 17 Performed By: #### E RAYNE #### [facility] [address] [place] [address] Dr. Beata Mijares Total Insulin 10 uU/mL Normal [facility] Comment on above: Result Comment: [...] developed and its performance characteristics determined by [employer]. It has not been cleared or approved by the Food and Drug Administration. Performed By: #### E STRADI #### [facility] [address] [place] [address] Dr. Beata Mijares CBC AUTO DIFFon 09-25-2021 BASO # 0.1 103/ul Normal 0.0-0.1 [facility] Comment on above: Performed By: #### F T4 #### [facility] [address] [place] [address] Dr. Beata Mijares Basophils/100 WBC (Bld) 0.7 % Normal 0.2-2.0 [facility] Comment on above: Performed By: #### F T4 #### [facility] [address] [place] [address] Dr. Beata Mijares EO # 0.1 103/ul Normal 0.0-0.7 [facility] Comment on above: Performed By: #### F T4 #### [facility] [address] [place] [address] Dr. Beata Mijares Eosinophils/100 WBC (Bld) 1.8 % Normal 0.9-7.0 [facility] Comment on above: Performed By: #### F T4 #### [facility] [address] [place] [address] Dr. Beata Mijares Erythrocyte distribution width (RBC) [Ratio] 12.9 % Normal 11.0-15.0 [facility] Comment on above: Performed By: #### F T4 #### [facility] [address] [place] [address] Dr. Beata Mijares Hematocrit (Bld) [Volume fraction] 42.5 % Normal 36.0-48.0 [facility] Comment on above: Performed By: #### F T4 #### [facility] [address] [place] [address] Dr. Beata Mijares Hemoglobin (Bld) [Mass/Vol] 14.3 g/dL Normal 12.0-16.0 [facility] Comment on above: Performed By: #### F T4 #### [facility] [address] [place] [address] Dr. Beata Mijares IG # 0.02 10e3/ul Normal 0.00-0.03 [facility] Comment on above: Performed By: #### F T4 #### [facility] [address] [place] [address] Dr. Beata Mijares IG % 0.3 % Normal 0.0-0.5 [facility] Comment on above: Performed By: #### F T4 #### [facility] [address] [place] [address] Dr. Beata Mijares LYMPH # 2.5 103/ul Normal 1.2-3.8 [facility] Comment on above: Performed By: #### F T4 #### [facility] [address] [place] [address] Dr. Beata Mijares Lymphocytes/100 WBC (Bld) 36.1 % Normal 20.5-60.0 [facility] Comment on above: Performed By: #### F T4 #### [facility] [address] [place] [address] Dr. Beata Mijares MANUAL DIFF REQ NO Normal [facility] Comment on above: Performed By: #### F T4 #### [facility] [address] [place] [address] Dr. Beata Mijares MCH (RBC) [Entitic mass] 28.4 pg Normal 26.7-34.0 [facility] Comment on above: Performed By: #### F T4 #### [facility] [address] [place] [address] Dr. Beata Mijares MCHC (RBC) [Mass/Vol] 33.6 g/dL Normal 29.9-35.2 [facility] Comment on above: Performed By: #### F T4 #### [facility] [address] [address] [address] Beata Mijares MCV (RBC) [Entitic vol] 84.3 fL Normal 81.0-99.0 [facility] Comment on above: Performed By: #### F T4 #### [facility] [address] [address] [address] Beata Mijares MONO # 0.5 103/ul Normal 0.3-0.8 [facility] Comment on above: Performed By: #### F T4 #### [facility] [address] [place] [address] Dr. Beata Mijares Monocytes/100 WBC (Bld) 7.7 % Normal 1.7-12.0 [facility] Comment on above: Performed By: #### F T4 #### [facility] [address] [place] [address] Dr. Beata Mijares NEUT # 3.7 103/ul Normal 1.4-6.5 [facility] Comment on above: Performed By: #### F T4 #### [facility] [address] [place] [address] Dr. Beata Mijares Neutrophils/100 WBC (Bld) 53.4 % Normal 43.0-75.0 [facility] Comment on above: Performed By: #### F T4 #### [facility] [address] [place] [address] Dr. Beata Mijares Platelet mean volume (Bld) [Entitic vol] 11.0 fL Normal 9.5-13.5 [facility] Comment on above: Performed By: #### F T4 #### [facility] [address] [place] [address] Dr. Beata Mijares PLT 229 103/ul Normal 150-450 [facility] Comment on above: Performed By: #### F T4 #### [facility] [address] [place] [address] Dr. Beata Mijares RBC 5.04 106/ul Normal 4.20-5.40 [facility] Comment on above: Performed By: #### F T4 #### [facility] [address] [address] [address] Beata Mijares WBC 6.8 103/ul Normal 4.0-11.0 [facility] Comment on above: Performed By: #### F T4 #### [facility] [address] [address] [address] Beata Mijares FREE T4on 09-25-2021 Free T4 [Mass/Vol] 1.19 ng/dL Normal 0.76-1.46 [facility] Comment on above: Performed By: #### F T4 #### [facility] [address] [address] [address] Beata Mijares GLYCOHEMOGLOBIN A1Con 2021 ADA RECOMMENDATION SEE BELOW Normal [facility] Comment on above: Result Comment: ADA RECOMMENDED LIMIT 4.0 - 6.0 ADA THERAPEUTIC TARGET < 7.0 ACTION SUGGESTED > 7.0 Performed By: #### E STRADI #### [facility] [address] [address] [address] Beata Mijares Glucose [Mass/Vol] 114 mg/dL Normal [facility] Comment on above: Performed By: #### E STRADI #### [facility] [address] [address] [address] Beata Mijares HbA1c (Bld) [Mass fraction] 5.6 % Normal 4.5-6.2 [facility] Comment on above: Performed By: #### E STRADI #### [facility] [address] [address] [address] Beata Mijares MG MAMM SCREEN 3D SHAUN CADon 09-25-2021 MG MAMM SCREEN 3D SHAUN CAD Patient: NOELLE ROSALES Exam Date: 09/25/2021 : 1975 Gender:F Ordering : DR MIGNON MUHAMMAD . Admission #: [id number] Family : Order #: [id number] CLICK HERE TO VIEW EXAM RADIOLOGY REPORT [...] with colon cancer at age 68. LOCATION: [facility] BREAST COMPOSITION: Heterogeneously dense,which may obscure [...] Garcia M.D. on 09/25/2021 at 10:20 Normal [facility] PAP ACOG PANEL 2: 30 to 65on 09-25-2021 . . Normal [facility] Comment on above: Result Comment: Perf ormed at: WB Performed By: #### [id number] #### [facility] [address] [address] [address] Beata Mijares Age Gdln ACOG Testing 30-65 Normal [facility] Comment on above: Performed By: #### 4 [id number] #### [facility] [address] [address] [address] Beata Mijares DIAGNOSIS: Comment Normal [facility] Comment on above: Result Comment: NEGA TIVE FOR INTRAEPITHELIAL LESION OR MALIGNANCY. THIS SPECIMEN WAS RESCREENED PART OF OUR [employer] AND [employer]EVER[employer] LEAD PROGRAM. Performed at: WB Performed By: #### [id number] #### [facility] [address] [address] [address] Beata Mijares HPV Aptima Negative Normal Negative [facility] Comment on above: Result Comment: This nucleic acid amplification test detects fourteen high-risk HPV types (16,18,31,33,35,39,45,51,52,56,58,59,66,68) without differentiation. Performed at: =G Performed By: #### [id number] #### [facility] [address] [place] [address] Dr. Beata Mijares Methodology: Comment Normal [facility] Comment on above: Result Comment: This liquid based ThinPrep(R) pap test was screened with the use of an image guided system. Performed at: WB Performed By: #### [id number] #### [facility] [address] [place] [address] Dr. Beata Mijares Note: Comment Normal [facility] Comment on above: Result Comment: The Pap smear is a screening test designed to aid in the detection of premalignant and malignant conditions of the uterine cervix. It is not a diagnostic procedure and should not be used as the sole means of detecting cervical cancer. Both false-positive and false-negative reports do occur. . Performed at: WB Performed By: #### [id number] #### [facility] [address] [place] [address] Dr. Beata Mijares Performed by: Comment Normal [facility] Comment on above: Result Comment: Vee Tijerina, Visual Merchandising Associate (ASCP) Performed at: WB Performed By: #### [id number] #### [facility] [address] [place] [address] Dr. Beata Mijares QC reviewed by: Comment Normal [facility] Comment on above: Result Comment: Mohinder Sepulveda, Supervisory Visual Merchandising Associate (ASCP) Performed at: WB Performed By: #### [id number] #### [facility] [address] [place] [address] Dr. Beata Mijares Specimen adequacy: Comment Normal [facility] Comment on above: Result Comment: Sati sfactory for evaluation. Endocervical and/or squamous metaplastic cells (endocervical component) are present. Performed at: WB Performed By: #### [id number] #### [facility] [address] [place] [address] Dr. Beata Mijares TSHon 09-25-2021 TSH 1.833 uIU/mL Normal 0.358-3.740 [facility] Comment on above: Performed By: #### T SH #### [facility] [address] [place] [address] Dr. Beata Mijares CARDIAC MELCHOR ADMITon 022 CK [Catalytic activity/Vol] 148 U/L Normal 26-192 [facility] Comment on above: Performed By: #### F T4 #### [facility] [address] [place] [address] Dr. Beata Mijares CK.MB [Mass/Vol] 1.29 ng/mL Normal <=3.60 [facility] Comment on above: Performed By: #### F T4 #### [facility] [address] [place] [address] Dr. Beata Mijares KOLBY 51 ng/mL Normal 9-82 [facility] Comment on above: Performed By: #### F T4 #### [facility] [address] [place] [address] Dr. Beata Mijares CBC AUTO DIFFon 06-17-2021 BASO # 0.0 103/ul Normal 0.0-0.1 [facility] Comment on above: Performed By: #### C BC #### [facility] [address] [place] [address] Dr. Beata Mijares Basophils/100 WBC (Bld) 0.4 % Normal 0.2-2.0 [facility] Comment on above: Performed By: #### C BC #### [facility] [address] [place] [address] Dr. Beata Mijares EO # 0.1 103/ul Normal 0.0-0.7 [facility] Comment on above: Performed By: #### C BC #### [facility] [address] [place] [address] Dr. Beata Mijares Eosinophils/100 WBC (Bld) 1.3 % Normal 0.9-7.0 [facility] Comment on above: Performed By: #### C BC #### [facility] [address] [place] [address] Dr. Beata Mijares Erythrocyte distribution width (RBC) [Ratio] 12.6 % Normal 11.0-15.0 [facility] Comment on above: Performed By: #### C BC #### [facility] [address] [place] [address] Dr. Beata Mijares Hematocrit (Bld) [Volume fraction] 43.3 % Normal 36.0-48.0 [facility] Comment on above: Performed By: #### C BC #### [facility] [address] [place] [address] Dr. Beata Mijares Hemoglobin (Bld) [Mass/Vol] 14.3 g/dL Normal 12.0-16.0 [facility] Comment on above: Performed By: #### C BC #### [facility] [address] [place] [address] Dr. Beata Mijares IG # 0.02 10e3/ul Normal 0.00-0.03 [facility] Comment on above: Performed By: #### C BC #### [facility] [address] [place] [address] Dr. Beata Mijares IG % 0.3 % Normal 0.0-0.5 [facility] Comment on above: Performed By: #### C BC #### [facility] [address] [place] [address] Dr. Beata Mijares LYMPH # 2.8 103/ul Normal 1.2-3.8 [facility] Comment on above: Performed By: #### C BC #### [facility] [address] [place] [address] Dr. Beata Mijares Lymphocytes/100 WBC (Bld) 39.4 % Normal 20.5-60.0 [facility] Comment on above: Performed By: #### C BC #### [facility] [address] [place] [address] Dr. Beata Mijares MANUAL DIFF REQ NO Normal [facility] Comment on above: Performed By: #### C BC #### [facility] [address] [place] [address] Dr. Beata Mijares MCH (RBC) [Entitic mass] 28.5 pg Normal 26.7-34.0 [facility] Comment on above: Performed By: #### C BC #### [facility] [address] [place] [address] Dr. Beata Mijares MCHC (RBC) [Mass/Vol] 33.0 g/dL Normal 29.9-35.2 [facility] Comment on above: Performed By: #### C BC #### [facility] [address] [place] [address] Dr. Beata Mijares MCV (RBC) [Entitic vol] 86.3 fL Normal 81.0-99.0 [facility] Comment on above: Performed By: #### C BC #### [facility] [address] [place] [address] Dr. Beata Mijares MONO # 0.4 103/ul Normal 0.3-0.8 [facility] Comment on above: Performed By: #### C BC #### [facility] [address] [place] [address] Dr. Beata Mijares Monocytes/100 WBC (Bld) 5.9 % Normal 1.7-12.0 [facility] Comment on above: Performed By: #### C BC #### [facility] [address] [place] [address] Dr. Beata Mijares NEUT # 3.8 103/ul Normal 1.4-6.5 [facility] Comment on above: Performed By: #### C BC #### [facility] [address] [place] [address] Dr. Beata Mijares Neutrophils/100 WBC (Bld) 52.7 % Normal 43.0-75.0 [facility] Comment on above: Performed By: #### C BC #### [facility] [address] [place] [address] Dr. Beata Mijares Platelet mean volume (Bld) [Entitic vol] 11.1 fL Normal 9.5-13.5 [facility] Comment on above: Performed By: #### C BC #### [facility] [address] [place] [address] Dr. Beata Mijares PLT 227 103/ul Normal 150-450 [facility] Comment on above: Performed By: #### C BC #### [facility] [address] [place] [address] Dr. Beata Mijares RBC 5.02 106/ul Normal 4.20-5.40 [facility] Comment on above: Performed By: #### C BC #### [facility] [address] [place] [address] Dr. Beata Mijares WBC 7.2 103/ul Normal 4.0-11.0 [facility] Comment on above: Performed By: #### C BC #### [facility] [address] [place] [address] Dr. Beata Mijares PROF CHEM 8 (BAS METB)on Anion gap [Moles/Vol] 10.2 mmol/L Normal [facility] Comment on above: Performed By: #### E STRADI #### [facility] [address] [place] [address] Dr. Beata Mijares Calcium [Mass/Vol] 9.7 mg/dL Normal 8.5-10.1 [facility] Comment on above: Performed By: #### E STRADI #### [facility] [address] [place] [address] Dr. Beata Mijares Chloride [Moles/Vol] 101 mmol/L Normal 98-107 [facility] Comment on above: Performed By: #### E STRADI #### [facility] [address] [place] [address] Dr. Beata Mijares CO2 [Moles/Vol] 35.1 mmol/L Critically high 21.0-32.0 [facility] Comment on above: Performed By: #### E STRADI #### [facility] [address] [place] [address] Dr. Beata Mijares Creatinine [Mass/Vol] 0.88 mg/dL Normal 0.55-1.02 [facility] Comment on above: Performed By: #### E STRADI #### [facility] [address] [place] [address] Dr. Beata Mijares EGFR-AF FINNISH >60 Normal >=60 [facility] Comment on above: Performed By: #### E STRADI #### [facility] [address] [place] [address] Dr. Beata Mijares EGFR-NON AF FINNISH >60 Normal >=60 [facility] Comment on above: Performed By: #### E STRADI #### [facility] [address] [address] [address] Beata Mijares Glucose [Mass/Vol] 111 mg/dL Critically high 74-106 T [facility] Comment on above: Performed By: #### E STRADI #### [facility] [address] [address] [address] Beata Mijares Potassium [Moles/Vol] 3.3 mmol/L Critically low 3.5-5.1 [facility] Comment on above: Performed By: #### E STRADI #### [facility] [address] [address] [address] Beata Mijares Sodium [Moles/Vol] 143 mmol/L Normal 136-145 [facility] Comment on above: Performed By: #### E STRADI #### [facility] [address] [address] [address] Beata Mijares Urea nitrogen [Mass/Vol] 17.0 mg/dL Normal 7.0-18.0 [facility] Comment on above: Performed By: #### E STRADI #### [facility] [address] [address] [address] Beata Mijares Urea nitrogen/Creatinine [Mass ratio] 19.3 mg/mg Normal [facility] Comment on above: Performed By: #### E STRADI #### [facility] [address] [address] [address] Beata Mijares TROPONIN, HIGH SENSITIVITYon 06-17-2021 HSTROP 5.1 pg/mL Normal 4.0-51.3 [facility] Comment on above: Result Comment: CUT- OFF POINTS HAVE BEEN ESTABLISHED BASED ON THE FOURTH UNIVERSAL DEFINITIONS OF MYOCARDIAL INFARCTION. THE UPPER REFERENCE LIMIT (URL) OF TROPONIN, DEFINED THE 99TH PERCENTILE OF cTnI DISTRIBUTION IN A REFERENCE POPULATION, HAS BEEN CONFIRMED THE DECISION THRESHOLD FOR [place] DIAGNOSIS. Performed By: #### E STRADI #### [facility] [address] [address] [address] Beata Mijares Performed By: #### F T4 #### [facility] [address] [place] [address] Dr. Beata Mijares ESTRONEon 12-30-2020 Estrone, Serum 68 pg/mL Normal [facility] Comment on above: Result Comment: Adul t: Follicular phase 39 - 132 Periovulatory 58 - 256 Luteal phase 54 - 179 : 1st trimester 247 - 2774 2nd trimester 569 - 5735 Postmenopausal: with ERT 51 - 488 without ERT 31 - 100 Performed By: #### E RAYNE #### [facility] [address] [place] [address] Dr. Beata Mijares TESTOSTERONE, FREE,DIRECT, T OTALon 12-30-2020 Free Testosterone(Direct) 1.7 pg/mL Normal 0.0-4.2 [facility] Comment on above: Result Comment: Perf ormed at: BN Performed By: #### F T4 #### [facility] [address] [place] [address] Dr. Beata Mijares Testosterone [Mass/Vol] 17 ng/dL Normal 4-50 [facility] Comment on above: Result Comment: Perf ormed at: CB Performed By: #### F T4 #### [facility] [address] [place] [address] Dr. Beata Mijares CORTISOLon 12-28-2020 Cortisol 17.6 ug/dL Normal [facility] Comment on above: Result Comment: Kade isol AM 6.2 - 19.4 Cortisol PM 2.3 - 11.9 Performed By: #### E JACKIEDI #### [facility] [address] [place] [address] Dr. Beata Mijares DHEA-SULFATEon 12-28-2020 DHEA-Sulfate 142.0 ug/dL Normal 41.2-243.7 [facility] Comment on above: Performed By: #### D GORDOUL #### [facility] [address] [place] [address] Dr. Beata Mijares ESTRADIOLon 12-28-2020 Estradiol 14.2 pg/mL Normal [facility] Comment on above: Result Comment: Adul t Female: Follicular phase 12.5 - 166.0 Ovulation phase 85.8 - 498.0 Luteal phase 43.8 - 211.0 Postmenopausal <6.0 - 54.7 1st trimester 215.0 - >4300.0 Corey ECLIA methodology Performed By: #### E STRADI #### [facility] [address] [place] [address] Dr. Beata Mijares PROGESTERONEon 12-28-2020 Progesterone 0.1 ng/mL Normal [facility] Comment on above: Result Comment: Foll icular phase 0.1 - 0.9 Luteal phase 1.8 - 23.9 Ovulation phase 0.1 - 12.0 First trimester 11.0 - 44.3 Second trimester 25.4 - 83.3 Third trimester 58.7 - 214.0 Postmenopausal 0.0 - 0.1 Performed By: #### P QUE #### [facility] [address] [place] [address] Dr. Beata Mijares SEX HORMONE-BINDING GLOBULIN on 12-28-2020 Sex Horm Binding Glob, Serum 31.7 nmol/L Normal 24.6-122.0 [facility] Comment on above: Performed By: #### S EXHBG #### [facility] [address] [place] [address] Dr. Beata Mijares T3, TOTAL (TRIIODOTHYRONINE) on 12-28-2020 T3, TOTAL 123 ng/dL Normal 71-180 [facility] Comment on above: Performed By: #### E STRADI #### [facility] [address] [place] [address] Dr. Beata Mijares FREE T4on 12-27-2020 Free T4 [Mass/Vol] 1.29 ng/dL Normal 0.78-2.19 [facility] Comment on above: Performed By: #### E STRADI #### [facility] [address] [place] [address] Dr. Beata Mijares T4on 12-27-2020 T4 [Mass/Vol] 6.70 ug/dL Normal 5.53-11.00 [facility] Comment on above: Performed By: #### T SH, T4 #### [facility] [address] [place] [address] Dr. Beata Mijares TSHon 12-27-2020 TSH 1.127 uIU/mL Normal 0.470-4.680 [facility] Comment on above: Performed By: #### T SH, T4 #### [facility] [address] [place] [address] Dr. Beata Mijares TSH RANGE SEE BELOW Normal [facility] Comment on above: Result Comment: <0.3 4 UIU/ml HYPERTHYROID 0.34-5.60 UIU/ml EUTHYROID >5.60 UIU/ml HYPOTHYROID Performed By: #### T SH, T4 #### [facility] [address] [place] [address] Dr. Beata Mijares VITAMIN D 25 OHon 12-27-2020 VIT D 25-OH 32.0 ng/mL Normal [facility] Comment on above: Performed By: #### E STRADI #### [facility] [address] [place] [address] Dr. Beata Mijares VIT D RANGES SEE BELOW Normal [facility] Comment on above: Result Comment: <20 ng/mL Vit D deficient 20 - <30 ng/mL Vit D insufficient 30 - 100 ng/mL Vit D sufficient >100 ng/mL Potential Toxicity Performed By: #### E STRADI #### [facility] [address] [place] [address] Dr. Beata Mijares Creatinineon 04-04-2017 Creatinine 0.87 mg/dL Normal 0.50-1.05 [facility] Comment on above: Performed By: #### 1 [id number] ####[facility] [address] [place] [address] eGFR (MDRD) mL/min/{1.73_m2} Normal [facility] Comment on above: Result Comment: Inte rpretation for Chronic Kidney Disease:Stages 1&2 >60 Healthy or potential kidney damage.Mild decrease of GFR.Stage 3 30-59 Moderate decrease of GFR.Stage 4 15-29 Severe decrease of GFR.Stage 5 <15 Kidney failure or on dialysis. Performed By: #### 1 [id number] ####[facility] [address] [place] [address] Electrolyte Panelon 04-04-19 18 Anion gap 11 mmol/L Normal 10-20 [facility] Comment on above: Performed By: #### 1 [id number] ####[facility] [address] [place] [address] Bicarbonate (HCO3) 32 mmol/L Normal 21-32 [facility] Comment on above: Performed By: #### 1 [id number] ####[facility] [address] [place] [address] Chloride 103 mmol/L Normal 98-107 [facility] Comment on above: Performed By: #### 1 [id number] ####[facility] [address] [place] [address] Potassium molar conc 3.3 mmol/L Low 3.5-5.1 [facility] Comment on above: Performed By: #### 1 [id number] ####[facility] [address] [place] [address] Sodium 143 mmol/L Normal 136-145 [facility] Comment on above: Performed By: #### 1 [id number] ####[facility] [address] [place] [address] Urea Nitrogenon 04-04-2017 Urea nitrogen 18 mg/dL Normal 6-23 [facility] are Comment on above: Performed By: #### 1 [id number] ####[facility] [address] [place] [address] Urinalysison 04-04-2017 Ascorbic Acid Negative Normal Negative [facility] are Comment on above: Performed By: #### 1 [id number] ####[facility] [address] [place] [address] Automated Urine Microscopy Performed Normal [facility] Comment on above: Performed By: #### 1 [id number] ####[facility] [address] [place] [address] Bilirubin Ql (U) Negative Normal Negative [facility] Comment on above: Performed By: #### 1 616561 ####[facility] [address] [place] [address] Blood Small Abnormal Negative [facility] Comment on above: Performed By: #### 1 [id number] ####[facility] [address] [place] [address] Erythrocytes (RBC) 4 /[HPF] Normal 0-3 [facility] Comment on above: Performed By: #### 1 [id number] ####[facility] [address] [place] [address] Glucose mass conc Negative Normal Negative [facility] Comment on above: Performed By: #### 1 [id number] ####[facility] [address] [place] [address] Protein Negative Normal Negative [facility] Comment on above: Performed By: #### 1 [id number] ####[facility] [address] [place] [address] Urine, appearance Hazy Normal Clear [facility] Comment on above: Performed By: #### 1 [id number] ####[facility] [address] [place] [address] Urine, color Yellow Normal [facility] Comment on above: Performed By: #### 1 [id number] ####[facility] [address] [place] [address] Urine, ketones presence Negative Normal Negative [facility] Comment on above: Performed By: #### 1 [id number] ####[facility] [address] [place] [address] Urine, nitrite presence Negative Normal Negative [facility] Comment on above: Performed By: #### 1 [id number] ####[facility] [address] [place] [address] Urine, pH 7.0 [pH] Normal 5.0-9.0 [facility] Comment on above: Performed By: #### 1 [id number] ####[facility] [address] [place] [address] Urine, specific gravity 1.021 Normal 1.003-1.035 [facility] Comment on above: Performed By: #### 1 [id number] ####[facility] [address] [place] [address] Urine, squamous cells in sediment 1 /[HPF] Normal 0-5 [facility] Comment on above: Performed By: #### 1 [id number] ####[facility] [address] [place] [address] Urine, urobilinogen <2.0 Normal Negative [facility] Comment on above: Performed By: #### 1 [id number] ####[facility] [address] [facility] [place] [address] WBC (Leukocytes) 1 /[HPF] Normal 0-5 [facility] Comment on above: Performed By: #### 1 [id number] ####[facility] [address] [place] [address] WBC (Leukocytes) Negative Normal Negative [facility] Comment on above: Performed By: #### 1 [id number] ####[facility] [address] [place] [address] Vital Signs Date Time Vital Sign Value Performing Clinician Facility 02-22-2023 09:45-0500 Body height 167.64 cm Laly Sy Other [facility] Other 02-22-2023 09:45-0500 Body mass index (BMI) [Ratio] 34.21 kg/m2 Laly Sy Other [facility] Other 02-22-2023 09:45-0500 Body weight 96.16 kg Laly Sy Other [facility] Other 10-04-2022 09:00-0400 Body height 167.64 cm Laly Sy Other [facility] Other 10-04-2022 09:00-0400 Body mass index (BMI) [Ratio] 34.21 kg/m2 Laly Sy Other [facility] Other 10-04-2022 09:00-0400 Body weight 96.16 kg Laly Sy Other [facility] Other 10-04-2022 09:00-0400 Diastolic blood pressure 85 mm[Hg] Laly Sy Other [facility] Other 10-04-2022 09:00-0400 Systolic blood pressure 142 mm[Hg] Laly Sy Other [facility] Other 08-26-2022 10:41-0400 Diastolic blood pressure 78 mm[Hg] MD Laly Sy Work Phone: [facility] 08-26-2022 10:41-0400 Heart rate 57 /min MD Laly Sy Work Phone: [facility] 08-26-2022 10:41-0400 Respiratory rate 16 /min MD Laly Sy Work Phone: [facility] 08-26-2022 10:41-0400 SaO2% (BldA) [Mass fraction] 97 % MD Laly Sy Work Phone: [facility] 08-26-2022 10:41-0400 Systolic blood pressure 136 mm[Hg] MD Laly Sy Work Phone: [facility] 08-26-2022 07:54-0400 Body height 167.64 cm MD Laly Sy Work Phone: [facility] 08-26-2022 07:54-0400 Body temperature 98.1 [degF] MD Laly Sy Work Phone: [facility] 08-26-2022 07:54-0400 Body weight 97.52 kg MD Laly Sy Work Phone: [facility] 07-19-2022 11:00-0400 Body height 167.64 cm Laly Sy Other [facility] Other 07-19-2022 11:00-0400 Body mass index (BMI) [Ratio] 34.7 kg/m2 Laly Sy Other [facility] Other 07-19-2022 11:00-0400 Body weight 97.52 kg Laly Sy Other [facility] Other 07-19-2022 11:00-0400 Diastolic blood pressure 85 mm[Hg] Laly Sy Other [facility] Other 07-19-2022 11:00-0400 Systolic blood pressure 131 mm[Hg] Lalychrista Sy Other [facility] Other 04-28-2022 19:50-0400 Body height 167.64 cm Norma Lauryn Other [facility] Other 04-28-2022 19:50-0400 Body mass index (BMI) [Ratio] 32.28 kg/m2 Norma Lauryn Other [facility] Other 04-28-2022 19:50-0400 Body temperature 98.3 [degF] Norma Lauryn Other [facility] Other 04-28-2022 19:50-0400 Body weight 90.72 kg Norma Lauryn Other [facility] Other 04-28-2022 19:50-0400 Respiratory rate 18 /min Norma Lauryn Other [facility] Other 04-28-2022 19:50-0400 SaO2% (BldA) [Mass fraction] 97 % Norma Lauryn Other [facility] Other Encounters Encounter Date Encounter Type Care Provider Facility Start: 03-14-2024 End: 03-14-2024 Clinisync Result Encounter Mignon Jb DO Work Phone: [facility] External Department Unsolicited Start: 03-14-2024 End: 03-14-2024 [facility] Result Encounter Mignon Jb DO Work [...] Department Unsolicited Start: 09-14-2023 End: 09-14-2023 ambulatory [facility] Work Phone: Start: 09-14-2023 End: 09-14-2023 Patient encounter procedure [facility] Physician [facility] Work Phone: Start: 06-23-2023 Non-patient / Non-visit [facility] Physician [facility] Work Phone: Start: 06-16-2023 Non-patient / Non-visit [facility] Physician [facility] Work Phone: Start: 06-07-2023 End: 06-07-2023 ambulatory MIGNON JB Not Available Start: 02-22-2023 End: 02-22-2023 ambulatory Laly Sy Other [place] Other Start: 02-22-2023 Office outpatient vi sit 15 minutes Laly Sy [facility] Start: 10-25-2022 End: 10-25-2022 ambulatory Laly Sy Other [facility] Other Start: 10-25-2022 Telephone encounter Ally Kerrie [facility] Start: 10-04-2022 End: 10-04-2022 ambulatory Laly Kerrie Other [facility] Other Start: 10-04-2022 Encounter for genera l adult medical examination without abnormal findings Laly Sy [facility] Start: 10-04-2022 Periodic preventive med est patient 40-64yrs Laly Sy [facility] Start: 08-26-2022 End: 08-26-2022 ambulatory Laly Sy Facility:[facility] Start: 08-26-2022 End: 08-26-2022 Admission to same day surgery center MD Laly Sy Work Phone: [facility] Work Phone: Start: 08-26-2022 End: 08-26-2022 ambulatory MD Laly Sy Work Phone: [facility] Work Phone: Start: 08-13-2022 End: 08-13-2022 ambulatory Laly Sy Other [facility] Other Start: 08-13-2022 Telephone encounter Laly Kerrie [facility] Start: 08-05-2022 End: 08-05-2022 ambulatory Laly Sy Other [facility] Other Start: 08-05-2022 Telephone encounter Laly Sy [facility] Start: 07-26-2022 End: 07-26-2022 ambulatory Imad Asaad Other [facility] Other Start: 07-26-2022 Telephone encounter Imad Asaad [facility] Start: 07-19-2022 End: 07-19-2022 ambulatory Laly Sy Other [facility] Other Start: 07-19-2022 Office outpatient vi sit [address] [facility] Start: 04-28-2022 End: 04-28-2022 ambulatory Norma Combs Other [place] [facility] Other Start: 04-28-2022 Office outpatient ne w [...] Date Procedure Procedure Detail Performing Clinician Start: 03-14-2024 ALL CBC WITH AUTO DIFF Mignon Jb DO Work Phone: Start: 02-06-2024 [facility] CMP (CMP) (FOR [facility] USE) Mignon Jb DO Work Phone: Start: [...] Screening for malign ant neoplasm of cervix [facility] Start: 08-24-2024 Screening for malign ant neoplasm of breast Mammogram [facility] Start: 03-19-2024 End: 03-19-2024 Patient encounter procedure 03/19/2024 3:00 PM EST Office Visit [facility] [address] [place] [address] Mignon Muhammad, DO [address] [place] [address] [facility] Start: 10-09-2023 Influenza vaccination Influenza Vacc ine (#1) [facility] Start: 08-26-2022 [facility] Start: 1975 Screening for malign ant neoplasm of colon [facility] Patient Education Colon polyps Hemorrhoids (DC) [facility] Work Phone: Payers Date Payer Category Payer Private Health Insurance [id number] 2022 Self-pay 1975 Unknown [id number] 1973 Unknown [id number] 1973 Unknown [id number] 1973 Unknown [id number] 1973 Unknown [id number] 1959 Unknown [id number] Unknown [id number] Unknown MMO [id number] Unknown [id number] Social History Date Type Detail Facility Start: 06-07-2023 Sex Assigned At N [facility] Other Start: 08-26-2022 End: 09-22-2022 Tobacco smoking status NHIS Never smoked tobacco (finding) [facility] Start: 1975 Sex Assigned At Female F [facility] Start: 06-07-2023 Alcoholic beverage intake Lifetime non-drinker (finding) [facility] Start: 06-07-2023 History of Social function [facility] Start: 09-22-2022 Alcohol Comment Caffeine: 1-2 cups/day [facility] Start: 1975 Sex assigned at [...] adult (ICD-10 - Z68.34) Form faxed to [employer] for semaglutide - starting dose. Pt unable to report weight, but states she has gained since Mounjaro went up to $900 and she stopped it. She feels poorly and would like the more affordable option at [facility] Other 08-28-2023 Evaluation note* Encounter Date Diagnosis [...] patient is sent home pleased, without concerns. [facility]* Encounter Date Diagnosis Assessment Notes Treatment Notes Treatment Clinical Notes Jul, Rectal bleeding (ICD-10 - K62.5) Jul, Colon cancer screening (ICD-10 - Z12.11) as above Jul, Essential (primary) hypertension (ICD-10 - I10) improved. OK to hold med and continue check home bps. Jul, Mitral valve prolapse (ICD-10 - I34.1) chronic problem. continue monitoring symptoms. [facility] Other 03-22-2023 Evaluation note* Encounter Date Diagnosis [...] printed, Tendonitis home care material was printed [facility] Other Evaluation noteNo [facility]Nort [facility] Other Evaluation noteNo assessment information available [facility] Work Phone: History and physical note Author Benja Martin [facility] August 26, 2022 9:34am Note Date/Time August 26, 2022 9:34 am [facility] [address] [place] [address] Gastroenterology H&P Signed Patient: Noelle Rosales MR#: [id number] : 1975 Acct:[id number] Age/Sex: 47 / F Adm Date: 3 Loc: Room: Type: [facility] Attending Dr: Benja Martin MD Copies to: [...] Martin M.D. Documented By: Benja Martin MD 08/26/22 0934 Signed By: <Electronically signed by Benja Martin MD> 08/26/22 0934 [facility] Work Phone: [facility] general Narrative - Reported* Type Description Date Medical History Hypertension Medical History asthma Medical History mitral valve prolapse Surgical History tonsillectomy 2000 Surgical History C section x 2 2007 Hospitalization History childbirth [facility] Other [facility] Narrative - Reported* Type Description Date Medical History Hypertension Medical History asthma Medical History mitral valve prolapse Medical History Insulin resistance Medical History Hormone imbalance Medical History Insomnia Surgical History tonsillectomy 2000 Surgical History C section x 2 2007 Hospitalization History childbirth [facility] Other Hospital Discharge instructions Additional Instructions DISCHARGE [...] pathology -Follow up with PCP. -Office number [phone]. [facility] Work Phone: Summary Purpose Family History Relationship [...] 1 Rectal bleeding (K62 .5) Referral Organization [facility] Referring Provider First Name Laly Referring Provider Last Name Kerrie Referring Provider Specialty Family Medi cine Referred Organization [facility] Gastroenterolo gy Referred Provider Ramos Barr Referred Address [address],[address] Referred Provider Specialty Gastroentero logy Referral Priority Routine General Notes Morena Cohen 12:03:33 PM >received today, sent P2P Chief Complaint and Reason for Visit Chief Complaint Rectal Bleeding Chief Complaint wellness Additional Source Comments INFORMATION SOURCE (unrecogn ized section and content) DATE CREATED AUTHOR 07/28/2017 [facility] Healthcare DATE CREATED AUTHOR AUTHOR'S ORGANIZ ATION 07/28/[address] [facility] [facility] DATE CREATED AUTHOR AUTHOR'S ORGANIZ ATION [facility]/04/2021 [facility] DATE CREATED AUTHOR AUTHOR'S ORGANIZ ATION 09/02/2022 [facility] DATE CREATED AUTHOR AUTHOR'S ORGANIZ ATION 06/08/2023 [facility] EPIC REASON FOR VISIT (unrecogniz ed section and content) RIGHT FOOT SWOLLENcheck up, personal concernsMAIL DOZdndv[phone]- Sick Care Teams (unrecognized sec tion and [...] BE BASED ON THE PRIMARY CLINICAL RECORDS. [employer] provides no warranty or guarantee of the accuracy or completeness of information in this document.
== END 2024-03-19 21:41 | disposition home or self-care (01) ==
LOC: LAB 21:40
PROVIDERS: PCP Family Medicine; Visit Provider Obstetrics & Gynecology
DX: Z01.419 Encounter for gynecological examination (general) (routine) without abnormal findings (principal)
CPT/HCPCS: 87624; 88175

== ENCOUNTER 2024-12-10 14:14 | Outpatient (OUT) | payer OTHER, SELFPAY ==
--- OUTSIDE RECORDS SUMMARY | 2024-12-10 09:13 | XMS_ITS | Continuity of Care Document ---
Author Organization [facility] Address [address] [place] [address] Phone Care Team Providers Care Scaling Machine Operator Name Role Phone Laly Miner MD Primary Care Provider Laly Miner MD Attending Provider [phone] Care Teams Patient Care Team Team Status: Active Member Role/Relationship Status Dates Laly Miner MD Primary Care Provider Active Patient Care Team Team Status: Inactive Member Role/Relationship Status Dates Laly Miner MD Primary Care Provider Active Start: December 10, 2024 End: December 10, 2024Laly Miner MDAttending ProviderActiveStart: December 10, 2024 End: December 10, 2024 Chief Complaint and Reason for Visit Chief Complaint Admit Date SOB/Headache December 10, 2024 1 :12pm Reason for Visit Admit Date Asthma December 10, 2024 1 :12pm Essential (primary) hypertension Novembe r 2024 1:12pm Fatigue December 10, 2024 1 :12pm Headache December 10, 2024 1 :12pm Allergies, Adverse Reactions, Alerts Allergen Type Severity Reaction Last Updated Verified Status iodine Allergy Unknown Hives December 10, 2024 1:30pm Yes Active Social History Smoking Status Status Start Date End Date Date of Observa tion Never smoked tobacco (finding) October 04, 2022 9:15am Observation Status Observation Response Date of Response Legal Sex Female (finding) [facility] 1975 Family History Relationship Condition Age at Onset Recorded Date/T malu grandparent Malignant neoplasm of colon Unknown fatherLeukemiaUnknownmotherDisorder of thyroidUnknowngrandparentHeart disease UnknownfatherHypertensionUnknownMalignant neoplasmUnknownfatherHypertension UnknowngrandparentHeart diseaseUnknownFamily history of colon cancerUnknown grandparentMalignant neoplasmUnknownmotherFamily history of thyroid disease Unknown Problems Active Problems Problem Diagnosis/Recorded Date Onset Date Stat us Fatigue December 10, 2024 1:57pm Unknown Ac tive Wellness examination September 14, 2023 8:25pm Unknown Active Headache December 10, 2024 2:05pm Unknown Ac tive Essential (primary) hypertension September 13, 2023 2:48 pm Unknown Active Asthma September 13, 2023 2:48pm Unknown Acti ve Inactive/Resolved Problems Problem Diagnosis/Recorded Date Onset Date Stat us Sciatica August 02, 2024 11:12am Unknown Reso lved Medications Medication Status Dose Units Route Directions Qty Days Refills S tart Date Stop Date End Date Reason(s) Instructions Adherence Chlorthalidone 25 mg tablet Discontinued 0 .ROUTE.NINUKRH443Ijdc 2023 9:22amOctober 2023 7:53pmtake 1 tablet by mouth once dailyChlorthalidone 25 mg tabletActive0.ROUTE.JWGXJBR730Uuzuaxn 2023 7:53pmTAKE 1 TABLET BY MOUTH DAILYComplies with drug therapyChlorthalidone 25 mg iuguhyDdrjnoqgdxic08FUNEZrsunNslb 2022 11:00pmJuly 2023 9:23am Citalopram 20 mg cpeqvuHlmfgj55MWPBGztyeGgtd 2022 11:00pmComplies with drug therapyTirzepatide (Mounjaro) 7.5 mg/0.5 mL pen injectorDiscontinued7.5MG SUBCUTevery weekJuly 2022 11:00pmJune 2024 10:30amCyclobenzaprine 10 mg ugsokgNiuebkmkumex25JBHMEitdp daily as needed for muscle muiof633Zhcy 25th, 2025 11:00pmNovember 2024 1:31pmPrednisone 20 mg jttkqsEjsvsnvumrge1UBOhdeb 1190June 2024 11:00pmNovember 2024 1:31pmTake 2 tabs x 3 days, take 1 tab x 3 days, take 1/2 tab x 3 days orally daily;Hydrocodone-Acetaminophen 5-325 mg smhjzjKtbaikdmjxoo1YJALLIzicj 6 hours as needed for dtjh2534Udwl 2024December 10, 2024 1:31pmSciatica Sciatica, unspecified sideLoratadine (Claritin) 10 mg iivyfaEqxizz2PKIEWTdkhr September 12, 2023 11:00pmFreeTextSi tablet Orally Once a day; Note: Source Status: Taking; Provider: Kristofer Ruffin ( )Complies with drug therapyAlbuterol Sulfate 2.5 mg /3 mL (0.083 %) solution for nebulizationActive 2.5MGINHALATIONFour times daily as needed for shortness of breath or uopphhla743 January 20, 2024 12:00amComplies with drug therapyAlbuterol Sulfate 90 mcg/actuation HFA aerosol kqbobchRrvdmr1RFMSOBRPXOXJGXLKTIX 4-6 HOURS as needed for shortness of breath or wheezing8.50December 10, 2024 12:00amComplies with drug therapyFluticasone Propion-Salmeterol (Advair Hfa) 115-21 mcg/actuation HFA aerosol xcdxxzbRmyscx4GMVMKYEFCSRXWNUrbah vawgf680HfqppbkjDecember 10, 2024 12:00am administer with spacerComplies with drug therapy Vital Signs Vital Reading Result Reference Range Collection Date/Time Height 66 [in_i] December 10, 2024 1:25pmBody Gddewbvivry90.9 [degF]97.6-99.0December 10, 2024 1:30pmHeart Rate85 /lef00-474MzefaewfDecember 10, 2024 1:25pmOxygen saturation by Pulse zfwhajqc25 %95-100December 10, 2024 1:25pmBP Cgieikxn870 mm[Hg]100-140December 10, 2024 1:30pmBP Qrofqqafb11 mm[Hg]60-100December 10, 2024 1:30pm Advance Directives Advance Directive Response Recorded Date/ Time Advance Directives No August 25 9:32am Insurance Providers Guarantor Noris Matute [facility] Address [address] [place] [id number] Info.Home Phone: Payer Group Member ID Coverage Type Subscriber Relationship to Subscriber Effective Date Expiration Date MMO Abner silver [facility] Id: [id number] L Luis Id: [id number] [address] [place] [address] Home Phone: [facility] Abner silver [facility] Id: [id number] L Luis Id: [id number] [address] [place] [address] Home Phone: Self Encounters Encounter Location(s) Arrival/Admit Date Discharge/Departure Date Discharge/Departure Disposition Provider(s) Departed Physician/ Provider Office Visit -[facility] December 10, 2024 1:12pm December 10, 2024 2:09pm Discharged to home care or self care (routine discharge) Laly Miner MD Recent Diagnosis Onset Date Admit Date Asthma Unknown December 10 1:12pm Essential (primary) hypertension Unknown December 10, 2024 1:12pm Fatigue Unknown December 10 1:12pm Headache Unknown December 10 1:12pm Assessments Diagnosis Onset Date Resolution Status Admit Date Asthma acuteDecember 10, 2024 1:12pmEssential (primary) hypertensionacuteDecember 10, 2024 1:12pmFatigueacuteDecember 10, 2024 1:12pmHeadacheacuteDecember 10, 2024 1:12pm Plan of Treatment Future Tests Future scheduled test information is unavailable Pending Tests Test Name Ordered Date Scheduled Date MR head/brain wo con December 10, 2024 2:05pm XR chest 2V*December 10, 2024 1:57pm Future Visits Future appointment information is unavailable Future Procedures Procedure Name Ordered Date Scheduled Date Complete Blood Count Auto Diff December 10 1:56pm FerritinNov2024 1:56pmMagnesiumDecember 10, 2024 1:56pmThyroid Stim Hormone w/RflxDecember 10, 2024 1:56pmVit. B12/Folate ProfileDecember 10, 2024 1:56pmZinc, Whole BloodDecember 10, 2024 1:56pm Future Medications Future medication information is unavailable Patient Instructions Patient instructions are unavailable
--- OUTSIDE RECORDS SUMMARY | 2024-12-10 14:19 | XMS_ITS | Patient Health Record ---
Author Organization [facility] Address [address] [place] [address] Care Team Providers Care Software Packaging Engineer Name Role Phone Car Peck [phone] Allergies Allergen (clinical drug ingredient) Drug/Non Drug Allergy documented on EMR Reaction Allergy Type Onset Date Status iodine (uncoded)UnknownAllergyActive Reason For Referral No Information Medications Medication SIG (Take, Route, Frequency, Duration) Notes Start Date End Date Status Mobic 15 mg 1 tab(s) orally once a day for 4 5 days 2Active Social History Tobacco Use: Social History Observation Description Date Details (start date - stop date) Never Smoker NA - NA Smoking History Question Answer Notes Smoking Status NonSmoker Problems Problem Type SNOMED Code ICD Code Onset Dates Problem Status W/U Status Risk Notes Problem [id number] Right hip pain (M25.551) ZeevwfbiqticvlzSkurfqf6765816Vcdxqperlrpq bursitis of right hip (M70.61)Active confirmed Plan Of Treatment No Information Insurance Providers Payer Name Payer Address Payer Phone Subscriber Number Group Number Insured Name Patient Relationship to Insured Coverage Start Date Coverage End Date [employer] [address] [place] [address] [id number] Noris Smith Self - patient is the insured Medical (General) History Medical History History ICD Code Asthma/COPD Yes High Blood Pressure: YesDo you have a pacemaker or AICD(automatic internal cardiac defibrillator)? NoLatex Allergy NoDrug Allergies: YesBariatric Surgery: NoMedication List 1: ChlorthalidoneSurgical History Surgery Date(Month/Year)
--- OUTSIDE RECORDS SUMMARY | 2024-12-10 14:20 | XMS_ITS | Clinical Summary ---
Author Organization [facility] Address [address] [place] [address] Care Team Providers Care Bar Captain Name Role Phone Laly Miner MD Primary Care Provider [phone] Allergies Active AllergyReactionsCriticalityNoted RmbxBkmuztnoJeubjhVcvzh61/02/2006 Other Reaction(s): hives Other Reaction(s): Unknown Latex05/14/2005 Medications MedicationSigDispense QuantityRefillsLast FilledStart DateEnd DateStatus chlorthalidone (Hygroton) 25 MG tablet Daily08/26/2022ctive Meclizine HCl 25 MG chewable tablet 1 (one) time each day at the same timeActive meloxicam (Mobic) 15 MG tablet 1 (one) time each day at the same timeActive GaviLyte-G 236 g solution TAKE DIRECTED ON PACKAGE FOR 1 DAY07/29/2022ctive citalopram (CeleXA) 20 MG tablet Indications:Anxiety, generalizedTake 1 tablet (20 mg) by mouth Daily 30 tablet 1105Active Active Problems ProblemNoted DateDiagnosed DateInsulin chboxfedrm55/03/2024 Family History Medical HistoryRelationNameCommentsHypertensionFatherLeukemiaFatherStrokeFather RelationNameStatusCommentsFatherAliveMotherAlive Social History Tobacco UseTypesPacks/DayYears UsedDateSmoking Tobacco: Never Tobacco Cessation:Counseling Given: Not Answered Alcohol UseStandard Drinks/WeekCommentsNever0 (1 standard drink = 0.6 oz pure alcohol)Caffeine: 1-2 cups/dayCommentsNoSex and Gender InformationValue Date RecordedSex Assigned at BirthNot on fileLegal OyxDmpksa11/15/2023 7:34 PM EDTGender IdentityNot on fileSexual OrientationNot on file Last Filed Vital Signs Vital SignReadingTime TakenCommentsBlood Hhvcqghb002/6495803/19/2024 3:30 PM EST Pulse--Temperature--Respiratory Rate--Oxygen Saturation--Inhaled Oxygen Concentration--Ykbzik174 kg (239 lb 6.4 oz)03/19/2024 3:30 PM EYGTnupby976.6 cm (5' 6 )08/27/2019 12:00 PM EDTBody Mass Index38.64008/27/2019 12:00 PM EDT Plan of Treatment DateTypeDepartmentCare Team (Latest Contact Info)Yobhtjqthll45/23/2026 4:00 PM ESTOffice Visit [facility] [place] [facility] [address] [place] [address] Herb Muhammad DO [address] [place] [address] Insurance Care Teams Team MemberRelationshipSpecialtyStart DateEnd Date Laly Miner MD PCP - GeneralFamily Medicine03/19/24
--- OUTSIDE RECORDS SUMMARY | 2024-12-10 14:21 | XMS_ITS | Clinical Summary ---
Author Organization [facility] tem Address [id number] [address] [place] [address] Care Team Providers Care Public Works Commissioner Name Role Phone Unavailable Primary Care Provider Unavailabl e Social History Tobacco UseTypesPacks/DayYears UsedDateSmoking Tobacco: Never AssessedChildcare AnswerDate WpihrxwrMdbnylryiAwlmwzp53/12/2019EmploymentAnswerDate Recorded IinsnkysxqPjkpvdn74/12/2019Purpose - LifeAnswerDate RecordedPurpose and direction in bpsfQpidysf15/11/2021CommentsUnknownSex and Gender InformationValueDate RecordedSex Assigned at BirthNot on fileLegal SexFemale 09/12/2014 12:01 PM EDTGender IdentityNot on fileSexual OrientationNot on file Plan of Treatment Not on file Medical Devices Not on file Insurance
--- OUTSIDE RECORDS SUMMARY | 2024-12-10 14:21 | XMS_ITS | Patient Health Record ---
Author Organization [facility] [place] Address [address] [place] [address] Support Name Relationship Address Phone Ty Emergency Contact Unknown Noris Smith Guarantor Unknown [phone] Reason For Referral No Information Plan Of Treatment No Information Insurance Providers Payer Name Payer Address Payer Phone Subscriber Number Group Number Insured Name Patient Relationship to Insured Coverage Start Date Coverage End Date SELF PAY ON PATIENT DEMOGRAPHICS Damian Smithelf - patient is the [id number]/06/2007
--- OUTSIDE RECORDS SUMMARY | 2024-12-10 14:21 | XMS_ITS | Clinical Summary ---
Author Organization [facility] Address [address] [place] [address] Phone Care Team Providers Care Beater Out Leveling Machine Name Role Phone Unavailable Primary Care Provider Unavailabl e Social History Tobacco UseTypesPacks/DayYears UsedDateSmoking Tobacco: Never Assessed CommentsUnknownSex and Gender InformationValueDate RecordedSex Assigned at Not on fileLegal EvcCqgkvy60/25/2022 11:41 PM ESTGender IdentityNot on file Sexual OrientationNot on file Plan of Treatment Not on file
--- OUTSIDE RECORDS SUMMARY | 2024-12-10 14:21 | XMS_ITS | Encounter Summary ---
Author Organization [facility] Address [address] [facility] [place] [address] Care Team Providers Care Fiber Technologist Name Role Phone Laly Miner MD Primary Care Provider [phone] Encounter Details DateTypeDepartmentCare Team (Latest Contact Info)Abjzmsprjbk01/18/2024linisync Result Encounter [facility] External Department Unsolicited Herb Muhammad, DO [address] [place], [place] [id number] Social History Tobacco UseTypesPacks/DayYears UsedDateSmoking Tobacco: NeverAlcohol UseStandard Drinks/WeekCommentsNever0 (1 standard drink = 0.6 oz pure alcohol)Caffeine: 1-2 cups/dayCommentsNoSex and Gender InformationValueDate RecordedSex Assigned at BirthNot on fileLegal KfgXropqt19/15/2023 7:34 PM EDTGender Identity Not on fileSexual OrientationNot on filedocumented as of this encounter Plan of Treatment DateTypeDepartmentCare Team (Latest Contact Info)Gwriaygoiuj27/23/2026 4:00 PM ESTOffice Visit [facility] [place] [facility] [address] [place] [address] Herb Muhammad DO [address] [place], [place] [id number] documented as of this encounter Procedures Procedure NamePriorityDate/TimeAssociated DiagnosisCommentsMM TOMOSYNTHESIS SCREENING BI08/25/2023 3:20 PM EDT documented in this encounter Results * MM TOMOSYNTHESIS SCREENING BI (08/25/2023 3:20 PM EDT)Anatomical Region LateralityModalityOtherSpecimen (Source)Anatomical Location / Laterality Collection Method / VolumeCollection TimeReceived Time08/25/2023 3:20 PM EDT Narrative 08/25/2023 3:21 PM EDT [facility] ?[address] ? [place] [address] ? Mammography Report ? Signed ? Patient: LUISNORIS L ?MR#: [id number] ?? : 1975 ?Acct:[id number] ?? Age/Sex: 48 / F ?ADM Date: 08/24/23 ?? Loc: MAMMO ? Attending Dr: Herb Muhammad D.O. ? Ordering Physician: Herb Muhammad D.O. ?Results: ? Date of Service: 08/24/23 ?Follow Up: ? Procedure(s): MM tomosynthesis screening BI ?? Accession Number(s): [id number] ? cc: Laly Miner M.D.; Herb Muhammad D.O. ? Patient Name: ? NORIS LUIS ? MR#: [id number] ? : 1975 ? Exam Date: 08/24/2023 ?? Ordering Doctor: DR Herb Muhammad . ? RADIOLOGY REPORT ? PROCEDURE: ? MM TOMOSYNTHESIS SCREENING BI ? COMPARISON: ? MG MAMM SCREEN 3D SHAUN CAD, 09/25/2021. ??MG MAMM SCREEN 3D SHAUN ?? CAD, 09/22/2020. ??MG MAMM SCREEN SHAUN W CAD, 07/24/2018. ??MG MAMM SCREEN SHAUN W ?? CAD, 03/17/2017. ? INDICATIONS: ? Screening ? Calculator Name ? NCI Breast Cancer Risk Assessment Tool ?? 5 Year Breast Cancer Risk ? 1.10% ?? Lifetime Breast Cancer Risk ? 9.90% ?? Personal Breast Cancer ?No ?? Personal Ovarian Cancer ? No ?? Treatments ? None ?? Family Cancers ? Grandmother-paternal with colon cancer at age ??70. ? LOCATION: ? [facility] ? BREAST COMPOSITION: ? The breasts are heterogeneously dense,which may ?? obscure small masses. ? FINDINGS: ? DIAGNOSTIC CATEGORY 1--NEGATIVE. ? RIGHT BREAST: ??No significant suspicious finding. ??No significant change has ?? occurred. ? LEFT BREAST: ??No significant suspicious finding. ??No significant change has ?? occurred. ? RECOMMENDATIONS: ? ROUTINE MAMMOGRAM AND CLINICAL EVALUATION IN 12 MONTHS. ? PLEASE NOTE: ??A NORMAL MAMMOGRAM DOES NOT EXCLUDE THE POSSIBILITY OF BREAST ?? CANCER. ??A CLINICALLY SUSPICIOUS PALPABLE LUMP SHOULD BE BIOPSIED. ? Dictated by: Car Garcia M.D. on 08/25/2023 at 15:17 ? Approved by: Car Garcia M.D. on 08/25/2023 at 15:20 ? Dictated By: ?Car Garcia M.D. ? Signed By: ?08/25/23 1521 ? DD/ 1520 ? TD/TT: ? Water Safety Instructor: Procedure Note Radiology, Radiologist, MD - 08/25/[address] [address] Mammography Report Signed Patient: NORIS SMITH LMR#: [id number] : 1975Acct:[id number] Age/Sex: 48 / FADM Date: 08/24/23 Loc: MAMMO Attending Dr: Herb Muhammad D.O. Ordering Physician: Herb Muhammad D.O.Results: Date of Service: 08/24/23Follow Up: Procedure(s): MM tomosynthesis screening BI Accession Number(s): [id number] cc: Laly Miner M.D.; Herb Muhammad D.O. Patient Name: NORIS SMITH MR#: [id number] : 1975 Exam Date: 08/24/2023 Ordering Doctor: DR Herb Muhammad . RADIOLOGY REPORT PROCEDURE: MM TOMOSYNTHESIS SCREENING BI COMPARISON: MG MAMM SCREEN 3D SHAUN CAD, 09/25/2021. MG MAMM SCREEN 3DBIL CAD, 09/22/2020. MG MAMM SCREEN SHAUN W CAD, 07/24/2018. MG MAMM SCREEN BILW CAD, 03/17/2017. INDICATIONS: Screening Calculator Name NCI Breast Cancer Risk Assessment Tool 5 Year Breast Cancer Risk 1.10% Lifetime Breast Cancer Risk 9.90% Personal Breast Cancer No Personal Ovarian Cancer No Treatments None Family Cancers Grandmother-paternal with colon cancer at age 70. LOCATION: [facility] BREAST COMPOSITION: The breasts are heterogeneously dense,which may obscure small masses. FINDINGS: DIAGNOSTIC CATEGORY 1--NEGATIVE. RIGHT BREAST: No significant suspicious finding. No significant changehas occurred. LEFT BREAST: No significant suspicious finding. No significant changehas occurred. RECOMMENDATIONS: ROUTINE MAMMOGRAM AND CLINICAL EVALUATION IN 12 MONTHS. PLEASE NOTE: A NORMAL MAMMOGRAM DOES NOT EXCLUDE THE POSSIBILITY OFBREAST CANCER. A CLINICALLY SUSPICIOUS PALPABLE LUMP SHOULD BE BIOPSIED. Dictated by: Car Garcia M.D. on 08/25/2023 at 15:17 Approved by: Car Garcia M.D. on 08/25/2023 at 15:20 Dictated By: Car Garcia M.D. Signed By:08/25/23 1521 DD/ 1520 TD/TT: Water Safety Instructor: Authorizing ProviderResult TypeResult StatusCorey Jb DOCLINISYNC IMAGINGFinal Result documented in this encounter Visit Diagnoses Not on filedocumented in this encounter Care Teams Team MemberRelationshipSpecialtyStart DateEnd Date Laly Miner MD PCP - GeneralFamily Medicine03/19/24documented as of this encounter
--- OUTSIDE RECORDS SUMMARY | 2024-12-10 14:25 | XMS_ITS | CCD ---
Author Organization [facility] Care Team Providers Care Final Installer Inspector Name Role Phone ANTONY MAXIMILIAN P Unavailable Unavailable KERRIE, LALY Unavailable Unavailable MCGUINN, MAXIMILIAN P Unavailable Unavailable KERRIE, LALY Unavailable Unavailable JB, DR CROW Admitting Unavailable [...] Unavailable Norma Combs Unavailable Laly Sy Unavailable Asaad, Imad Unavailable MD Laly Sy Primary Care Provider [phone] MD Benja Martin Attending Provider Laly Sy Primary Care Unavailable Asaad, Imad Attending Unavailable Asaad Imad Admitting Unavailable Unavailable Primary Care Provider UnavailLaly Singh MD Primary Care Provider MIGNON MUHAMMAD Attending Unavailable MIGNON MUHAMMAD Attending Unavailable Laly Sy MD Primary Care Provider Tiffany Person APRN Attending Provider LALY SY Unavailable Laly Sy MD Primary Care Provider [phone] Allergies Allergy ClassificationReported Allergen(s)Allergy TypeDate of OnsetReaction(s) Facility (2 sources)IodineDrug Ccgpsbo73-83-0360[facility]bjDhiT[facility] (17 sources)Iodine; Translations: [IODINE]Drug Zrgypoh37-47-0462amrhzDNIW Healthcare (1 source)IodineDrug Prxobpk38-41-4550XjmmtvaaoMercy Health [facility] Repository (8 sources)LatexPropensity to adverse dxvnlugji56-97-7274[facility] Medications Current Medications MedicationDrug Class(es)DatesSig (Normalized)Sig (Original)0.5 ML tirzepatide 20 MG/ML Auto-Injector [Mounjaro] (6 sources)Mounjaro 10 MG/0.5ML as directed Subcutaneous Dr. Muhammad Active acetaminophen 325 mg / HYDROcodone bitartrate 5 mg oral tablet (2 sources)Opioid AgonistStart: 94-53-8094vtdi 1 tablet by mouth every six hours as needed for painHydrocodone-Acetaminophen 5-325 mg tablet Active 1 TAB PO Every 6 hours as needed for pain 10 August 02, 2024 Complies with drug therapy End: 50-90-8873hzej 1 tablet by mouth every six hours as needed for pain hydrocodone 5 mg-acetaminophen 325 mg tablet TAKE 1 TABLET BY MOUTH EVERY 6 HOURS NEEDED FOR PAIN 08/22/2024 completed Not Available Not Available Not Availablealbuterol 0.83 mg/ml inhalation solution (2 sources)beta2-Adrenergic AgonistStart: 82-98-0319mfsg 2.5 mg by inhalation four times daily as needed for wheezingAlbuterol Sulfate 2.5 mg /3 mL (0.083 %) solution for nebulization Active 2.5 MG INHALATION Four times daily as needed for shortness of breath or wheezing January 20, 2024 1:00am Complies with drug therapyazithromycin 250 mg oral tablet (1 source)Macrolide AntimicrobialStart: 39-87-3944Uryhqyfrvlqg 250 MG as directed Orally 2 tabs po today, then 1 tab daily x 4 more days for 5 Feb, Activechlorthalidone 25 mg oral tablet (20 sources)Thiazide-like DiureticStart: 08-15-2023 End: 37-69-2068djoj 1 tablet by mouth once dailyChlorthalidone 25 mg tablet Active 0 .ROUTE .COMPLEX December 05, 2023 8:53pm TAKE 1 TABLET BY MOUTH DAILY Complies with drug therapyStart: 33-92-2114tlhx 1 tablet by mouth once dailyChlorthalidone Active 0 .ROUTE .COMPLEX August 15, 2023 10:22am take 1 tablet by mouth once dailyStart: 08-26-2022 End: 48-32-3895oikszzztzhqfxs (Hygroton) 25 MG tablet Daily 08/26/2022 Active Chlorthalidone Activecitalopram 20 mg oral tablet (18 sources)Serotonin Reuptake InhibitorStart: 08-26-2022 End: 27-07-7773fmco 1 tablet by mouth once dailyCitalopram 20 mg tablet Active 20 MG PO Daily August 26, 2022 12:00am Complies with drug therapytake 1 tablet by mouth every twenty-four hoursCitalopram Hydrobromide 10 MG 1 tablet Orally Once a day Activecyclobenzaprine hydrochloride 10 mg oral tablet (2 sources)Muscle RelaxantStart: 08-02-2024 End: 57-52-7468heqk 1 tablet by mouth twice daily as needed for muscle spasms Cyclobenzaprine 10 mg tablet Active 10 MG PO Twice daily as needed for muscle spasm August 02, 2024 12:00am Complies with drug therapyloratadine 10 mg oral tablet (10 sources)Start: 84-61-4572lpfd 1 tablet by mouth once dailyLoratadine (Claritin) 10 mg tablet Active 1 TAB PO Daily September 13, 2023 12:00am FreeTextSi tablet Orally Once a day; Note: Source Status: Taking; Provider: Kerrie Ruffin ( ) Complies with drug therapyStart: 25-01-8391thbw 1 tablet by mouth every twenty-four hoursClaritin 10 MG 1 tablet Orally Once a day for 30 day(s) Apr, Activemeclizine hydrochloride 25 mg chewable tablet (8 sources)AntiemeticMeclizine HCl 25 MG chewable tablet 1 (one) time each day at the same time Activemeloxicam 15 mg oral tablet (8 sources)Nonsteroidal Anti-inflammatory Drugmeloxicam (Mobic) 15 MG tablet 1 (one) time each day at the same time ActivemethylPREDNISolone 4 mg oral tablet (1 source)CorticosteroidStart: 90-76-9905dtptyzNNOSREWbcedi 4 MG as directed Orally for 6 days Feb, Activemounjaro 10 mg/0.5ml solution pen-injector (1 source)Mounjaro 10 MG/0.5ML as directed Subcutaneous Dr. Muhammad Active polyethylene glycol 3350 141373 mg / potassium chloride 2970 mg / sodium bicarbonate 6740 mg / sodium chloride 5860 mg / sodium sulfate 70487 mg powder for oral solution (11 sources)Osmotic LaxativeStart: 43-33-4377CabfMsmw-G 236 g solution TAKE DIRECTED ON PACKAGE FOR 1 DAY 07/29/2022 ActiveStart: 90-76-1905PIO- 3350/Electrolytes 236 GM as directed Orally once daily for 1 days Jul, ActivePost-OP Shoe/Soft Top Women - (1 source)Start: 33-39-0978Gjof-OP Shoe/Soft Top Women - as directed Apr, ActivepredniSONE 20 mg oral tablet (4 sources)Start: 08-02-2024 End: 63-49-7659Pizlqzreif 20 mg tablet Active 0 PO Daily 11 August 02, 2024 12:00am Take 2 tabs x 3 days, take 1tab x 3 days, take 1/2 tab x 3 days orally daily; Complies with drug therapyStart: 01-78-1304welgdhEHXH 10 MG 4 tabs po daily x 2 days, 3 tabs daily x 2 days, 2 tabs daily x 2 days, 1 tab daily x 2 days Orally Once a day for Jul, Activesulfamethoxazole 800 mg / trimethoprim 160 mg oral tablet (1 source)Dihydrofolate Reductase Inhibitor Antibacterial, Sulfonamide Antimicrobialtake 1 tablet by mouth every twelve hoursBactrim DS 800-160 MG 1 tablet Orally Twice a day for 5 days ActiveTirzepatide (Mounjaro) 5 MG/0.5ML solution auto-injector (7 sources)Start: 03-12-2024 End: 64-06-8171sleegj 0.5 mL by subcutaneous injection every weekTirzepatide (Mounjaro) 5 MG/0.5ML solution auto-injector Indications: Insulin resistance , Weight gain Inject 0.5 mL under the skin 1 (one) time per week 2 mL 03/12/2024 04/11/2024 ActiveStart: 01-30-2024 End: 59-28-2741ocprei 0.5 mL by subcutaneous injection every weekTirzepatide (Mounjaro) 5 MG/0.5ML solution auto-injector Indications: Insulin resistance , Weight gain Inject 0.5 mL under the skin 1 (one) time per week 2 mL 01/30/2024 02/29/2024 ActiveStart: 12-29-2023 End: 88-32-7657yqfuie 0.5 mL by subcutaneous injection every weekTirzepatide (Mounjaro) 5 MG/0.5ML solution auto-injector Indications: Encounter for long- term (current) drug use , Insulin resistance Inject 0.5 mL under the skin 1 (one) time per week 2 mL 12/29/2023 01/28/2024 ActiveTirzepatide (Mounjaro) 7.5 MG/0.5ML solution auto-injector (1 source)Start: 01-30-2024 End: 44-83-9020kgqzqk 0.5 mL by subcutaneous injection every weekTirzepatide (Mounjaro) 7.5 MG/0.5ML solution auto-injector Indications: Insulin resistance , Weightgain Inject 0.5 mL under the skin 1 (one) time per week Patient request refill, please discontinue 5mg dosage if not needed. 2 mL 3 01/30/2024 02/29/2024 Active Completed/Discontinued Medications MedicationDrug Class(es)DatesSig (Normalized)Sig (Original)amoxicillin 875 mg oral tablet (1 source)Penicillin-class Antibacterial End: 19-21-9654vapr 1 tablet by mouth every twelve hoursamoxicillin 875 mg tablet TAKE 1 TABLET BY MOUTH EVERY 12 HOURS UNTIL GONE 08/22/2024 completed Not Available Not Available Not Ebexbekyq69 hr dextromethorphan hydrobromide 60 mg / guaiFENesin 1200 mg extended release oral tablet (1 source)Uncompetitive Q-ueqclh-D-aspartate Receptor Antagonist, Sigma-1 Agonist End: 25-32-5437wcxq 1 tablet by mouth twice dailyMucinex DM 60 mg-1,200 mg tablet,extended release 12 hr TAKE 1 TABLET BY MOUTH TWICE DAILY 08/22/2024 completed Not Available Not Available Not Availablemethocarbamol 750 mg oral tablet (1 source)Muscle Relaxant End: 78-85-6447yzvy 1 tablet by mouth three times dailymethocarbamol 750 mg tablet TAKE 1 TABLET BY MOUTH THREE TIMES DAILY 08/22/2024 completed Not Availa ble Not Available Not AvailableMounjaro 2.5 mg/0.5 mL subcutaneous pen injector (1 source) End: 07-86-7840iolomf 0.5 mL by subcutaneous injection every weekMounjaro 2.5 mg/0.5 mL subcutaneous pen injector INJECT 0.5ml SUBCUTANEOUSLY (UNDER THE SKIN) ONCE A WEEK 08/22/2024 completed Not Available Not Available Not Available Mounjaro 5 mg/0.5 mL subcutaneous pen injector (1 source) End: 01-58-7770uvomde 0.5 mL by subcutaneous injection every weekMounjaro 5 mg/0.5 mL subcutaneous pen injector INJECT 0.5ml SUBCUTANEOUSLY (UNDER THE SKIN) ONCE A WEEK 08/22/2024 completed Not Available Not Available Not Available Mounjaro 7.5 mg/0.5 mL subcutaneous pen injector (1 source) End: 48-48-2807aqvqng 0.5 mL by subcutaneous injection every weekMounjaro 7.5 mg/0.5 mL subcutaneous pen injector INJECT 0.5ml SUBCUTANEOUSLY (UNDER THE SKIN) ONCE A WEEK 08/22/2024 completed Not Available Not Available Not Available Tirzepatide (3 sources)Start: 08-26-2022 End: 75-12-3461Ysatanqinui (Mounjaro) 7.5 mg/0.5 mL pen injector Discontinued 7.5 MG SUBCUT every week August 26, 2022 12:00am August 02, 2024 11:30amStart: 12-99-2499Vjcmyrxkamx (Mounjaro) 7.5 mg/0.5 mL pen injector Active 7.5 MG SUBCUT every week August 26, 2022 12:00am Problems Active Problems Problem ClassificationProblemDateDocumented DateEpisodic/ChronicAsthma (3 sources)Exacerbation of moderate persistent asthma; Translations: [Moderate persistent asthma with (acute) exacerbation]ChronicChronic obstructive pulmonary disease and bronchiectasis (1 source)Bronchitis, not specified as acute or chronicEpisodicEssential hypertension (10 sources)Essential (primary) hypertension; Translations: [Essential hypertension]Onset: 95-19-0057UisjahlRipqsbxoz hypertension (2 sources)Essential hypertensionOnset: 36-38-0254Xugcoboflehsmxck hemorrhage (1 source)Hemorrhage of anus and rectumEpisodicHeart valve disorders (8 sources)Mitral valve prolapse; Translations: [Nonrheumatic mitral (valve) prolapse]ChronicImmunizations and screening for infectious disease (1 source)Encounter for screening for human papillomavirus (HPV); Translations: [ENC SCREENING HUMAN PAPILLOMAVIRUS]Onset: 60-83-0188BkikmlykYvhyb connective tissue disease (1 source)Other enthesopathy of unspecified foot and ankleEpisodicOther endocrine disorders (7 sources)Disorder of endocrine system; Translations: [Endocrine disorder, unspecified]EpisodicOther lower respiratory disease (1 source)Dyspnea, unspecified; Translations: [Dyspnea, unspecified]Onset: 05-68-2750DhnfqbgxEbiun lower respiratory disease (8 sources)Dyspnea on exertion; Translations: [Dyspnea on exertion]EpisodicOther nutritional; endocrine; and metabolic disorders (4 sources)Metabolic syndrome; Translations: [METABOLIC SYNDROME]Onset: 91-94-3472TvbckwqIrgyg nutritional; endocrine; and metabolic disorders (15 sources)Insulin resistance; Translations: [Metabolic syndrome]Onset: 065488-96-9703JmgiyeeQyqdx nutritional; endocrine; and metabolic disorders (1 source)Obesity caused by energy imbalance; Translations: [Other obesity due to excess calories]ChronicOther nutritional; endocrine; and metabolic disorders (1 source)Body mass index 30+ - obesity; Translations: [Body mass index (BMI) 34.0-34.9, adult]ChronicOther nutritional; endocrine; and metabolic disorders (1 source)Other obesity due to excess caloriesChronicOther nutritional; endocrine; and metabolic disorders (1 source)Body mass index (BMI) 34.0-34.9, adultChronicOther screening for suspected conditions (not mental disorders or infectious disease) (9 sources)Encounter for screening for malignant neoplasm of cervix; Translations: [Encounter for screening mammogram for malignant neoplasm of breast]Onset: 16-95-3219AgdoddouIpzrtzoc codes; unclassified (1 source)Family history of malignant neoplasm of digestive organs; Translations: [FAM HX MALIG NEOPLASM DIGESTIV ORGN]Onset: 60-95-1737Gmatzegy Residual codes; unclassified (7 sources)Insomnia; Translations: [Insomnia, unspecified]EpisodicResidual codes; unclassified (2 sources)Postmenopausal state; Translations: [Asymptomatic menopausal state] 05-41-0262SjghhpudZaxkhtkjqym; intervertebral disc disorders; other back problems (2 sources)Sciatica; Translations: [Sciatica, unspecified side]08-02-2024 EpisodicUnclassified (2 sources)Dyspnea, unspecified / R06.00(ICD-9)Onset: 92-84-9379Fybldsghtvtw (1 source)Edema, unspecified / R60.9(ICD-9)Onset: 74-10-7843Lqaqopdrffjv (1 source)Obesity, unspecified / E66.9(ICD-9)Onset: 03-67-9406Qigcxfmegwxa (1 source)Hemorrhage of anus and rectum; Translations: [Hemorrhage of anus and rectum]Onset: 08-26-2022 Past or Other Problems Problem ClassificationProblemDateDocumented DateEpisodic/ChronicNonspecific chest pain (4 sources)Chest pain, unspecified; Translations: [CHEST PAIN UNSPECIFIED]Onset: 93-67-2519ArqeektqNnnqe endocrine disorders (4 sources)Endocrine disorder, unspecified; Translations: [ENDOCRINE DISORDER UNSPECIFIED]Onset: 21-92-8892Tfxtrppg Results Test NameValueInterpretationReference RangeFacilityIGP,APTIMA HPV,AGE GDLNon 11-85-8036LGX GDLN ACOG TESTINGNote.NOMS HealthcareComment on above:TESTS RESULT FLAG UNITS REF RANGE LAB Clinician Provided Cytology Information Source.............Cervix;Endocervix No. of containers..01 ThinPrep Vial Age Algo ACOG Dimple... 30-65 FLAG LEGEND: L-Low Normal,H-High Normal,LL-Alert Low,HH-Alert High <-Panic Low,>-Panic High,A-Abnormal,AA-Critical Abnormal Performed at: 01 =[address] [address] Marina Jimenez MD, HPV APTIMANegativeNegativeNOMS HealthcareComment on above:This nucleic acid amplification test detects fourteen high- risk HPV types (16,18,31,33,35,39,45,51,52,56,58,59,66,68) without differentiation. Performed at: =[address] [id number] Eclectic Doctor: Marina Jimenez MD, Phone: [phone] Performed at: [address] [place] [id number] Eclectic Doctor: Gage Bennett PhD, Phone: [phone] IGP, APTIMA HPV, RFX 16/18,45Note.NOMS HealthcareComment on above:TESTS RESULT FLAG UNITS REF RANGE LAB DIAGNOSIS: 02 NEGATIVE FOR INTRAEPITHELIAL LESION OR MALIGNANCY. Specimen adequacy: 02 Satisfactory for evaluation. Endocervical and/or squamous metaplastic cells (endocervical component) are present. Performed by: 02 Bibiana Ball, Calculation Clerk (ASC) . 02 Note: Note 03 The Pap smear is a screening test designed to aid in the detection of premalignant and malignant conditions of the uterine cervix. It is not a diagnostic procedure and should not be used as the sole means of detecting cervical cancer. Both false-positive and false-negative reports do occur. Test Methodology: Note 03 This liquid based ThinPrep(R) pap test was screened with the use of an image guided system. HPV Genotype Reflex Note 02 Criteria not met, HPV Genotype not performed. FLAG LEGEND: L-Low Normal,H-High Normal,LL-Alert Low,HH-Alert High <-Panic Low,>-Panic High,A-Abnormal,AA-Critical Abnormal Performed at: 02 [facility] [address] [address] Gage Bennett PhD, 03 WB [facility] [address] [address] Marina Jimenez MD, BRUSH-SPATULA CERVIX ENDOCERVIX CLINISYNCNOMS HealthcareALL CBC WITH AUTO DIFFon 34-91-5997LUPBAFTYV ABSOLUTE AUTO0.1NOMS HealthcareBasophils/100 WBC (Bld)0.6 %0.2 - 2.0 %[facility] Eosinophils/100 WBC (Bld)1.2 %0.9 - 7.0 %NOMS HealthcareErythrocyte distribution width (RBC) [Ratio]12.7 %11.0 - 15.0 %NOMS HealthcareHematocrit (Bld) [Volume fraction]41.4 %36.0 - 48.0 %NOMS HealthcareHemoglobin (Bld) [Mass/Vol]13.8 g/dL 12.0 - 16.0 g/dLNODC HealthcareIMMATURE GRANULOCYTES ABS AUTO0.01[facility] Immature granulocytes/100 WBC (Bld)0.1 %0.0 - 0.5 %[facility] HealthLYMPHOCYTES ABSOLUTE AUTO3.1NOMS HealthcareLymphocytes/100 WBC (Bld)37 %20.5 - 60.0 %[facility]ox NorthH (RBC) [Entitic mass]28.6 pg26.7 - 34.0 pgNOWashington County Memorial HospitalHC (RBC) [Mass/Vol]33.3 g/dL29.9 - 35.2 g/dLNOMadison Medical CenterMCV (RBC) [Entitic vol]85.9 fL 81.0 - 99.0 fLCarondelet HealthMONOCYTES ABSOLUTE AUTO0.5NOMadison Medical Center Monocytes/100 WBC (Bld)6 %1.7 - 12.0 %[facility] HealthNEUTROPHILS ABSOLUTE AUTO 4.6NOMS [facility] PrebleNeutrophils/100 WBC (Bld)55.1 %43.0 - 75.0 %[facility] Platelet mean volume (Bld) [Entitic vol]11.5 fL9.5 - 13.5 fLCarondelet HealthTB EO #0.1NOMS [facility] PrebleTB JTD322HMEV [facility] RBC4.82NOCox Walnut Lawn WBC 8.4NOMS [facility] PrebleCLINISYNCNNortheast Regional Medical CenterCCF CMP (CMP) (FOR REMOTE [facility] USE)on 37-14-6842Dcgbpbk [Mass/Vol]3.8 g/dL3.4 - 5.0 g/dLCarondelet HealthALBUMIN GLOBULIN RATIO1.1NMERCY [facility]OS[facility] HealthcareALP [Catalytic activity/Vol]80 U/L46 - 116 U/L [facility] HealthcareALT [Catalytic activity/Vol]29 U/L14 - 59 U/LNOMS HealthcareAnion gap [Moles/Vol]11.3 mmol/LNOMS HealthcareAST [Catalytic activity/Vol]19 U/L15 - 37 U/LNOMS HealthcareBilirubin [Mass/Vol]0.4 mg/dL0.2 - 1.0 mg/dLNOMadison Medical Center Calcium [Mass/Vol]9.5 mg/dL8.5 - 10.1 mg/dLCENTRAL VALLEY MEDICAL CENTER HealthcareChloride [Moles/Vol] 106 mmol/L98 - 107 mmol/LNOMS HealthcareCO2 [Moles/Vol]31.3 mmol/L21.0 - 32.0 mmol/LNOMS HealthcareCreatinine [Mass/Vol]0.87 mg/dL0.55 - 1.02 mg/dLNOMS HealthcareGFR/1.73 sq M.predicted CKD-EPI (S/P/Bld) [Vol rate/Area]>60>=60 mL/min/1.73m 2NOMS HealthcareGlobulin (S) [Mass/Vol]3.6 g/dLNOMS Healthcare Glucose [Mass/Vol]95 mg/dL74 - 106 mg/dLNOMS HealthcarePotassium [Moles/Vol]3.6 mmol/L3.5 - 5.1 mmol/LNOMS HealthcareProtein [Mass/Vol]7.4 g/dL6.4 - 8.2 g/dL NOMS HealthcareSodium [Moles/Vol]145 mmol/L136 - 145 mmol/LNOMS HealthcareTBH EGFR-NON AF MONGOLIAN>60>=60 mL/min/1.73m 2NOMS HealthcareUrea nitrogen [Mass/Vol]11 mg/dL7.0 - 18.0 mg/dLNOMS HealthcareUrea nitrogen/Creatinine [Mass ratio]12.6 mg/mgNOMS HealthcareCLINISYNCNOMS HealthcareTBH PREG QUANT HCGon 88-09-8740TAX NZHRBDWCJPHD41oDK/mLNOMS HealthcareComment on above:5-50 0.2-1 WEEK 50-500 1-2 WEEKS 100-5,000 2-3 WEEKS 500-10,000 3-4 WEEKS 1,000-50,000 4-5 WEEKS 10,000-100,000 5-6 WEEKS 15,000-200,000 6-8 WEEKS 10,000-100,000 2-3 MONTHS CLINISYNCNOMadison Medical CenterMM TOMOSYNTHESIS SCREENING BIon 25-60-8746FbnColumb[place] [address] Mammography Report Signed Patient: NOELLE ROSALES MR#: [id number] : 1975 Acct:[id number] Age/Sex: 48 / F ADM Date: 08/24/23 Loc: MAMMO Attending Dr: Mignon Muhammad D.O. Ordering Physician: Mignon Muhammad D.O. Results: Date of Service: 08/24/23 Follow Up: Procedure(s): MM tomosynthesis screening BI Accession Number(s): [id number] cc: Laly Sy M.D.; Mignon Muhammad D.O. Patient Name: NOELLE ROSALES MR#: [id number] : 1975 Exam Date: 08/24/2023 Ordering Doctor: DR Mignon Muhammad . RADIOLOGY REPORT PROCEDURE: MM TOMOSYNTHESIS SCREENING BI COMPARISON: MG MAMM SCREEN 3D SHAUN CAD, 09/25/2021. MG MAMM SCREEN 3D SHAUN CAD, 09/22/2020. MG MAMM SCREEN SHAUN W CAD, 07/24/2018. MG MAMM SCREEN SHAUN W CAD, 03/17/2017. INDICATIONS: Screening Calculator Name NCI Breast Cancer Risk Assessment Tool 5 Year Breast Cancer Risk 1.10% Lifetime Breast Cancer Risk 9.90% Personal Breast Cancer No Personal Ovarian Cancer No Treatments None Family Cancers Grandmother-paternal with colon cancer at age 70. LOCATION: [facility] BREAST COMPOSITION: The breasts are heterogeneously dense,which [...] 15:20 Dictated By: Car Garcia M.D. Signed By: 08/25/23 1521 DD/ 1520 TD/TT: Windows Deployment Technician:TBHRadiology, Radiologist, - 08/25/2023 [place] [address] Mammography Report Signed Patient: NOELLE ROSALES MR#: [id number] : 1975 Acct:[id number] Age/Sex: 48 / F ADM Date: 08/24/23 Loc: MAMMO Attending Dr: Mignon Muhammad D.O. Ordering Physician: Mignon Muhammad D.O. Results: Date of Service: 08/24/23 Follow Up: Procedure(s): MM tomosynthesis screening BI Accession Number(s): [id number] cc: Laly Sy M.D.; Mignon Muhammad D.O. Patient Name: NOELLE ROSALES MR#: [id number] : 1975 Exam Date: 08/24/2023 Ordering Doctor: DR Mignon Muhammad . RADIOLOGY REPORT PROCEDURE: MM TOMOSYNTHESIS SCREENING BI COMPARISON: MG MAMM SCREEN 3D SHAUN CAD, 09/25/2021. MG MAMM SCREEN 3D SHAUN CAD, 09/22/2020. MG MAMM SCREEN SHAUN W CAD, 07/24/2018. MG MAMM SCREEN SHAUN W CAD, 03/17/2017. INDICATIONS: Screening Calculator Name NCI Breast Cancer Risk Assessment Tool 5 Year Breast Cancer Risk 1.10% Lifetime Breast Cancer Risk 9.90% Personal Breast Cancer No Personal Ovarian Cancer No Treatments None Family Cancers Grandmother-paternal with colon cancer at age 70. LOCATION: [facility] BREAST COMPOSITION: The breasts are heterogeneously dense,which [...] 15:20 Dictated By: Car Garcia M.D. Signed By: 08/25/23 1521 DD/ 1520 TD/TT: Windows Deployment Technician: VIDAL HealthcareRadiology Study observation (narrative)[facility] TOMOSYNTHESIS SCREENING BIOrdered By: Radiologist Radiology on [email or web address] Work Phone: Glucose mean value [Mass/volume] in Blood Estimated from glycated hemoglobinon 27-54-6248Uzmlojk glucose Estimated from glycated hemoglobin (Bld) [Mass/Vol]111 mg/dLMercy Health St. Elizabeth [facility]stown HospitalLaboratory - Hematology and Cell countson 01-02-7086BaW4s (Bld) [Mass fraction]5.5 %4.5-6.[address] [facility] HospitalComment on above:ADA RECOMMENDED LIMIT 4.0 - 6.0ADA THERAPEUTIC TARGET < 7.0ACTION SUGGESTED> 7.0Basophils Auto (Bld) [#/Vol] on 17-90-8148Aoaubzhsm (Bld) [#/Vol]0.1 10 3/uL0.0-0.1FOhioHealth Mansfield HospitalBasophils/100 WBC Auto (Bld)on 71-24-4339Robajiavw/100 WBC (Bld)0.7 % 0.2-2.0[facility] HospitalEosinophils/100 WBC Auto (Bld)on 60-04-9651Cqvmowrtdmw/100 WBC (Bld)1.8 %0.9-7.0[facility] Erythrocyte distribution width Auto (RBC) [Ratio]on 43-31-1023Pptzsjnmoko distribution width (RBC) [Ratio]12.5 %11.0-15.0[facility] Hematocrit Auto (Bld) [Volume fraction]on 35-65-1929Vpcvjmzklq (Bld) [Volume fraction]42.9 %36.0-48.0[facility] HospitalHemoglobin [Mass/volume] in Bloodon 38-38-9850Fbvfmpdcur (Bld) [Mass/Vol]14.4 g/dL12.0-16.[address] [facility] HospitalLaboratory - Chemistry and Chemistry - challengeon 58-19-7678Vhwv T4 [Mass/Vol]1.46 ng/dL0.76-1.46[facility] HospitalTSH Qn1.846 m[IU]/L0.358-3.740[facility] Laboratory - Hematology and Cell countson 93-36-7473Keohnekd granulocytes/100 WBC (Bld)0.1 %0.0-0.5FOhioHealth Mansfield HospitalLeukocytes [#/volume] corrected for nucleated erythrocytes in Blood by Automated counon 26-30-2302YWM corrected for nucl RBC Auto (Bld) [#/Vol]7.0 10 3/uL4.0-11.0[facility] HospitalLymphocytes Auto (Bld) [#/Vol]on 45-89-1133Wktlqplifvp (Bld) [#/Vol]2.8 10 3/uL1.2-3.8[facility] HospitalLymphocytes/100 WBC Auto (Bld)on 12-35-8407Pfrrqvngpwe/100 WBC (Bld)39.8 %20.5-60.0Way[facility] HospitalH Auto (RBC) [Entitic mass]on 76-25-5839NZO (RBC) [Entitic mass]28.7 pg26.7-34.0[facility] HospitalMCHC Auto (RBC) [Mass/Vol]on 24-98-8962BYGO (RBC) [Mass/Vol]33.6 g/dL29.9-35.2FOhioHealth Mansfield HospitalMCV Auto (RBC) [Entitic vol]on 64-24-1988SML (RBC) [Entitic vol] 85.6 fL81.0-99.0[facility] HospitalMonocytes Auto (Bld) [#/Vol]on 18-25-2839Etnvvakwc (Bld) [#/Vol]0.5 10 3/uL0.3-0.8[facility] HospitalMonocytes/100 WBC Auto (Bld)on 20-68-3314Yinkbweka/100 WBC (Bld)6.7 % 1.7-12.0[facility] HospitalNeutrophils Auto (Bld) [#/Vol]on 14-65-8950Kbxtbftxzhn (Bld) [#/Vol]3.6 10 3/uL1.4-6.5FOhioHealth Mansfield HospitalNeutrophils/100 WBC Auto (Bld)on 67-76-4476Wkobnqwrsmb/100 WBC (Bld)50.9 % 43.0-75.0[facility] HospitalNo Panel Informationon 06-16-2023 Eosinophils # (Auto)0.1 10 3/uL0.0-0.7FOhioHealth Mansfield HospitalImmature Granulocyte # (Auto)0.01 10 3/uL0.00-0.03[facility] Platelet mean volume Auto (Bld) [Entitic vol]on 28-56-7004Crqplwrm mean volume (Bld) [Entitic vol]11.2 fL9.5-13.5FOhioHealth Mansfield HospitalPlatelets Auto (Bld) [#/Vol]on 63-41-3727Omngadpft (Bld) [#/Vol]232 10 3/qM440-[address] [facility] HospitalRBC Auto (Bld) [#/Vol]on 62-43-5378CFV (Bld) [#/Vol]5.01 10 6/uL4.20-5.40[facility] HospitalLon 08-26-2022 Specimen: [id number] Received: 08/26/22 Status: PATRICIO Jones Num: [id number] Spec Type: Surgical Subm Dr: Benja Martin MD Tissues: A Colon Biopsy (SIGMOID POLYP) Procedures: HE/2, Gross/Micro L4 Age/ Patient Sex Location Account Attending Physician Noelle Rosales 47/F [id number] Benja Martin MD SPEC NUM: [id number] RECD: 08/26/22 STATUS: PATRICIO JONES NUM: [id number] JENNIFER: 08/26/22 DR: Benja Martin MD ENTERED: 08/26/22 [facility] [place]: RICHIE TYPE: Surgical DEPT: S ORDERED: [...] microscopic examination confirms the diagnosis. CPT Codes 21749 Specimen: [id number] Received: 08/26/22 Status: PATRICIO Jones Num: [id number] Spec Type: Surgical Subm Dr: Benja Martin MD Tissues: A Colon Biopsy (SIGMOID POLYP) Procedures: HE/2, Gross/Micro L4 Patient: Noelle Rosales Juju [id number] (Continued) Signed (signature on file) Blas Mijares MD 08/27/22 1820[facility] CenterINSULIN FREE AND TOTALon 10-02-2021 Free Ajyyocz81 uU/mLNormalRiverview Health InstituteComment on above:Result Comment: Reference Range: Pubertal Children and Adults (fasting): 0 - 17Performed By: #### ESTRADI #### [facility] [address] [place] [address] Dr. Beata Allental Sydehtf31 uU/mLNormalRiverview Health InstituteComhenry ford wyand[facility] hospital on above: Result Comment: Non-Diabetic: In the absence of insulin-binding antibodies, the free and total insulin assays [...] developed and its performance characteristics determined by [employer]. It has not been cleared or approved by the Food and Drug Administration.Performed By: #### ESTRADI #### [facility] [address] [place] [address] Dr. Beata Howard AUTO DIFFon 34-87-8212YPIF #0.1 103/ulNormal0.0-0.1The [facility]red HealthcareComment on above:Performed By: #### FT4 #### [facility] [address] [place] [address] Dr. Beata MijaresBasophils/100 WBC (Bld)0.7 %Normal0.2-2.0[facility] Comment on above:Performed By: #### FT4 #### [facility] [address] [place] [address] Dr. Beata Carbone #0.1 103/ulNormal0.0-0.7The [facility]red HealthcareComment on above: Performed By: #### FT4 #### [facility] [address] [place] [address] Dr. Beata Shankarosinophils/100 WBC (Bld)1.8 %Normal0.9-7.0[facility] Comment on above:Performed By: #### FT4 #### [facility] [address] [place] [address] Dr. Beata Shankarrythrocyte distribution width (RBC) [Ratio]12.9 %Owxqcl86.0-15.0 The [facility]red HealthcareComment on above:Performed By: #### FT4 #### [facility] [address] [place] [address] Dr. Beata MijaresHematocrit (Bld) [Volume fraction]42.5 %Pokcfy62.0-48.0The [facility]red HealthcareComment on above:Performed By: #### FT4 #### [facility] [address] [place] [address] Dr. Beata MijaresHemoglobin (Bld) [Mass/Vol]14.3 g/gMWyhmbb72.0-16.0The [facility]red HealthcareComment on above:Performed By: #### FT4 #### [facility] [address] [place] [address] Dr. Beata Ronquillo #0.02 10e3/ulNormal0.00-0.03The [facility]red HealthcareComment on above:Performed By: #### FT4 #### [facility] [address] [place] [address] Dr. Beata Ronquillo %0.3 %Normal0.0-0.5The [facility]red HealthcareComment on above: Performed By: #### FT4 #### [facility] [address] [place] [address] Dr. Beata Little #2.5 103/ulNormal1.2-3.8The [facility]red HealthcareComment on above:Performed By: #### FT4 #### [facility] [address] [place] [address] Dr. Beata Hernandezhocytes/100 WBC (Bld)36.1 %Vwtpzm12.5-60.0The [facility] HealthcareComhenry ford wyand[facility] hospital on above:Performed By: #### FT4 #### [facility] [address] [place] [address] Dr. Beata PetersonUAL DIFF REQNONormalThe Kindred HealthcareComment on above: Performed By: #### FT4 #### [facility] [address] [place] [address] Dr. Beata Jo (RBC) [Entitic mass]28.4 xdGmecmq27.7-34.0The [facility]red HealthcareComment on above:Performed By: #### FT4 #### [facility] [address] [place] [address] Dr. Beata Jo (RBC) [Mass/Vol]33.6 g/mFLbgdmd65.9-35.2The [facility]red HealthcareComment on above:Performed By: #### FT4 #### [facility] [address] [place] [address] Dr. Beata Miller (RBC) [Entitic vol]84.3 dTFyhszl54.0-99.0The Industry HospitalComment on above:Performed By: #### FT4 #### [facility] [address] [place] [address] Dr. Beata Deleon #0.5 103/ulNormal0.3-0.8The Industry HospitalComment on above:Performed By: #### FT4 #### [facility] [address] [place] [address] Dr. Beata Vasquezocytes/100 WBC (Bld)7.7 %Normal1.7-12.0[facility] Comment on above:Performed By: #### FT4 #### [facility] [address] [place] [address] Dr. Beata Shirley #3.7 103/ulNormal1.4-6.5The [facility]red HealthcareComment on above:Performed By: #### FT4 #### [facility] [address] [place] [address] Dr. Beata Bellutrophils/100 WBC (Bld)53.4 %Pnopxa04.0-75.0The [facility]red HealthcareComment on above:Performed By: #### FT4 #### [facility] [address] [place] [address] Dr. Beata Martinezlet mean volume (Bld) [Entitic vol]11.0 fLNormal9.5-13.5The [facility]red HealthcareComment on above:Performed By: #### FT4 #### [facility] [address] [place] [address] Dr. Beata MijaresPLT229 103/urJndhtn529-259Pzj Kindred HealthcareComment on above: Performed By: #### FT4 #### [facility] [address] [place] [address] Dr. Beata MijaresRBC5.04 106/ulNormal4.20-5.40The [facility]red HealthcareComment on above:Performed By: #### FT4 #### [facility] [address] [address] [address] Beata MijaresWBC6.8 103/ulNormal4.0-11.0The [facility]red HealthcareComment on above: Performed By: #### FT4 #### [facility] [address] [address] [address] Beata MijaresFREE T4on 46-83-3086Zldk T4 [Mass/Vol]1.19 ng/dLNormal0.76-1.46 The [facility]red HealthcareComment on above:Performed By: #### FT4 #### [facility] [address] [place] [address] Dr. Beata MijaresGLYCOHEMOGLOBIN A1Con 19-71-3776WVF RECOMMENDATIONSEE BELOWNormal The Kindred HealthcareComment on above:Result Comment: ADA RECOMMENDED LIMIT 4.0 - 6.0 ADA THERAPEUTIC TARGET < 7.0 ACTION SUGGESTED > 7.0Performed By: #### ESTRADI #### [facility] [address] [place] [address] Dr. Beata MijaresGlucose [Mass/Vol]114 mg/dLNormalThe Kindred HealthcareComment on above:Performed By: #### ESTRADI #### [facility] [address] [place] [address] Dr. Beata MijaresHbA1c (Bld) [Mass fraction]5.6 %Normal4.5-6.2The [facility]red HealthcareComment on above:Performed By: #### ESTRADI #### [facility] [address] [place] [address] Dr. Beata MijaresMG MAMM SCREEN 3D SHAUN CADon 45-66-3244DN MAMM SCREEN 3D SHAUN CAD Patient: NOELLE ROSALES Exam Date: 09/25/2021 : 1975 Gender:F Ordering : DR MIGNON MUHAMMAD . Admission #: [id number] Family : Order #: [id number] CLICK HERE TO VIEW EXAM RADIOLOGY REPORT [...] colon cancer at age 68. LOCATION: [facility] BREAST COMPOSITION: Heterogeneously dense,which may obscure small [...] by: Car Garcia M.D. on 09/25/2021 at 10:20[facility] ACOG PANEL 2: 30 to 65on 09-25-2021..NormalRiverview Health Institute Comment on above:Result Comment: Performed at: WBPerformed By: #### [id number] #### [facility] [address] [place] [address] Dr. Beata Berger Gdln ACOG Tdrmkaq72-71NkiypiHtqHolzer Health SystemComment on above:Performed By: #### [id number] #### [facility] [address] [address] [address] Beata MijaresDIAGNOSIS:CommentEast Liverpool City HospitalComment on above: Result Comment: NEGATIVE FOR INTRAEPITHELIAL LESION OR MALIGNANCY. THIS SPECIMEN WAS RESCREENED PART OF OUR POWERSAW SUPERVISOR PROGRAM. Performed at: WBPerformed By: #### [id number] #### [facility] [address] [place] [address] Dr. Beata MijaresHPV AptimaNegativeNormalNegativeRiverview Health InstituteComment on above:Result Comment: This nucleic acid amplification test detects fourteen high-risk HPV types (16,18,31,33,35,39,45,51,52,56,58,59,66,68) without differentiation. Performed at: =GPerformed By: #### [id number] #### [facility] [address] [place] [address] Dr. Beata MjiaresMethodology:CommentCoshocton Regional Medical Center on above: Result Comment: This liquid based ThinPrep(R) pap test was screened with the use of an image guided system. Performed at: WBPerformed By: #### [id number] #### [facility] [address] [place] [address] Dr. Beata MijaresNote:CommentCoshocton Regional Medical Center on above:Result Comment: The Pap smear is a screening test designed to aid in the detection of premalignant and malignant conditions of the uterine cervix. It is not a diagnostic procedure and should not be used as the sole means of detecting cervical cancer. Both false-positive and false-negative reports do occur. . Performed at: WBPerformed By: #### [id number] #### [facility] [address] [place] [address] Dr. Beata MijaresPerformed by:CommentCoshocton Regional Medical Center on above: Result Comment: Ping Tijerina, Calculation Clerk (ASCP) Performed at: WBPerformed By: #### [id number] #### [facility] [address] [place] [address] Dr. Beata MijaresQC reviewed by:[facility] on above:Result Comment: Kena Sepulveda, Supervisory Calculation Clerk (ASCP) Performed at: WBPerformed By: #### [id number] #### [facility] [address] [place] [address] Dr. Beata MijaresSpecimeanju adequacy:CommentCoshocton Regional Medical Center on above:Result Comment: Satisfactory for evaluation. Endocervical and/or squamous metaplastic cells (endocervical component) are present. Performed at: WBPerformed By: #### [id number] #### [facility] [address] [place] [address] Dr. Beata Wilson 54-07-4078GVC6.833 uIU/mLNormal0.358-3.740Riverview Health InstituteComment on above:Performed By: #### TSH #### [facility] [address] [place] [address] Dr. Beata Dean MELCHOR ADMITon 52-05-9215IP [Catalytic activity/Vol]148 U/L Geilbi42-238Aso [facility]red HealthcareComment on above:Performed By: #### FT4 #### [facility] [address] [place] [address] Dr. Beata Rios.MB [Mass/Vol]1.29 ng/mLNormal<=3.60[facility] Comment on above:Performed By: #### FT4 #### [facility] [address] [place] [address] Dr. Beata KulkarniO51 ng/mLNormal9-82The [facility]red HealthcareComment on above: Performed By: #### FT4 #### [facility] [address] [place] [address] Dr. Beata Howard AUTO DIFFon 20-66-5279JQUQ #0.0 103/ulNormal0.0-0.1Riverview Health InstituteComhenry ford [facility] hospital on above:Performed By: #### CBC #### [facility] [address] [place] [address] Dr. Beata MijaresBasophils/100 WBC (Bld)0.4 %Normal0.2-2.0[facility] Comment on above:Performed By: #### CBC #### [facility] [address] [place] [address] Dr. Beata Carbone #0.1 103/ulNormal0.0-0.7The [facility]red HealthcareComment on above: Performed By: #### CBC #### [facility] [address] [place] [address] Dr. Beata Shankarosinophils/100 WBC (Bld)1.3 %Normal0.9-7.0[facility] Comment on above:Performed By: #### CBC #### [facility] [address] [place] [address] Dr. Beata Shankarrythrocyte distribution width (RBC) [Ratio]12.6 %Nwtdvi20.0-15.0 [facility] on above:Performed By: #### CBC #### [facility] [address] [place] [address] Dr. Beata MijaresHematocrit (Bld) [Volume fraction]43.3 %Wlrqbg81.0-48.0The Industry HospitalComment on above:Performed By: #### CBC #### [facility] [address] [place] [address] Dr. Beata MijaresHemoglobin (Bld) [Mass/Vol]14.3 g/lHZdsbid44.0-16.0The [facility]red HealthcareComment on above:Performed By: #### CBC #### [facility] [address] [place] [address] Dr. Beata Ronquillo #0.02 10e3/ulNormal0.00-0.03The [facility]red HealthcareComment on above:Performed By: #### CBC #### [facility] [address] [place] [address] Dr. Beata Ronquillo %0.3 %Normal0.0-0.5The [facility] HealthcareComhenry ford wy[facility] hospital on above: Performed By: #### CBC #### [facility] [address] [place] [address] Dr. Beata HernandezH #2.8 103/ulNormal1.2-3.8The [facility]red HealthcareComment on above:Performed By: #### CBC #### [facility] [address] [place] [address] Dr. Beata Garciamphocytes/100 WBC (Bld)39.4 %Bsbbrs85.5-60.0The [facility]red HealthcareComment on above:Performed By: #### CBC #### [facility] [address] [place] [address] Dr. Beata PetersonUAL DIFF REQNONormalThe [facility]red HealthcareComment on above: Performed By: #### CBC #### [facility] [address] [address] [address] Beata Jo (RBC) [Entitic mass]28.5 ncYufvjd32.7-34.0The [facility]red HealthcareComment on above:Performed By: #### CBC #### [facility] [address] [place] [address] Dr. Beata Jo (RBC) [Mass/Vol]33.0 g/gWFzmejo48.9-35.2The Industry HospitalComment on above:Performed By: #### CBC #### [facility] [address] [place] [address] Dr. Beata Jo (RBC) [Entitic vol]86.3 mPRwrtgq86.0-99.0The [facility]red HealthcareComment on above:Performed By: #### CBC #### [facility] [address] [place] [address] Dr. Beata Deleon #0.4 103/ulNormal0.3-0.8The [facility]red HealthcareComment on above:Performed By: #### CBC #### [facility] [address] [place] [address] Dr. Beata Vasquezocytes/100 WBC (Bld)5.9 %Normal1.7-12.0[facility] Comment on above:Performed By: #### CBC #### [facility] [address] [place] [address] Dr. Beata Shirley #3.8 103/ulNormal1.4-6.5The [facility]red HealthcareComment on above:Performed By: #### CBC #### [facility] [address] [place] [address] Dr. Beata Bellutrophils/100 WBC (Bld)52.7 %Eoiwyg46.0-75.0The [facility]red HealthcareComment on above:Performed By: #### CBC #### [facility] [address] [place] [address] Dr. Beata Fonseca mean volume (Bld) [Entitic vol]11.1 fLNormal9.5-13.5The [facility]red HealthcareComment on above:Performed By: #### CBC #### [facility] [address] [place] [address] Dr. Beata MijaresPLT227 103/lvBiejrq259-165Qcc [facility]red HealthcareComment on above: Performed By: #### CBC #### [facility] [address] [place] [address] Dr. Beata MijaresRBC5.02 106/ulNormal4.20-5.40The Industry HospitalComment on above:Performed By: #### CBC #### [facility] [address] [place] [address] Dr. Beata MijaresWBC7.2 103/ulNormal4.0-11.0The [facility]red HealthcareComment on above: Performed By: #### CBC #### [facility] [address] [place] [address] Dr. Beata MijaresPROF CHEM 8 (BAS METB)on 15-15-4838Hjwre gap [Moles/Vol]10.2 mmol/LNormalThe [facility]red HealthcareComment on above:Performed By: #### ESTRADI #### [facility] [address] [place] [address] Dr. Beata MijaresCalcium [Mass/Vol]9.7 mg/dLNormal8.5-10.1[facility] Comment on above:Performed By: #### ESTRADI #### [facility] [address] [place] [address] Dr. Beata MijaresChloride [Moles/Vol]101 mmol/TZnijvi04-201Pte [facility] Comment on above:Performed By: #### ESTRADI #### [facility] [address] [place] [address] Dr. Beata MijaresCO2 [Moles/Vol]35.1 mmol/LCritically high21.0-32.0The [facility]red HealthcareComment on above:Performed By: #### ESTRADI #### [facility] [address] [place] [address] Dr. Beata MijaresCreatinine [Mass/Vol]0.88 mg/dLNormal0.55-1.02The [facility]red HealthcareComment on above:Performed By: #### ESTRADI #### [facility] [address] [place] [address] Dr. Beata ShankarGFR-AF MONGOLIAN>60Normal>=60The [facility]red HealthcareComment on above:Performed By: #### ESTRADI #### [facility] [address] [place] [address] Dr. Beata ShankarGFR-NON AF MONGOLIAN>60Normal>=60The [facility]red HealthcareComment on above:Performed By: #### ESTRADI #### [facility] [address] [place] [address] Dr. Beata MijaresGlucose [Mass/Vol]111 mg/dLCritically kakl40-104Qrf [facility] HealthcareComment on above:Performed By: #### ESTRADI #### [facility] [address] [place] [address] Dr. Beata MijaresPotassium [Moles/Vol]3.3 mmol/LCritically low3.5-5.1The [facility]red HealthcareComment on above:Performed By: #### ESTRADI #### [facility] [address] [place] [address] Dr. Beata MijaresSodium [Moles/Vol]143 mmol/PLmvzwk611-274Mch [facility] Comment on above:Performed By: #### ESTRADI #### [facility] [address] [place] [address] Dr. Beata MijaresUrea nitrogen [Mass/Vol]17.0 mg/dLNormal7.0-18.0The [facility]red HealthcareComment on above:Performed By: #### ESTRADI #### [facility] [address] [place] [address] Dr. Beata Zepeda nitrogen/Creatinine [Mass ratio]19.3 mg/mgNormalThe Kindred HealthcareComment on above:Performed By: #### ESTRADI #### [facility] [address] [place] [address] Dr. Beata Avendano, HIGH SENSITIVITYon 41-74-8459SHCYYF7.1 pg/mLNormal 4.0-51.3TSt. John of God HospitalComment on above:Result Comment: CUT-OFF POINTS HAVE BEEN ESTABLISHED BASED ON THE FOURTH UNIVERSAL DEFINITIONS OF MYOCARDIAL INFARCTION. THE UPPER REFERENCE LIMIT (URL) OF TROPONIN, DEFINED THE 99TH PERCENTILE OF cTnI DISTRIBUTION IN A REFERENCE POPULATION, HAS BEEN CONFIRMED THE DECISION THRESHOLD FOR AR DIAGNOSIS.Performed By: #### ESTRADI #### [facility] [address] [address] [address] Beata MijaresPerformed By: #### FT4 #### [facility] [address] [place] [address] Dr. Beata LloydTRONEon 16-26-8985Vrzoqaa, Serum68 pg/mLNormalRiverview Health InstituteComment on above:Result Comment: Adult: Follicular phase 39 - 132 Periovulatory 58 - 256 Luteal phase 54 - 179 : 1st trimester 247 - 2774 2nd trimester 569 - 5781 Postmenopausal: with ERT 51 - 488 without ERT 31 - 100Performed By: #### ESTRADI #### [facility] [address] [place] [address] Dr. Beata MijaresTESTOSTERONE, FREE,DIRECT, TOTALon 18-89-5084Fqxd Testosterone(Direct)1.7 pg/mLNormal0.0-4.2[facility] InstituteComment on above: Result Comment: Performed at: BNPerformed By: #### FT4 #### [facility] [address] [place] [address] Dr. Beata MijaresTestosterone [Mass/Vol]17 ng/dLNormal4-50[facility] Comment on above:Result Comment: Performed at: CBPerformed By: #### FT4 #### [facility] [address] [place] [address] Dr. Beata MijaresCORTISOLon 99-37-0904Felbchkn60.6 ug/dLNoalThMartin Memorial HospitalComment on above:Result Comment: Cortisol AM 6.2 - 19.4 Cortisol PM 2.3 - 11.9Performed By: #### ESTRADI #### [facility] [address] [place] [address] Dr. Beata MijaresDHEA-SULFATEon 11-00-0445BSIC-Qvuidii464.0 ug/iSLtrqrn77.2-243.7 The [facility]red HealthcareComment on above:Performed By: #### DHEASUL #### [facility] [address] [place] [address] Dr. Beata LloydTRADIOLon 10-83-3867Vosehwmby72.2 pg/mLNormalThe [facility]red HealthcareComment on above:Result Comment: Adult Female: Follicular phase 12.5 - 166.0 Ovulation phase 85.8 - 498.0 Luteal phase 43.8 - 211.0 Postmenopausal <6.0 - 54.7 1st trimester 215.0 - >4300.0 Corey ECLIA methodologyPerformed By: #### ESTRADI #### [facility] [address] [place] [address] Dr. Beata MijaresPROGESTERONEon 43-01-2411Hxouowbxlsbg3.1 ng/mLNormalThe [facility]red HealthcareComment on above:Result Comment: Follicular phase 0.1 - 0.9 Luteal phase 1.8 - 23.9 Ovulation phase 0.1 - 12.0 First trimester 11.0 - 44.3 Second trimester 25.4 - 83.3 Third trimester 58.7 - 214.0 Postmenopausal 0.0 - 0.1Performed By: #### PROGES #### [facility] [address] [place] [address] Dr. Beata Ibarra HORMONE-BINDING GLOBULINon 57-36-5632Kma Horm Binding Glob, Serum31.7 nmol/PEgfjdz64.6-122.0The [facility]red HealthcareComment on above:Performed By: #### SEXHBG #### [facility] [address] [place] [address] Dr. Beata MijaresT3, TOTAL (TRIIODOTHYRONINE)on 57-63-1180O2, VJMJK811 ng/dLNormal 71-180The [facility]red HealthcareComment on above:Performed By: #### ESTRADI #### [facility] [address] [place] [address] Dr. Beata Salmeron T4on 96-86-3382Rkns T4 [Mass/Vol]1.29 ng/dLNormal0.78-2.19 [facility] InstituteComment on above:Performed By: #### ESTRADI #### [facility] [address] [place] [address] Dr. Beata MijaresT4on 45-83-0766E2 [Mass/Vol]6.70 ug/dLNormal5.53-11.00[facility] InstituteComhenry ford [facility] on above:Performed By: #### TSH, T4 #### [facility] [address] [place] [address] Dr. Beata AmadoHoanju 46-17-1905QBA4.127 uIU/mLNormal0.470-4.680The [facility]red HealthcareComment on above:Performed By: #### TSH, T4 #### [facility] [address] [place] [address] Dr. Beata LUNAKeenan Private HospitalComment on above: Result Comment: <0.34 UIU/ml HYPERTHYROID 0.34-5.60 UIU/ml EUTHYROID >5.60 UIU/ml HYPOTHYROIDPerformed By: #### TSH, T4 #### [facility] [address] [place] [address] Dr. Beata MijaresVITAMIN D 25 OHon 60-02-0290ECS D 25-OH32.0 ng/mLNormalRiverview Health InstituteComhenry ford [facility] on above:Performed By: #### ESTRADI #### [facility] [address] [place] [address] Dr. Beata Partida RANGESSEJuana Wilson HealthComhenry ford [facility] on above: Result Comment: <20 ng/mL Vit D deficient 20 - <30 ng/mL Vit D insufficient 30 - 100 ng/mL Vit D sufficient >100 ng/mL Potential ToxicityPerformed By: #### ESTRADI #### [facility] [address] [place] [address] Dr. Beata MijaresCreatininelu 70-25-2486Hvrrlelfpu7.87 mg/dLNormal0.50-1.05EMH HealthcareComment on above:Performed By: #### [id number] ####[facility] [address] [facility] [place], [place] [address]wCGV (MDRD) mL/min/{1.73_m2}NormalEMH HealthcareComment on above:Result Comment: Interpretation for Chronic Kidney Disease:Stages 1&2 >60 Healthy or potential kidney damage.Mild decrease of GFR.Stage 3 30-59 Moderate decrease of GFR.Stage 4 15-29 Severe decrease of GFR.Stage 5 <15 Kidney failure or on dialysis. Performed By: #### [id number] ####[facility] [address] [facility] [address] [facility] [address]Xwuzkmaryku Panelon 43-71-7079Fdhpa gap11 mmol/L Wdvavi68-56PCH HealthcareComment on above:Performed By: #### [id number] ####[facility] [address] [place] [address] Bicarbonate (HCO3)32 mmol/MMcvilv42-34UUV HealthcareComment on above:Performed By: #### [id number] ####[facility] F[address] [facility] [place], [place] [address]Sombliys878 mmol/FGhkgfr77-649BXQ HealthcareComment on above: Performed By: #### [id number] ####[facility] O[address] [facility] [place], [place] [address]Mtzxerfhu molar conc3.3 mmol/LLow3.5-5.1EMH HealthcareComment on above:Performed By: #### [id number] ####[facility] [address] [place], [place] [address]Gxcfgj384 mmol/LNormal 136-145EMH HealthcareComment on above:Performed By: #### [id number] ####[facility] Vou[address] [facility] [place] [address]Zveq Nitrogenon 10-85-6666Dgqe wkkavwgo86 mg/dLNormal6-23EMH HealthcareComment on above: Performed By: #### [id number] ####[facility] [address] [place], [place] [address]Kgfyvdprqfis 60-62-0747Jzezkroz AcidNegativeNormal NegativeEM HealthcareComment on above:Performed By: #### [id number] ####[facility] [address] [facility], [place] [address]Pdioshely Urine MicroscopyPerformedNormalE HealthcareComment on above:Performed By: #### [id number] ####[facility] [address] [facility] [place], [place] [address]Ybzvsyytp Ql (U)NegativeNormalNegativeEM HealthcareComment on above: Performed By: #### [id number] ####[facility] [address] [facility] [place], [place] [address]AhowuNgkjuFnmtokrzTssenqkkDWP HealthcareComment on above:Performed By: #### [id number] ####[facility] [address] [facility], [place] [address]Tqbetsatcjuq (RBC)4 /[HPF]Normal0-3E HealthcareComment on above:Performed By: #### [id number] ####[facility] [address] [facility] [place], [place] [address]Vffqaej mass concNegative NormalNegativeEM HealthcareComment on above:Performed By: #### [id number] ####[facility] [address] [facility] [place] [address] ProteinNegativeNormalNegativeEM HealthcareComment on above:Performed By: #### [id number] ####[facility] [address] [place], [place] [address]Mtxpp, appearanceHazyNormalClearE HealthcareComment on above:Performed By: #### [id number] ####[facility] [address] [place], [place] [address]Qfddc, colorYellowNormalE HealthcareComment on above: Performed By: #### [id number] ####[facility] [address] [place], [place] [address]Jttsw, ketones presenceNegativeNormalNegativeEM HealthcareComment on above:Performed By: #### [id number] ####[facility] [address]pd[address] [facility] [place], [place] [address]Lblqh, nitrite presence NegativeNormalNegativeEMH HealthcareComment on above:Performed By: #### [id number] ####[facility] [address] [place] [address] Urine, pH7.0 [pH]Normal5.0-9.0EMH HealthcareComment on above:Performed By: #### [id number] ####[facility] [address] [facility] [place], [place] [address]Fzheh, specific gravity1.441Hvvhod7.003-1.035EMH HealthcareComment on above:Performed By: #### [id number] ####[facility] [address] [facility] [place], [place] [address]Zmelb, squamous cells in sediment1 /[HPF]Normal 0-5EMH HealthcareComment on above:Performed By: #### [id number] ####[facility] [address] [facility] [place], [place] [address]Dhvwc, urobilinogen<2.0NormalNegativeEMH HealthcareComment on above:Performed By: #### [id number] ####[facility] [address] [facility] [place], [place] [address]FSH (Leukocytes)1 /[HPF]Normal0-5EMH HealthcareComment on above: Performed By: #### [id number] ####[facility] [address] [facility] [place], [place] [address]HET (Leukocytes)NegativeNormalNegativeEMH Healthcare Comment on above:Performed By: #### [id number] ####[facility] Jut[address] [place] [address] Vital Signs Date TimeVital SignValuePerforming VuqafkivdWugtjtgs31-65-0981 01:00-0400Body ixrcla855.64 cmDavid Vance [place] - [facility] 07-16-2025 01:00-0400Body mass index (BMI) [Ratio]40 kg/e6Sbvxk Vance [place] - [facility] [id number] 01:00-0400Body surface area Derived from formula2.29 b3Onpkc [place] [facility] 082046-07-4600 01:00-0400Body yyloke113.31 kgDavid Vance [place] - [facility] [id number] 11:27-0400Body jdryih569.64 cmLaly Sy MD Work Phone: [phone] [place], [place] 3206406-26-2025 11:27-0400 Body mass index (BMI) [Ratio]37.1 kg/n8HfyynaLaly Sy MD Work Phone: [phone] [place], [place] 3206406-26-2025 11:27-0400 Body vvvwamqnxgh49 [degF]Laly Sy MD Work Phone: [phone] [place], [place] 3206406-26-2025 11:27-0400 Body rtvtvu386.32 kgLaly Sy MD Work Phone: [phone] [place], [place] 3206406-26-2025 11:27-0400 Diastolic blood xkzaxhgf832 mm[Hg]Laly Sy MD Work Phone: [phone])[address] [place], [place] 3206406-26-2025 11:27-0400 Heart rate70 /Adelaida Sy MD Work Phone: [phone]06-26-2025 11:27-0400 Respiratory rate18 /Adelaida Sy MD Work Phone: [phone])[address] [place], [place] 3206406-26-2025 11:27-0400 SaO2% (BldA) [Mass fraction]96 %Laly Sy MD Work Phone: [phone]06-26-2025 11:27-0400 Systolic blood mm[Hg]Laly Sy MD Work Phone: [phone]02-10-2025 15:30-0500 Body mass index (BMI) [Ratio]38.64 kg/t8Fxgip Jb DO Work Phone: [facility] HealthXzuxdxxvsg13-10-0348 15:30-0500Body bujsdf153.59 kgCorey Jb DO Work Phone: [facility] HealthVesxgrxade96-72-7243 15:30-0500Diastolic blood fmyciakm807 mm[Hg]Mignon Jb DO Work Phone: [facility] HealthMnndsdkkmq22-11-1427 15:30-0500Systolic blood jipitpog766 mm[Hg]Mignon Jb [employer] Work Phone: [facility] HealthBnpigbjiss37-23-3209 09:45-0500Body .64 cmLaly Sy Other [employer] Other 01-16-2024 09:45-0500Body mass index (BMI) [Ratio] 34.21 kg/b6JdwkceLaly Sy Other [employer] Other 01-16-2024 09:45-0500Body tepkbs51.16 kgLaly Sy Other [employer] Other 08-28-2023 09:00-0400Body swgiib097.64 cmLaly Sy Other [employer] Other 08-28-2023 09:00-0400Body mass index (BMI) [Ratio] 34.21 kg/g1VdrlfxLaly Sy Other [employer] Other 08-28-2023 09:00-0400Body ncehju66.16 kgAlicea Kerrie Other [employer] Other 08-28-2023 09:00-0400Diastolic blood mlitvwzx90 mm[Hg] [facility]aly Sy [facility] [employer] Other 08-28-2023 09:00-0400Systolic blood rkazdaat714 mm[Hg] Laly Sy Other [place] [employer] Other 07-20-2023 10:41-0400Diastolic blood mm[Hg] MD Laly Sy Work Phone: [facility]07-20-2023 10:41-0400 Heart rate57 /minMD Laly Sy Work Phone: [phone]07-20-2023 10:41-0400 Respiratory rate16 /minMD Laly Sy Work Phone: [phone]07-20-2023 10:41-0400 SaO2% (BldA) [Mass fraction]97 %MD Laly Sy Work Phone: [facility]07-20-2023 10:41-0400 Systolic blood gnvdzjep658 mm[Hg]MD Laly Sy Work Phone: [phone]07-20-2023 07:54-0400 Body ewvsaf794.64 cmMD Laly Sy Work Phone: [phone]07-20-2023 07:54-0400 Body botqjsygoix61.1 [degF]MD Laly Sy Work Phone: [phone]07-20-2023 07:54-0400 Body fsmyzx06.52 kgMD Laly Sy Work Phone: [phone]06-12-2023 11:00-0400 Body okidqn783.64 cmLaly Sy Other [place] [employer] Other 06-12-2023 11:00-0400Body mass index (BMI) [Ratio]34.7 kg/y7UrfrndLaly Sy Other [employer] Other 06-12-2023 11:00-0400Body zhquxw84.52 kgLaly Sy Other [employer] Other 06-12-2023 11:00-0400Diastolic blood mm[Hg] Laly Kerrie Other [employer] Other 06-12-2023 11:00-0400Systolic blood vgeiwqqk508 mm[Hg] Laly Kerrie Other [employer] Other 03-22-2023 19:50-0400Body dflcje645.64 cmPamelargenis Combs Other [employer] Other 03-22-2023 19:50-0400Body mass index (BMI) [Ratio] 32.28 kg/z0Kyiine Dymond Other [employer] Other 03-22-2023 19:50-0400Body gpwmpsjgect90.3 [degF]Norma Lauryn Other [employer] Other 03-22-2023 19:50-0400Body .72 kgRosslexus Lauryn Other [employer] Other 03-22-2023 19:50-0400Respiratory rate18 /minNorma Combs Other [employer] Other 03-22-2023 19:50-3434CuA5% (BldA) [Mass fraction]97 % Norma Lauryn Other [employer] Other Encounters Encounter DateEncounter TypeCare ProviderFacilityStart: 73-91-1777Irakb Vance [facility] Start: 08-02-2024 End: 11-59-1717zutkdrugkyOqfprd E Braun MD Work Phone: [facility] Work Phone: Start: 08-02-2024 End: 43-67-4550Cpslrip encounter procedureTiffany Person LIGHT ARMORED RECONNAISSANCE OFFICER-[facility] Work Phone: Start: 03-19-2024 End: 39-35-9687dhwudlfhivWQGQA FAZIONot AvailableStart: 03-19-2024 End: 02-49-7237Kivuore encounter procedureCorey Jb DO Work Phone: noms HealthcareStart: 03-19-2024 End: 76-65-1780Txopktir preventive med est patient 40-64yrsCorey Jb DO Work Phone: [facility] BCP OBComment on above:Well woman exam with routine gynecological exam; Encounter for screening mammogram for malignant neoplasm of breast; Postmenopausal stateStart: 03-19-2024 End: 23-91-8807Viyukn flowsheetCorey Jb DO Work Phone: [facility] BCP OBStart: 03-19-2024 End: 27-63-4733Rdwjft flowsheetCorey Jb DO Work Phone: [facility] BCP OBStart: 03-19-2024 End: 83-80-1371Kdpkrxmhe Result EncounterCorey Jb DO Work Phone: noms External Department UnsolicitedStart: 03-14-2024 End: 26-25-1871Tqgtzwvas Result EncounterCorey Jb DO Work Phone: noms External Department UnsolicitedStart: 03-14-2024 End: 73-19-9112Emotcrxnc Result EncounterCorey Jb DO Work Phone: noms External Department UnsolicitedStart: 02-06-2024 End: 57-03-8920Pyzyxbxpt Result EncounterCorey Jb DO Work Phone: noms External Department UnsolicitedStart: 02-06-2024 End: 65-15-9158Dikskoprc Result EncounterCorey Jb DO Work Phone: noms External Department UnsolicitedStart: 01-26-2024 End: 45-11-6987Werchevsg Result EncounterCorey Jb DO Work Phone: noms External Department UnsolicitedStart: 01-26-2024 End: 06-79-7447Jicufbduo Result EncounterCorey Jb DO Work Phone: n[facility] External Department UnsolicitedStart: 09-14-2023 Patient encounter statusLaly Sy MD Work Phone: [facility]: 09-14-2023 End: 28-81-7256jtgbvnolekMgzmvhycpLouis [facility] Work Phone: Start: 09-14-2023 End: 31-98-9497Aeigrlb encounter procedureV[facility] GroupMet[facility] Work Phone: Start: 08-25-2023 End: 33-99-9450Doystmjhv Result EncounterCorey Jb DO Work Phone: noms External Department UnsolicitedStart: 08-25-2023 End: 11-12-8501Mgdhbbkfg Result EncounterCorey Jb DO Work Phone: noms External Department UnsolicitedStart: 06-23-2023 Non-patient / Non-visitV[facility] Work Phone: Start: 58-80-4867Meg-patient / Non-visitVidant [facility] Group[facility] Work Phone: Start: 06-07-2023 End: 64-39-9359xhflkecoopNVWFM FAZIONot AvailableStart: 02-22-2023 End: 86-55-7083cpiwazhxztGlnsjj Braun Other [employer] Other Start: 14-98-9988Risjye outpatient visit 15 minutes Laly [facility] ClinicStart: 10-25-2022 End: 57-24-3983gybiikatinFeaqao Braun Other [employer] Other Start: 92-05-8814Txcqjhaqz encounterMaravery Doherty [facility] ClinicStart: 10-04-2022 End: 76-28-0473fjryxecsgaCgixar Braun Other [employer] Other Start: 46-54-7959Hdxrvkfpc for general adult medical examination without abnormal findingsLaly [facility] ClinicStart: 89-58-5230Cgrpcocf preventive med est patient 40-64yrsMbjorn [facility] ClinicStart: 08-26-2022 End: 08-57-8124ynedbqsrnhCsocss E BraunFacility:[facility] Centertart: 08-26-2022 End: 72-25-2986Aihmalfya to same day surgery center Laly Kerrie Work Phone: [facility] Work Phone: Start: 08-26-2022 End: 22-70-7100lhlvdtvqbwPT Marcia E Braun Work Phone: [facility] Work Phone: Start: 08-13-2022 End: 14-05-1465tynttbxdkiNsweee Braun Other [employer] Other Start: 03-68-5405Frbxlodnu encounterLaly [facility]ertart: 08-05-2022 End: 63-47-9533piipjuwcxpHgmphu Braun Other [employer] Other Start: 43-77-3055Qswjasoal encounterLauraavery [facility] ClinicStart: 07-26-2022 End: 78-44-8575dnfcgrvnxgFlzg Asaad Other [facility] [employer] Other Start: 64-74-5753Dloozkgxw encounterImad MarioFPG Referral CoordinatorStart: 07-19-2022 End: 21-09-7812tjncyyraftAwlrbw Sy Other [employer] Other Start: 23-82-8948Gzltoa outpatient visit 15 minutes Laly [facility] ClinicStart: 04-28-2022 End: 94-02-3425vygurfaxfqKcfxoi Dymond Other [facility] [employer] Other Start: 69-37-8908Pshgyy outpatient new 20 minutes Norma CombsFPG Urgent Care ClydeStart: 09-25-2021 End: 06-15-2148bzylllfiexIB MIGNON FAZIOFacility:T7Znjua: 09-21-2021 End: 86-92-9107wohlvtnrcoCE MIGNON FAZIOFacility:C5Wtzrz: 06-17-2021 End: 01-41-0984ivuicakgfeOO LALY SYFacility:O3Lahpb: 12-27-2020 End: 85-56-8761mleawgakjlVJ MIGNON FAZIOFacility:M7Kvgmh: 70-60-6886Jjhwhrwvvy MAXIMILIAN Estes MCGUINNFacility:1532Start: 35-62-5733UbdsdugdgtDjnplttp:9507Start: 10-83-6100YumsktnjbuNJRSTCC P MCGUINNFacility:1532 Procedures DateProcedureProcedure DetailPerforming ClinicianStart: 08-22-2024 End: 17-37-5545Tirhyvsb examinationDavid Vance Start: 44-32-4022GCQ,APTIMA HPV,AGE GDLNCorey Jb DO Work Phone: Start: 83-02-6398NIJ CBC WITH AUTO DIFFCorey JbThuuz Work Phone: Start: 41-20-4572YDX CMP (CMP) (FOR REMOTE [facility] USE) Mignon Testt Work Phone: Start: 19-74-9626DTU PREG QUANT HCGCorey JbThuuz Work Phone: Start: 87-26-2855DZ TOMOSYNTHESIS SCREENING BICorey Testt Work Phone: Start: 96-93-0628UimqqufcorrIfidv Testt Work Phone: Start: 19-11-7855WgtprvsawhmOE Laly Sy Work Phone: Start: 18-14-0838Ychpebowqiy observation [Identifier] in Cervix by Cyto stainCorey Testt Work Phone: Start: 17-49-9442Lcorg Rajiv Plan of Treatment DateCare ActivityDetailAuthorStart: 91-48-5932Wfdgzoarm for malignant neoplasm of cervixNOMS HealthcareStart: 04-01-2025 End: 75-72-3337Fxejjvn encounter procedureNOMS BCP OBStart: 82-53-2296Lmqjmsyik for malignant neoplasm of breastMammogramNOMS HealthcareStart: 08-22-2024 InPerson; Emp Physical OtherInPerson; Emp Physical OtherIN - [facility] Start: 03-19-2024 End: 79-10-5303Qrvwosu encounter iclbwszeq28/10/2025 3:00 PM EST Office Visit [facility] [address] [place] [address] Mignon Muhammad, DO [address] [place] [address] [facility] BCP OBStart: 03-19-2024 End: 43-63-2184ULO Skeletal system Views for bone densityDEXA bone density Imaging Routine Postmenopausal state Expected: 03/19/2024 (Approximate), Expires:03/19/2025NODC HealthcareComment on above:Expected: 03/19/2024 (Approximate), Expires: 03/19/2025Start: 03-19-2024 End: 49-70-9801BY Breast - bilateral ScreeningBilateral screening mammogram Imaging Routine Encounter for screening mammogram for malignant neoplasm of breast Expected: 03/19/2024, Expires: 05/17/2025NODC Healthcare Work Phone: comment on above:Expected: 03/19/2024, Expires: 05/17/2025Start: 12-77-4631Qgjkkeiai vaccinationInfluenza Vaccine (#1)[facility] HealthcareStart: 37-79-7663XanjilzvvBarney Children's Medical Centertart: 1975 Screening for malignant neoplasm of colonCENTRAL VALLEY [facility]ICAL [facility] HealthcarePatient Education [facility] Work Phone: THIN PREP TIS PAP AND HR HPV DNATHIN PREP TIS PAP AND HR HPV DNA Pathology and Cytology Routine Well woman exam with routine gynecol ogical exam Ordered: 03/19/2024[facility] HealthcareComment on above:Ordered: 03/19/2024TonsillectomyTonsillectomyIN - [facility] Immunizations Immunization DateImmunizationNotesCare UqggftetYfedwygv84-55-7199ALUQ-VET-8 (COVID-19) vaccine, mRNA, spike protein, LNP, preservative free, 100 mcg/0.5mL doseDavid Vance [place] - [facility] [id number]-PVF-6 (COVID-19) vaccine, mRNA, spike protein, LNP, preservative free, 100 mcg/0.5mL doseDavid Vance [place] [facility] Payers DatePayer CategoryPayerPolicy [id number] Health InsuranceFRONTPATH [id number] [id number] 2..[id number] 2..1.756362.3.57[id number] 2..1.775823.3.57[id number] 2..1.795425.3.57[id number] 2..1.806234.3.57[id number] 2..1.924439.3.579.[id number] [id number] 2..1.615131.3.579.2.531 Social History DateTypeDetailFacilityStart: 27-95-1974Zgn Assigned At [facility] [employer] Other Start: 08-26-2022 End: 53-87-6631Zejshqe smoking status NHISNever smoked tobacco (finding) [facility]art: 76-07-7970Gys Assigned At BirthFest. [facility]e [facility]ertart: 06-07-2023 End: 69-98-5334Vcnfgjaao beverage intakeLifetime non-drinker (finding)[facility] HealthcareStart: 51-16-0022Czjfxuc of Social functionNOMS HealthcareStart: 03-37-5709Foedpxd CommentCaffeine: 1-2 cups/dayCENTRAL VALLEY [facility]ICAL [facility]ENTER HealthcareStart: 1975 Sex assigned at birthNot on fileCENTRAL VALLEY MEDICAL [facility]ENTER HealthcareSexFemale (finding)[facility] Centertart: 10-40-5876JtpUdhhwjSLNM Healthcare Medical Equipment Procedure CodeEquipment CodeEquipment Original TextEquipment IdentifierDates ProcedureImplant ([id number]) Goals DatePatient GoalDesired Activity/State Clinical Notes 04-28-2022 to 03-19-2024 Note Date & KznuYkbtCqysizno37-50-7697 History of Present illness Narrative* Paty Woodard, ZOHREH - 03/19/2024 3:00 PM EST Reason for Appointment: Patient ID: Noelle Rosales is a 48 y.o. female who presents for Well Women Visit Patient presents today for Annual Exam. MEDICATIONS Current Outpatient Medications Medication Instructions chlorthalidone (Hygroton) 25 MG tablet Daily citalopram (CELEXA) 20 mg, Oral, Daily GaviLyte-G 236 g solution TAKE DIRECTED ON PACKAGE FOR 1 DAY Meclizine HCl 25 MG chewable tablet Every 24 hours meloxicam (Mobic) 15 MG tablet Every 24 hours Tirzepatide (Mounjaro) 5 MG/0.5ML solution auto-injector 0.5 mL, Subcutaneous, Weekly ALLERGIES Allergies Allergen Reactions Iodine Hives Other Reaction(s): hives Other Reaction(s): Unknown Latex PROBLEMS Active Ambulatory Problems Diagnosis Date Noted Insulin resistance 07/11/2023 Resolved Ambulatory Problems Diagnosis Date Noted No Resolved Ambulatory Problems Past Medical History: Diagnosis Date Achilles tendinitis Asthma (CMS/HCC) Fertility testing Hypertension (CMS/HCC) Plantar fasciitis, left Vertigo HISTORY PAST MEDICAL HISTORY SOCIAL HISTORY Past Medical History: Diagnosis Date Achilles tendinitis Asthma (CMS/HCC) Fertility testing Hypertension (CMS/HCC) Plantar fasciitis, left Vertigo Social History Tobacco Use Smoking status: Never Smokeless tobacco: Not on file Substance Use Topics Alcohol use: Never Comment: Caffeine: 1-2 cups/day Drug use: Not on file FAMILY HISTORY Family History Problem Relation Name Age of Onset Hypertension Father Stroke Father Leukemia Father SURGICAL HISTORY Past Surgical History: Procedure Laterality Date SECTION, LOW TRANSVERSE x2 - 2001, 2007 DILATION AND CURETTAGE PAP SMEAR 08/26/2021 Normal ND TONSILLECTOMY & ADENOIDECTOMY AGE 10/> REVIEW OF SYSTEMS Review of Systems: Review of Systems All other systems reviewed and are negative. OBJECTIVE Objective: Physical Exam Constitutional: Appearance: Normal appearance. She is well-developed. Genitourinary: Vulva normal. Breasts: Breasts are soft. Right: Normal. Left: Normal. Cardiovascular: Rate and Rhythm: Normal rate and regular rhythm. Pulmonary: Effort: Pulmonary effort is normal. Breath sounds: Normal breath sounds. Abdominal: General: Bowel sounds are normal. There is no distension. Palpations: Abdomen is soft. Tenderness: There is no abdominal tenderness. There is no guarding or rebound. Musculoskeletal: General: No swelling. Normal range of motion. Right lower leg: No edema. Left lower leg: No edema. Neurological: Mental Status: She is alert and oriented to person, place, and time. Skin: General: Skin is warm and dry. Psychiatric: Mood and Affect: Mood normal. Behavior: Behavior normal. Vitals and nursing note reviewed. Exam conducted with a fabric finisher present. Vitals: Estimated body mass index is 38.64 kg/m as calculated from the following: Height as of 08/27/19: 5' 6 . Weight as of this encounter: 239 lb 6.4 oz. BP: (!) 170/100 No LMP recorded. (Menstrual status: No Periods). ASSESSMENT & PLAN ICD-10-CM 1. Well woman exam with routine gynecological exam Z01.419 THIN PREP TIS PAP AND HR HPV DNA 2. Encounter for screening mammogram for malignant neoplasm of breast Z12.31 Bilateral screening mammogram Bilateral screening mammogram 3. Postmenopausal state Z78.0 DEXA bone density Annual: Patient presents today for an annual exam. Patient states she is doing well and has complaints of weight gain. Patient was previously on Mounjaro and insurance is now denying medication. Nursing had completed a prior authorization last week, which was denied. Pap was obtained without difficulty andpatient given mammogram order to have scheduled/obtained. Faby Javed, F-EMERGENCY MEDICAL SERVICE MANAGER, [place] called patient to inform her that [employer] does not compound Trizepitide and only Semaglutide. At this time patient would like to restart Semaglutide and that it will be sent to [facility], patient aware that any questions in regards to cost/payment can be directed to [facility]. Orders Placed This Encounter Procedures Bilateral screening mammogram DEXA bone density Follow Up: Patient is to return in one year for annual unless needed otherwise. Documented by Paty Woodard LPN on behalf of: Mignon Muhammad DO documented in this encounterCarondelet HealthMlhxnirkhj75-21-1231 Evaluation note* Encounter Date Diagnosis Assessment Notes Treatment Notes Treatment Clinical Notes Feb, Moderate persistent asthma with exacerbation (ICD-10 - J45.41) Pt using nebs and still having signficant shortness of breath. Her Peak Flow is <300. Agress to short course of steroids. Feb,ronchitis (ICD-10 - J40)Take antibiotic as directed. If develop wheezing, chest tightness, itching, bad cough, blue skin color, seizures, swelling of face, lips, tongue, or throat report to ED. Feb,Other obesity due to excess calories (ICD-10 - E66.09) Feb,ody mass index [BMI] 34.0-34.9, adult (ICD-10 - Z68.34)Form faxed to [employer] for semaglutide - starting dose. Pt unable to report weight, but states she has gained since Mounjaro went up to $900 and she stopped it. She feels poorly and would like the more affordable option at [facility] Other 08-28-2023 Evaluation note* Encounter Date Diagnosis Assessment Notes Treatment Notes Treatment Clinical Notes Sep, Well adult exam (ICD-10 - Z00.00 ) We have discussed the necessity of following [...] vaccinations that apply. All questions answered and p atient is sent home pleased, without concerns. [employer] Other 07-20-[address] [facility] Evaluation note* Encounter Date Diagnosis Assessment Notes Treatment Notes Treatment Clinical Notes Jul, Rectal bleeding (ICD-10 - K62.5) Jul,olon cancer screening (ICD-10 - Z12.11)as above Jul,Essential (primary) hypertension (ICD-10 - I10)improved. OK to hold med and continue check home bps. Jul,Mitral valve prolapse (ICD-10 - I34.1)chronic problem. continue monitoring symptoms. [employer] Other 03-22-2023 Evaluation note* Encounter Date Diagnosis Assessment Notes Treatment Notes Treatment Clinical Notes Apr, Tendonitis of foot (ICD-10 - M77 .50) Wear the Jesus wrap for comfort and compression. Use the postop shoe for comfort and protection. Ice and elevate your foot 2-3 times a day. Take ibuprofen, 600 mg by mouth with food 3 times a day for 5to 7 days. Follow-up with your family physician if no improvement in 5 to 7 days. Apr,OtherFootball: young athlete material was printed, Tendonitis home care material was printed [employer] Other Evaluation noteNo InformationNort Nominum Other Evaluation noteNo assessment information available [facility] Work Phone: Evaluation note* Diagnosis Well woman exam with routine gynecological exam Routine gynecological examination Encounter for screening mammogram for malignant neoplasm of breast Postmenopausal state Asymptomatic postmenopausal status (age-related) (natural) documented in this encounter [facility]* Diagnosis Onset Date Resolution Status Admit Date Low back pain noneactiveJune 2024 11:25am [facility] Work Phone: Evaluation note No assessment recorded. [place] - [facility] History and physical note Author Benja Martin [facility] August 26, 2022 9:34amNote Date/TimeJuly 2022 9:34[place] [address] Gastroenterology H&P Signed Patient: Noelle Rosales MR#: [id number] : 1975 Acct:[id number] Age/Sex: 47 / F Adm Date: 3 Loc: Room: Type: [facility] Attending Dr: Benja Martin MD Copies to: MD Laly Jones MD~ Date of Service: 08/26/2022 HISTORY & PHYSICAL: Patient's history with special attention to the cardiovascular, pulmonary systems and the current problem was reviewed with the patient immediately prior to the procedure. Present medications and doses reviewed in the EMR. Allergies and pertinent laboratory tests were also re viewedat this time in the EMR. The physical [...] <Electronically signed by Benja Martin MD> 08/26/22933 [facility] Work Phone: history general Narrative - Reported* Type Description Date Medical History Hypertension Medical HistoryasthmaMedical Historymitral valve prolapseSurgical History [id number] [address], 2007Hospitalization History childbirth [employer] Other Hisyked general Narrative - Reported* Type Description Date Medical History Hypertension Medical HistoryasthmaMedical Historymitral valve prolapseMedical HistoryInsulin resistanceMedical HistoryHormone imbalanceMedical HistoryInsomniaSurgical Uuquedxucazsgshfqxss4357Ygbyzthe HistoryC section x , 2007Hospitalization Historychildbirth [employer] Other Hiszmxm general Narrative - Reported* Condition Response Heart Valve Disorder Y Asthma Y Hypertension (High Blood Pressure) Y Gynecological HistoryNo gynecological history recorded. Obstetrics History GPAL:G 0 P 0 0 0 0 [place] [facility] Discharge instructions Additional Instructions DISCHARGE INSTRUCTIONS [...] pathology -Follow up with PCP. -Office number [phone]. [facility] Work Phone: Reason for referral (narrative)No reason for referral information availableOur [facility] Work Phone: Summary Purpose Family History Relationship Condition Age at Onset Recorded Date/T malu grandparent Malignant neoplasm of colon Unknown fatherLeukemiaUnknownNot SpecifiedDisorder of thyroidUnknowngrandparentHeart diseaseUnknown Relationship Condition Age at Onset Recorded Date/T malu grandparent Malignant neoplasm of colon Unknown fatherLeukemiaUnknownmotherDisorder of thyroidUnknowngrandparentHeart disease UnknownfatherHypertensionUnknownMalignant neoplasmUnknownFamily history of colon cancerUnknowngrandparentMalignant neoplasmUnknownmotherFamily history of thyroid diseaseUnknown Relationship Description Onset Age of this Age Resolved Age Notes LastModified by Organization Details LastModified Time Mother Hypercholesterolemia gqtzdbm27Fvj ganniyvrp76/16/2025 15:59:11MotherDisorder of thyroid gland kyleppd34Pii aipbwrrkh19/16/2025 15:59:67BxeoauZsxhphouxmeyovzn73Jod available 08/22/2024 15:59:11Maternal NxuhpyqvcklXfomvqmcmtsboel08Goh /16/2025 15:59:11Paternal GrandfatherAlzheimer's eaasqqwyfmnmgq00Pnx lvoyyfbdp58/16/2025 15:59:11FatherMalignant neoplastic kcvebpvlvstqdi99Pub odijotsjm86/16/2025 15:59:11 Advance Directives Advance Directive Response Recorded Date/ Time Advance Directives No August 25 10:32am Reason for Referral Reason *Waiting for appt due for screening colonoscopy and also has rectal bleeding - assumes it is a hemorrhoid - but is concerned. Diagnosis 1 Rectal bleeding (K62 .5) Referral Organization [facility] Referring Provider First Name Laly Referring Provider Last Name Kerrie Referring Provider Specialty Family Medi cine Referred Organization [facility] Gastroenterolo gy Referred Provider Ramos Barr Referred Address [address],[facility] [address], [place],[address] Referred Provider Specialty Gastroentero logy Referral Priority Routine General Notes Morena Cohen 12:03:33 PM >received today, sent P2P Chief Complaint and Reason for Visit Chief Complaint Rectal Bleeding Chief Complaint wellness Chief Complaint Admit Date lower back pain, tight muscle August 02, 2024 11:25am Reason for Visit Admit Date Low back pain August 02, 2024 11:2 5am Additional Source Comments INFORMATION SOURCE (unrecogn ized section and content) DATE CREATED AUTHOR 07/28/2017 [facility] DATE CREATED AUTHOR AUTHOR'S ORGANIZ ATION 07/28/2017 [facility] DATE CREATED AUTHOR AUTHOR'S ORGANIZ ATION 10/04/2021 [facility] DATE CREATED AUTHOR AUTHOR'S ORGANIZ ATION 09/02/[address] [facility] DATE CREATED AUTHOR AUTHOR'S ORGANIZ ATION 03/21/2024 [facility] EPIC REASON FOR VISIT (unrecogniz ed section and content) ReasonCommentsWell Women Visit Care Teams (unrecognized sec tion and content) Team Status: Active Member Role Status Dates Laly Sy MD Primary Care Provider Active Team Status: Inactive Member Role Status Dates Laly Sy MD Primary Care Provider Active Start: August 02, 2024 End: August 02, 2024Bree Bowers ProviderActiveStart: August 02, 2024 End: August 02, 2024 Team Status: Active Member Role Status Dates Laly Sy MD Primary Care Provider Active Start: June 16, 2023 Sabine Costa ProviderActiveStart: June 16, 2023 Team Status: Active Member Role Status Dates Laly Sy MD Primary Care Provider Active Start: June 23, 2023 Mignon JbSabine abreu ProviderActiveStart: June 23, 2023 Team Status: Inactive Member Role Status Dates Laly Sy MD Primary Care Provide r, Attending Provider Active Start: September 14, 2023 End: September 14, 2023 Team Status: Inactive Member Role Status Dates Laly Sy MD Primary Care Provider Active Imad Mario MDAttadriana ProviderActiveTeam MemberRelationshipSpecialtyStart DateEnd Date Laly Sy MD [address] [place] [phone] PCP - [facility]03/19/24Team MemberRelationshipSpecialtyStart DateEnd Date Laly Sy MD [address] [place] [phone] PCP - [facility]03/19/24Team MemberRelationshipSpecialtyStart DateEnd Date Laly Sy MD [address] [place] [phone] [facility] - [facility]03/19/24Team MemberRelationshipSpecialtyStart DateEnd Date Laly Sy MD [facility] - [facility] Goals (unrecognized section and content) Goals may [...] BE BASED ON THE PRIMARY CLINICAL RECORDS. [facility]. provides no warranty or guarantee of the accuracy or completeness of information in this document.
--- NOTE | 2024-12-10 14:39 | XR_ITS ---
The [address] [address] Patient Name: NOELLE ROSALES MRN: [id number] date: 1975 Sex: F Assigned Patient Location: LAB Current Patient Location: LAB Accession/Order Number: [id number] Exam Date: 12/10/2024 14:45 Report Date: 12/10/2024 16:08 At the request of: PETER SY MD Procedure: XR chest 2V PA AND LATERAL CHEST: CLINICAL HISTORY: Asthma, Fatigue COMPARISON: 01/17/2024 FINDINGS: Unremarkable cardiomediastinal. Lungs clear. No effusion or pneumothorax. XR/XR chest 2V IMPRESSION: NO ACUTE CARDIOPULMONARY ABNORMALITY. Impression dictated by: Danial Amato M.D. 12/10/2024 4:08 PM Dictation Location: [place] [address] Electronically authenticated by: [id number] Y Date: 12/10/2024 16:08
[2024-12-10 14:52] LABS: Hematocrit 43.1 % (36.0-48.0); Hemoglobin 14.2 g/dL (12.0-16.0); Immature Granulocytes Abs Auto 0.02 10^3/uL (0.00-0.03); Immature Granulocytes Pct Auto 0.2 % (0.0-0.5); Lymphocytes Absolute Auto 2.5 10^3/uL (1.2-3.8); Mean Corpuscular HGB Conc 32.9 g/dL (29.9-35.2); Mean Corpuscular Hemoglobin 28.7 pg (26.7-34.0); Mean Corpuscular Volume 87.2 fL (81.0-99.0); Platelet Count 236 10^3/uL (150-450); Red Blood Count 4.94 10^6/uL (4.20-5.40); White Blood Count 8.5 10^3/uL (4.0-11.0)
[2024-12-10 15:25] LABS: Magnesium 1.9 mg/dL (1.8-2.4); Thyroid Stimulating Hormone 1.340 uIU/mL (0.358-3.740)
[2024-12-10 15:38] LABS: Ferritin 130.0 ng/mL (8.0-252.0); Folate 15.40 ng/mL (8.60-58.90)
[2024-12-11 04:07] LABS: Vitamin B12 363 pg/mL (232-1245)
== END 2024-12-10 14:15 | disposition home or self-care (01) ==
LOC: LAB 14:16
PROVIDERS: PCP Family Medicine; Visit Provider Family Medicine
DX: J45.20 Mild intermittent asthma, uncomplicated (principal); R53.83 Other fatigue; I10 Essential (primary) hypertension
CPT/HCPCS: 36415; 71046; 82607; 82728; 82746; 83735; 84443; 84630; 85025

== ENCOUNTER 2024-12-25 14:46 | Outpatient (OUT) | payer OTHER, SELFPAY ==
--- OUTSIDE RECORDS SUMMARY | 2024-12-25 14:52 | XMS_ITS | CCD ---
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 Name Role Phone MAXIMILIAN HARDY Unavailable Unavailable LALY SY Unavailable Unavailable ANTONY MAXIMILIAN Franklyn Unavailable Unavailable LALY SY Unavailable Unavailable JB, [...] Primary Care Unavailable Norma Combs Unavailable Laly yS Unavailable Asaad, Imad Unavailable MD Laly Sy Primary Care Provider MD Benja Martin Attending Provider Laly Sy Primary Care Unavailable Asaad, Imad Attending Unavailable Asaad, Imad Admitting Unavailable Unavailable Primary Care Provider UnavailLaly Singh MD Primary Care Provider MIGNON MUHAMMAD Attending Unavailable MIGNON MUHAMMAD Attending Unavailable Laly Sy MD Primary Care Provider Tiffany Person APRN Attending Provider LALY SY Unavailable Laly Sy MD Primary Care Provider Laly Sy MD Primary Care Provider Laly Sy MD Attending Provider [phone] Allergies Allergy ClassificationReported Allergen(s)Allergy TypeDate of OnsetReaction(s) Facility (2 sources)IodineDrug Ayrwolt60-27-4025VjthmZrqOhio [facility] (17 sources)Iodine; Translations: [IODINE]Drug Vwdeevw37-24-9190oczdoXMOM Healthcare (1 source)IodineDrug Dqyhxtk97-23-7996BzqglidnqEast [facility] Repository (8 sources)LatexPropensity to adverse abaktvwbd96-32-3474VEJY Healthcare Medications Current Medications MedicationDrug Class(es)DatesSig (Normalized)Sig (Original)0.5 ML tirzepatide 20 MG/ML Auto-Injector [Mounjaro] (6 sources)Mounjaro 10 MG/0.5ML as directed Subcutaneous Dr. Muhammad Active [id number] 200 actuat albuterol 0.09 mg/actuat metered dose inhaler (4 sources)beta2-Adrenergic AgonistStart: 93-95-8035hyqf 1 puff(s) by inhalation every four to six hours as needed for wheezingAlbuterol Sulfate 90 mcg/actuation HFA aerosol inhaler Active 2 PUFF INHALATION EVERY 4-6 HOURS as n eeded for shortness of breath or wheezing 8.5 0 December 10, 2024 12:00am Complies with drug therapyStart: 47-25-1268ltvw 2.5 mg by inhalation four times daily as needed for wheezingAlbuterol Sulfate 2.5 mg /3 mL (0.083 %) solution for nebulization Active 2.5 MG INHALATION Four times daily as needed for shortness of breath or wheezing 90 January 20, 2024 12:00am Complies with drug therapyazithromycin 250 mg oral tablet (1 source)Macrolide AntimicrobialStart: 19-48-9049Fdpgwqwfqmsn 250 MG as directed Orally 2 tabs po today, then 1 tab daily x 4 more days for 5 Feb, Activechlorthalidone 25 mg oral tablet (20 sources)Thiazide-like DiureticStart: 08-15-2023 End: 73-32-6538bqmq 1 tablet by mouth once dailyChlorthalidone 25 mg tablet Active 0 .ROUTE .COMPLEX 90 0 December 05, 2023 7:53pm TAKE 1 TABLET BY MOUTH DAILY Complies with drug therapyStart: 36-13-2341pgqv 1 tablet by mouth once dailyChlorthalidone Active 0 .ROUTE .COMPLEX 90 August 15, 2023 10:22am take 1 tablet by mouth once dailyStart: 08-26-2022 End: 64-91-7272eazy 1 tablet by mouth once dailyChlorthalidone 25 mg tablet Discontinued 25 MG PO Daily August 25, 2022 11:00pm August 15, 2023 9:23am Chlorthalidone Activecitalopram 20 mg oral tablet (19 sources)Serotonin Reuptake InhibitorStart: 08-26-2022 End: 32-47-3770puzz 1 tablet by mouth once dailyCitalopram 20 mg tablet Active 20 MG PO Daily August 25, 2022 11:00pm Complies with drug therapytake 1 tablet by mouth every twenty-four hoursCitalopram Hydrobromide 10 MG 1 tablet Orally Once a day ActiveFluticasone Propion-Salmeterol (1 source)Corticosteroid, beta2-Adrenergic AgonistStart: 96-18-3616gqho 1 puff(s) by inhalation twice dailyFluticasone Propion-Salmeterol (Advair Hfa) 115-21 mcg/actuation HFA aerosol inhaler Active 2 PUFF INHALATION Twice daily 12 December 10, 2024 12:00am administer with spacer Complies with drug therapy loratadine 10 mg oral tablet (11 sources)Start: 51-54-8721hcts 1 tablet by mouth once dailyLoratadine (Claritin) 10 mg tablet Active 1 TAB PO Daily September 12, 2023 11:00pm FreeTextSi tablet Orally Once a day; Note: Source Status: Taking; Provider: Kristofer Ruffin ( ) Complies with drug therapyStart: 65-73-6486wwiy 1 tablet by mouth every twenty-four hoursClaritin [...] ActivemethylPREDNISolone 4 mg oral tablet (1 source)CorticosteroidStart: 91-21-7175paezewSUZZVTVjgfrp 4 MG as directed Orally for 6 days Feb, Activemounjaro 10 mg/0.5ml solution pen-injector (1 source)Mounjaro 10 MG/0.5ML as directed Subcutaneous Dr. Muhammad Active polyethylene glycol 3350 677796 mg / potassium chloride 2970 mg / sodium bicarbonate 6740 mg / sodium chloride 5860 mg / sodium sulfate 40456 mg powder for oral solution (11 sources)Osmotic LaxativeStart: 34-36-9917CusuRapu-G 236 g solution TAKE DIRECTED ON PACKAGE FOR 1 DAY 07/29/2022 ActiveStart: 62-45-6768ILM- 3350/Electrolytes 236 GM as directed Orally once daily for 1 days Jul, ActivePost-OP Shoe/Soft Top Women - (1 source)Start: 03-79-1907Terl-OP Shoe/Soft Top Women - as directed Apr, Activesulfamethoxazole 800 mg / trimethoprim 160 mg oral tablet (1 source)Dihydrofolate Reductase Inhibitor Antibacterial, Sulfonamide Antimicrobialtake 1 tablet by mouth every twelve hoursBactrim DS 800-160 MG 1 tablet Orally Twice a day for 5 days ActiveTirzepatide (Mounjaro) 5 MG/0.5ML solution auto-injector (7 sources)Start: 03-12-2024 End: 60-27-6700cefasu 0.5 mL by subcutaneous injection every weekTirzepatide (Mounjaro) 5 MG/0.5ML solution auto-injector Indications: Insulin resistance , Weight gain Inject 0.5 mL under the skin 1 (one) time per week 2 mL 03/12/2024 04/11/2024 ActiveStart: 01-30-2024 End: 78-60-5946lprhea 0.5 mL by subcutaneous injection every weekTirzepatide (Mounjaro) 5 MG/0.5ML solution auto-injector Indications: Insulin resistance , Weight gain Inject 0.5 mL under the skin 1 (one) time per week 2 mL 01/30/2024 02/29/2024 ActiveStart: 12-29-2023 End: 40-91-9567oeedlf 0.5 mL by subcutaneous injection every weekTirzepatide (Mounjaro) 5 MG/0.5ML solution auto-injector Indications: Encounter for long- term (current) drug use , Insulin resistance Inject 0.5 mL under the skin 1 (one) time per week 2 mL 12/29/2023 01/28/2024 ActiveTirzepatide (Mounjaro) 7.5 MG/0.5ML solution auto-injector (1 source)Start: 01-30-2024 End: 06-66-1894tbqqfo 0.5 mL by subcutaneous injection every weekTirzepatide (Mounjaro) 7.5 MG/0.5ML solution auto-injector Indications: Insulin resistance , Weightgain Inject 0.5 mL under the skin 1 (one) time per week Patient request refill, please discontinue 5mg dosage if not needed. 2 mL 3 01/30/2024 02/29/2024 Active Completed/Discontinued Medications MedicationDrug Class(es)DatesSig (Normalized)Sig (Original)acetaminophen 325 mg / HYDROcodone bitartrate 5 mg oral tablet (3 sources)Opioid AgonistStart: 08-02-2024 End: 62-52-8221mizn 1 tablet by mouth every six hours as needed for pain Hydrocodone-Acetaminophen 5-325 mg tablet Discontinued 1 TAB PO Every 6 hours as needed for pain 103 0 August 02, 2024 December 10, 2024 1:31pm Sciatica Sciatica, unspecified side End: 16-98-2394diri 1 tablet by mouth every six hours as needed for pain hydrocodone 5 mg-acetaminophen 325 mg tablet TAKE 1 TABLET BY MOUTH EVERY 6 HOURS NEEDED FOR PAIN 08/22/2024 completed Not Available Not Available Not Availableamoxicillin 875 mg oral tablet (1 source)Penicillin-class Antibacterial End: 86-29-4870flmq 1 tablet by mouth every twelve hoursamoxicillin 875 mg tablet TAKE 1 TABLET BY MOUTH EVERY 12 HOURS UNTIL GONE 08/22/2024 completed Not Available Not Available Not Availablecyclobenzaprine hydrochloride 10 mg oral tablet (3 sources)Muscle RelaxantStart: 08-02-2024 End: 01-61-4767ogug 1 tablet by mouth twice daily as needed for muscle spasms Cyclobenzaprine 10 mg tablet Discontinued 10 MG PO Twice daily as needed for muscle spasm 14 0 2024 11:00pm December 10, 2024 1:31pm12 hr dextromethorphan hydrobromide 60 mg / guaiFENesin 1200 mg extended release oral tablet (1 source)Uncompetitive J-mqsitu-X-aspartate Receptor Antagonist, Sigma-1 Agonist End: 40-66-0383tylz 1 tablet by mouth twice dailyMucinex DM 60 mg-1,200 mg tablet,extended release 12 hr TAKE 1 TABLET BY MOUTH TWICE DAILY 08/22/2024 completed Not Available Not Available Not Availablemethocarbamol 750 mg oral tablet (1 source)Muscle Relaxant End: 56-68-5422dqih 1 tablet by mouth three times dailymethocarbamol 750 mg tablet TAKE 1 TABLET BY MOUTH THREE TIMES DAILY 08/22/2024 completed Not Availa ble Not Available Not AvailableMounjaro 2.5 mg/0.5 mL subcutaneous pen injector (1 source) End: 75-30-1843kqflxs 0.5 mL by subcutaneous injection every weekMounjaro 2.5 mg/0.5 mL subcutaneous pen injector INJECT 0.5ml SUBCUTANEOUSLY (UNDER THE SKIN) ONCE A WEEK 08/22/2024 completed Not Available Not Available Not Available Mounjaro 5 mg/0.5 mL subcutaneous pen injector (1 source) End: 78-39-7650jhltip 0.5 mL by subcutaneous injection every weekMounjaro 5 mg/0.5 mL subcutaneous pen injector INJECT 0.5ml SUBCUTANEOUSLY (UNDER THE SKIN) ONCE A WEEK 08/22/2024 completed Not Available Not Available Not Available Mounjaro 7.5 mg/0.5 mL subcutaneous pen injector (1 source) End: 35-65-7522ntnrbm 0.5 mL by subcutaneous injection every weekMounjaro 7.5 mg/0.5 mL subcutaneous pen injector INJECT 0.5ml SUBCUTANEOUSLY (UNDER THE SKIN) ONCE A WEEK 08/22/2024 completed Not Available Not Available Not Available predniSONE 20 mg oral tablet (5 sources)Start: 08-02-2024 End: 68-35-5223Cplzhlgydm 20 mg tablet Discontinued 0 PO Daily 11 9 0 August 01, 2024 11:00pm December 10, 2024 1:31pm Take 2 tabs x 3 days, take 1 tab x 3 days, take 1/2 tab x 3 days orally daily;Start: 71-40-7778hqfdnwEXEN 10 MG 4 tabs po daily x 2 days, 3 tabs daily x 2 days, 2 tabs daily x 2 days, 1 tab daily x 2 days Orally Once a day for Jul, ActiveTirzepatide (4 sources)Start: 08-26-2022 End: 79-41-5155Vmlxzrratvf (Mounjaro) 7.5 mg/0.5 mL pen injector Discontinued 7.5 MG SUBCUT every week August 25, 2022 11:00pm August 02, 2024 10:30amStart: 08-26-2022 End: 52-23-0434Pwrutdpmzrg (Mounjaro) 7.5 mg/0.5 mL pen injector Discontinued 7.5 MG SUBCUT every week August 26, 2022 12:00am August 02, 2024 11:30amStart: 81-55-6769Jedlrzfrsac (Mounjaro) 7.5 mg/0.5 mL pen injector Active 7.5 MG SUBCUT every week August 26, 2022 12:00am Problems Active Problems Problem ClassificationProblemDateDocumented DateEpisodic/ChronicAsthma (5 sources)Exacerbation of moderate persistent asthma; Translations: [Moderate persistent asthma with (acute) exacerbation]ChronicChronic obstructive pulmonary disease and bronchiectasis (1 source)Bronchitis, not specified as acute or chronicEpisodicEssential hypertension (12 sources)Essential (primary) hypertension; Translations: [Essential hypertension]Onset: 79-38-3657MkjuwbyUlrdkmstx hypertension (2 sources)Essential hypertensionOnset: 34-22-4801Smhwrbbmofqcbfaj hemorrhage (1 source)Hemorrhage of anus and rectumEpisodicHeadache; including migraine (2 sources)Headache; Translations: [Headache]18-73-4974TelewjpwKeuet valve disorders (8 sources)Mitral valve prolapse; Translations: [Nonrheumatic mitral (valve) prolapse]ChronicImmunizations and screening for infectious disease (1 source)Encounter for screening for human papillomavirus (HPV); Translations: [ENC SCREENING HUMAN PAPILLOMAVIRUS]Onset: 43-41-7012XhzhbmstKzwaoca and fatigue (2 sources)Fatigue; Translations: [Other fatigue]27-54-5245YfywjkhxOpjpt connective tissue disease (1 source)Other enthesopathy of unspecified foot and ankleEpisodicOther endocrine disorders (7 sources)Disorder of endocrine system; Translations: [Endocrine disorder, unspecified]EpisodicOther lower respiratory disease (1 source)Dyspnea, unspecified; Translations: [Dyspnea, unspecified]Onset: 77-15-9091NnjlbnmzSqsud lower respiratory disease (8 sources)Dyspnea on exertion; Translations: [Dyspnea on exertion]EpisodicOther nutritional; endocrine; and metabolic disorders (4 sources)Metabolic syndrome; Translations: [METABOLIC SYNDROME]Onset: 54-23-1744LtqkummTvufz nutritional; endocrine; and metabolic disorders (15 sources)Insulin resistance; Translations: [Metabolic syndrome]Onset: 648531-88-9658KgxrdmrEekym nutritional; endocrine; and metabolic disorders (1 source)Obesity [...] screening mammogram for malignant neoplasm of breast]Onset: 80-41-0539TnixaljaPikkcvdv codes; unclassified (1 source)Family history of malignant neoplasm of digestive organs; Translations: [FAM HX MALIG NEOPLASM DIGESTIV ORGN]Onset: 42-25-1331Jnoepazo Residual codes; unclassified (7 sources)Insomnia; Translations: [Insomnia, unspecified]EpisodicResidual codes; unclassified (2 sources)Postmenopausal state; Translations: [Asymptomatic menopausal state] 10-80-0128QplommxeGghfqcmukts; intervertebral disc disorders; other back problems (3 sources)Sciatica; Translations: [Sciatica, unspecified side]08-02-2024 EpisodicUnclassified (2 sources)Dyspnea, unspecified / R06.00(ICD-9)Onset: 20-74-5986Cyqxrqqustap (1 source)Edema, unspecified / R60.9(ICD-9)Onset: 55-45-5758Btbxuwrsgwvb (1 source)Obesity, unspecified / E66.9(ICD-9)Onset: 93-47-3595Dvlhkrwtlumk (1 source)Hemorrhage of anus and rectum; Translations: [Hemorrhage of anus and rectum]Onset: 08-26-2022 Past or Other Problems Problem ClassificationProblemDateDocumented DateEpisodic/ChronicNonspecific chest pain (4 sources)Chest pain, unspecified; Translations: [CHEST PAIN UNSPECIFIED]Onset: 75-56-5652KxrituxhYozax endocrine disorders (4 sources)Endocrine disorder, unspecified; Translations: [ENDOCRINE DISORDER UNSPECIFIED]Onset: 03-68-1450Xviuymab Results Test NameValueInterpretationReference RangeFacilityIGP,APTIMA HPV,AGE GDLNon 59-09-6967ASD GDLN ACOG TESTINGNote.NOMS HealthcareComment on above:TESTS RESULT FLAG UNITS REF RANGE LAB Clinician Provided Cytology Information Source.............Cervix;Endocervix No. of containers..01 ThinPrep Vial Age Algo ACOG Dimple... 28- FLAG LEGEND: L-Low Normal,H-High Normal,LL-Alert Low,HH-Alert High <-Panic Low,>-Panic High,A-Abnormal,AA-Critical Abnormal Performed at: 01 =[address] [place] [address] Marina Jimenez MD, HPV APTIMANegativeNegativeNOMS HealthcareComment on above:This nucleic acid amplification test detects fourteen high- risk HPV types (16,18,31,33,35,39,45,51,52,56,58,59,66,68) without differentiation. Performed at: =[address], [place] [id number] Work Manager: Marina Jimenez MD, Phone: [phone] Performed at: [facility] [address] [place] [address], [place] [id number] Work Manager: Gage Bennett PhD, Phone: [phone] IGP, APTIMA HPV, RFX 16/18,45Note.NOMS HealthcareComment on above:TESTS RESULT FLAG UNITS REF RANGE LAB DIAGNOSIS: 02 NEGATIVE FOR INTRAEPITHELIAL LESION OR MALIGNANCY. Specimen adequacy: 02 Satisfactory for evaluation. Endocervical and/or squamous metaplastic cells (endocervical component) are present. Performed by: Ezequiel Ball, Screen Printer Helper ([facility]) . 02 Note: Note 03 The Pap [...] High,A-Abnormal,AA-Critical Abnormal Performed at: 02 [facility] [address] [place] [id number] Gage Bennett PhD, 03 WB [facility] [address] [address] Marina Jimenez MD, BRUSH-SPATULA CERVIX ENDOCERVIX CLINISYNCNOWY HealthcareALL CBC WITH AUTO DIFFon 04-07-2886PEFNJCYEE ABSOLUTE AUTO0.1NOMS HealthcareBasophils/100 WBC (Bld)0.6 %0.2 - 2.0 %[facility] Eosinophils/100 WBC (Bld)1.2 %0.9 - 7.0 %NOMS HealthcareErythrocyte distribution width (RBC) [Ratio]12.7 %11.0 - 15.0 %NOMS HealthcareHematocrit (Bld) [Volume fraction]41.4 %36.0 - 48.0 %NOMS HealthcareHemoglobin (Bld) [Mass/Vol]13.8 g/dL 12.0 - 16.0 g/dLNOCapital Region Medical CenterIMMATURE GRANULOCYTES ABS AUTO0.01N[facility] Immature granulocytes/100 WBC (Bld)0.1 %0.0 - 0.5 %NOMS HealthcareLYMPHOCYTES ABSOLUTE AUTO3.1NOMS HealthcareLymphocytes/100 WBC (Bld)37 %20.5 - 60.0 %NOMSaint John'S Health SystemMCH (RBC) [Entitic mass]28.6 pg26.7 - 34.0 pgNOCapital Region Medical CenterMCHC (RBC) [Mass/Vol]33.3 g/dL29.9 - 35.2 g/dLNOMS HealthcareMCV (RBC) [Entitic vol]85.9 fL 81.0 - 99.0 fLNOWY HealthcareMONOCYTES ABSOLUTE AUTO0.5N[facility] Healthcare Monocytes/100 WBC (Bld)6 %1.7 - 12.0 %NOMS HealthcareNEUTROPHILS ABSOLUTE AUTO 4.6NOMS HealthcareNeutrophils/100 WBC (Bld)55.1 %43.0 - 75.0 %[facility] Platelet mean volume (Bld) [Entitic vol]11.5 fL9.5 - 13.5 fLNOMS HealthcareTBH EO #0.1NOMS HealthcareTBH DIU197SLWB HealthcareTBH RBC4.82NOMS HealthcareTBH WBC 8.4NOMS HealthcareCLINISYNCNOMS HealthcareCCF CMP (CMP) (FOR REMOTE [facility] USE)on 96-59-2601Soboczc [Mass/Vol]3.8 g/dL3.4 - 5.0 g/dLNOWY HealthcareALBUMIN GLOBULIN RATIO1.1NOMS HealthcareALP [Catalytic activity/Vol]80 U/L46 - 116 U/L NOMS HealthcareALT [Catalytic activity/Vol]29 U/L14 - 59 U/LNOMS HealthcareAnion gap [Moles/Vol]11.3 mmol/LNOMS HealthcareAST [Catalytic activity/Vol]19 U/L15 - 37 U/LNOMS HealthcareBilirubin [Mass/Vol]0.4 mg/dL0.2 - 1.0 mg/dLNOWY Healthcare Calcium [Mass/Vol]9.5 mg/dL8.5 - 10.1 mg/dLNOWY HealthcareChloride [Moles/Vol] 106 mmol/L98 - 107 mmol/LNOMS HealthcareCO2 [Moles/Vol]31.3 mmol/L21.0 - 32.0 mmol/LNOMS HealthcareCreatinine [Mass/Vol]0.87 mg/dL0.55 - 1.02 mg/dLNOWY HealthcareGFR/1.73 sq M.predicted CKD-EPI (S/P/Bld) [Vol rate/Area]>60>=60 mL/min/1.73m 2NOMS HealthcareGlobulin (S) [Mass/Vol]3.6 g/dLNOMS Healthcare Glucose [Mass/Vol]95 mg/dL74 - 106 mg/dLNOWY HealthcarePotassium [Moles/Vol]3.6 mmol/L3.5 - 5.1 mmol/LNOMS HealthcareProtein [Mass/Vol]7.4 g/dL6.4 - 8.2 g/dL NOMS HealthcareSodium [Moles/Vol]145 mmol/L136 - 145 mmol/LNOMS HealthcareTBH EGFR-NON AF CITIZEN OF [place]>60>=60 mL/min/1.73m 2NOMS HealthcareUrea nitrogen [Mass/Vol]11 mg/dL7.0 - 18.0 mg/dLNOMS HealthcareUrea nitrogen/Creatinine [Mass ratio]12.6 mg/mgNOMS HealthcareCLINISYNCNOMS HealthcareTBH PREG QUANT HCGon 43-09-1362RPA IELGEEONVSAR23mBT/mLNOMS HealthcareComment on above:5-50 0.2-1 WEEK 50-500 1-2 WEEKS 100-5,000 2-3 WEEKS 500-10,000 3-4 WEEKS 1,000-50,000 4-5 WEEKS 10,000-100,000 5-6 WEEKS 15,000-200,000 6-8 WEEKS 10,000-100,000 2-3 MONTHS CLINISYNCNOWestern [facility] TOMOSYNTHESIS SCREENING BIon 94-03-9072XfaSal[place], [place] [address] Mammography Report Signed Patient: NOELLE ROSALES MR#: [id number] : 1975 Acct:[id number] Age/Sex: 48 / F ADM Date: 08/24/23 Loc: MAMMO Attending Dr: Mignon Muhammad D.O. Ordering Physician: Mignon Muhammad D.O. Results: Date of Service: 08/24/23 Follow Up: Procedure(s): MM tomosynthesis screening BI Accession Number(s): [id number] cc: Laly Sy M.D.; Mignon Muhammad D.O. Patient Name: NOELLE ROSALES MR#: [id number] : 1975 Exam Date: 08/24/2023 Ordering Doctor: [...] colon cancer at age 68. LOCATION: [facility] BREAST COMPOSITION: The breasts are heterogeneously [...] Signed By: 08/25/23 1521 DD/ 1520 TD/TT: Buying Intern:TBHRadiology, Radiologist, MD - 08/25/2023 [place] [address] Mammography Report Signed Patient: NOELLE ROSALES MR#: [id number] : 1975 Acct:[id number] Age/Sex: 48 / F ADM Date: 08/24/23 Loc: MAMMO Attending Dr: Mignon Muhammad D.O. Ordering Physician: Mignon Muhammad D.O. Results: Date of Service: 08/24/23 Follow Up: Procedure(s): MM tomosynthesis screening BI Accession Number(s): [id number] cc: Laly Sy M.D.; Mignon Muhammad D.O. Patient Name: NOELLE ROSALES MR#: [id number] : 1975 Exam Date: 08/24/2023 Ordering Doctor: [...] colon cancer at age 68. LOCATION: [facility] BREAST COMPOSITION: The breasts are heterogeneously [...] Signed By: 08/25/23 1521 DD/ 1520 TD/TT: Buying Intern: V[facility]AL [facility] HospitalRadiology Study observation (narrative)[facility] TOMOSYNTHESIS SCREENING BIOrdered By: Radiologist Radiology on 84-76-4204DPYBThe Rehabilitation Institute Work Phone: Glucose mean value [Mass/volume] in Blood Estimated from glycated hemoglobinon 93-20-4463Ehcevlm glucose Estimated from glycated hemoglobin (Bld) [Mass/Vol]111 mg/dLEast Ohio Regional HospitalLaboratory - Hematology and Cell countson 02-94-2094BdD4y (Bld) [Mass fraction]5.5 %4.5-6.2 [facility] HospitalComment on above:ADA RECOMMENDED LIMIT 4.0 - 6.0ADA THERAPEUTIC TARGET < 7.0ACTION SUGGESTED> 7.0Basophils Auto (Bld) [#/Vol] on 79-38-8598Neznwiiqa (Bld) [#/Vol]0.1 10 3/uL0.0-0.1FBrown Memorial HospitalBasophils/100 WBC Auto (Bld)on 81-70-2408Smqzpuinc/100 WBC (Bld)0.7 % 0.2-2.0[facility] HospitalEosinophils/100 WBC Auto (Bld)on 78-16-4103Praftkwcnle/100 WBC (Bld)1.8 %0.9-7.0[facility] Erythrocyte distribution width Auto (RBC) [Ratio]on 56-26-6470Eflsoleakrv distribution width (RBC) [Ratio]12.5 %11.0-15.0[facility] Hematocrit Auto (Bld) [Volume fraction]on 49-81-8804Dgdosrjbmi (Bld) [Volume fraction]42.9 %36.0-48.0[facility] HospitalHemoglobin [Mass/volume] in Bloodon 88-29-6243Gymefzvccp (Bld) [Mass/Vol]14.4 g/dL12.0-16.0 [facility] HospitalLaboratory - Chemistry and Chemistry - challengeon 81-05-8821Oahz T4 [Mass/Vol]1.46 ng/dL0.76-1.46[facility] HospitalTSH Qn1.846 m[IU]/L0.358-3.740[facility] - Hematology and Cell countson 34-83-7834Yapbinml granulocytes/100 WBC (Bld)0.1 %0.0-0.5FBrown Memorial HospitalLeukocytes [#/volume] corrected for nucleated erythrocytes in Blood by Automated counon 71-84-5657ANT corrected for nucl RBC Auto (Bld) [#/Vol]7.0 10 3/uL4.0-11.0[facility] HospitalLymphocytes Auto (Bld) [#/Vol]on 27-89-3767Byarhkngryq (Bld) [#/Vol]2.8 10 3/uL1.2-3.8[facility] HospitalLymphocytes/100 WBC Auto (Bld)on 08-19-5020Bodptcexdzb/100 WBC (Bld)39.8 %20.5-60.0[facility] HospitalH Auto (RBC) [Entitic mass]on 33-16-8815DAP (RBC) [Entitic mass]28.7 pg26.7-34.0[facility] HospitalMCHC Auto (RBC) [Mass/Vol]on 54-54-5991VZGR (RBC) [Mass/Vol]33.6 g/dL29.9-35.2FBrown Memorial HospitalMCV Auto (RBC) [Entitic vol]on 46-88-6722PKD (RBC) [Entitic vol] 85.6 fL81.0-99.0[facility] HospitalMonocytes Auto (Bld) [#/Vol]on 61-39-8356Wsrwbrkaz (Bld) [#/Vol]0.5 10 3/uL0.3-0.8[facility] HospitalMonocytes/100 WBC Auto (Bld)on 44-55-3516Svjmjydjn/100 WBC (Bld)6.7 % 1.7-12.0[facility] HospitalNeutrophils Auto (Bld) [#/Vol]on 09-71-7466Wxpdrkhbwbv (Bld) [#/Vol]3.6 10 3/uL1.4-6.5FBrown Memorial HospitalNeutrophils/100 WBC Auto (Bld)on 14-30-7797Uompjiamodo/100 WBC (Bld)50.9 % 43.0-75.0[facility] HospitalNo Panel Informationon 06-16-2023 Eosinophils # (Auto)0.1 10 3/uL0.0-0.7FBrown Memorial HospitalImmature Granulocyte # (Auto)0.01 10 3/uL0.00-0.03[facility] Platelet mean volume Auto (Bld) [Entitic vol]on 48-96-0147Epoaxfbd mean volume (Bld) [Entitic vol]11.2 fL9.5-13.5FBrown Memorial HospitalPlatelets Auto (Bld) [#/Vol]on 17-88-7678Pknzqzhdu (Bld) [#/Vol]232 10 3/gB045-893 [facility] HospitalRBC Auto (Bld) [#/Vol]on 97-55-8787IFG (Bld) [#/Vol]5.01 10 6/uL4.20-5.40[facility] HospitalLon 08-26-2022 Specimen: [id number] Received: 08/26/22 Status: PATRICIO Leesstephanie Num: [id number] Spec Type: Surgical Subm Dr: Benja Martin MD Tissues: A Colon Biopsy (SIGMOID POLYP) Procedures: Willy MCCANN/Liana L4 Age/ Patient Sex Location Account Attending Physician Noelle Rosales 47/F [id number] Benja Martin MD SPEC NUM: [id number] RECD: 08/26/22 STATUS: PATRICIO DE LEÓN NUM: [id number] JENNIFER: 08/26/22 DR: Benja Martin MD ENTERED: 08/26/[address] [facility] [address]: SPEC TYPE: Surgical DEPT: S ORDERED: [...] microscopic examination confirms the diagnosis. CPT Codes 65948 Specimen: [id number] Received: 08/26/22 Status: PATRICIO Leesstephanie Num: [id number] Spec Type: Surgical Subm Dr: Benja Martin MD Tissues: A Colon Biopsy (SIGMOID POLYP) Procedures: HE/2, Gross/Micro L4 Patient: Noelle Rosales [id number] (Continued) Signed (signature on file) Kevin-Keyon Mijares MD 08/27/221819[facility] HospitalINSULIN FREE AND TOTALon 10-02-2021 Free Fdmutig58 uU/mLNThe Jewish HospitalCommymichigan medical center clare on above:Result Comment: Reference Range: Pubertal Children and Adults (fasting): 0 - 17Performed By: #### LARS #### [facility] [address] [place] [address] [address] Beata Allental Iwzaarn54 uU/mLNSelect Medical [facility], [place] on above: Result Comment: Non-Diabetic: In the [...] developed and its performance characteristics determined by [employer]. It has not been cleared or approved by the Food and Drug Administration.Performed By: #### LARS #### [facility] [address] [place] [address] Dr. Beata Howard AUTO DIFFon [id number] #0.1 103/ulNormal0.0-0.1The [facility] HospitalComment on above:Performed By: #### FT4 #### [facility] [address] [place] [address] Dr. Beata MijaresBasophils/100 WBC (Bld)0.7 %Normal0.2-2.0[facility] Comment on above:Performed By: #### FT4 #### [facility] [address] [place] [address] Dr. Beata Carbone #0.1 103/ulNormal0.0-0.7The [facility] HospitalComment on above: Performed By: #### FT4 #### [facility] [address] [place] [address] Dr. Beata Shankarosinophils/100 WBC (Bld)1.8 %Normal0.9-7.0[facility] Comment on above:Performed By: #### FT4 #### [facility] [address] [place] [address] Dr. Beata Shankarrythrocyte distribution width (RBC) [Ratio]12.9 %Tjxaly87.0-15.0 The [facility] HospitalComment on above:Performed By: #### FT4 #### [facility] [address] [place] [address] Dr. Beata MijaresHematocrit (Bld) [Volume fraction]42.5 %Bywlld41.0-48.0The [facility] HospitalComment on above:Performed By: #### FT4 #### [facility] [address] [place] [address] Dr. Beata MijaresHemoglobin (Bld) [Mass/Vol]14.3 g/jQCqtkya15.0-16.0The [facility] HospitalComment on above:Performed By: #### FT4 #### [facility] [address] [place] [address] Dr. Beata Ronquillo #0.02 10e3/ulNormal0.00-0.03The [facility] HospitalComment on above:Performed By: #### FT4 #### [facility] [address] [place] [address] Dr. Beata Ronquillo %0.3 %Normal0.0-0.5The [facility] HospitalComment on above: Performed By: #### FT4 #### [facility] [address] [place] [address] Dr. Beata Little #2.5 103/ulNormal1.2-3.8The [facility] HospitalComment on above:Performed By: #### FT4 #### [facility] [address] [place] [address] Dr. Beata Hortonhocytes/100 WBC (Bld)36.1 %Upjoqi11.5-60.0The [facility] HospitalComment on above:Performed By: #### FT4 #### [facility] [address] [place] [address] Dr. Beata Stokcton DIFF REQNONormalThe [facility] HospitalComment on above: Performed By: #### FT4 #### [facility] [address] [place] [address] Dr. Beata Chahal (RBC) [Entitic mass]28.4 gxKussgh36.7-34.0The [facility] HospitalComment on above:Performed By: #### FT4 #### [facility] [address] [place] [address] Dr. Beata Jo (RBC) [Mass/Vol]33.6 g/kRBccsxn72.9-35.2The [facility] HospitalComment on above:Performed By: #### FT4 #### [facility] [address] [place] [address] Dr. Beata Miller (RBC) [Entitic vol]84.3 nCOtklwm71.0-99.0Regional Medical CenterComment on above:Performed By: #### FT4 #### [facility] [address] [place] [address] Dr. Yilan ChangMONO #0.5 103/ulNormal0.3-0.8The [facility] HospitalComment on above:Performed By: #### FT4 #### [facility] [address] [place] [address] Dr. Beata Vasquezocytes/100 WBC (Bld)7.7 %Normal1.7-12.0[facility] Comment on above:Performed By: #### FT4 #### [facility] [address] [place] [address] Dr. Beata DaiUT #3.7 103/ulNormal1.4-6.5The [facility] HospitalComment on above:Performed By: #### FT4 #### [facility] [address] [place] [address] Dr. Beata Daiutrophils/100 WBC (Bld)53.4 %Brbolc39.0-75.0The [facility] HospitalComment on above:Performed By: #### FT4 #### [facility] [address] [place] [address] Dr. Baeta MijaresPlatelet mean volume (Bld) [Entitic vol]11.0 fLNormal9.5-13.5The [facility] HospitalComment on above:Performed By: #### FT4 #### [facility] [address] [place] [address] Dr. Beata MijaresPLT229 103/lgHrayqa801-856Nhg [facility] HospitalComment on above: Performed By: #### FT4 #### [facility] [address] [place] [address] Dr. Beata MuirC5.04 106/ulNormal4.20-5.40The [facility] HospitalComment on above:Performed By: #### FT4 #### [facility] [address] [place] [address] Dr. Beata MijaresWBC6.8 103/ulNormal4.0-11.0The [facility] HospitalComment on above: Performed By: #### FT4 #### [facility] [address] [place] [address] Dr. Beata Salmeron T4on 95-59-6514Xlmz T4 [Mass/Vol]1.19 ng/dLNormal0.76-1.46 The [facility] HospitalComment on above:Performed By: #### FT4 #### [facility] [address] [address] [address] Beata MijaresGLYCOHEMOGLOBIN A1Con 74-38-5989RGR RECOMMENDATIONSEE BELOWNormal The [facility] HospitalComment on above:Result Comment: ADA RECOMMENDED LIMIT 4.0 - 6.0 ADA THERAPEUTIC TARGET < 7.0 ACTION SUGGESTED > 7.0Performed By: #### ESTRADI #### [facility] [address] [address] [address] Beata MijaresGlucose [Mass/Vol]114 mg/dLNormalThe [facility] HospitalComment on above:Performed By: #### ESTRADI #### [facility] [address] [address] [address] Beata MijaresHbA1c (Bld) [Mass fraction]5.6 %Normal4.5-6.2[facility] Medical CenterComment on above:Performed By: #### ESTRADI #### [facility] [address] [address] [address] Beata MijaresMG MAMM SCREEN 3D SHAUN CADon 76-65-2606OY MAMM SCREEN 3D SHAUN CAD Patient: NOELLE ROSALES Exam Date: 09/25/2021 : 1975 Gender:F Ordering : DR MIGNON MUHAMMAD . Admission #: [id number] Family : Order #: [id number] CLICK HERE TO VIEW EXAM RADIOLOGY REPORT [...] colon cancer at age 68. LOCATION: [facility] BREAST COMPOSITION: Heterogeneously dense,which may obscure [...] by: Car Garcia M.D. on 09/25/2021 at 10:20[facility] PANEL 2: 30 to 63on 09-25-2021..[facility] Comment on above:Result Comment: Performed at: WBPerformed By: #### [id number] #### [facility] [address] [place] [address] Dr. Beata MijaresAge Gdln ACOG Esvfxzj71-84ShuwaoQyqBellevue HospitalComment on above:Performed By: #### [id number] #### [facility] [address] [place] [address] Dr. Beata MijaresDIAGNOSIS:CommentNoBellevue HospitalComment on above: Result Comment: NEGATIVE FOR INTRAEPITHELIAL LESION OR MALIGNANCY. THIS SPECIMEN WAS RESCREENED PART OF OUR WEFT STRAIGHTENER PROGRAM. Performed at: WBPerformed By: #### [id number] #### [facility] [address] [place] [address] Dr. Beata MijaresHPV AptimaNegativeNormalNegativeRegional Medical CenterComment on above:Result Comment: This nucleic acid amplification test detects fourteen high-risk HPV types (16,18,31,33,35,39,45,51,52,56,58,59,66,68) without differentiation. Performed at: =GPerformed By: #### [id number] #### [facility] [address] [place] [address] Dr. Beata MijaresMethodology:CommentLicking Memorial HospitalComment on above: Result Comment: This liquid based ThinPrep(R) pap test was screened with the use of an image guided system. Performed at: WBPerformed By: #### [id number] #### [place] [address] [address] Beata MijaresNote:CommentThe [facility] on above:Result Comment: The Pap smear is a screening test designed to aid in the detection of premalignant and malignant conditions of the uterine cervix. It is not a diagnostic procedure and should not be used as the sole means of detecting cervical cancer. Both false-positive and false-negative reports do occur. . Performed at: WBPerformed By: #### [id number] #### [facility] [address] [place] [address] Dr. Beata MijaresPerformed by:CommentThe [facility] Hospital on above: Result Comment: Ping Tijerina, Screen Printer Helper (ASCP) Performed at: WBPerformed By: #### [id number] #### [place] [address] Dr[address] Beata MijaresQC reviewed by:[facility] on above:Result Comment: Kena Sepulveda, Supervisory Screen Printer Helper (ASCP) Performed at: Performed By: #### [id number] #### [place] [address] Dr[address] Beata MijaresSpecimen adequacy:[facility] on above:Result Comment: Satisfactory for evaluation. Endocervical and/or squamous metaplastic cells (endocervical component) are present. Performed at: WBPerformed By: #### [id number] #### [facility] [address] [place] [address] Dr. Beata Wilson 14-15-8679SZL6.833 uIU/mLNormal0.358-3.740The [facility] on above:Performed By: #### TSH #### [place] [address] [address] Beata Dean MELCHOR ADMITon 73-71-1871MD [Catalytic activity/Vol]148 U/L Yuyjam11-490Sbj [facility] on above:Performed By: #### FT4 #### [facility] [address] [address] [address] Beata Rios.MB [Mass/Vol]1.29 ng/mLNormal<=3.60[facility] Comment on above:Performed By: #### FT4 #### [facility] [address] [address] [address] Beata MijaresMYO51 ng/mLNormal9-82The [facility] HospitalComment on above: Performed By: #### FT4 #### [facility] [address] [place] [address] Dr. Beata Howard AUTO DIFFon 41-03-0985UBXC #0.0 103/ulNormal0.0-0.1The [facility] HospitalComment on above:Performed By: #### CBC #### [facility] [address] [place] [address] Dr. Beata MijaresBasophils/100 WBC (Bld)0.4 %Normal0.2-2.0[facility] Comment on above:Performed By: #### CBC #### [facility] [address] [place] [address] Dr. Beata Carbone #0.1 103/ulNormal0.0-0.7The [facility] HospitalComment on above: Performed By: #### CBC #### [facility] [address] [place] [address] Dr. Beata Shankarosinophils/100 WBC (Bld)1.3 %Normal0.9-7.0[facility] Comment on above:Performed By: #### CBC #### [facility] [address] [place] [address] Dr. Beata Shankarrythrocyte distribution width (RBC) [Ratio]12.6 %Yvvqrh99.0-15.0 The [facility] HospitalComment on above:Performed By: #### CBC #### [facility] [address] [place] [address] Dr. Beata MijaresHematocrit (Bld) [Volume fraction]43.3 %Qirhiy03.0-48.0The [facility] HospitalComment on above:Performed By: #### CBC #### [facility] [address] [address] [address] Beata MijaresHemoglobin (Bld) [Mass/Vol]14.3 g/uICnwegx10.0-16.0The [facility] on above:Performed By: #### CBC #### [facility] [address] [address] [address] Beata Roqnuillo #0.02 10e3/ulNormal0.00-0.03The [facility] HospitalCommymichigan medical center clare on above:Performed By: #### CBC #### [facility] [address] [place] [address] Dr. Beata Ronquillo %0.3 %Normal0.0-0.5The [facility] HospitalCommymichigan medical center clare on above: Performed By: #### CBC #### [facility] [address] [place] [address] Dr. Beata Little #2.8 103/ulNormal1.2-3.8The [facility] on above:Performed By: #### CBC #### [facility] [address] [address] [address] Beata Hortonhocytes/100 WBC (Bld)39.4 %Xnhnjx55.5-60.0The [facility] on above:Performed By: #### CBC #### [facility] [address] [address] [address] Beata PetersonUAL DIFF REQNONormalThe [facility] HospitalComment on above: Performed By: #### CBC #### [facility] [address] [place] [address] Dr. Beata Jo (RBC) [Entitic mass]28.5 wbBgvoie56.7-34.0The [facility] on above:Performed By: #### CBC #### [facility] [address] [place] [address] Dr. Beata Jo (RBC) [Mass/Vol]33.0 g/pKRvpcns59.9-35.2The Lucie HospitalComment on above:Performed By: #### CBC #### [facility] [address] [address] [address] Beata Miller (RBC) [Entitic vol]86.3 nGGknqcd16.0-99.0The [facility] HospitalComment on above:Performed By: #### CBC #### [facility] [address] [address] [address] Beata Deleon #0.4 103/ulNormal0.3-0.8The [facility] HospitalComment on above:Performed By: #### CBC #### [facility] [address] [place] [address] Dr. Beata Vasquezocytes/100 WBC (Bld)5.9 %Normal1.7-12.0The [facility] on above:Performed By: #### CBC #### [facility] [address] [place] [address] Dr. Beata Shirley #3.8 103/ulNormal1.4-6.5The [facility] HospitalComment on above:Performed By: #### CBC #### [facility] [address] [place] [address] Dr. Beata Daiutrophils/100 WBC (Bld)52.7 %Ynqlkj12.0-75.0The [facility] Hospitalment on above:Performed By: #### CBC #### [facility] [address] [place] [address] Dr. Beata Martinezlet mean volume (Bld) [Entitic vol]11.1 fLNormal9.5-13.5The [facility] HospitalComment on above:Performed By: #### CBC #### [facility] [address] [place] [address] Dr. Beata MijaresPLT227 103/azLbbaap604-647Tzi [facility] HospitalComment on above: Performed By: #### CBC #### [facility] [address] [place] [address] Dr. Beata MijaresRBC5.02 106/ulNormal4.20-5.40The [facility] HospitalComment on above:Performed By: #### CBC #### [facility] [address] [address] [address] Beata MijaresWBC7.2 103/ulNormal4.0-11.0The [facility] HospitalComment on above: Performed By: #### CBC #### [facility] [address] [address] [address] Beata MijaresPROF CHEM 8 (BAS METB)on 95-80-1852Juixa gap [Moles/Vol]10.2 mmol/LNormalThe [facility] HospitalComment on above:Performed By: #### ESTRADI #### [facility] [address] [place] [address] Dr. Beata MijaresCalcium [Mass/Vol]9.7 mg/dLNormal8.5-10.1[facility] Comment on above:Performed By: #### ESTRADI #### [facility] [address] [place] [address] Dr. Beata MijaresChloride [Moles/Vol]101 mmol/CQfsjwu12-199Zol [facility] Comment on above:Performed By: #### ESTRADI #### [facility] [address] [place] [address] Dr. Beata MijaresCO2 [Moles/Vol]35.1 mmol/LCritically high21.0-32.0The [facility] HospitalComment on above:Performed By: #### ESTRADI #### [facility] [address] [place] [address] Dr. Beata MijaresCreatinine [Mass/Vol]0.88 mg/dLNormal0.55-1.02The [facility] HospitalComment on above:Performed By: #### ESTRADI #### [facility] [address] [place] [address] Dr. Beata ShankarGFR-AF CITIZEN OF [place]>60Normal>=60The [facility] HospitalComment on above:Performed By: #### ESTRADI #### [facility] [address] [place] [address] Dr. Yilan ChangEGFR-NON AF CITIZEN OF [place]>60Normal>=60The [facility] HospitalComment on above:Performed By: #### ESTRADI #### [facility] [address] [place] [address] Dr. Beata MijaresGlucose [Mass/Vol]111 mg/dLCritically vvio03-360Wgm [facility] HospitalComment on above:Performed By: #### ESTRADI #### [facility] [address] [place] [address] Dr. Beata MijaresPotassium [Moles/Vol]3.3 mmol/LCritically low3.5-5.1The [facility] HospitalComment on above:Performed By: #### ESTRADI #### [facility] [address] [place] [address] Dr. Beata MijaresSodium [Moles/Vol]143 mmol/WOswkzc756-678Tnp [facility] Comment on above:Performed By: #### ESTRADI #### [facility] [address] [place] [address] Dr. Beata MijaresUrea nitrogen [Mass/Vol]17.0 mg/dLNormal7.0-18.0The [facility] HospitalComment on above:Performed By: #### ESTRADI #### [facility] [address] [place] [address] Dr. Beata Zepeda nitrogen/Creatinine [Mass ratio]19.3 mg/mgNormalThe [facility] HospitalComment on above:Performed By: #### ESTRADI #### [facility] [address] [place] [address] Dr. Beata Avendano, HIGH SENSITIVITYon 69-67-2131LSJXIQ8.1 pg/mLNormal 4.0-51.3The [facility] HospitalComment on above:Result Comment: CUT-OFF POINTS HAVE BEEN ESTABLISHED BASED ON THE FOURTH UNIVERSAL DEFINITIONS OF MYOCARDIAL INFARCTION. THE UPPER REFERENCE LIMIT (URL) OF TROPONIN, DEFINED THE 99TH PERCENTILE OF cTnI DISTRIBUTION IN A REFERENCE POPULATION, HAS BEEN CONFIRMED THE DECISION THRESHOLD FOR FL DIAGNOSIS.Performed By: #### ESTRADI #### [facility] [address] [place] [address] Dr. Beata MijaresPerformed By: #### FT4 #### [facility] [address] [place] [address] Dr. Cota ChangESTRONEon 74-82-3203Vepinwu, Serum68 pg/mLNormalRegional Medical CenterComment on above:Result Comment: Adult: Follicular phase 39 - 132 Periovulatory 58 - 256 Luteal phase 54 - 179 : 1st trimester 247 - 2774 2nd trimester 569 - 5781 Postmenopausal: with ERT 51 - 488 without ERT 31 - 100Performed By: #### ESTRADI #### [facility] [address] [place] [address] Dr. Beata MijaresTESTOSTERONE, FREE,DIRECT, TOTALon 13-78-3647Whkr Testosterone(Direct)1.7 pg/mLNormal0.0-4.2[facility] Medical CenterComment on above: Result Comment: Performed at: BNPerformed By: #### FT4 #### [facility] [address] [place] [address] Dr. Beata MijaresTestosterone [Mass/Vol]17 ng/dLNormal4-50[facility] Comment on above:Result Comment: Performed at: CBPerformed By: #### FT4 #### [facility] [address] [place] [address] Dr. Beata MijaresCORTISOLon 36-45-2388Tdzvaztk48.6 ug/dLNormalThBrown Memorial HospitalComment on above:Result Comment: Cortisol AM 6.2 - 19.4 Cortisol PM 2.3 - 11.9Performed By: #### ESTRADI #### [facility] [address] [place] [address] Dr. Beata MijaresDHEA-SULFATEon 84-47-2515OIZJ-Bjbzbaq973.0 ug/jZEyoaja17.2-243.7 The [facility] HospitalComment on above:Performed By: #### DHEASUL #### [facility] [address] [place] [address] Dr. Cota ChangESTRADIOLon 81-21-1809Vfdfckdyy92.2 pg/mLNormalThe [facility] HospitalComment on above:Result Comment: Adult Female: Follicular phase 12.5 - 166.0 Ovulation phase 85.8 - 498.0 Luteal phase 43.8 - 211.0 Postmenopausal <6.0 - 54.7 1st trimester 215.0 - >4300.0 Corey ECLIA methodologyPerformed By: #### ESTRADI #### [facility] [address] [place] [address] Dr. Beata MijaresPROGESTERONEon 00-47-7389Wherbjybspiu1.1 ng/mLNormalThe [facility] HospitalComment on above:Result Comment: Follicular phase 0.1 - 0.9 Luteal phase 1.8 - 23.9 Ovulation phase 0.1 - 12.0 First trimester 11.0 - 44.3 Second trimester 25.4 - 83.3 Third trimester 58.7 - 214.0 Postmenopausal 0.0 - 0.1Performed By: #### PROGES #### [facility] [address] [place] [address] Dr. Beata Ibarra HORMONE-BINDING GLOBULINon 20-83-3386Nyf Horm Binding Glob, Serum31.7 nmol/ASijbav55.6-122.0The [facility] HospitalComment on above:Performed By: #### SEXHBG #### [facility] [address] [place] [address] Dr. Beata MijaresT3, TOTAL (TRIIODOTHYRONINE)on 12-41-3512G6, AIWAD898 ng/dLNormal 71-180The [facility] HospitalComment on above:Performed By: #### ESTRADI #### [facility] [address] [place] [address] Dr. Beata MijaresFRTANGELA T4on 13-61-5768Vcny T4 [Mass/Vol]1.29 ng/dLNormal0.78-2.19 The [facility] HospitalComment on above:Performed By: #### ESTRADI #### [facility] [address] [place] [address] Dr. Beata MijaresT4on 38-79-8361J9 [Mass/Vol]6.70 ug/dLNormal5.53-11.00The [facility] HospitalComment on above:Performed By: #### TSH, T4 #### [facility] [address] [place] [address] Dr. Beata Wilson 70-19-3918JUH2.127 uIU/mLNormal0.470-4.680Reg[facility] Medical CenterComment on above:Performed By: #### TSH, T4 #### [facility] [address] [place] [address] Dr. Beata LUNACommunity Memorial HospitalComment on above: Result Comment: <0.34 UIU/ml HYPERTHYROID 0.34-5.60 UIU/ml EUTHYROID >5.60 UIU/ml HYPOTHYROIDPerformed By: #### TSH, T4 #### [facility] [address] [place] [address] Dr. Beata MijaresVITAMIN D 25 OHon 61-43-8030BVN D 25-OH32.0 ng/mLNormalRegional Medical CenterComment on above:Performed By: #### ESTRADI #### [facility] [address] [place] [address] Dr. Beata LUNAKettering Health SpringfieldComment on above: Result Comment: <20 ng/mL Vit D deficient 20 - <30 ng/mL Vit D insufficient 30 - 100 ng/mL Vit D sufficient >100 ng/mL Potential ToxicityPerformed By: #### ESTRADI #### [facility] [address] [place] [address] Dr. Beata MijaresCreatininelu 46-74-5855Hxzszceczo2.87 mg/dLNormal0.50-1.05[facility] HealthcareComment on above:Performed By: #### [id number] ####[facility] [address] [place], [place] [address]jUKR (MDRD) mL/min/{1.73_m2}NormalUNIVERSITY HOSPITALS PORTAGE [facility] HealthcareComment on above:Result Comment: Interpretation for Chronic Kidney Disease:Stages 1&2 >60 Healthy or potential kidney damage.Mild decrease of GFR.Stage 3 30-59 Moderate decrease of GFR.Stage 4 15-29 Severe decrease of GFR.Stage 5 <15 Kidney failure or on dialysis. Performed By: #### [id number] ####[facility] [address] [place], [place] [address]Edminswtnox Panelon 96-41-7712Fqsfs gap11 mmol/L Pqyzxc28-04WFG HealthcareComment on above:Performed By: #### [id number] ####[facility] [address] [place] [address] Bicarbonate (HCO3)32 mmol/FPxjjry30-12KYF HealthcareComment on above:Performed By: #### [id number] ####[facility] [address] [place], [place] [address]Igxscepr535 mmol/ISusolx59-166SIB HealthcareComment on above: Performed By: #### [id number] ####[facility] [address] [place], [place] [address]Qroejvnjj molar conc3.3 mmol/LLow3.5-5.1EMH HealthcareComment on above:Performed By: #### [id number] ####[facility] [address] [place], [place] [address]Dfybfx282 mmol/LNormal 136-145EMH HealthcareComment on above:Performed By: #### [id number] ####[facility] [address] [place], [place] [address]Hwqq Nitrogenon 88-35-6859Leih ybbevzkp07 mg/dLNormal6-23EMH HealthcareComment on above: Performed By: #### [id number] ####[facility] [address] [place], [place] [address]Xryqsffhqbgk 13-44-7349Rxxuespg AcidNegativeNormal NegativeEMH HealthcareComment on above:Performed By: #### [id number] ####[facility] [address] [place], [place] [address]Gaipnmumv Urine MicroscopyPerformedNormalEMH HealthcareComment on above:Performed By: #### [id number] ####[facility] [address] [place], [place] [address]Lisysylfr Ql (U)NegativeNormalNegativeEMH HealthcareComment on above: Performed By: #### [id number] ####[facility] [address], [place] [address]PdbgjSvftpOstkzspvSlpocmnjXYC HealthcareComment on above:Performed By: #### [id number] ####[facility] [address], [place] [address]Wqgdjbkyrqog (RBC)4 /[HPF]Normal0-3EMH HealthcareComment on above:Performed By: #### [id number] ####[facility] [address] [place], [place] [address]Kppswiu mass concNegative NormalNegativeEM HealthcareComment on above:Performed By: #### [id number] ####[facility] [address] [place] [address] ProteinNegativeNormalNegativeEM HealthcareComment on above:Performed By: #### [id number] ####[facility] [address], [place] [address]Uxyjj, appearanceHazyNormalClearE HealthcareComment on above:Performed By: #### [id number] ####[facility] [address], [place] [address]Eaehn, colorYellowNormalE HealthcareComment on above: Performed By: #### [id number] ####[facility] [address], [place] [address]Bfvng, ketones presenceNegativeNormalNegativeEM HealthcareComment on above:Performed By: #### [id number] ####[facility] [address], [place] [address]Rlqwh, nitrite presence NegativeNormalNegativeEM HealthcareComment on above:Performed By: #### [id number] ####[facility] [address] [place] [address] Urine, pH7.0 [pH]Normal5.0-9.0EM HealthcareComment on above:Performed By: #### [id number] ####[facility] [address] [facility], [place] [address]Oquuj, specific gravity1.723Siyoul8.003-1.035EMH HealthcareComment on above:Performed By: #### [id number] ####[facility] [address] [facility], [place] [address]Utbfd, squamous cells in sediment1 /[HPF]Normal 0-5EMH HealthcareComment on above:Performed By: #### [id number] ####[facility] [address] [facility], [place] [address]Dhubc, urobilinogen<2.0NormalNegativeEMH HealthcareComment on above:Performed By: #### [id number] ####[facility] [address] [place] [address], [place] [address]TJN (Leukocytes)1 /[HPF]Normal0-5EMH HealthcareComment on above: Performed By: #### [id number] ####[facility] Ndh[address] [facility], [place] [address]FZR (Leukocytes)NegativeNormalNegativeEMH Healthcare Comment on above:Performed By: #### [id number] ####[facility] Hlg[address] [facility] [place] [address] Vital Signs Date TimeVital SignValuePerforming AkuwybodeSdpxlrdr88-37-8608 13:30-0500Body mrgxqezxbva83.9 [degF]Laly Sy MD Work Phone: [facility]11-03-2025 13:30-0500 Diastolic blood dfphqylb87 mm[Hg]Laly Sy MD Work Phone: [facility]11-03-2025 13:30-0500 Systolic blood kfxygrpl672 mm[Hg]Laly Sy MD Work Phone: [facility]11-03-2025 13:25-0500 Body rgkiix745.64 cmLaly Sy MD Work Phone: [facility]11-03-2025 13:25-0500 Heart rate85 /minLayl Sy MD Work Phone: [facility]11-03-2025 13:25-0500 SaO2% (BldA) [Mass fraction]97 %Laly Sy MD Work Phone: [phone]07-16-2025 01:00-0400 Body pilxby733.64 cmDavid [place]ance [place] [facility] Work Phone: [phone] 01:00-0400Body mass index (BMI) [Ratio]40 kg/o6Nuoqv [place] [facility] 987838-52-9023 01:00-0400Body surface area Derived from formula2.29 d4Jegzt [place]ance [place] - [facility] Work Phone: [phone] 01:00-0400Body qwfvyy530.31 kgDavid Vance [place] [facility] 395284-41-4974 11:27-0400Body ydtihr489.64 cmLaly yS MD Work Phone: [phone] [place], [place] 7610306-26-2025 11:27-0400 Body mass index (BMI) [Ratio]37.1 kg/c4RdufumLaly Sy MD Work Phone: [phone] [place], [place] 7610306-26-2025 11:27-0400 Body fgqmxkjtuzw96 [degF]Laly Sy MD Work Phone: [phone] [place], [place] 7610306-26-2025 11:27-0400 Body shomjz909.32 kgLaly Sy MD Work Phone: [phone] [place], [place] 7610306-26-2025 11:27-0400 Diastolic blood imjsifuf470 mm[Hg]Laly Sy MD Work Phone: [phone] [place], [place] 7610306-26-2025 11:27-0400 Heart rate70 /minLaly Sy MD Work Phone: [facility]06-26-2025 11:27-0400 Respiratory rate18 /minLaly Sy MD Work Phone: [phone]06-26-2025 11:27-0400 SaO2% (BldA) [Mass fraction]96 %Laly Sy MD Work Phone: [facility]06-26-2025 11:27-0400 Systolic blood mm[Hg]Laly Sy MD Work Phone: [facility]02-10-2025 15:30-0500 Body mass index (BMI) [Ratio]38.64 kg/d4Gnhqy Jb [employer] Work Phone: [facility] InstituteWdkuptcjum23-74-2138 15:30-0500Body cdsrsu652.59 kgCorey Jb [employer] Work Phone: [facility] InstituteUzehemtpkl94-86-4593 15:30-0500Diastolic blood jqgrhzym097 mm[Hg]Mignon Jb DO Work Phone: [facility] Cdkwbvxvjp38-00-4586 15:30-0500Systolic blood obnwdhgd327 mm[Hg]Mignon Jb [employer] Work Phone: [facility] Rldkdtvbef81-24-5987 09:45-0500Body .64 cmLaly Sy Other [employer] Other 01-16-2024 09:45-0500Body mass index (BMI) [Ratio] 34.21 kg/z2NtjvmdLaly Sy Other [facility] Other 01-16-2024 09:45-0500Body .16 kgLaly Sy Other [facility] Other 08-28-2023 09:00-0400Body hgbtux812.64 cmLaly Sy Other [facility] Other 08-28-2023 09:00-0400Body mass index (BMI) [Ratio] 34.21 kg/f2ByzlteLaly Sy Other [facility] Other 08-28-2023 09:00-0400Body upndif98.16 kgLaly Sy Other [place] [facility] Other 08-28-2023 09:00-0400Diastolic blood gwfyybwf63 mm[Hg] Laly Sy Other [facility] Other 08-28-2023 09:00-0400Systolic blood axksueml829 mm[Hg] Laly Sy Other [place] [facility] Other 07-20-2023 10:41-0400Diastolic blood feahdzpa58 mm[Hg] MD Laly Sy Work Phone: [phone]07-20-2023 10:41-0400 Heart rate57 /minMD Laly Sy Work Phone: [phone]07-20-2023 10:41-0400 Respiratory rate16 /minMD Laly Sy Work Phone: [phone]07-20-2023 10:41-0400 SaO2% (BldA) [Mass fraction]97 %MD Laly Sy Work Phone: [phone]07-20-2023 10:41-0400 Systolic blood umidmcot238 mm[Hg]MD Laly Sy Work Phone: [phone]07-20-2023 07:54-0400 Body erdlmg074.64 cmMD Laly Sy Work Phone: [phone]07-20-2023 07:54-0400 Body hrutnxpscrr51.1 [degF]MD Laly Sy Work Phone: [phone]07-20-2023 07:54-0400 Body .52 kgMD Laly Sy Work Phone: [facility]06-12-2023 11:00-0400 Body dsedns114.64 cmLaly Sy Other [facility] Other 06-12-2023 11:00-0400Body mass index (BMI) [Ratio]34.7 kg/k2KdibqoLaly Sy Other [facility] Other 06-12-2023 11:00-0400Body nmyxtv51.52 kgLaly Sy Other [facility] Other 06-12-2023 11:00-0400Diastolic blood dfvazoln83 mm[Hg] Laly Kristofer Other [employer] Other 06-12-2023 11:00-0400Systolic blood aznciqqq690 mm[Hg] Laly Kristofer Other [facility] Other 03-22-2023 19:50-0400Body lgxypa326.64 cmProsy Combs Other [facility] Other 03-22-2023 19:50-0400Body mass index (BMI) [Ratio] 32.28 kg/p9WamkpvNorma Combs Other [facility] Other 03-22-2023 19:50-0400Body qnwktjyveku83.3 [degF]Norma Combs Other [facility] Other 03-22-2023 19:50-0400Body mobrpm40.72 kgPalexus Combs Other [facility] Other 03-22-2023 19:50-0400Respiratory rate18 /Sofiya Combs Other [facility] Other 03-22-2023 19:50-9890YlJ1% (BldA) [Mass fraction]97 % Norma Combs Other [facility] Other Encounters Encounter DateEncounter TypeCare ProviderFacilityStart: 12-10-2024 End: 56-86-5677hbymmqzlefBnqbxs E Braun MD Work Phone: -[facility]art: 12-10-2024 End: 27-35-1961Ztjewlm encounter procedureLaly Sy MD-[facility] Work Phone: Start: 41-38-7282Bfxyu Vance [facility] Start: 08-02-2024 End: 30-29-2633prcequiubeIkewoy E Braun MD Work Phone: [facility] Work Phone: Start: 08-02-2024 End: 43-08-1296Milusdb encounter procedureTiffany Person APRN-[facility] Work Phone: Start: 03-19-2024 End: 85-35-0728tjozlwoqsaZHRWZ FAZIONot AvailableStart: 03-19-2024 End: 81-15-2816Yxcdfom encounter procedureCorey Jb DO Work Phone: noms HealthcareStart: 03-19-2024 End: 04-01-8770Tkwahpgx preventive med est patient 40-64yrsCorey Jb DO Work Phone: [facility] BCP OBComment on above:Well woman exam with routine gynecological exam; Encounter for screening mammogram for malignant neoplasm of breast; Postmenopausal stateStart: 03-19-2024 End: 28-84-8550Axbixs flowsheetCorey Jb DO Work Phone: [facility] BCP OBStart: 03-19-2024 End: 06-61-1704Qxmbpy flowsheetCorey Jb DO Work Phone: [facility] BCP OBStart: 03-19-2024 End: 41-42-2319Zsbjvvxfs Result EncounterCorey Jb DO Work Phone: noms External Department UnsolicitedStart: 03-14-2024 End: 87-78-2096Frzcmgnqn Result EncounterCorey Jb DO Work Phone: noms External Department UnsolicitedStart: 03-14-2024 End: 25-05-9335Yhyronvfz Result EncounterCorey Jb DO Work Phone: noms External Department UnsolicitedStart: 02-06-2024 End: 99-92-6609Flajyqgak Result EncounterCorey Jb DO Work Phone: n[facility] External Department UnsolicitedStart: 02-06-2024 End: 47-40-9139Zjshuctvj Result EncounterCorey Jb DO Work Phone: n[facility] External Department UnsolicitedStart: 01-26-2024 End: 80-08-2876Jndhxixpl Result EncounterCorey Jb DO Work Phone: n[facility] External Department UnsolicitedStart: 01-26-2024 End: 36-04-0040Jtkkmqfza Result EncounterCorey Jb DO Work Phone: n[facility] External Department UnsolicitedStart: 09-14-2023 Patient encounter statusLaly Sy MD Work Phone: [facility]: 09-14-2023 End: 06-87-9543edsdrjjcuoJhzjfkzhrAdena [facility] Work Phone: Start: 09-14-2023 End: 17-14-7542Ueywdaq encounter procedureFormerly [facility] Work Phone: Start: 08-25-2023 End: 83-98-3168Hunwajctd Result EncounterCorey Jb DO Work Phone: [facility] External Department UnsolicitedStart: 08-25-2023 End: 80-44-1185Kfdhxfhdl Result EncounterCorey Jb DO Work Phone: noms External Department UnsolicitedStart: 06-23-2023 Non-patient / Non-visitFormerly [facility] Work Phone: Start: 36-56-3088Kfj-patient / Non-visitFormerly [facility] Work Phone: Start: 06-07-2023 End: 79-41-2368vlmxuzbzjpTERMK FAZIONot AvailableStart: 02-22-2023 End: 87-74-5662nvgykjfbpdXmynhm Braun Other [facility] Other Start: 37-71-2763Ihlhkw outpatient visit 15 minutes Laly [facility] Cent[facility]art: 10-25-2022 End: 69-53-4449xltsumyazrNzikzq Kristofer Other [facility] Other Start: 36-26-5375Whawmyzwf encounterMarcia [facility]iilaq Health Centertart: 10-04-2022 End: 85-24-9519nxbsrftjynRtmeda Braun Other [facility] Other Start: 65-28-0220Marwbjlva for general adult medical examination without abnormal findingsMarcia Maniilaq Health Centertart: 72-39-1244Wcctejgg preventive med est patient 40-64yrsMarcia Maniilaq Health Centertart: 08-26-2022 End: 20-03-3554svefdswkaaGkwitm Juana SyFacility:[facility] Daytontart: 08-26-2022 End: 36-50-0533Osclyhrji to same day surgery centerMD Laly Sy Work Phone: [facility] Work Phone: Start: 08-26-2022 End: 16-03-6594uspwlyenqyKC Laly Sy Work Phone: [facility] Work Phone: Start: 08-13-2022 End: 03-88-0426fhbopolbxmXyvvbx Braun Other [facility] Other Start: 49-59-7258Tkvtxrkzd encounterMaravery Chi [facility] ClinicStart: 08-05-2022 End: 72-24-1625ttlinplieiFvfeov Braun Other [employer] Other Start: 92-62-5583Misleyvpi encounterMarciargenis Chi [facility] ClinicStart: 07-26-2022 End: 78-44-3004ftyavmkrgnKgkl Asaad Other [employer] Other Start: 48-47-9861Udtmwfwhk encounterImad AsaadFPG Referral CoordinatorStart: 07-19-2022 End: 26-85-4774iwbxatdqkxMstipg Braun Other [employer] Other Start: 24-03-0237Bkintk outpatient visit 15 minutes Laly Alon [facility] ClinicStart: 04-28-2022 End: 76-14-5114yqbmtweaafMcuvxb Dymond Other [employer] Other Start: 68-52-7006Ohhpid outpatient new 20 minutes Norma CombsFPShadia Urgent Care ClydeStart: 09-25-2021 End: 56-95-2868dpnmlcbpvyLJ MIGNON FAZIOFacility:K6Bcqle: 09-21-2021 End: 38-05-1070bxewyhujwmWI MIGNON FAZIOFacility:N0Unkvq: 06-17-2021 End: 35-58-6713kujycsysojSR LALY SYFacility:U2Fkyox: 12-27-2020 End: 39-95-3340oaxcxhsbhxXH MIGNON FAZIOFacility:V7Vldee: 75-34-3852Ghyoefyhzk MAXIMILIAN P MCGUINNFacility:1532Start: 72-24-7057BfcjhztxezHgvxxsea:9507Start: 37-07-4864YwumlaxzshOLZWSIQ P MCGUINNFacility:1532 Procedures DateProcedureProcedure DetailPerforming ClinicianStart: 08-22-2024 End: 51-40-6325Ymhespck examinationDavihenrietta Vance Start: 68-56-9713CHP,APTIMA HPV,AGE GDLNCorey Jb DO Work Phone: Start: 00-48-2700MIB CBC WITH AUTO DIFFCorey Jb DO Work Phone: Start: 65-21-3330YFI CMP (CMP) (FOR REMOTE [facility] USE) Mignon Jb DO Work Phone: Start: 03-32-1389KJO PREG QUANT HCGCorey Jb DO Work Phone: Start: 26-23-5987LR TOMOSYNTHESIS SCREENING BICorey Jb DO Work Phone: Start: 34-91-6187XtrinjsloawFkjyl Jb DO Work Phone: Start: 74-24-9437XcietbjtpsnLA Laly Sy Work Phone: Start: 34-39-4678Pcupzthcbdy observation [Identifier] in Cervix by Cyto stainCorey Jb DO Work Phone: Start: 06-59-6926Evxmq Ware Plan of Treatment DateCare ActivityDetailAuthorStart: 98-25-8113Mwknkgiie for malignant neoplasm of cervixNOMS HealthcareStart: 04-01-2025 End: 23-50-6422Oqeqabe encounter procedureNOMS [facility] OBStart: 45-15-3168Mdvhptott for malignant neoplasm of breastMammogramNOMS HealthcareStart: 08-22-2024 InPerson; Emp Physical OtherInPerson; Emp Physical OtherIN - [facility] Start: 03-19-2024 End: 55-22-6373Iuansyw encounter zbjphosbr64/10/2025 3:00 PM EST Office Visit [facility] [address] [place] [id number] Mignon Muhammad, DO [address] [place] [address] [facility] OBStart: 03-19-2024 End: 16-45-1533NXU Skeletal system Views for bone densityDEXA bone density Imaging Routine Postmenopausal state Expected: 03/19/2024 (Approximate), Expires:03/19/2025NOWY HealthcareComment on above:Expected: 03/19/2024 (Approximate), Expires: 03/19/2025Start: 03-19-2024 End: 17-70-5109LR Breast - bilateral ScreeningBilateral screening mammogram Imaging Routine Encounter for screening mammogram for malignant neoplasm of breast Expected: 03/19/2024, Expires: 05/17/2025[facility] Work Phone: comment on above:Expected: 03/19/2024, Expires: 05/17/2025Start: 11-39-3840Qlbqphkuf vaccinationInfluenza Vaccine (#1)[facility] HealthcareStart: 88-30-1936NmkoxaywhKindred Hospital Daytontart: 1975 Screening for malignant neoplasm of colonNOMS HealthcareBlood zinc measurement [facility] HospitalMR Brain WO contrastEast [facility] Regional HospitalPatient EducationUc [facility] Work Phone: THIN PREP TIS PAP AND HR HPV DNATHIN PREP TIS PAP AND HR HPV DNA Pathology and Cytology Routine Well woman exam with routine gynecol ogical exam Ordered: 03/19/2024NOWY HealthcareComment on above:Ordered: 03/19/2024TonsillectomyTonsillectomyIN - [facility] 2 [facility] Immunizations Immunization DateImmunizationNotesCare BoprjztpGfgkpzsd64-30-7786GFEX-HEG-5 (COVID-19) vaccine, mRNA, spike protein, LNP, preservative free, 100 mcg/0.5mL doseDavid Avnce [place] - [facility] [id number]-UEL-8 (COVID-19) vaccine, mRNA, spike protein, LNP, preservative free, 100 mcg/0.5mL doseDavid Vance in - [facility] Payers DatePayer CategoryPayerPoldallas county hospital [id number] Health InsuranceFRONTPATH ..[id number] [id number] .[id number] 2.1.723032.3.57[id number] .1.162089.3.57[id number] 2..1.073608.3.57[id number] 2.0.1.349673.3.579.2.[id number] 2..840.1.521171.3.579.[id number] [id number] a5n74vp3-6882-9c70-p4nf-[id number] 2.840.1.306689.3.579.2.531 Social History DateTypeDetailFacilityStart: 70-00-9433Xvq Assigned At [facility] Other Start: 08-26-2022 End: 55-58-8768Tpoedds smoking status NHISNever smoked tobacco (finding) [facility] Daytontart: 41-55-3663Fbp Assigned At [facility] Cantontart: 06-07-2023 End: 37-37-3955Vanifiwpw beverage intakeLifetime non-drinker (finding)NOM[facility] HealthcareStart: 70-35-6851Hgdcssa of Social functionNOMS HealthcareStart: 75-67-1448Tpvvwzs CommentCaffeine: 1-2 cups/dayNOWY HealthcareStart: 1975 Sex assigned at birthNot on filePR[facility] CHILDREN'S [facility]ITAL HealthcareSexFemale (finding)[facility] Daytontart: 81-91-4680AfpNenhrxEJQL Healthcare Medical Equipment Procedure CodeEquipment CodeEquipment Original TextEquipment IdentifierDates ProcedureImplant ([id number]) Goals DatePatient GoalDesired Activity/State Clinical Notes 04-28-2022 to 12-10-2024 Note Date & HwggQwtgJwwzpehw49-70-9397 Evaluation note* Diagnosis Onset Date Resolution Status Admit Date Asthma acuteNovember 2024 1:12pmEssential (primary) hypertensionacuteNovember 2024 1:12pmFatigueacuteNovember 2024 1:12pmHeadacheacuteNovember 2024 1:12pm [facility] Work Phone: [phone]) 784-229402-10-2025 History of Present illness Narrative* Paty Vance, ZOHREH - 03/19/2024 3:00 PM EST Reason [...] Achilles tendinitis Asthma (CMS/HCC) Fertility testing Hypertension ([facility]) Plantar fasciitis, left Vertigo HISTORY PAST MEDICAL [...] DILATION AND CURETTAGE PAP SMEAR 08/26/2021 Normal CA TONSILLECTOMY & ADENOIDECTOMY AGE 10/> REVIEW OF [...] nursing note reviewed. Exam conducted with a leather parts matcher present. Vitals: Estimated body mass index is [...] andpatient given mammogram order to have scheduled/obtained. EMILIA Anaya, called patient to inform her that [facility] (formerly [employer]) does not compound Trizepitide and only Semaglutide. At this time patient would like to restart Semaglutide and that it will be sent to [employer], patient aware that any questions in regards to cost/payment can be directed to [employer]. Orders Placed This Encounter Procedures Bilateral screening mammogram DEXA bone density Follow Up: Patient is to return in one year for annual unless needed otherwise. Documented by Paty Woodard LPN on behalf of: Mignon Muhammad DO documented in this encounterNOMS Xncxgywajx24-00-1974 Evaluation note* Encounter Date Diagnosis Assessment Notes [...] 34.0-34.9, adult (ICD-10 - Z68.34)Form faxed to [employer] for semaglutide - starting dose. Pt unable to report weight, but states she has gained since Hipolitounquangro went up to $900 and she stopped it. She feels poorly and would like the more affordable option at [employer] Other 08-28-2023 Evaluation note* Encounter Date Diagnosis [...] atient is sent home pleased, without concerns. [facility] Other 07-20-2023 [facility]06-[facility]-2023 Evaluation note* Encounter Date Diagnosis Assessment Notes Treatment Notes Treatment Clinical Notes Jul, Rectal bleeding (ICD-10 - K62.5) Jul,olon cancer screening (ICD-10 - Z12.11)as above Jul,Essential (primary) hypertension (ICD-10 - I10)improved. OK to hold med and continue check home bps. Jul,Mitral valve prolapse (ICD-10 - I34.1)chronic problem. continue monitoring symptoms. [facility] Other 03-22-2023 Evaluation note* Encounter Date Diagnosis [...] printed, Tendonitis home care material was printed [facility] Other Evaluation noteNo InformationNort [facility] Other Evaluation noteNo assessment information available [facility] Work Phone: Evaluation note* Diagnosis Well woman exam with routine gynecological exam Routine gynecological examination Encounter for screening mammogram for malignant neoplasm of breast Postmenopausal state Asymptomatic postmenopausal status (age-related) (natural) documented in this encounter NOMS HealthcareEvaluation note* Diagnosis Onset Date Resolution Status Admit Date Low back pain noneactiveJune 2024 11:25am [facility] Work Phone: Evaluation note No assessment recorded. [place] - [facility] History and physical note Author Benja Martin [facility] August 26, 2022 9:34amNote Date/TimeJuly 2022 9:34amAlexander Ville [id number] Gastroenterology H&P Signed Patient: Noelle Rosales MR#: [id number] : 1975 Acct:[id number] Age/Sex: 47 / F Adm Date: 3 Loc: Room: Type: [facility] Attending Dr: Benja Martin [...] <Electronically signed by Benja Martin MD> 08/26/22933 [facility] Work Phone: History general Narrative - Reported* Type Description Date Medical History Hypertension Medical HistoryasthmaMedical Historymitral valve prolapseSurgical History edjkppfkzthog5031Gqutjtgq HistoryC section x 2007Hospitalization History childbirth [facility] Other History general Narrative - Reported* Type Description Date Medical History Hypertension Medical HistoryasthmaMedical Historymitral valve prolapseMedical HistoryInsulin resistanceMedical HistoryHormone imbalanceMedical HistoryInsomniaSurgical Rohjbpwrcfzyfxthghrn3720Bfmkuyfe HistoryC section x 2007Hospitalization Historychildbirth [facility] [employer] Other History general Narrative - Reported* Condition Response Heart Valve Disorder Y Asthma Y Hypertension (High Blood Pressure) Y Gynecological HistoryNo gynecological history recorded. Obstetrics History GPAL:G 0 P 0 0 0 0 [place] [facility] Discharge instructions Additional Instructions DISCHARGE INSTRUCTIONS [...] NOT operate machinery such as power tools, [employer] mowers, [employer] blowers, sewing machines, etc. for 24 hours. [...] pathology -Follow up with PCP. -Office number [phone]. [facility] Work Phone: Reason for referral (narrative)No reason for referral information availableUniversity Hospitals [facility] Work Phone: Summary Purpose Family History Relationship [...] by Organization Details LastModified Time Mother Hypercholesterolemia wpqlmur24Dgp ifqokwyvq34/16/2025 15:59:11MotherDisorder of thyroid gland kbqfqyo33Jft majghoukg24/16/2025 15:59:36EhbgwzIsbkmnpuywpaodct73Czr available 08/22/2024 15:59:11Maternal XhaleskyjxkBamzifkfadsynrl84Xwt /16/2025 15:59:11Paternal GrandfatherAlzheimer's uscaoseujbbxwz97Iur xszoggckn91/16/2025 15:59:11FatherMalignant neoplastic aiusdacbjgbhoq65Cgl fsoyagegh95/16/2025 15:59:11 Advance Directives Advance Directive Response Recorded Date/ Time Advance Directives No August 25 10:32am Advance Directive Response Recorded Date/ Time Advance Directives No August 25 9:32am Reason for Referral Reason *Waiting for appt due for screening colonoscopy and also has rectal bleeding - assumes it is a hemorrhoid - but is concerned. Diagnosis 1 Rectal bleeding (K62 .5) Referral Organization [facility] bhupendra Referring Provider First Name Laly Referring Provider Last Name Kristofer Referring Provider Specialty Family Medi cine Referred Organization [facility] Gastroenterolo gy Referred Provider Ramos Barr Referred Address [address],[facility] [address], [place],[address] Referred Provider Specialty Gastroentero logy Referral Priority Routine General Notes Morena Cohen 12:03:33 PM >received today, sent P2P Chief Complaint and Reason for Visit Chief Complaint Rectal Bleeding Chief Complaint wellness Chief Complaint Admit Date lower back pain, tight muscle August 02, 2024 11:25am Reason for Visit Admit Date Low back pain August 02, 2024 11:2 5am Chief Complaint Admit Date SOB/Headache December 10, 2024 1 :12pm Reason for Visit Admit Date Asthma December 10, 2024 1 :12pm Essential (primary) hypertension Novembe r 2024 1:12pm Fatigue December 10, 2024 1 :12pm Headache December 10, 2024 1 :12pm Additional Source Comments INFORMATION SOURCE (unrecogn ized section and content) DATE CREATED AUTHOR 07/28/2017 [facility] DATE CREATED AUTHOR AUTHOR'S ORGANIZ ATION 07/28/2017 [facility] DATE CREATED AUTHOR AUTHOR'S ORGANIZ ATION 10/04/2021 [facility] DATE CREATED AUTHOR AUTHOR'S ORGANIZ ATION 09/02/2022 [facility] DATE CREATED AUTHOR AUTHOR'S ORGANIZ ATION 03/21/2024 [facility] EPIC REASON FOR VISIT [...] Care Provider Active Start: June 23, 2023 Sabine Costa ProviderActiveStart: June 23, 2023 Team Status: Inactive Member Role Status Dates Laly Sy MD Primary Care Provide r, Attending Provider Active Start: September 14, 2023 End: September 14, 2023 Team Status: Inactive Member Role Status Dates Laly Sy MD Primary Care Provider Active Soni Jones ProviderActiveTeam MemberRelationshipSpecialtyStart DateEnd Date Laly Sy MD [address] [place] [facility] [place] [phone] PCP - [facility]03/19/24Team MemberRelationshipSpecialtyStart DateEnd Date Laly Sy MD [address] [place] [facility] [place] [phone] PCP - [facility]03/19/24Team MemberRelationshipSpecialtyStart DateEnd Date Laly Sy MD [address] [place] [facility] [place] [address] PCP - [facility]03/19/24Team MemberRelationshipSpecialtyStart DateEnd Date Laly Sy MD PCP - [facility]03/19/24 Team Status: Active Member Role/Relationship Status Dates Laly Sy MD Primary Care Provider Active Team Status: Inactive Member Role/Relationship Status Dates Laly Sy MD Primary Care Provider Active Start: December 10, 2024 End: December 10, 2024Soni Pardo ProviderActiveStart: December 10, 2024 End: December 10, 2024 Goals (unrecognized section and content) Goals may [...] BE BASED ON THE PRIMARY CLINICAL RECORDS. [facility] [employer] [facility]. provides no warranty or guarantee of the accuracy or completeness of information in this document.
[2024-12-25] MEDS: ALBUTEROL SULFATE 2.5 MG/3 ML VIAL NEB IH (15:48)
== END 2024-12-25 14:47 | disposition home or self-care (01) ==
LOC: CARD 14:46
PROVIDERS: PCP Family Medicine; Visit Provider Family Medicine
DX: J45.20 Mild intermittent asthma, uncomplicated (principal)
CPT/HCPCS: 94060; 94726; 94729

== ENCOUNTER 2025-01-23 07:01 | Outpatient (OUT) | payer OTHER, SELFPAY ==
--- OUTSIDE RECORDS SUMMARY | 2025-01-23 07:04 | XMS_ITS | Patient Health Record ---
Author Organization [facility] Address [address] [place] [address] Care Team Providers Care Sanitary Napkin Machine Tender Name Role Phone Car Peck [phone] Allergies Allergen (clinical drug ingredient) Drug/Non Drug Allergy documented on EMR Reaction Allergy Type Onset Date Status iodine (uncoded)UnknownAllergyActive Reason For Referral No Information Medications Medication SIG (Take, Route, Frequency, Duration) Notes Start Date End Date Status Mobic 15 mg 1 tab(s) orally once a day; Dura tion: 45 days 2Active Social History Tobacco Use: Social History Observation Description Date Details (start date - stop date) Never Smoker NA - NA Smoking History Question Answer Notes Smoking Status NonSmoker Problems Problem Type SNOMED Code ICD Code Onset Dates Problem Status W/U Status Risk Notes Problem Arthralgia of the pe lvic region and thigh (803670885) Right hip pain (M25.551) ActiveconfirmedProblemTrochanteric bursitis of right hip (809152024948158) Trochanteric bursitis of right hip (M70.61)Activeconfirmed Plan Of Treatment No Information Insurance Providers Payer Name Payer Address Payer Phone Subscriber Number Group Number Insured Name Patient Relationship to Insured Coverage Start Date Coverage End Date [employer] [address] [place] [address] [id number] Noris Smith Self - patient is the insured Medical (General) History Medical History History ICD Code Asthma/COPD Yes High Blood Pressure: YesDo you have a pacemaker or AICD(automatic internal cardiac defibrillator)? NoLatex Allergy NoDrug Allergies: YesBariatric Surgery: NoMedication List 1: ChlorthalidoneSurgical History Surgery Date(Month/Year)
--- OUTSIDE RECORDS SUMMARY | 2025-01-23 07:04 | XMS_ITS | Clinical Summary ---
Author Organization [facility] Address [address] [place] [address] Care Team Providers Care [place] Expert Name Role Phone Laly Miner MD Primary Care Provider [phone] Allergies Active AllergyReactionsCriticalityNoted ThrnXpkfslikQxpjxhYavah60/02/2006 Other Reaction(s): hives Other Reaction(s): Unknown Latex05/14/2005 [...] tablet 1105Active Active Problems ProblemNoted DateDiagnosed DateInsulin ebppsslsfb66/03/2024 Family History Medical HistoryRelationNameCommentsHypertensionFatherLeukemiaFatherStrokeFather RelationNameStatusCommentsFatherAliveMotherAlive Social History Tobacco UseTypesPacks/DayYears UsedDateSmoking Tobacco: Never Tobacco Cessation:Counseling Given: Not Answered Alcohol UseStandard Drinks/WeekCommentsNever0 (1 standard drink = 0.6 oz pure alcohol)Caffeine: 1-2 cups/dayCommentsNoSex and Gender InformationValue Date RecordedSex Assigned at BirthNot on fileLegal NjvOqufnx83/15/2023 7:34 PM EDTGender IdentityNot on fileSexual OrientationNot on file Last Filed Vital Signs Vital SignReadingTime TakenCommentsBlood Qusldjzp276/0167903/19/2024 3:30 PM EST Pulse--Temperature--Respiratory Rate--Oxygen Saturation--Inhaled Oxygen Concentration--Kpntxa461 kg (239 lb 6.4 oz)03/19/2024 3:30 PM GHRVlhjwe068.6 cm (5' 6 )08/27/2019 12:00 PM EDTBody Mass Index38.64008/27/2019 12:00 PM EDT Plan of Treatment DateTypeDepartmentCare Team (Latest Contact Info)Pytnrskskxf47/23/2026 4:00 PM ESTOffice Visit [facility] Lucie [facility] [address] [place] [address] Herb Muhammad DO [address] [place] [address] Insurance Care Teams Team MemberRelationshipSpecialtyStart DateEnd Date Laly Miner MD PCP - GeneralFamily Medicine03/19/24
--- OUTSIDE RECORDS SUMMARY | 2025-01-23 07:04 | XMS_ITS | Patient Health Record ---
Author Organization [facility] [place] Address [address] [place] [address] Support Name Relationship Address Phone Ty Emergency Contact Unknown [phone] Noris Smith Guarantor Unknown Reason For Referral No Information Plan Of Treatment No Information Insurance Providers Payer Name Payer Address Payer Phone Subscriber Number Group Number Insured Name Patient Relationship to Insured Coverage Start Date Coverage End Date SELF PAY ON PATIENT [employer] Damian Smithelf - patient is the [id number]/06/2007
--- OUTSIDE RECORDS SUMMARY | 2025-01-23 07:04 | XMS_ITS | Clinical Summary ---
Author Organization [facility] Address [address] 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
--- NOTE | 2025-01-23 07:06 | MR_ITS ---
The [address] [address] Patient Name: NOELLE ROASLES MRN: [id number] date: 1975 Sex: F Assigned Patient Location: MRI Current Patient Location: Accession/Order Number: [id number] Exam Date: 01/23/2025 07:10 Report Date: 01/24/2025 00:06 At the request of: PETER SY MD Procedure: MR head/brain wo con MR head/brain wo con 01/23/2025 7:54 AM SIGN AND SYMPTOMS: Chronic headaches PROTOCOL: Multiplanar multisequence MR images of the brain without IV contrast COMPARISON: None. FINDINGS: Extra axial spaces: Age appropriate. Hemorrhage: None. Ventricular system: Within normal limits. Basal cisterns: Within normal limits and not effaced. Cerebral parenchyma: Mild nonspecific T2 FLAIR hyperintense signal is noted in the periventricular white matter and right frontal subcortical white matter. Midline shift: None.. Cerebellum: Within normal limits. Brainstem: Within normal limits. OTHER: Calvarium: Normal marrow signal. Vascular system: Satisfactory flow voids within the anterior and posterior circulation. Visualized Paranasal sinuses: Within normal limits. Visualized Orbits: Within normal limits. Visualized upper cervical spine: Within normal limits. Sella and skull base: Within normal limits. MR/MR head/brain wo con IMPRESSION: Mild nonspecific T2 FLAIR hyperintense signal is noted in the periventricular white matter and right frontal subcortical white matter. No acute intracranial pathology. Impression dictated by: Cameron Diallo M.D. 01/24/2025 12:06 AM Dictation Location: [place] [address] Electronically authenticated by: [id number] Y Date: 01/24/2025 00:06
== END 2025-01-23 07:02 | disposition home or self-care (01) ==
LOC: MRI 07:01
PROVIDERS: PCP Family Medicine; Visit Provider Family Medicine
DX: R51.9 Headache, unspecified (principal)
CPT/HCPCS: 70551